=== PATIENT | male | born 1975 | race Caucasian/White ===

== ENCOUNTER 2016-07-24 06:36 | Day surgery (SDC) | payer OTHER ==
--- NOTE | 2016-07-18 10:30 | HISTORY AND PHYSICAL E ---
History and Physical NAME: AR VILLEGAS : 1975 AGE: 41Y ADMITTED: 07/24/2016 ROOM: REFERRING PHYSICIAN: [facility] CHIEF COMPLAINT: Colon screening. HISTORY: This 41-year-old male presented with history of diverticulosis, history of choking, abdominal pain, bloating, hemorrhoids, rectal pain. SOCIAL HISTORY: Single. Does not smoke. Drinks rarely. PAST SURGICAL HISTORY: 1. Keren fundoplication. 2. EGD in 2001. 3. Hiatus hernia. REVIEW OF SYSTEMS: HEENT: Negative. RESPIRATORY: Sleep apnea, CPAP. CARDIAC: Negative. ENDOCRINE: Hypothyroid. GASTROINTESTINAL: Colon screening, abdominal pain. ONCOLOGY/HEMATOLOGY: History of HIV positive. NEUROPSYCH: PTSD. FAMILY HISTORY: Father is alive. Mom is alive. PHYSICAL EXAMINATION: VITAL SIGNS: Blood pressure is 130/80, pulse 80, respirations 20, temp 98. HEENT: Normal. NECK: Supple. LUNGS: Clear. ABDOMEN: Soft. NEUROLOGIC: Negative. MEDICATIONS: The patient takes the following medications: 1. Omeprazole. 2. Phenergan. 3. Mineral oil enemas. 4. Tramadol. 5. Zyrtec. 6. Promethazine. 7. Advair. 8. Synthroid. 9. Mericitabine. 10. Diazepam. 11. Atazanavir. CONCLUSIONS: 1. Abdominal pain. 2. Diverticulosis. 3. History of HIV. PLAN: Colon screening. DICTATING PHYSICIAN: PEDRO CORONA M.D. [id number] PHY#: [id number] ID: [id number] JOB#: [id number] ACCT: [id number] cc:PEDRO CORONA M.D. >
--- NOTE | 2016-07-20 11:05 | EKG REPORT ---
SEVERITY:- NORMAL ECG - SINUS RHYTHM : Confirmed by: Guadalupe Jackson MD 20-Jul-2016 11:04:31
[2016-07-20 12:00] LABS: HEMATOCRIT 41.4 % (37.9-51.0); HEMOGLOBIN 14.3 g/dL (13.5-17.0); HGB HCT DIFFERENCE 1.5; MEAN CORPUSCULAR HEMOGLOBIN 30.9 pg (27.0-33.4); MEAN CORPUSCULAR HGB CONC 34.5 g/dL (32.0-36.0); MEAN CORPUSCULAR VOLUME 90 fl (80-97); RED BLOOD COUNT 4.61 10^6/uL (4.35-5.55); RED CELL DISTRIBUTION WIDTH 12.7 % (11.5-14.0); WHITE BLOOD COUNT 8.3 10^3/uL (4.0-10.5)
[2016-07-20 12:35] LABS: ANION GAP 10 (5-19); BLOOD UREA NITROGEN 13 mg/dL (7-20); CALCIUM 9.4 mg/dL (8.4-10.2); CARBON DIOXIDE 30 mmol/L (22-30); CHLORIDE 101 mmol/L (98-107); CREATININE RESULT 1.27 mg/dL (0.52-1.25); GLUCOSE 118 mg/dL (75-110); POTASSIUM 4.1 mmol/L (3.6-5.0); SODIUM 140.5 mmol/L (137-145)
[~2016-07-24 06:36] MED LIST: LACTATED RINGERS 1000 ML IV PRN; LIDOCAINE 0.5% INJ-PF (5 MG/ML) 50 ML SDV SUBCUT PRN
[2016-07-24] MEDS ORDERED: MIDAZOLAM 2 MG/2 ML INJ ONE (07:17)
[2016-07-24] MEDS ORDERED: LIDOCAINE 2% INJ-PF (20 MG/ML) 10 ML AMPUL ONE (07:17)
[2016-07-24] MEDS ORDERED: FENTANYL CITRATE INJ/PF 100 MCG/2 ML AMPUL ONE (07:17)
[2016-07-24] MEDS ORDERED: PROPOFOL INJ 200 MG/20 ML VIAL IV ONE (07:18)
[2016-07-24] MEDS ORDERED: LIDOCAINE 2% JELLY 30 ML TUBE ONE (07:34)
[2016-07-24] MEDS ORDERED: GLUCAGON,HUMAN RECOMB 1 MG INJ ONE (07:34)
[2016-07-24] MEDS ORDERED: MORPHINE SULFATE 10 MG/ML INJ IV PRN (09:08)
[2016-07-24] MEDS ORDERED: ONDANSETRON HCL INJ/PF 4 MG/2 ML SDV IV PRN (09:08)
[2016-07-24] MEDS ORDERED: MEPERIDINE HCL/PF INJ 25 MG/1 ML DISP.SYRIN IV PRN (09:08)
[2016-07-24] MEDS ORDERED: FENTANYL CITRATE INJ/PF 100 MCG/2 ML AMPUL IV PRN ×3 (09:08)
[2016-07-24] MEDS ORDERED: OXYCODONE-ACETAMINOPHEN 5-325 MG TABLET PO PRN ×2 (09:08)
[2016-07-24] MEDS ORDERED: DIPHENHYDRAMINE HCL 50 MG/ML VIAL IV PRN (09:08)
[2016-07-24] MEDS ORDERED: PROMETHAZINE HCL INJ 25 MG/1 ML VIAL IV PRN ×3 (09:08→09:47)
[2016-07-24] MEDS ORDERED: ONDANSETRON HCL INJ/PF 4 MG/2 ML SDV ONE (09:36)
[2016-07-24] MEDS ORDERED: LIDOCAINE 2% VISCOUS SOLN 20 ML UDCUP MM PRN (09:47)
[2016-07-24] MEDS ORDERED: ACETAMINOPHEN 325 MG TABLET PO PRN (09:47)
[2016-07-24] MEDS ORDERED: SIMETHICONE 80 MG TAB.CHEW PO PRN (09:48)
[2016-07-24 11:28] VITALS: BP 112/78
--- NOTE | 2016-07-24 11:33 | HISTORY AND PHYSICAL E ---
History and Physical NAME: AR VILLEGAS : 1975 AGE: 41Y ADMITTED: 07/24/2016 ROOM: HISTORY OF PRESENT ILLNESS: The patient is a 41-year-old referred to us by the [place] regarding vomiting, choking, history of Keren fundoplication. History of diverticulosis, diverticulitis. The patient has been to [facility]. The MRI was consistent with diverticulitis. The patient was treated with antibiotics. The patient is on treatment for HIV and he is negative for the virus at this time. History of hemorrhoids. PAST SURGICAL HISTORY: Keren fundoplication in 2001. SOCIAL HISTORY: The patient is single. FAMILY HISTORY: Father is alive. Mom is alive. MEDICATIONS: The patient takes the followin. Citalopram. 2. Atazanavir 1 tablet 300 mg. 3. Diazepam. 4. Emtricitabine. 5. Synthroid. 6. Advil. 7. Promethazine. 8. Zyrtec. 9. Tramadol. 10. Vitamin D. 11. Mineral oil enemas. 12. Omeprazole. REVIEW OF SYSTEMS: HEAD, EYES, EARS, NOSE, THROAT: Sinuses. RESPIRATORY: CPAP - sleep apnea. CARDIAC: Enlarged heart. ENDOCRINE: Hypothyroid. GASTROINTESTINAL: Colon screening. Abdominal pain. Keren fundoplication. ONCOLOGIC/HEMATOLOGIC: HIV positive. NEUROPSYCHIATRIC: PTSD. PHYSICAL EXAMINATION: GENERAL: Pleasant, alert, oriented 40-year-old male, weight 330. VITAL SIGNS: Blood pressure is 130/80, pulse 80, respirations 18, temp is 98. HEAD, EYES, EARS, NOSE, THROAT: Normal. ABDOMEN: Soft. NEUROLOGIC: Exam negative. CONCLUSION: 1. Hemorrhoids. 2. Rectal bleeding. 3. Keren fundoplication. PLAN: Arrange for colonoscopy to be done in the OR. The patient needs to have barium swallow for evaluation of Keren fundoplication, upper GI. Later on, he may need upper endoscopy. As for now, we will schedule for a colonoscopy on 07/18. DICTATING PHYSICIAN: PEDRO CORONA M.D. [id number] PHY#: [id number] ID: [id number] JOB#: [id number] ACCT: [id number] cc:[facility] PEDRO CORONA M.D. >
--- NOTE | 2016-07-24 11:36 | OPERATIVE REPORT E ---
Operative Report NAME: AR VILLEGAS : 1975 AGE: 41Y DATE OF SURGERY: 07/21/2016 ROOM: PREOPERATIVE DIAGNOSES: 1. COLON SCREENING. 2. DIVERTICULOSIS. POSTOPERATIVE DIAGNOSIS: SIGMOID DESCENDING DIVERTICULOSIS. OPERATION: Colonoscopy. SURGEON: PEDRO CORONA M.D. ANESTHESIA: Done in the OR with anesthesia standby. TISSUE REMOVED OR ALTERED: None. PROCEDURE: Rectal exam; normal. Sigmoid descending colon; diverticulosis. Large amount of stool. Transverse colon; normal. Ascending colon; normal. Cecum; normal. Scope withdrawn cecum, ascending, transverse, descending, sigmoid all the way to the rectum. The patient has moderate to large amount of liquidy to full liquid stool in the sigmoid descending colon, transverse colon. Prep was inadequate. I did the best I could, I just could not see the mucosa 100% because of thick layer of full liquid stool in the descending. I did not see polyps on today's exam. Rectal exam; retroflexed position looks normal. Sigmoid descending colon; diverticulosis. Large amount of full liquid stool. Transverse colon; normal. Ascending and cecum; normal. Scope withdrawn cecum, ascending, transverse, descending, sigmoid all the way to the rectum. CONCLUSIONS: Sigmoid descending colon diverticulosis. DISCHARGE PLAN: Consider followup colonoscopy 1 year with better prep to be done in the OR. FINDINGS: 1. No polyps. 2. Inadequate prep. 3. Sigmoid descending colon diverticulosis. Consider followup colonoscopy in OR with better prep. DICTATING PHYSICIAN: PEDRO OCRONA M.D. [id number] PHY#: [id number] ID: [id number] JOB#: [id number] ACCT: [id number] cc:[facility], PEDRO CORONA M.D. >
--- NOTE | 2016-07-24 11:39 | DISCHARGE SUMMARY E ---
Discharge Summary NAME: AR VILLEGAS : 1975 AGE: 41Y ADMITTED: 07/24/2016 DISCHARGED: 07/21/2016 PROCEDURE: Colonoscopy. HISTORY: The patient is a 41-year-old male referred to us by [facility] regarding colon screening, history of diverticulosis, history of polyps. Today's colonoscopy completed to the cecum. I saw no polyps, sigmoid descending colon diverticulosis, inadequate prep. DISCHARGE PLAN: Soft diet today. Continue all medications. Consideration for followup colonoscopy in 3 years. Followup office visit in the next few days. Consideration followup colonoscopy in 1 year in the OR with anesthesia standby. DICTATING PHYSICIAN: PEDRO CORONA M.D. [id number] PHY#: [id number] ID: [id number] JOB#: [id number] ACCT: [id number] cc:[facility], PEDRO CORONA M.D. >
== END 2016-07-24 11:20 | disposition home or self-care (01) ==
LOC: OROUT 06:36
PROVIDERS: ATTEND Specialist
PROC: 0DJD8ZZ Inspection of Lower Intestinal Tract, Via Natural or Artificial Opening Endoscopic (ICD-10-PCS; principal; 2016-07-24 09:00)
DX: K57.30 Diverticulosis of large intestine without perforation or abscess without bleeding (principal); I10 Essential (primary) hypertension; E66.9 Obesity, unspecified; I51.7 Cardiomegaly; E03.9 Hypothyroidism, unspecified; K62.5 Hemorrhage of anus and rectum; Z21 Asymptomatic human immunodeficiency virus [HIV] infection status; G47.33 Obstructive sleep apnea (adult) (pediatric); Z68.42 Body mass index [BMI] 45.0-49.9, adult; Z79.899 Other long term (current) drug therapy; Z79.51 Long term (current) use of inhaled steroids
CPT/HCPCS: 45378; 93005; 36415; 85027; 80048; 93010; J2250; J1610; J2405; J2704; J3490; 810; J3010

== ENCOUNTER 2017-11-08 07:21 | Day surgery (SDC) | payer OTHER ==
[2017-11-08] MEDS ORDERED: ONDANSETRON HCL INJ/PF 4 MG/2 ML SDV ONE ×2 (07:46→07:47)
[2017-11-08] MEDS ORDERED: DIPHENHYDRAMINE HCL 50 MG/ML VIAL ONE (07:47)
[2017-11-08] MEDS ORDERED: FENTANYL CITRATE INJ/PF 100 MCG/2 ML AMPUL ONE (07:47)
[2017-11-08] MEDS ORDERED: EPINEPHRINE INJ 1 MG/10 ML DISP.SYRIN ONE (07:48)
[2017-11-08] MEDS ORDERED: FLUMAZENIL INJ 0.5 MG/5 ML VIAL ONE (07:48)
[2017-11-08] MEDS ORDERED: NALOXONE HCL INJ/PF 0.4 MG/1 ML SDV ONE (07:48)
[2017-11-08] MEDS ORDERED: GLUCAGON,HUMAN RECOMB 1 MG INJ ONE (07:48)
[2017-11-08] MEDS: MIDAZOLAM 2 MG/2 ML INJ ONE ×2 (08:01→08:05)
--- NOTE | 2017-11-08 08:19 | Operative Report ---
Operative Report DATE OF SURGERY: 11/08/17 Operative Report: The risks benefits and alternatives of the procedure explained to the patient in detail and informed consent is obtained.A GIF Olympus video scope was inserted into the patient's mouth and hypopharynx, the esophagus is identified intubated and insufflated, the scope was then advanced through the esophagus stomach and duodenum, retroflexion maneuver is done, the esophagus stomach and first and second portions of the duodenum examined PREOPERATIVE DIAGNOSIS: Globus, epigastric pain, gastroesophageal reflux disease POSTOPERATIVE DIAGNOSIS: Hiatal hernia. Schatzki's ring status post biopsy and breakage. Gastritis status post biopsy rule out Helicobacter pylori OPERATION: EGD with biopsy SURGEON: DEDRICK GALAN ANESTHESIA: Moderate Sedation - 4 mg of Versed, 50 mcg of fentanyl. Conscious sedation monitoring time 30 minutes. TISSUE REMOVED OR ALTERED: As noted above. COMPLICATIONS: None. ESTIMATED BLOOD LOSS: None. INTRAOPERATIVE FINDINGS: As noted above. PROCEDURE: Patient tolerated the procedure well. No immediate postprocedure complications are noted. Patient discharged in good condition. Discharge date 11/08/2017. Discharge diet: Regular. Discharge activity: Regular. 2-3-week follow-up to discuss findings. Patient is instructed call the office or proceed to the emergency room should there be any further problems or questions. Wait on the pathology.
[2017-11-08 09:20] VITALS: BP 139/70
== END 2017-11-08 09:20 | disposition home or self-care (01) ==
LOC: END 07:21
PROVIDERS: ATTEND Internal Medicine Gastroenterology
DX: K21.0 Gastro-esophageal reflux disease with esophagitis (principal); K44.9 Diaphragmatic hernia without obstruction or gangrene; K22.2 Esophageal obstruction; K29.50 Unspecified chronic gastritis without bleeding; E03.9 Hypothyroidism, unspecified; I10 Essential (primary) hypertension; M19.90 Unspecified osteoarthritis, unspecified site; Z21 Asymptomatic human immunodeficiency virus [HIV] infection status; G47.30 Sleep apnea, unspecified; E83.51 Hypocalcemia; G62.9 Polyneuropathy, unspecified; Z79.899 Other long term (current) drug therapy
CPT/HCPCS: 43239; 88305 ×2; J2250; J3010; J2405; J0171; J1200; J1610; J2310; J3490

== ENCOUNTER 2018-02-18 21:30 | Inpatient (IN) | payer OTHER ==
[2018-02-18] MEDS ORDERED: NORMAL SALINE 1000 ML 1,000 ML IV ONE ×2 (22:35→23:04)
--- NOTE | 2018-02-18 22:39 | ER Document Report ---
ED General <JAMIE STAPLETON - Last Filed: 02/19/18 02:49> - General TRAVEL OUTSIDE OF THE [place] IN LAST 30 DAYS: No <KURTIS RAMOS - Last Filed: 02/19/18 03:27> - General Chief Complaint: Cough Stated Complaint: FEVER/NAUSEA Time Seen by Provider: 02/18/18 22:27 Notes: Patient is a 42-year-old male with a history of hypertension, HIV (viral load undetectable on medications), obesity, MAGDALENA that comes to the emergency department for chief complaint of worsening sick symptoms. He states for the past 2 weeks he has had a cough, congestion, and was diagnosed with bronchitis. He completed a course of azithromycin about 3 days ago. He states over the past several days he has felt increasingly worse, he felt like he was running fevers at home over the past 24 hours, he has had increased cough and shortness of breath. He states he has had several episodes of vomiting as well. He has had the influenza vaccine, had negative influenza testing already. He denies sm oking. He does have a history of asthma. (KURTIS RAMOS) - Related Data Allergies/Adverse Reactions: seasonal Allergy (Severe, Uncoded 11/08/17 07:27) Rhinitis Past Medical History - General Information source: Patient - Social History Smoking Status: Never Smoker Lives with: Friend Family History: Reviewed & Not Pertinent Patient has suicidal ideation: No Patient has homicidal ideation: No - Past Medical History Cardiac Medical History: Reports: Hx Hypertension Denies: Hx Coronary Artery Disease, Hx Heart Attack Pulmonary Medical History: Denies: Hx Asthma, Hx Bronchitis, Hx COPD, Hx Pneumonia Neurological Medical History: Denies: Hx Cerebrovascular Accident, Hx Seizures Renal/ Medical History: Denies: Hx Peritoneal Dialysis Musculoskeletal Medical History: Denies Hx Arthritis Infectious Medical History: Reports: Hx HIV - Immunizations Hx Diphtheria, Pertussis, Tetanus Vaccination: Yes <KURTIS RAMOS - Last Filed: 02/19/18 03:27> Review of Systems - Review of Systems Constitutional: See HPI EENT: No symptoms reported Cardiovascular: No symptoms reported Respiratory: See HPI Gastrointestinal: No symptoms reported Genitourinary: No symptoms reported Male Genitourinary: No symptoms reported Musculoskeletal: No symptoms reported Skin: No symptoms reported Hematologic/Lymphatic: No symptoms reported Neurological/Psychological: No symptoms reported <KURTIS RAMOS - Last Filed: 02/19/18 03:27> Physical Exam <KURTIS RAMOS - Last Filed: 02/19/18 03:27> - Vital signs Vitals: Temp Pulse Resp BP Pulse Ox 99.7 F 128 H 22 H 96/52 L 95 02/18/18 22:06 02/18/18 22:06 02/18/18 22:06 02/18/18 22:06 02/18/18 22:06 - Notes Notes: GENERAL: Alert, interacts well. HEAD: Normocephalic, atraumatic. EYES: Pupils equal, round, and reactive to light. Extraocular movements intact. ENT: Oral mucosa dry, tongue midline. Oropharynx unremarkable. Airway patent. Nares patent, no nasal septal hematoma, TM's intact. NECK: Full range of motion. Supple. Trachea midline. LUNGS: A few coarse breath sounds bilaterally, no wheezes, rales, or rhonchi. Borderline tachypnea. Talks in complete sentences. HEART: Tachycardia, normal rhythm, no murmur. ABDOMEN: Soft, non-tender. Bowel sounds present in all 4 quadrants. GENITOURINARY: Deferred EXTREMITIES: Moves all 4 extremities spontaneously. No edema, normal radial and dorsalis pedis pulses bilaterally. No cyanosis. BACK: no cervical, thoracic, lumbar midline tenderness. No saddle anesthesia, normal distal neurovascular exam. NEUROLOGICAL: Alert and oriented x3. Normal speech. [cranial nerves II through XII grossly intact]. PSYCH: Normal affect, normal mood. SKIN: Warm, flushed (RICHARDKURTIS) Course - Laboratory Result Diagrams: 02/18/18 22:23 02/18/18 22:23 <JAMIE STAPLETON - Last Filed: 02/19/18 02:49> - Laboratory Result Diagrams: 02/18/18 22:23 02/18/18 22:23 <KURTIS RAMOS - Last Filed: 02/19/18 03:27> - Re-evaluation Re-evalutation: 02/19/18 02:49 I evaluated the patient as well. Patient's blood pressure is improved on the levofed. I suspect that the patient probably he has influenza as he has symptoms very consistent with flu. I know his flu testing here is negative; however, have had false negative flu tests at times. I therefore recommend treating him with Tamiflu. He says he is very compliant with his HIV medications. He tells me that his viral load is nondetectable and that his CD4 counts are good. This in conjunction with the fact that he is not confused or altered in any way makes toxoplasmosis or any form of encephalitic infection unlikely. Patient has full range of motion of his neck and is not confused and has no neck tenderness and therefore I think meningitis is highly unlikely. C hest x-ray shows no pneumonia. I do suspect influenza; however, being that the patient does not have blood culture results as of yet and we do not have a 100% confirmed source on lab results I feel it is appropriate to cover him with broad-spectrum antibiotics as [facility] has already initiated. [facility] initially tried to admit the patient here but the hospitalist, Dr. Lee, initially refused saying that we do not have infectious disease or ICU beds; however, we do have infectious disease consulting ability during the daytime. We talked to the patient and he says the only other place that he would want to go is [place]. We did call [facility] in [place] per patient request and they do not have any bed availability. At this time I see no other reason why we cannot keep the patient here as we do have the ability to consult infectious disease and other facilities have shown that they are also on the delay in full. I therefore called back Dr. Lee informed him that from an EMTALA standpoint I do not have a good reason to transfer the patient being that we do have the ability to consult infectious disease. He now agrees to come see the patient and evaluate for admission. Dictation of this chart was performed using voice recognition software; therefore, there may be some unintended grammatical errors. 02/19/18 02:54 (JAMIE STAPLETON) Patient on initial evaluation is ill-appearing, tachycardic, flushed, has frequent cough. Started initial 2 L fluid bolus, Toradol, we will closely reevaluate. Patient's blood pressure initially improved, however after 2 L of fluid bolus he is now back into the 80s systolic. Giving 1 more. Lactic acid 2.9. CBC is generally unremarkable with no leukocytosis or concerning shift. Chemistry unremarkable. Chest x-ray does not show any obvious pneumonia. Influenza test is negative. Patient is persistently tachycardic. 02/19/18 01:40 Patient has now had more than 30 minutes of map less than 65 despite 3 L fluid bolus. I discussed with patient, he does agree to have central line placed. Because of patient's large neck and difficult body habitus this will be placed in the femoral area. Discussed with Dr. Stapleton. I placed a central line in the femoral area (patient has a very difficult neck to access). Patient was started on levophed. Blood pressure significantly improved on pressor. Patient with no current complaints except for nausea after being given Tamiflu. He was given Tamiflu because of patient's viral-like symptoms and high suspicion despite negative flu test. Discussed with Dr. Lee. Concerns we do not have ID fusion operator. Called and spoke with the [facility], they do not have any available beds at this time, they have a long waiting list. Attempted to speak with [place], stayed on hold for 20 minutes, called trauma line and they state their phone lines are being worked on tonight. Unable to speak to transfer center even though trauma line attempted to bypass, remained on hold for 10 more minutes. Discussed again with Dr. Stapleton. We do have ID available for day consult. Discussed with patient. He is in agreement with either admission or transfer. (KURTIS RAMOS) - Vital Signs Vital signs: Temp Pulse Resp BP Pulse Ox 98.6 F 128 H 23 H 113/67 97 02/19/18 02:58 02/18/18 22:06 02/19/18 02:52 02/19/18 02:52 02/19/18 02:52 - Laboratory Laboratory results interpreted by la: 02/18/18 02/18/18 02/18/18 22:23 22:23 22:23 RBC 4.24 L Hgb 13.1 L Hct 37.8 L RDW 14.8 H Monocytes % (Manual) 16 H Abs Monocytes (Manual) 1.6 H Sodium 136.7 L Glucose 133 H Lactic Acid 2.9 H Total Bilirubin 2.8 H ALT 98 H Total Protein 6.1 L Urine Urobilinogen Urine Ascorbic Acid 02/18/18 23:00 RBC Hgb Hct RDW Monocytes % (Manual) Abs Monocytes (Manual) Sodium Glucose Lactic Acid Total Bilirubin ALT Total Protein Urine Urobilinogen 2.0 H Urine Ascorbic Acid 40 H Procedures - Central Line left femoral Consent obtained: Yes - verbal, discussed pros and cons in detail Central line pre-insertion: Sterile PPE donned, Betadine prep applied, Sterile drapes applied Central line lumen type: Triple Anesthetic type: 1% Lidocaine mL's of anesthesia: 5 Ultrasound guided: Yes Line secured with sutures: Yes Central line post-insertion: Blood return from lumens, Biopatch applied, Sutured, Sterile dressing applied Number of attempts: 1 Complications: No <KURTIS RAMOS - Last Filed: 02/19/18 03:27> Critical Care Note - Critical Care Note Total time excluding time spent on procedures (mins): 40 - septic shock <KURTIS RAMOS - Last Filed: 02/19/18 03:27> - Critical Care Note Comments: Please allow 40 minutes of critical care time excluding time spent on procedures for management of patient with septic shock. Time spent in laboratory interpretation, IV fluid resuscitation, broad-spectrum antibiotics applied, multiple re-evaluations due to tachycardia and hypotension, discussions at bedside, considerations of transfer, consultation and admission to the ICU. (KURTIS RAMOS) Discharge <JAMIE STAPLETON - Last Filed: 02/19/18 02:49> - Discharge Admitting Provider: Hospitalist Unit Admitted: ICU <KURTIS RAMOS - Last Filed: 02/19/18 03:27> - Discharge Clinical Impression: Cough, Tachycardia Fever Qualifiers: Fever type: unspecified Qualified Code(s): R50.9 - Fever, unspecified Hypotension Qualifiers: Hypotension type: unspecified hypotension type Qualified Code(s): I95.9 - Hypotension, unspecified Condition: Fair Disposition: ADMITTED INPATIENT
[2018-02-18 22:57] LABS: VENOUS BLOOD BASE EXCESS 3.7 mmol/L; VENOUS BLOOD HCO3 29.5 mmol/L (20-32); VENOUS BLOOD PH 7.42 (7.30-7.42)
[2018-02-18 22:58] LABS: HEMATOCRIT 37.8 % (37.9-51.0); HEMOGLOBIN 13.1 g/dL (13.5-17.0); MEAN CORPUSCULAR HEMOGLOBIN 30.9 pg (27.0-33.4); MEAN CORPUSCULAR HGB CONC 34.6 g/dL (32.0-36.0); MEAN CORPUSCULAR VOLUME 89 fl (80-97); PLATELET COUNT 219 10^3/uL (150-450); RED BLOOD COUNT 4.24 10^6/uL (4.35-5.55); RED CELL DISTRIBUTION WIDTH 14.8 % (11.5-14.0); WHITE BLOOD COUNT 9.8 10^3/uL (4.0-10.5)
--- NOTE | 2018-02-18 23:00 | RADIOLOGY REPORT (SQ) ---
EXAM DESCRIPTION: XR CHEST 1 VIEW COMPLETED DATE/TME: 02/18/2018 22:33 CLINICAL HISTORY: 42 years, Male, productive cough, fevers COMPARISON: None. NUMBER OF VIEWS: 1 TECHNIQUE: Upright portable chest LIMITATIONS: None. FINDINGS: Cardiomegaly. Lungs are clear. No pneumothorax IMPRESSION: Cardiomegaly. Lungs are clear copyright 2011 [employer]- All Rights Reserved
[2018-02-18 23:06] LABS: ALANINE AMINOTRANSFERASE 98 U/L (21-72); ALBUMIN 3.9 g/dL (3.5-5.0); ALKALINE PHOSPHATASE 54 U/L (38-126); ANION GAP 12 (5-19); ASPARTATE AMINO TRANSFERASE 54 U/L (17-59); BILIRUBIN,DIRECT 0.2 mg/dL (0.0-0.4); BILIRUBIN,TOTAL 2.8 mg/dL (0.2-1.3); BLOOD UREA NITROGEN 8 mg/dL (7-20); CALCIUM 9.3 mg/dL (8.4-10.2); CARBON DIOXIDE 27 mmol/L (22-30); CHLORIDE 98 mmol/L (98-107); GLUCOSE 133 mg/dL (75-110); POTASSIUM 3.6 mmol/L (3.6-5.0); SODIUM 136.7 mmol/L (137-145); TOTAL PROTEIN 6.1 g/dL (6.3-8.2)
[2018-02-18 23:09] LABS: APPEARANCE,URINE SLIGHTLY-CLOUDY; BILIRUBIN,URINE NEGATIVE (NEGATIVE); COLOR,URINE YELLOW; GLUCOSE, URINE NEGATIVE (NEGATIVE); KETONES,URINE NEGATIVE (NEGATIVE); LEUKOCYTE ESTERASE,URINE NEGATIVE (NEGATIVE); NITRITE,URINE NEGATIVE (NEGATIVE); PROTEIN,URINE NEGATIVE (NEGATIVE); URINE SPECIFIC GRAVITY 1.019
[2018-02-18 23:13] LABS: ABSOLUTE LYMPHOCYTES# (MANUAL) 2.5 10^3/uL (0.5-4.7); ABSOLUTE MONOCYTES # (MANUAL) 1.6 10^3/uL (0.1-1.4); ABSOLUTE NEUTROPHILS# (MANUAL) 5.8 10^3/uL (1.7-8.2); ANISOCYTOSIS SLIGHT; BASOPHILS % (MANUAL) 0 % (0-2); EOSINOPHILS % (MANUAL) 0 % (0-6); LYMPHOCYTES % (MANUAL) 25 % (13-45); MONOCYTES % (MANUAL) 16 % (3-13); PLATELET COMMENT ADEQUATE; SEGMENTED NEUTROPHILS % (MAN) 59 % (42-78); TOTAL CELLS COUNTED 100; TOXIC GRANULATION SLIGHT
[2018-02-18] MEDS ORDERED: KETOROLAC TROMETHAMINE INJ/PF 30 MG/1 ML SDV IV ONE (23:24)
[2018-02-18 23:26] LABS: A TYPE INFLUENZA AG NEGATIVE (NEGATIVE); B INFLUENZA AG NEGATIVE (NEGATIVE)
[2018-02-19] MEDS ORDERED: NORMAL SALINE 1000 ML 1,000 ML IV ONE (00:13)
[2018-02-19] MEDS ORDERED: VANCOMYCIN HCL INJ 1000 MG VIAL IV ONE (00:25)
[2018-02-19] MEDS ORDERED: CEFEPIME 2 GM/D5W RTU 2 GM/50 ML RTUPB IV ONE (00:25)
[2018-02-19] MEDS ORDERED: OSELTAMIVIR PHOSPHATE 75 MG CAPSULE PO ONE (00:59)
[2018-02-19] MEDS ORDERED: DEXTROSE 5%-WATER 250 ML with NOREPINEPHRINE BITARTRATE 4 MG IV PRN ×2 (01:40)
[2018-02-19] MEDS ORDERED: NOREPINEPHRINE BITARTRATE INJ/PF 4 MG/4 ML SDV IV ONE (01:47)
[2018-02-19] MEDS ORDERED: ONDANSETRON HCL INJ/PF 4 MG/2 ML SDV IV ONE (01:57)
[2018-02-19] MEDS ORDERED: ONDANSETRON 4 MG TAB.RAPDIS PO PRN (02:52)
[2018-02-19] MEDS ORDERED: MAGNESIUM HYDROXIDE SUSP 30 ML UDCUP PO PRN (02:52)
[2018-02-19] MEDS ORDERED: MAG HYDROX/AL HYDROX/SIMETH SUSP 30 ML UDCUP PO PRN (02:52)
[2018-02-19] MEDS ORDERED: MORPHINE SULFATE 10 MG/ML INJ IV PRN ×4 (03:05→10:25)
[2018-02-19] MEDS ORDERED: ACETAMINOPHEN 650 MG SUPP.RECT PR PRN (03:05)
[2018-02-19] MEDS ORDERED: VANCOMYCIN HCL INJ 1000 MG VIAL IV SCH (03:15)
[2018-02-19] MEDS ORDERED: PIPERACILLIN/TAZOBACTAM 3.375 GM VIAL IV SCH (03:15)
--- NOTE | 2018-02-19 04:22 | PDOC H&P ---
History of Present Illness Admission Date/PCP: 02/19/18 02:53 Patient complains of: Fever History of Present Illness: RA VILLEGAS is a 42 year old male who presented to the emergency room with a 1-2 day history of fever. He admits that for 2 weeks he has been having upper respiratory symptoms of cough with congestion and was subsequently tested for influenza which was negative and he was treated for bronchitis with a course of a azithromycin. He admits that despite treatment his cough is gotten progressively worse and he has developed increasing dyspnea. He is started having a fever at home 1-2 days ago and he has also had several episodes of posttussive emesis. He is concerned about the fever and feels that it is severe and is most concerned about it in light of his history of HIV. He admits prior similar episodes associated with upper respiratory infections and denies any identified aggravating or ameliorating factors for his symptoms. In the emergency room he was found to have a normal white blood count, and unremarkable pulmonary evaluation on chest x-ray, an initial temperature of 99.7 F with a modest tachycardia of 102. He was noted to develop significant hypotension with a blood pressure in the 80s over 40s and was started on Levophed for pressure support. Because of the complexity of this patient's history and significant risk of severe sepsis given his presentation my recommendation was to transfer this patient to a tertiary facility that could best evaluate and manage his probable sepsis of unknown origin. I was contacted by an emergency department physician who told me that the only place that the patient would consent to being transferred was [facility] in [facility] and they were on diversion at this time. Due to this difficulty I consented to admit the patient to ICU services (no ICU beds are available) patient can have his care initiated and if necessary he can be transferred to a tertiary facility. Past Medical History Cardiac Medical History: Reports: Hypertension Denies: Coronary Artery Disease, Myocardial Infarction Pulmonary Medical History: Denies: Asthma, Bronchitis, Chronic Obstructive Pulmonary Disease (COPD), Pneumonia EENT Medical History: Reports: None Neurological Medical History: Denies: Multiple Sclerosis, Seizures Endocrine Medical History: Reports: Hypothyroidism Denies: Diabetes Mellitus Type 1, Diabetes Mellitus Type 2, Hyperthyroidism Renal/ Medical History: Denies: Chronic Kidney Disease, Nephrolithiasis Malignancy Medical History: Reports: None GI Medical History: Reports: Gastroesophageal Reflux Disease, Hiatal Hernia Denies: Cirrhosis, Crohn's Disease, Hepatitis, Ulcerative Colitis Musculoskeltal Medical History: Denies: Arthritis, Gout Skin Medical History: Reports: Other - Chronic recurrent rash right ankle Denies: Eczema, Psoriasis Psychiatric Medical History: Denies: Alcohol Dependency, Substance Abuse, Tobacco Dependency Traumatic Medical History: Reports: None Hematology: Denies: Anemia, Bleeding Tendencies Infectious Medical History: Reports: HIV Past Surgical History Past Surgical History: Reports: Other - Brice fundoplication Social History Information Source: Patient Smoking Status: Never Smoker Frequency of Alcohol Use: Rare Hx Recreational Drug Use: No Drugs: None Hx Prescription Drug Abuse: No - Advance Directive Resuscitation Status: Full Code Surrogate healthcare decision maker:: James Miah Family History Family History: DM. denies: CAD, Hypertension, Malignancy Parental Family History Reviewed: Yes Children Family History Reviewed: No Sibling(s) Family History Reviewed.: Yes Medication/Allergy Home Medications: Atazanavir Sulfate [Reyataz 300 mg Capsule] 300 mg PO DAILY 07/20/16 Ergocalciferol (Vitamin D2) [Vitamin D] 400 unit PO DAILY 07/20/16 Emtricitabine [Emtriva] 200 mg PO DAILY 11/07/17 Levothyroxine Sodium [Synthroid 0.15 mg Tablet] 1 tab PO DAILY 11/07/17 Lisinopril/Hydrochlorothiazide [Lisinopril-Hctz 20-25 mg Tab] 1 tab PO DAILY 11/07/17 Methocarbamol [Robaxin] 1 tab PO BID PRN 11/07/17 Metoprolol Tartrate 50 mg PO DAILY 11/07/17 Potassium Chloride 1 tab PO DAILY 11/07/17 Ranitidine HCl 1 tab PO DAILY 11/07/17 Tenofovir Alafenamide Fumarate [Vemlidy] 25 mg PO DAILY 11/07/17 Allergies/Adverse Reactions: seasonal Allergy (Severe, Uncoded 11/08/17 07:27) Rhinitis Review of Systems Constitutional: PRESENT: as per HPI, fever(s). ABSENT: chills Eyes: ABSENT: visual disturbances, other - Ocular pain Ears: PRESENT: other - Ear pain. ABSENT: hearing changes Nose, Mouth, and Throat: ABSENT: mouth pain, sore throat Cardiovascular: PRESENT: dyspnea on exertion. ABSENT: chest pain, palpitations Respiratory: PRESENT: cough, dyspnea. ABSENT: hemoptysis Gastrointestinal: PRESENT: nausea, vomiting. ABSENT: abdominal pain, constipation, diarrhea Genitourinary: ABSENT: dysuria, hematuria Musculoskeletal: ABSENT: deformity, joint swelling Integumentary: ABSENT: pruritus, rash Neurological: ABSENT: confusion, convulsions, memory loss, tremor(s) Psychiatric: ABSENT: anxiety, depression Endocrine: ABSENT: cold intolerance, heat intolerance Hematologic/Lymphatic: ABSENT: easy bleeding, easy bruising Physical Exam Vital Signs: Temp Pulse Resp BP Pulse Ox 98.6 F 128 H 23 H 113/67 97 02/19/18 02:58 02/18/18 22:06 02/19/18 02:52 02/19/18 02:52 02/19/18 02:52 Intake & Output 02/17/18 02/18/18 02/19/18 23:59 23:59 23:59 Intake Total 3050 Balance 3050 Weight 168.9 kg General appearance: PRESENT: no acute distress, cooperative, morbidly obese Head exam: PRESENT: atraumatic, normocephalic Eye exam: PRESENT: conjunctiva pink, EOMI. ABSENT: scleral icterus Ear exam: PRESENT: normal external ear exam. ABSENT: bleeding, drainage Mouth exam: PRESENT: dry mucosa, neck supple Neck exam: ABSENT: thyromegaly, tracheal deviation Respiratory exam: PRESENT: clear to auscultation joaquin, symmetrical, unlabored Cardiovascular exam: PRESENT: RRR. ABSENT: clicks, gallop, rubs Pulses: PRESENT: normal radial pulses, normal dorsalis pedis pul Vascular exam: PRESENT: normal capillary refill. ABSENT: pallor GI/Abdominal exam: PRESENT: normal bowel sounds, soft Rectal exam: PRESENT: deferred Extremities exam: ABSENT: joint swelling, pedal edema Musculoskeletal exam: ABSENT: deformity, dislocation Neurological exam: PRESENT: alert, oriented to person, oriented to place, oriented to time, oriented to situation, CN II-XII grossly intact. ABSENT: motor sensory deficit Psychiatric exam: PRESENT: appropriate affect, normal mood Skin exam: PRESENT: dry, intact, rash - Irregular circumform rash with central clearing noted on the right medial ankle area., warm. ABSENT: jaundice, urticaria Results Laboratory Results: 02/18/18 22:23 02/18/18 22:23 02/18/18 02/18/18 02/18/18 22:23 22:23 22:23 WBC 9.8 RBC 4.24 L Hgb 13.1 L Hct 37.8 L MCV 89 MCH 30.9 MCHC 34.6 RDW 14.8 H Plt Count 219 Seg Neutrophils % Not Reportable Lymphocytes % Not Reportable Monocytes % Not Reportable Eosinophils % Not Reportable Basophils % Not Reportable Absolute Neutrophils Not Reportable Absolute Lymphocytes Not Reportable Absolute Monocytes Not Reportable Absolute Eosinophils Not Reportable Absolute Basophils Not Reportable VBG pH VBG pCO2 VBG HCO3 VBG Base Excess Sodium 136.7 L Potassium 3.6 Chloride 98 Carbon Dioxide 27 Anion Gap 12 BUN 8 Creatinine 1.14 Est GFR ( Amer) > 60 Est GFR (Non-Af Amer) > 60 Glucose 133 H Lactic Acid 2.9 H Calcium 9.3 Total Bilirubin 2.8 H AST 54 ALT 98 H Alkaline Phosphatase 54 Total Protein 6.1 L Albumin 3.9 Urine Color Urine Appearance Urine pH Ur Specific [place] Urine Protein Urine Glucose (UA) Urine Ketones Urine Blood Urine Nitrite Ur Leukocyte Esterase Urine WBC (Auto) 02/18/18 02/18/18 02/19/18 22:23 23:00 02:35 WBC RBC Hgb Hct MCV MCH MCHC RDW Plt Count Seg Neutrophils % Lymphocytes % Monocytes % Eosinophils % Basophils % Absolute Neutrophils Absolute Lymphocytes Absolute Monocytes Absolute Eosinophils Absolute Basophils VBG pH 7.42 VBG pCO2 47.0 VBG HCO3 29.5 VBG Base Excess 3.7 Sodium Potassium Chloride Carbon Dioxide Anion Gap BUN Creatinine Est GFR ( Amer) Est GFR (Non-Af Amer) Glucose Lactic Acid 1.2 Calcium Total Bilirubin AST ALT Alkaline Phosphatase Total Protein Albumin Urine Color YELLOW Urine Appearance SLIGHTLY-CLOUDY Urine pH 5.0 Ur Specific [place] 1.019 Urine Protein NEGATIVE Urine Glucose (UA) NEGATIVE Urine Ketones NEGATIVE Urine Blood NEGATIVE Urine Nitrite NEGATIVE Ur Leukocyte Esterase NEGATIVE Urine WBC (Auto) 1 Impressions: Chest X-Ray 02/18/18 22:33 IMPRESSION: Cardiomegaly. Lungs are clear copyright 2011 [employer]- All Rights Reserved Assessment & Plan - Diagnosis (1) SIRS (systemic inflammatory response syndrome) Is this a current diagnosis for this admission?: Yes Plan: Patient is noted to have a fever with tachycardia and tachypnea as well as hypotension. Given his immunocompromised host status recommendation for transfer from the emergency room to a tertiary facility was made. The patient was accepted for admission after the tertiary facility of the patient's desire was on diversion and he could not be transferred. Patient's care can be initiated in this facility with phone consultation with infectious disease and if appropriate and necessary he can be transferred to a tertiary facility at a later time. Initial antibiotic therapy with Zosyn and vancomycin is undertaken. Daily CBC and basic metabolic profiles will be obtained to aid in evaluation of therapy. A repeat of the patient's elevated lactic acid will also be obtained. Will await input from infectious disease as to the course for further evaluating the possible etiology of the patient's fever and possible sepsis. (2) Morbid obesity with BMI of 50.0-59.9, adult Is this a current diagnosis for this admission?: Yes Plan: Patient is encouraged to consider weight loss to better improve his overall health. To this end recommendations for a dietary consult have been made. (3) Upper respiratory infection with cough and congestion Is this a current diagnosis for this admission?: Yes Plan: Patient is being treated with antibiotic therapy on empiric basis. This upper respiratory infection may be well be viral, however no chance can be taken in this immunocompromised host. (4) HIV (human immunodeficiency virus infection) Is this a current diagnosis for this admission?: Yes Plan: Patient will be continued on his current antiviral regimen for treatment of his HIV. (5) Tinea corporis Is this a current diagnosis for this admission?: Yes Plan: Lotrisone cream applied twice daily to rash area until resolved. - Time Time Spent: 30 to 50 Minutes Critical Time spent with patient: Less than 15 minutes Medications reviewed and adjusted accordingly: Yes - Inpatient Certification Based on my medical assessment, after consideration of the patient's comorbidities, presenting symptoms, or acuity I expect that the services needed warrant INPATIENT care.: Yes I certify that my determination is in accordance with my understanding of Medicare's requirements for reasonable and necessary INPATIENT services [42 CFR 412.3e].: Yes Medical Necessity: Significant Comorbidiites Make Outpatient Treatment Too Risky, Need Close Monitoring Due to Risk of Patient Decompensation, Need For IV Fluids, Need for IV Antibiotics, Risk of Complication if Not Cared For in Hospital
[2018-02-19] MEDS ORDERED: PIPERACILLIN/TAZOBACTAM 3.375 GM VIAL IV ONE (04:30)
[2018-02-19] MEDS: NORMAL SALINE 1000 ML 1,000 ML IV PRN ×5 (04:40→20:59)
[2018-02-19] MEDS: HEPARIN SOD (PORCINE) 5,000 UNIT/ML 1 ML SYRINGE SUBCUT SCH ×3 (05:34→22:00)
[2018-02-19] MEDS: ACETAMINOPHEN 325 MG TABLET PO PRN ×2 (05:51→17:24)
[2018-02-19] MEDS: DEXTROSE 5%-WATER 250 ML with NOREPINEPHRINE BITARTRATE 4 MG IV PRN ×4 (06:02→14:38)
--- NOTE | 2018-02-19 08:03 | EKG REPORT ---
SEVERITY:- BORDERLINE ECG - SINUS TACHYCARDIA BORDERLINE T ABNORMALITIES, INFERIOR LEADS : Confirmed by: Yonathan Merritt MD 19-Feb-2018 08:02:58
[2018-02-19 08:05] LABS: URINE AMPHETAMINES SCREEN NEGATIVE; URINE BARBITURATES SCREEN NEGATIVE; URINE BENZODIAZEPINES SCREEN NEGATIVE; URINE COCAINE SCREEN NEGATIVE; URINE MARIJUANA (THC) SCREEN NEGATIVE; URINE METHADONE SCREEN NEGATIVE; URINE PHENCYCLIDINE SCREEN NEGATIVE
[2018-02-19] MEDS ORDERED: EMTRICITABINE 200 MG PO SCH (10:00)
[2018-02-19] MEDS ORDERED: (PENDING PHARMACY ID) (Atazanavir Sulfate [Reyataz 300 Mg Capsule] 300 MG) PO SCH (10:00)
[2018-02-19] MEDS ORDERED: (PENDING PHARMACY ID) (Ergocalciferol (Vitamin D2) [Vitamin D] 400 UNIT) PO SCH (10:00)
[2018-02-19] MEDS ORDERED: TENOFOVIR ALAFENAMIDE FUMARATE 25 MG PO SCH (10:00)
[2018-02-19] MEDS ORDERED: ALBUTEROL SULFATE 0.083% NEB 2.5 MG/3 ML AMPUL NEB PRN (10:24)
[2018-02-19] MEDS: FAMOTIDINE 20 MG TABLET PO SCH ×2 (10:29→22:00)
[2018-02-19] MEDS: DOCUSATE SODIUM 100 MG CAPSULE PO SCH ×2 (10:29→17:25)
[2018-02-19] MEDS ORDERED: GUAIFENESIN/D-METHORPHAN (200-20 MG) SYRUP 10 ML PO PRN (10:30)
[2018-02-19] MEDS: CLOTRIMAZOLE/BETAMETHASONE DIP CREAM 15 GM TOP SCH ×2 (10:31→17:26)
--- NOTE | 2018-02-19 10:37 | PDOC PROGRESS REPORT ---
Subjective Progress Note for:: 02/19/18 Subjective:: Patient is still tachypneic with a hoarse cough. Blood pressure is better on levo fed. Reason For Visit: FEVER OF UNKNOWN ORIGIN IN IMMUNOCOMPROMISED Physical Exam Vital Signs: Temp Pulse Resp BP Pulse Ox 98.6 F 89 16 137/80 H 96 02/19/18 02:58 02/19/18 08:16 02/19/18 10:16 02/19/18 10:16 02/19/18 10:16 Intake & Output 02/18/18 02/19/18 02/20/18 06:59 06:59 06:59 Intake Total 3172 1048 Output Total 660 Balance 3172 388 Weight 168.9 kg General appearance: PRESENT: cooperative, mild distress, morbidly obese - BMI 50.1 Head exam: PRESENT: normocephalic Eye exam: PRESENT: conjunctiva pink Ear exam: PRESENT: normal external ear exam Respiratory exam: PRESENT: clear to auscultation joaquin - Anteriorly., symmetrical. ABSENT: rales, rhonchi, wheezes Cardiovascular exam: PRESENT: RRR, +S1, +S2 GI/Abdominal exam: PRESENT: normal bowel sounds, soft, other - Protuberant abdomen. ABSENT: tenderness Extremities exam: ABSENT: pedal edema Musculoskeletal exam: PRESENT: normal inspection Neurological exam: PRESENT: alert, awake, oriented to person, oriented to place, oriented to time, oriented to situation, CN II-XII grossly intact Psychiatric exam: PRESENT: anxious, appropriate affect. ABSENT: agitated Results Laboratory Results: 02/18/18 22:23 02/18/18 22:23 02/18/18 02/18/18 02/18/18 22:23 22:23 22:23 WBC 9.8 RBC 4.24 L Hgb 13.1 L Hct 37.8 L MCV 89 MCH 30.9 MCHC 34.6 RDW 14.8 H Plt Count 219 Seg Neutrophils % Not Reportable Lymphocytes % Not Reportable Monocytes % Not Reportable Eosinophils % Not Reportable Basophils % Not Reportable Absolute Neutrophils Not Reportable Absolute Lymphocytes Not Reportable Absolute Monocytes Not Reportable Absolute Eosinophils Not Reportable Absolute Basophils Not Reportable VBG pH VBG pCO2 VBG HCO3 VBG Base Excess Sodium 136.7 L Potassium 3.6 Chloride 98 Carbon Dioxide 27 Anion Gap 12 BUN 8 Creatinine 1.14 Est GFR ( Amer) > 60 Est GFR (Non-Af Amer) > 60 Glucose 133 H Lactic Acid 2.9 H Calcium 9.3 Total Bilirubin 2.8 H AST 54 ALT 98 H Alkaline Phosphatase 54 Total Protein 6.1 L Albumin 3.9 Urine Color Urine Appearance Urine pH Ur Specific [place] Urine Protein Urine Glucose (UA) Urine Ketones Urine Blood Urine Nitrite Ur Leukocyte Esterase Urine WBC (Auto) 02/18/18 02/18/18 02/19/18 22:23 23:00 02:35 WBC RBC Hgb Hct MCV MCH MCHC RDW Plt Count Seg Neutrophils % Lymphocytes % Monocytes % Eosinophils % Basophils % Absolute Neutrophils Absolute Lymphocytes Absolute Monocytes Absolute Eosinophils Absolute Basophils VBG pH 7.42 VBG pCO2 47.0 VBG HCO3 29.5 VBG Base Excess 3.7 Sodium Potassium Chloride Carbon Dioxide Anion Gap BUN Creatinine Est GFR ( Amer) Est GFR (Non-Af Amer) Glucose Lactic Acid 1.2 Calcium Total Bilirubin AST ALT Alkaline Phosphatase Total Protein Albumin Urine Color YELLOW Urine Appearance SLIGHTLY-CLOUDY Urine pH 5.0 Ur Specific [place] 1.019 Urine Protein NEGATIVE Urine Glucose (UA) NEGATIVE Urine Ketones NEGATIVE Urine Blood NEGATIVE Urine Nitrite NEGATIVE Ur Leukocyte Esterase NEGATIVE Urine WBC (Auto) 1 Impressions: Chest X-Ray 02/18/18 22:33 IMPRESSION: Cardiomegaly. Lungs are clear copyright 2010 [employer]- All Rights Reserved Assessment & Plan - Diagnosis (1) Sepsis Qualifiers: Sepsis type: sepsis due to unspecified organism Qualified Code(s): A41.9 - Sepsis, unspecified organism Is this a current diagnosis for this admission?: Yes Plan: The patient meets criteria for sepsis. No identified organism at this point. He does not report a productive cough. Chest x-ray is negative. He is immunocompromised. He will continue on broad-spectrum antibiotic therapy (vancomycin and Zosyn) and I will discuss with infectious diseases. He is currently on norepinephrine infusion for hypotension. He requires supplemental oxygen. He does wear BiPAP at home (at night I believe) and will utilize BiPAP in-house at night and as required. (2) Hypotension Qualifiers: Hypotension type: unspecified hypotension type Qualified Code(s): I95.9 - Hypotension, unspecified Is this a current diagnosis for this admission?: Yes Plan: Continue vasopressors and attempt to wean as tolerated. (3) Cough Is this a current diagnosis for this admission?: Yes Plan: Antitussive with expectorant added. (4) HIV (human immunodeficiency virus infection) Is this a current diagnosis for this admission?: Yes Plan: We have encouraged the patient to have family bring in his antiviral medications. We will continue as directed by his infectious disease physician. (5) Morbid obesity with BMI of 50.0-59.9, adult Is this a current diagnosis for this admission?: Yes Plan: Encourage decreased caloric intake with increased exercise when able. - Time Time Spent with patient: 15-24 minutes Medications reviewed and adjusted accordingly: Yes
[2018-02-19] MEDS: LEVOTHYROXINE SODIUM 0.15 MG TABLET PO SCH (11:36)
[2018-02-19] MEDS: PIPERACILLIN SODIUM/TAZOBACTAM 3.375 GM in NORMAL SALINE 100 ML IV SCH ×3 (14:36→23:54)
[2018-02-19] MEDS ORDERED: VANCOMYCIN HCL 0 MG in DEXTROSE 5%-WATER 250 ML IV NR (14:45)
[2018-02-19] MEDS ORDERED: PIPERACILLIN SODIUM/TAZOBACTAM 3.375 GM in NORMAL SALINE 100 ML IV ONE (14:45)
[2018-02-19] MEDS: VANCOMYCIN HCL 1,500 MG in DEXTROSE 5%-WATER 250 ML IV SCH ×2 (15:56→22:05)
[2018-02-19] MEDS: IPRATROPIUM/ALBUTEROL 0.5-2.5 MG/3 ML AMPUL NEB SCH (16:14)
[2018-02-19] MEDS: MORPHINE SULFATE 10 MG/ML INJ IV PRN (17:25)
[2018-02-19] MEDS: FLUTICASONE NASAL SPRAY 50 MCG/SPRY 120 SPRAY/16 GM NASL SCH (22:00)
[2018-02-19] MEDS: ONDANSETRON HCL INJ/PF 4 MG/2 ML SDV IV PRN (23:56)
[2018-02-20] MEDS: NORMAL SALINE 1000 ML 1,000 ML IV PRN ×2 (00:03→09:52)
[2018-02-20] MEDS: IPRATROPIUM/ALBUTEROL 0.5-2.5 MG/3 ML AMPUL NEB SCH ×3 (01:03→17:08)
[2018-02-20 04:46] LABS: ABSOLUTE BASOPHILS # (AUTO) 0.1 10^3/uL (0.0-0.2); ABSOLUTE MONOCYTES (AUTO) 1.2 10^3/uL (0.1-1.4); ABSOLUTE NEUT (AUTO) 4.9 10^3/uL (1.7-8.2); BASOPHILS % (AUTO) 0.8 % (0-2); EOSINOPHILS % (AUTO) 0.4 % (0-6); HEMATOCRIT 38.4 % (37.9-51.0); HEMOGLOBIN 13.1 g/dL (13.5-17.0); LYMPHOCYTES % (AUTO) 32.5 % (13-45); MEAN CORPUSCULAR HGB CONC 34.2 g/dL (32.0-36.0); MEAN CORPUSCULAR VOLUME 91 fl (80-97); MONOCYTES % (AUTO) 12.6 % (3-13); RED BLOOD COUNT 4.23 10^6/uL (4.35-5.55); RED CELL DISTRIBUTION WIDTH 15.2 % (11.5-14.0); SEGMENTED NEUTROPHILS % (AUTO) 53.7 % (42-78); TOTAL CELLS COUNTED % (AUTO) 100 %; WHITE BLOOD COUNT 9.2 10^3/uL (4.0-10.5)
[2018-02-20 04:53] LABS: ANION GAP 6 (5-19); BLOOD UREA NITROGEN 7 mg/dL (7-20); CALCIUM 8.5 mg/dL (8.4-10.2); CARBON DIOXIDE 33 mmol/L (22-30); CHLORIDE 101 mmol/L (98-107); GLUCOSE 119 mg/dL (75-110); POTASSIUM 3.8 mmol/L (3.6-5.0); SODIUM 139.6 mmol/L (137-145)
[2018-02-20 05:02] LABS: PLATELET COUNT 175 10^3/uL (150-450)
[2018-02-20 05:16] LABS: FREE T3 4.16 pg/mL (2.77-5.27)
[2018-02-20 05:17] LABS: FREE T4 (FREE THYROXINE) 1.17 ng/dL (0.78-2.19)
[2018-02-20 05:30] LABS: THYROID STIMULATING HORMONE 0.42 uIU/mL (0.47-4.68)
[2018-02-20] MEDS: HEPARIN SOD (PORCINE) 5,000 UNIT/ML 1 ML SYRINGE SUBCUT SCH ×3 (06:08→22:00)
[2018-02-20] MEDS: MORPHINE SULFATE 10 MG/ML INJ IV PRN ×2 (06:09→20:05)
[2018-02-20] MEDS: PIPERACILLIN SODIUM/TAZOBACTAM 3.375 GM in NORMAL SALINE 100 ML IV SCH ×3 (06:10→17:32)
[2018-02-20] MEDS: VANCOMYCIN HCL 1,500 MG in DEXTROSE 5%-WATER 250 ML IV SCH ×3 (06:10→22:00)
[2018-02-20] MEDS: ONDANSETRON HCL INJ/PF 4 MG/2 ML SDV IV PRN (09:07)
[2018-02-20] MEDS ORDERED: PSEUDOEPHEDRINE HCL 30 MG TABLET PO PRN (09:23)
--- NOTE | 2018-02-20 09:37 | PDOC PROGRESS REPORT ---
Subjective Progress Note for:: 02/20/18 Subjective:: The patient's blood pressure is improved and he is off of norepinephrine. He still has a frontal headache only transiently relieved with narcotic analgesia. Reason For Visit: FEVER OF UNKNOWN ORIGIN IN IMMUNOCOMPROMISED Physical Exam Vital Signs: Temp Pulse Resp BP Pulse Ox 98.9 F 98 23 H 136/73 H 99 02/20/18 08:00 02/20/18 09:05 02/20/18 09:05 02/20/18 07:51 02/20/18 09:05 Intake & Output 02/19/18 02/20/18 02/21/18 06:59 06:59 06:59 Intake Total 3172 7090 Output Total 6040 Balance 3172 1050 Weight 168.9 kg General appearance: PRESENT: cooperative, mild distress, morbidly obese Head exam: PRESENT: normocephalic, other - Tender to percussion over frontal sinuses Eye exam: PRESENT: conjunctiva pink Ear exam: PRESENT: normal external ear exam Mouth exam: PRESENT: moist Respiratory exam: PRESENT: clear to auscultation joaquin, symmetrical. ABSENT: rales, rhonchi, stridor, wheezes Cardiovascular exam: PRESENT: +S1, +S2, tachycardia GI/Abdominal exam: PRESENT: normal bowel sounds, soft, other - Markedly protuberant abdomen. ABSENT: tenderness Extremities exam: PRESENT: pedal edema - Trace Neurological exam: PRESENT: alert, awake, oriented to person, oriented to place, oriented to time, oriented to situation, CN II-XII grossly intact Psychiatric exam: PRESENT: flat affect. ABSENT: agitated, anxious Focused psych exam: ABSENT: restlessness Results Laboratory Results: 02/20/18 04:19 02/20/18 04:19 02/20/18 02/20/18 02/20/18 04:19 04:19 04:19 WBC 9.2 RBC 4.23 L Hgb 13.1 L Hct 38.4 MCV 91 MCH 31.0 MCHC 34.2 RDW 15.2 H Plt Count 175 Seg Neutrophils % 53.7 Lymphocytes % 32.5 Monocytes % 12.6 Eosinophils % 0.4 Basophils % 0.8 Absolute Neutrophils 4.9 Absolute Lymphocytes 3.0 Absolute Monocytes 1.2 Absolute Eosinophils 0.0 Absolute Basophils 0.1 Sodium 139.6 Potassium 3.8 Chloride 101 Carbon Dioxide 33 H Anion Gap 6 BUN 7 Creatinine 1.20 Est GFR ( Amer) > 60 Est GFR (Non-Af Amer) > 60 Glucose 119 H Calcium 8.5 Magnesium 1.9 TSH 0.42 L Free T4 1.17 Free T3 pg/mL 4.16 Impressions: Chest X-Ray 02/18/18 22:33 IMPRESSION: Cardiomegaly. Lungs are clear copyright 2011 [employer]- All Rights Reserved Assessment & Plan - Diagnosis (1) Sepsis Qualifiers: Sepsis type: sepsis due to unspecified organism Qualified Code(s): A41.9 - Sepsis, unspecified organism Is this a current diagnosis for this admission?: Yes Plan: Patient will remain on broad-spectrum antibiotics. He is off of norepinephrine therapy. I am still holding his antihypertensives for another day to let his blood pressure recover. He still has frontal sinus pressure and so I will obtain a CT scan of his sinuses to assess for impacted sinus/air-fluid levels. (2) Hypotension Qualifiers: Hypotension type: unspecified hypotension type Qualified Code(s): I95.9 - Hypotension, unspecified Is this a current diagnosis for this admission?: Yes Plan: Resolved. Continue to hold antihypertensives for another day. Reassess and likely add back some or all of his medications based on his blood pressures. (3) Cough Is this a current diagnosis for this admission?: Yes Plan: Improved. Continue current regimen. (4) HIV (human immunodeficiency virus infection) Is this a current diagnosis for this admission?: Yes Plan: Family did in fact bring his medications in and we will continue to dispense during his hospitalization. (5) Morbid obesity with BMI of 50.0-59.9, adult Is this a current diagnosis for this admission?: Yes Plan: Encourage weight loss. - Time Time Spent with patient: 15-24 minutes Medications reviewed and adjusted accordingly: Yes Anticipated discharge: Home
[2018-02-20] MEDS: CHOLECALCIFEROL (D3) 400 UNIT TABLET PO SCH (09:50)
[2018-02-20] MEDS: FAMOTIDINE 20 MG TABLET PO SCH ×2 (09:50→22:00)
[2018-02-20] MEDS: LEVOTHYROXINE SODIUM 0.15 MG TABLET PO SCH (09:50)
[2018-02-20] MEDS: CLOTRIMAZOLE/BETAMETHASONE DIP CREAM 15 GM TOP SCH ×2 (09:50→17:32)
[2018-02-20] MEDS: DOCUSATE SODIUM 100 MG CAPSULE PO SCH ×2 (09:50→17:32)
[2018-02-20] MEDS: FLUTICASONE NASAL SPRAY 50 MCG/SPRY 120 SPRAY/16 GM NASL SCH (09:51)
[2018-02-20] MEDS ORDERED: TRAMADOL HCL 50 MG TABLET PO PRN (11:13)
[2018-02-20] MEDS ORDERED: EMTRICITABINE PO SCH (12:00)
[2018-02-20] MEDS ORDERED: TENOFOVIR PO SCH (12:00)
--- NOTE | 2018-02-20 12:40 | RADIOLOGY REPORT (SQ) ---
EXAM DESCRIPTION: CT FACIAL AREA WITHOUT COMPLETED DATE/TIME: 02/20/2018 10:42 am REASON FOR STUDY: Severe pressure frontal area COMPARISON: None. TECHNIQUE: Noncontrasted images through the facial bones and orbits windowed for bone and soft tissu e. Additional coronal and sagittal reconstructed images reviewed. All images stored on PACS. All CT scanners at this facility use dose modulation, iterative reconstruction, and/or weight based d osing when appropriate to reduce radiation dose to as low as reasonably achievable (ALARA). [facility]: Dose Right [facility]: CareDose [facility]: Dose Right [facility]: Teradose 4D [facility]: [employer] RADIATION DOSE: mGy. LIMITATIONS: None. FINDINGS: FACIAL BONES: No fracture or bone lesion. ORBITS: Intact. No fracture. Symmetric intact globes and retroorbital soft tissues. PARANASAL SINUSES: Right frontal sinus is hypoplastic. Fluid and mucosal thickening maxillary, ethmo id and frontal sinuses. Mucosal thickening in the sphenoid sinuses. Opacified infundibula and left nasofrontal recess. Thinning of the ethmoid bones. Mild rightward deviation of the nasal septum. SOFT TISSUES: No mass or edema. INFERIOR BRAIN: Limited view. No acute findings. OTHER: No other significant finding. IMPRESSION: Acute on chronic reynoso sinusitis. TECHNICAL DOCUMENTATION: JOB ID: [id number] Quality ID # [id number]: Final reports with documentation of one or more dose reduction techniques (e.g., Au tomated exposure control, adjustment of the mA and/or kV according to patient size, use of iterative reconstruction technique) 2010 [email or web address]- All Rights Reserved Reading location - IP/workstation name: [facility]
[2018-02-20] MEDS ORDERED: COBICISTAT PO SCH (17:00)
[2018-02-20] MEDS ORDERED: ATAZANAVIR PO SCH (17:00)
[2018-02-21] MEDS: FLUTICASONE NASAL SPRAY 50 MCG/SPRY 120 SPRAY/16 GM NASL SCH ×3 (00:11→21:01)
[2018-02-21] MEDS: PIPERACILLIN SODIUM/TAZOBACTAM 3.375 GM in NORMAL SALINE 100 ML IV SCH ×5 (00:18→23:52)
[2018-02-21] MEDS: IPRATROPIUM/ALBUTEROL 0.5-2.5 MG/3 ML AMPUL NEB SCH ×3 (00:24→17:18)
[2018-02-21] MEDS: NORMAL SALINE 1000 ML 1,000 ML IV PRN ×3 (04:00→14:48)
[2018-02-21 04:28] LABS: ABSOLUTE EOSINOPHILS # (AUTO) 0.1 10^3/uL (0.0-0.6); ABSOLUTE LYMPHOCYTES (AUTO) 1.8 10^3/uL (0.5-4.7); ABSOLUTE MONOCYTES (AUTO) 0.7 10^3/uL (0.1-1.4); ABSOLUTE NEUT (AUTO) 3.9 10^3/uL (1.7-8.2); BASOPHILS % (AUTO) 0.7 % (0-2); EOSINOPHILS % (AUTO) 1.5 % (0-6); HEMATOCRIT 33.8 % (37.9-51.0); HEMOGLOBIN 11.5 g/dL (13.5-17.0); LYMPHOCYTES % (AUTO) 27.2 % (13-45); MEAN CORPUSCULAR HEMOGLOBIN 30.6 pg (27.0-33.4); MEAN CORPUSCULAR HGB CONC 34.2 g/dL (32.0-36.0); MEAN CORPUSCULAR VOLUME 90 fl (80-97); MONOCYTES % (AUTO) 11.4 % (3-13); PLATELET COUNT 165 10^3/uL (150-450); RED BLOOD COUNT 3.77 10^6/uL (4.35-5.55); RED CELL DISTRIBUTION WIDTH 14.8 % (11.5-14.0); SEGMENTED NEUTROPHILS % (AUTO) 59.2 % (42-78); TOTAL CELLS COUNTED % (AUTO) 100 %; WHITE BLOOD COUNT 6.5 10^3/uL (4.0-10.5)
[2018-02-21 04:51] LABS: ANION GAP 5 (5-19); BLOOD UREA NITROGEN 8 mg/dL (7-20); CALCIUM 8.4 mg/dL (8.4-10.2); CARBON DIOXIDE 29 mmol/L (22-30); CHLORIDE 104 mmol/L (98-107); GLUCOSE 121 mg/dL (75-110); POTASSIUM 3.7 mmol/L (3.6-5.0); SODIUM 138.3 mmol/L (137-145)
[2018-02-21] MEDS: HEPARIN SOD (PORCINE) 5,000 UNIT/ML 1 ML SYRINGE SUBCUT SCH ×3 (06:09→21:01)
[2018-02-21] MEDS: VANCOMYCIN HCL 1,500 MG in DEXTROSE 5%-WATER 250 ML IV SCH (06:10)
[2018-02-21] MEDS ORDERED: TENOFOVIR PO SCH (10:00)
[2018-02-21] MEDS ORDERED: EMTRICITABINE PO SCH (10:00)
--- NOTE | 2018-02-21 10:42 | PDOC PROGRESS REPORT ---
Subjective Progress Note for:: 02/21/18 Subjective:: The patient is resting comfortably on the edge of the bed. He is on room air. His only complaint is constipation. He has been having some discomfort in the right lower quadrant. Reason For Visit: FEVER OF UNKNOWN ORIGIN IN IMMUNOCOMPROMISED Physical Exam Vital Signs: Temp Pulse Resp BP Pulse Ox 98.2 F 108 H 22 H 123/71 98 02/21/18 08:00 02/21/18 08:00 02/21/18 08:00 02/21/18 08:00 02/21/18 08:00 Intake & Output 02/20/18 02/21/18 02/22/18 06:59 06:59 06:59 Intake Total 8190 2622 120 Output Total 6040 2705 550 Balance 2150 -83 -430 Weight 172 kg 172 kg General appearance: PRESENT: no acute distress, morbidly obese, well-developed Head exam: PRESENT: normocephalic Ear exam: PRESENT: normal external ear exam Mouth exam: PRESENT: moist Respiratory exam: PRESENT: clear to auscultation joaquin, symmetrical, unlabored. ABSENT: accessory muscle use, rales, rhonchi, wheezes Cardiovascular exam: PRESENT: RRR, +S1, +S2 GI/Abdominal exam: PRESENT: normal bowel sounds, soft, tenderness - Slightly tender right lower quadrant, other - Protuberant abdomen Extremities exam: PRESENT: pedal edema - Trace Musculoskeletal exam: PRESENT: full ROM Neurological exam: PRESENT: alert, awake, oriented to person, oriented to place, oriented to time, oriented to situation, CN II-XII grossly intact Psychiatric exam: PRESENT: appropriate affect, normal mood. ABSENT: agitated, anxious Focused psych exam: ABSENT: restlessness Results Laboratory Results: 02/21/18 03:46 02/21/18 03:46 02/21/18 02/21/18 03:46 03:46 WBC 6.5 RBC 3.77 L Hgb 11.5 L Hct 33.8 L MCV 90 MCH 30.6 MCHC 34.2 RDW 14.8 H Plt Count 165 Seg Neutrophils % 59.2 Lymphocytes % 27.2 Monocytes % 11.4 Eosinophils % 1.5 Basophils % 0.7 Absolute Neutrophils 3.9 Absolute Lymphocytes 1.8 Absolute Monocytes 0.7 Absolute Eosinophils 0.1 Absolute Basophils 0.0 Sodium 138.3 Potassium 3.7 Chloride 104 Carbon Dioxide 29 Anion Gap 5 BUN 8 Creatinine 1.50 H Est GFR ( Amer) > 60 Est GFR (Non-Af Amer) 52 L Glucose 121 H Calcium 8.4 Impressions: Chest X-Ray 02/18/18 22:33 IMPRESSION: Cardiomegaly. Lungs are clear copyright 2011 [employer]- All Rights Reserved Facial Bones CT 02/20/18 00:00 IMPRESSION: Acute on chronic reynoso sinusitis. Assessment & Plan - Diagnosis (1) Acute sinusitis Qualifiers: Sinusitis location: other Recurrence: not specified as recurrent Qualified Code(s): J01.80 - Other acute sinusitis Is this a current diagnosis for this admission?: Yes Plan: The CT scan of the sinuses (see report) reveals multiple sinuses affected. He is likely experiencing postnasal drip as he is coughing up yellow sputum. He is already been on antibiotics and therefore unlikely to benefit from a culture. I did have infectious diseases review the patient's chart for any other suggestions. (2) Constipation Qualifiers: Constipation type: unspecified constipation type Qualified Code(s): K59.00 - Constipation, unspecified Is this a current diagnosis for this admission?: Yes Plan: The patient does have occasional constipation at home. He typically uses ekoi-vub-[id number] medications. I have ordered MiraLAX and a single dose of bisacodyl by mouth. It is possible that the constipation is contributing to the abdominal discomfort. (3) Hypotension Qualifiers: Hypotension type: unspecified hypotension type Qualified Code(s): I95.9 - Hypotension, unspecified Is this a current diagnosis for this admission?: Yes Plan: Resolved (4) Cough Is this a current diagnosis for this admission?: Yes Plan: Still with occasional cough. Continue mucolytic's. I believe the coughing is responsible for the discomfort. (5) HIV (human immunodeficiency virus infection) Is this a current diagnosis for this admission?: Yes Plan: Continue current regimen. The patient did bring his medications from home so that there is no interruption of his treatment plan (6) Morbid obesity with BMI of 50.0-59.9, adult Is this a current diagnosis for this admission?: Yes Plan: Encourage weight loss. (7) Sepsis Qualifiers: Sepsis type: sepsis due to unspecified organism Qualified Code(s): A41.9 - Sepsis, unspecified organism Is this a current diagnosis for this admission?: Yes Plan: Resolved - Time Time Spent with patient: 15-24 minutes Medications reviewed and adjusted accordingly: Yes Anticipated discharge: Home Within: within 48 hours
[2018-02-21] MEDS: CLOTRIMAZOLE/BETAMETHASONE DIP CREAM 15 GM TOP SCH ×2 (10:57→17:27)
[2018-02-21] MEDS: FAMOTIDINE 20 MG TABLET PO SCH ×2 (10:57→21:01)
[2018-02-21] MEDS: CHOLECALCIFEROL (D3) 400 UNIT TABLET PO SCH (10:57)
[2018-02-21] MEDS: LEVOTHYROXINE SODIUM 0.15 MG TABLET PO SCH (10:57)
[2018-02-21] MEDS: DOCUSATE SODIUM 100 MG CAPSULE PO SCH ×2 (10:57→17:27)
[2018-02-21] MEDS ORDERED: BISACODYL 5 MG TABEC PO ONE (11:00)
[2018-02-21] MEDS: POLYETHYLENE GLYCOL 3350 POWDER 17 GM/1 PACKET PO SCH (13:29)
[2018-02-21] MEDS: COBICISTAT PO SCH (13:34)
[2018-02-21] MEDS: TENOFOVIR PO SCH (13:34)
[2018-02-21] MEDS: EMTRICITABINE PO SCH (13:34)
[2018-02-21] MEDS: ATAZANAVIR PO SCH (13:34)
[2018-02-21 14:34] LABS: VANCOMYCIN,TROUGH 21.3 ug/mL (5.0-20.0)
--- NOTE | 2018-02-21 14:56 | Progress Note ---
Provider Note Provider Note: ID Consult Note Asked to review chart of patient by Dr Perez. Pt not seen or examined. Reviewed VS, labs, provider reports, imaging reports. Pt is a 42 year old man with HIV, HTN, obesity and MAGDALENA who presented to the ED on 02/18/18 with c/o cough and congestion x 2 weeks, followed by worsening over past 2 days with subjective fever, increased cough and SOB. In the ED, the patient was noted to have an initial BP 90s/50s with a few coarse breath sounds b/l, tachycardia, tachypnea. Per H&P, pt had clear lungs on exam, dry oral mucosa, irregular rash on his ankle with central clearing. Blood cultures have shown no growth x 48h. Rapid influenza test was negative. CXR AP film showed clear lungs. As pt complained of frontal sinus pressure and had tenderness to percussion over frontal sinuses, CT of facial bones was ordered to further evaluate and was read as acute on chronic pansinusitis. On admission, Zosyn and vancomycin were started empirically. After two days, vancomycin was discontinued. Impression/Recommendations 1. Pt appears to have presented with a viral syndrome, but superimposed bacterial rhinosinusitis is certainly possible given history of persistent symptoms for ~2 weeks with later worsening, with development of several days of fever and facial pain. Pt received azithromycin as an outpatient, which has activity against atypical organisms but rates of pneumococcal resistance has increased to the point where this is no longer a preferred agent for empiric treatment of bacterial rhinosinusitis. - Agree with discontinuation of vancomycin. Staph aureus would be an uncommon cause of acute bacterial rhinosinusitis. - Antipseudomonal activity is also unlikely to be needed in this setting. Recommend discontinuing Zosyn. If pt has consistent PO intake and appears to have had some improvement, PO Augmentin for 7 days (to complete the remainder of 7-10 day course) would be an appropriate switch option. - Continue therapies aimed at relieving nasal obstruction and rhinorrhea 2. HIV - Pt is not followed by [facility] for HIV, but, per notes, pt reported adherence to his HIV medication Descovy/Evotaz with undetectable viral loads and normal CD4 counts. As such, continuing Descovy and Evotaz in hospital is appropriate as long as he tolerates PO intake. - F/u as outpatient with HIV care provider as had been scheduled Alexis Lee MD [facility] pager [phone]
[2018-02-21] MEDS: ONDANSETRON HCL INJ/PF 4 MG/2 ML SDV IV PRN (21:01)
[2018-02-21] MEDS: MORPHINE SULFATE 10 MG/ML INJ IV PRN (23:52)
[2018-02-22] MEDS: IPRATROPIUM/ALBUTEROL 0.5-2.5 MG/3 ML AMPUL NEB SCH ×3 (00:21→16:11)
[2018-02-22] MEDS: NORMAL SALINE 1000 ML 1,000 ML IV PRN ×3 (02:18→21:34)
[2018-02-22] MEDS: MORPHINE SULFATE 10 MG/ML INJ IV PRN (03:51)
[2018-02-22] MEDS: ONDANSETRON HCL INJ/PF 4 MG/2 ML SDV IV PRN (03:51)
[2018-02-22] MEDS: PIPERACILLIN SODIUM/TAZOBACTAM 3.375 GM in NORMAL SALINE 100 ML IV SCH ×2 (05:05→12:39)
[2018-02-22] MEDS: HEPARIN SOD (PORCINE) 5,000 UNIT/ML 1 ML SYRINGE SUBCUT SCH ×2 (05:05→14:29)
[2018-02-22 05:59] LABS: ABSOLUTE BASOPHILS # (AUTO) 0.1 10^3/uL (0.0-0.2); ABSOLUTE EOSINOPHILS # (AUTO) 0.1 10^3/uL (0.0-0.6); ABSOLUTE LYMPHOCYTES (AUTO) 1.2 10^3/uL (0.5-4.7); ABSOLUTE MONOCYTES (AUTO) 0.8 10^3/uL (0.1-1.4); ABSOLUTE NEUT (AUTO) 4.9 10^3/uL (1.7-8.2); BASOPHILS % (AUTO) 0.9 % (0-2); EOSINOPHILS % (AUTO) 1.3 % (0-6); HEMATOCRIT 31.6 % (37.9-51.0); HEMOGLOBIN 10.8 g/dL (13.5-17.0); MEAN CORPUSCULAR HEMOGLOBIN 30.9 pg (27.0-33.4); MEAN CORPUSCULAR HGB CONC 34.3 g/dL (32.0-36.0); MEAN CORPUSCULAR VOLUME 90 fl (80-97); MONOCYTES % (AUTO) 11.4 % (3-13); PLATELET COUNT 135 10^3/uL (150-450); RED BLOOD COUNT 3.51 10^6/uL (4.35-5.55); RED CELL DISTRIBUTION WIDTH 14.8 % (11.5-14.0); SEGMENTED NEUTROPHILS % (AUTO) 69.4 % (42-78); TOTAL CELLS COUNTED % (AUTO) 100 %
[2018-02-22 06:25] LABS: ALANINE AMINOTRANSFERASE 57 U/L (21-72); ALBUMIN 3.2 g/dL (3.5-5.0); ALKALINE PHOSPHATASE 40 U/L (38-126); ANION GAP 5 (5-19); ASPARTATE AMINO TRANSFERASE 24 U/L (17-59); BILIRUBIN,DIRECT 0.4 mg/dL (0.0-0.4); BILIRUBIN,TOTAL 3.6 mg/dL (0.2-1.3); BLOOD UREA NITROGEN 9 mg/dL (7-20); CALCIUM 8.3 mg/dL (8.4-10.2); CARBON DIOXIDE 29 mmol/L (22-30); CHLORIDE 107 mmol/L (98-107); GLUCOSE 161 mg/dL (75-110); POTASSIUM 3.8 mmol/L (3.6-5.0); SODIUM 140.6 mmol/L (137-145); TOTAL PROTEIN 5.4 g/dL (6.3-8.2)
[2018-02-22] MEDS: DOCUSATE SODIUM 100 MG CAPSULE PO SCH ×2 (09:44→17:00)
[2018-02-22] MEDS: FLUTICASONE NASAL SPRAY 50 MCG/SPRY 120 SPRAY/16 GM NASL SCH ×2 (09:44→21:33)
[2018-02-22] MEDS: FAMOTIDINE 20 MG TABLET PO SCH ×2 (09:44→21:33)
[2018-02-22] MEDS: CHOLECALCIFEROL (D3) 400 UNIT TABLET PO SCH (09:44)
[2018-02-22] MEDS: LEVOTHYROXINE SODIUM 0.15 MG TABLET PO SCH (09:44)
[2018-02-22] MEDS: POLYETHYLENE GLYCOL 3350 POWDER 17 GM/1 PACKET PO SCH (09:45)
[2018-02-22] MEDS: CLOTRIMAZOLE/BETAMETHASONE DIP CREAM 15 GM TOP SCH ×2 (09:45→17:43)
[2018-02-22] MEDS: TENOFOVIR PO SCH (14:30)
[2018-02-22] MEDS: EMTRICITABINE PO SCH (14:30)
[2018-02-22] MEDS: ATAZANAVIR PO SCH (14:31)
[2018-02-22] MEDS: COBICISTAT PO SCH (14:31)
[2018-02-22] MEDS ORDERED: TRAMADOL HCL 50 MG TABLET PO PRN (14:31)
[2018-02-22] MEDS ORDERED: PSEUDOEPHEDRINE HCL 30 MG TABLET PO SCH (14:31)
--- NOTE | 2018-02-22 14:42 | PDOC PROGRESS REPORT ---
Subjective Progress Note for:: 02/22/18 - - Subjective:: The patient reports some nausea. He still has a headache from the sinusitis. He is still short of breath with ambulation although he is tolerating room air. Reason For Visit: FEVER OF UNKNOWN ORIGIN IN IMMUNOCOMPROMISED Physical Exam Vital Signs: Temp Pulse Resp BP Pulse Ox 97.4 F 92 15 130/77 H 100 02/22/18 12:27 02/22/18 12:27 02/22/18 12:27 02/22/18 12:27 02/22/18 12:27 Intake & Output 02/21/18 02/22/18 02/23/18 06:59 06:59 06:59 Intake Total 2722 4654 746 Output Total 2705 1050 Balance 17 3604 746 Weight 172 kg 176.5 kg General appearance: PRESENT: no acute distress, cooperative, morbidly obese Head exam: PRESENT: normocephalic Respiratory exam: PRESENT: clear to auscultation joaquin, symmetrical, unlabored. ABSENT: prolonged expiratory phas, rales, rhonchi, wheezes Cardiovascular exam: PRESENT: RRR, +S1, +S2 GI/Abdominal exam: PRESENT: normal bowel sounds, soft, other - Protuberant a bdomen. ABSENT: tenderness Neurological exam: PRESENT: alert, awake, oriented to person, oriented to place, oriented to time, oriented to situation, CN II-XII grossly intact Psychiatric exam: PRESENT: flat affect. ABSENT: agitated, anxious Focused psych exam: ABSENT: restlessness Results Laboratory Results: 02/22/18 05:45 02/22/18 05:45 02/22/18 02/22/18 05:45 05:45 WBC 7.0 RBC 3.51 L Hgb 10.8 L Hct 31.6 L MCV 90 MCH 30.9 MCHC 34.3 RDW 14.8 H Plt Count 135 L Seg Neutrophils % 69.4 Lymphocytes % 17.0 Monocytes % 11.4 Eosinophils % 1.3 Basophils % 0.9 Absolute Neutrophils 4.9 Absolute Lymphocytes 1.2 Absolute Monocytes 0.8 Absolute Eosinophils 0.1 Absolute Basophils 0.1 Sodium 140.6 Potassium 3.8 Chloride 107 Carbon Dioxide 29 Anion Gap 5 BUN 9 Creatinine 1.61 H Est GFR ( Amer) 58 L Est GFR (Non-Af Amer) 48 L Glucose 161 H Calcium 8.3 L Total Bilirubin 3.6 H AST 24 ALT 57 Alkaline Phosphatase 40 Total Protein 5.4 L Albumin 3.2 L Impressions: Chest X-Ray 02/18/18 22:33 IMPRESSION: Cardiomegaly. Lungs are clear copyright 2011 [employer]- All Rights Reserved Facial Bones CT 02/20/18 00:00 IMPRESSION: Acute on chronic reynoso sinusitis. Assessment & Plan - Diagnosis (1) Acute sinusitis Qualifiers: Sinusitis location: other Recurrence: not specified as recurrent Qualified Code(s): J01.80 - Other acute sinusitis Is this a current diagnosis for this admission?: Yes Plan: I appreciate the input from Dr. Lee infectious disease consult. I will discontinue the Zosyn and start Augmentin 500 mg every 8 hours. He will need to be on at least a 2-week course considering the severity of his sinusitis. I did tell the patient today that after discharge he must see an ear nose and throat doctor as well. I will change his Sudafed to scheduled every 6 hours to try and maximize decongestion. He is already on Flonase twice daily. (2) Constipation Qualifiers: Constipation type: unspecified constipation type Qualified Code(s): K59.00 - Constipation, unspecified Is this a current diagnosis for this admission?: Yes Plan: The patient is still not had a bowel movement. I will administer 1 bottle of citrate of magnesia. (3) Hypotension Qualifiers: Hypotension type: unspecified hypotension type Qualified Code(s): I95.9 - Hypotension, unspecified Is this a current diagnosis for this admission?: Yes Plan: Resolved (4) Cough Is this a current diagnosis for this admission?: Yes Plan: Improved. The cough and any nausea is likely from postnasal drip from his sinusitis. (5) HIV (human immunodeficiency virus infection) Is this a current diagnosis for this admission?: Yes Plan: Continue current regimen. (6) Morbid obesity with BMI of 50.0-59.9, adult Is this a current diagnosis for this admission?: Yes Plan: Encourage weight loss. (7) Sepsis Qualifiers: Sepsis type: sepsis due to unspecified organism Qualified Code(s): A41.9 - Sepsis, unspecified organism Is this a current diagnosis for this admission?: Yes Plan: Resolved (8) Obstructive sleep apnea Is this a current diagnosis for this admission?: Yes Plan: The patient was very somnolent this morning. The nurse had to insist that he wears his BiPAP. The morphine is likely worsening any underlying sleep apnea. I have discontinued the morphine. He has tramadol available for his headache. He should obtain a sleep study after discharge. - Time Time Spent with patient: 15-24 minutes Medications reviewed and adjusted accordingly: Yes Anticipated discharge: Home Within: within 48 hours
[2018-02-22] MEDS ORDERED: MAGNESIUM CITRATE 296 ML BOTTLE PO ONE (17:00)
[2018-02-22] MEDS: PSEUDOEPHEDRINE HCL 30 MG TABLET PO SCH (17:42)
[2018-02-22] MEDS ORDERED: AMOXICILLIN TR/POT CLAVULANATE 500-125 MG TAB ONE ×2 (21:34→21:42)
[2018-02-22] MEDS: AMOXICILLIN TR/POT CLAVULANATE 500-125 MG TAB PO SCH ×2 (21:42→22:06)
[2018-02-22] MEDS: ACETAMINOPHEN 325 MG TABLET PO PRN (21:51)
[2018-02-23] MEDS: IPRATROPIUM/ALBUTEROL 0.5-2.5 MG/3 ML AMPUL NEB SCH ×2 (00:26→09:12)
[2018-02-23] MEDS: PSEUDOEPHEDRINE HCL 30 MG TABLET PO SCH ×3 (00:37→11:19)
[2018-02-23] MEDS: NORMAL SALINE 1000 ML 1,000 ML IV PRN (05:14)
[2018-02-23] MEDS: AMOXICILLIN TR/POT CLAVULANATE 500-125 MG TAB PO SCH (05:15)
[2018-02-23 06:22] LABS: HEMOGLOBIN 10.7 g/dL (13.5-17.0); MEAN CORPUSCULAR HEMOGLOBIN 31.1 pg (27.0-33.4); MEAN CORPUSCULAR HGB CONC 34.6 g/dL (32.0-36.0); MEAN CORPUSCULAR VOLUME 90 fl (80-97); PLATELET COUNT 159 10^3/uL (150-450); RED BLOOD COUNT 3.45 10^6/uL (4.35-5.55); RED CELL DISTRIBUTION WIDTH 14.7 % (11.5-14.0); WHITE BLOOD COUNT 6.3 10^3/uL (4.0-10.5)
[2018-02-23 06:52] LABS: ALANINE AMINOTRANSFERASE 48 U/L (21-72); ALBUMIN 3.1 g/dL (3.5-5.0); ALKALINE PHOSPHATASE 42 U/L (38-126); ANION GAP 6 (5-19); ASPARTATE AMINO TRANSFERASE 19 U/L (17-59); BILIRUBIN,DIRECT 0.3 mg/dL (0.0-0.4); BILIRUBIN,TOTAL 3.2 mg/dL (0.2-1.3); BLOOD UREA NITROGEN 7 mg/dL (7-20); CALCIUM 8.4 mg/dL (8.4-10.2); CARBON DIOXIDE 30 mmol/L (22-30); CHLORIDE 107 mmol/L (98-107); GLUCOSE 114 mg/dL (75-110); POTASSIUM 3.5 mmol/L (3.6-5.0); SODIUM 142.5 mmol/L (137-145); TOTAL PROTEIN 5.4 g/dL (6.3-8.2)
[2018-02-23] MEDS: ACETAMINOPHEN 325 MG TABLET PO PRN (07:59)
[2018-02-23] MEDS: DOCUSATE SODIUM 100 MG CAPSULE PO SCH (09:05)
[2018-02-23] MEDS: POLYETHYLENE GLYCOL 3350 POWDER 17 GM/1 PACKET PO SCH (09:06)
[2018-02-23] MEDS: LEVOTHYROXINE SODIUM 0.15 MG TABLET PO SCH (09:12)
[2018-02-23] MEDS: CHOLECALCIFEROL (D3) 400 UNIT TABLET PO SCH (09:12)
[2018-02-23] MEDS: CLOTRIMAZOLE/BETAMETHASONE DIP CREAM 15 GM TOP SCH (09:12)
[2018-02-23] MEDS: FAMOTIDINE 20 MG TABLET PO SCH (09:12)
[2018-02-23] MEDS: FLUTICASONE NASAL SPRAY 50 MCG/SPRY 120 SPRAY/16 GM NASL SCH (09:12)
[2018-02-23] MEDS ORDERED: POTASSIUM CHLORIDE 10 MEQ CAPSULE.ER PO ONE (09:54)
--- NOTE | 2018-02-23 10:22 | PDOC DISCHARGE SUMMARY ---
General - Admit/Disc Date/PCP Admission Date/Primary Care Provider: 02/19/18 02:53 Discharge Date: 02/23/18 - Discharge Diagnosis (1) Acute sinusitis Is this a current diagnosis for this admission?: Yes Summary: CT scan of the sinuses revealed multiple sinus cavities affected. Some with opacification. The patient will remain on Augmentin 875 mg twice daily for 2 weeks. I told him it is essential that he follows up with otolaryngology for further assessment and ongoing treatment. He may need prolonged antibiotics or surgical intervention I also instructed him to continue using Flonase at home (he already has a prescription) and Sudafed until some of his congestion clears. (2) Constipation Is this a current diagnosis for this admission?: Yes Summary: Resolved. He in fact is starting to have diarrhea. He states that he is very susceptible to diverticulitis. I strongly suggested a probiotic while he is on antibiotics and possibly chronically. (3) Hypotension Is this a current diagnosis for this admission?: Yes Summary: His hypotension was transient. He was on levo fed for a short whil and did receive IV hydration. Hypotension resolved. (4) Cough Is this a current diagnosis for this admission?: Yes Summary: Continue guaifenesin (5) HIV (human immunodeficiency virus infection) Is this a current diagnosis for this admission?: Yes Summary: Continue current antiretroviral therapy and follow-up with infectious diseases (6) Morbid obesity with BMI of 50.0-59.9, adult Is this a current diagnosis for this admission?: Yes Summary: Consider weight reduction therapy with possible medical intervention. (7) Sepsis Is this a current diagnosis for this admission?: Yes Summary: The patient was hypoxic (oxygen saturation dropped to 83% at its lowest) and responded to supplemental oxygen. He was transiently tachycardic. His serum bilirubin was elevated but is decreasing. He may have baseline hyperbilirubinemia. He was on levo fed for 48 hours but his hypotension resolved. Chest x-ray did not identified pneumonia. His severe sinusitis is th e only site of infection and likely the etiology for sepsis. Regardless, sepsis resolved. (8) Obstructive sleep apnea Is this a current diagnosis for this admission?: Yes Summary: The patient utilize BiPAP during his hospitalization. He will continue with his CPAP for obstructive sleep apnea at home. - Additional Information Resuscitation Status: Full Code Discharge Diet: As Tolerated Discharge Activity: Activity As Tolerated, Other - Return to work on February 27 Prescriptions: Amoxicillin/Potassium Clav [Amox-Clav 875-125 mg Tablet] 1 each PO BID 14 Days #28 tablet Home Medications: Levothyroxine Sodium [Synthroid 0.15 mg Tablet] 1 tab PO DAILY 11/07/17 Lisinopril/Hydrochlorothiazide [Lisinopril-Hctz 20-25 mg Tab] 1 tab PO DAILY 11/07/17 Metoprolol Tartrate 50 mg PO DAILY 11/07/17 Atazanavir Sulfate/Cobicistat [Evotaz 300 mg-150 mg Tablet] 1 each PO DAILY 10/30 Cholecalciferol (Vitamin D3) [Vitamin D3 1000 Unit Tablet] 2,000 unit PO DAILY 02/19/18 Emtricitabine/Tenofov Alafenam [Descovy 200-25 mg Tablet] 1 each PO DAILY 02/19/18 Omeprazole 20 mg PO DAILY 02/19/18 Tramadol HCl [Ultram 50 mg Tablet] 50 mg PO BIDP PRN 02/19/18 Acetaminophen [Tylenol 325 mg Tablet] 650 mg PO Q4HP PRN tablet 02/23/18 Amoxicillin/Potassium Clav [Amox-Clav 875-125 mg Tablet] 1 each PO BID 14 Days #28 tablet 02/23/18 Clotrimazole/Betamethasone Dip [Lotrisone Cream 15 gm] 1 applic TOP BID #0 tube 02/23/18 Fluticasone Propionate [Flonase Nasal [place] 50 Mcg/[place] 16 gm] 1 spray NASL Q12 spray.pump 02/23/18 Guaifenesin/D-Methorphan Hb [Robitussin-Dm Syrup 10 ml Udcup] 10 ml PO QIDP PRN syrup 02/23/18 Pseudoephedrine HCl [Sudafed 30 mg Tablet] 60 mg PO Q6 tablet 02/23/18 History of Present Illness Patient complains of: Feeling poorly, worsening sinus congestion and fever with increasing shortness of breath. History of Present Illness: Please also see the admission history and physical. AR VILLEGAS is a 42 year old male with a history of HIV, obstructive sleep apnea, diverticular disease and morbid obesity. He began to have sinus congestion for 2 weeks prior to admission. He developed sinus headache. 48 hours before admission he began to have fevers and worsening shortness of breath. He presented to the emergency department and was found to be febrile with low blood pressure and hypoxia. He did not have an elevated white blood cell count (but he does have an immunocompromised state) but he did have a fever and tachycardia. Chest x-ray did not show pneumonia. He was referred to the hospitalist service for admission. Hospital Course Hospital Course: The patient was admitted to the hospitalist service. As he was on levo fed for hypotension he was placed in the intensive care unit. After approximately 36-48 hours his blood pressure normalized with IV fluids. He was transferred to the medical floor when stable. Broad spectrum antibiotics were initiated but he still had a cough. He still felt poorly. He complained of significant headache. A CT scan of his sinuses revealed severe sinus infection/inflammation involving multiple sinus cavities. His antibiotic therapy was changed to Augmentin. He is starting to feel better. Pseudoephedrine was added to his Flonase regimen and he was on guaifenesin as well. His dyspnea on exertion improved as well. The patient is afebrile, normotensive and exhibits normal pulse oximetry on room air. The patient is stable for discharge. I did suggest very strongly that he follow-up with ear nose and throat after discharge as well as his primary care physician and he will continue with his infectious disease doctor as already planned. Physical Exam Vital Signs: Temp Pulse Resp BP Pulse Ox 98.2 F 123 H 16 131/73 H 98 02/23/18 08:48 02/23/18 08:48 02/23/18 08:48 02/23/18 08:48 02/23/18 08:48 Intake & Output 02/22/18 02/23/18 02/24/18 06:59 06:59 06:59 Intake Total 4654 3696 Output Total 1050 Balance 3604 3696 Weight 176.5 kg General appearance: PRESENT: no acute distress, morbidly obese, well-developed Head exam: PRESENT: normocephalic Respiratory exam: PRESENT: clear to auscultation joaquin, symmetrical. ABSENT: accessory muscle use, crackles, rales, rhonchi, wheezes Cardiovascular exam: PRESENT: RRR, +S1, +S2 GI/Abdominal exam: PRESENT: normal bowel sounds, soft, other - Protuberant abdomen. ABSENT: guarding, tenderness Rectal exam: PRESENT: deferred Musculoskeletal exam: PRESENT: ambulatory Neurological exam: PRESENT: alert, awake, oriented to person, oriented to place, oriented to time, oriented to situation, CN II-XII grossly intact Psychiatric exam: PRESENT: flat affect. ABSENT: agitated, anxious Focused psych exam: ABSENT: restlessness Results Laboratory Results: 02/23/18 05:48 02/23/18 05:48 02/23/18 02/23/18 05:48 05:48 WBC 6.3 RBC 3.45 L Hgb 10.7 L Hct 31.0 L MCV 90 MCH 31.1 MCHC 34.6 RDW 14.7 H Plt Count 159 Sodium 142.5 Potassium 3.5 L Chloride 107 Carbon Dioxide 30 Anion Gap 6 BUN 7 Creatinine 1.74 H Est GFR ( Amer) 53 L Est GFR (Non-Af Amer) 43 L Glucose 114 H Calcium 8.4 Total Bilirubin 3.2 H AST 19 ALT 48 Alkaline Phosphatase 42 Total Protein 5.4 L Albumin 3.1 L Impressions: Chest X-Ray 02/18/18 22:33 IMPRESSION: Cardiomegaly. Lungs are clear copyright 2011 [employer]- All Rights Reserved Facial Bones CT 02/20/18 00:00 IMPRESSION: Acute on chronic reynoso sinusitis. Qualifiers - * PATIENT BEING DISCHARGED WITH ANY OF THE FOLLOWING DIAGNOSIS: No Plan Discharge Plan: Treatment plan outlined above. I recommended that the patient wait several days and not return to work until as he will still experience significant fatigue and exertional dyspnea. Time Spent: Greater than 30 Minutes
[2018-02-23 10:53] VITALS: BP 93/56
== END 2018-02-23 12:30 | disposition home or self-care (01) | DRG 872 ==
LOC: ER 21:30 → EH 02-19 02:53 → ICU 02-19 12:26 → 3W 02-21 14:29
PROVIDERS: ADMIT Emergency Medicine; ATTEND Emergency Medicine
DX: A41.9 Sepsis, unspecified organism (principal); Z68.43 Body mass index [BMI] 50.0-59.9, adult; J01.80 Other acute sinusitis; Z21 Asymptomatic human immunodeficiency virus [HIV] infection status; B35.4 Tinea corporis; E66.01 Morbid (severe) obesity due to excess calories; K59.00 Constipation, unspecified; I95.9 Hypotension, unspecified; G47.33 Obstructive sleep apnea (adult) (pediatric); I10 Essential (primary) hypertension; E03.9 Hypothyroidism, unspecified; K21.9 Gastro-esophageal reflux disease without esophagitis; K44.9 Diaphragmatic hernia without obstruction or gangrene; Z79.899 Other long term (current) drug therapy
CPT/HCPCS: 36415; 70486; 71045; 80048; 80053; 80202; 80307; 81001; 82803; 83605; 83735; 84439; 84443; 84481; 85025; 85027; 86308; 87040; 87804; 93005; 93010; 94640; 94660; 96361; 96365; 96366; 96367; 96368; 96375; 99291; C1751; J0692; J1644; J1885; J2270; J2405; J2543; J3370; J3490; J7030; J7060; J7620

== ENCOUNTER 2018-04-22 08:00 | Inpatient (IN) | payer OTHER ==
[2018-04-22] MEDS ORDERED: IPRATROPIUM/ALBUTEROL 0.5-2.5 MG/3 ML AMPUL NEB ONE (08:15)
--- NOTE | 2018-04-22 08:18 | ER Document Report ---
ED Medical Screen (RME) - General Chief Complaint: Breathing Difficulty Stated Complaint: DIFFICULTY BREATHING Time Seen by Provider: 04/22/18 08:07 Mode of Arrival: Ambulatory Information source: Patient Notes: Patient presents emergency department with complaints of fever and cough difficulty breathing. Reports he just finished antibiotics for strep yesterday. Reports he has had fevers for the past 10 days. Reports fever of 103 this morning which he took 1000 mg of Tylenol for. Reports productive cough with yellow sputum and difficulty breathing since this past weekend. Denies chest pain. Denies vomiting diarrhea. Reports he is drinking okay but decreased appetite. Reports he is swallowing without problems. I have greeted and performed a rapid initial assessment of this patient. A comprehensive ED assessment and evaluation of the patient, analysis of test results and completion of the medical decision making process will be conducted by additional ED providers. TRAVEL OUTSIDE OF THE [place] IN LAST 30 DAYS: No - Related Data Allergies/Adverse Reactions: seasonal Allergy (Severe, Uncoded 04/22/18 08:01) Rhinitis Past Medical History - General Information source: Patient - Social History Cigarette use (# per day): No Chew tobacco use (# tins/day): No Frequency of alcohol use: None Drug Abuse: None - Past Medical History Cardiac Medical History: Reports: Hx Hypertension Denies: Hx Coronary Artery Disease, Hx Heart Attack Pulmonary Medical History: Reports: Hx Bronchitis Denies: Hx Asthma, Hx COPD, Hx Pneumonia Neurological Medical History: Denies: Hx Cerebrovascular Accident, Hx Seizures Endocrine Medical History: Reports: Hx Hypothyroidism. Denies: Hx Diabetes Mellitus Type 1, Hx Diabetes Mellitus Type 2, Hx Hyperthyroidism Renal/ Medical History: Denies: Hx Peritoneal Dialysis GI Medical History: Reports: Hx Gastroesophageal Reflux Disease, Hx Hiatal Hernia. Denies: Hx Cirrhosis, Hx Crohn's Disease, Hx Hepatitis, Hx Ulcerative Colitis Musculoskeltal Medical History: Denies Hx Arthritis, Denies Hx Gout Skin Medical History: Denies Hx Eczema, Denies Hx Psoriasis Psychiatric Medical History: Reports: Hx Post Traumatic Stress Disorder Infectious Medical History: Reports: Hx HIV. Denies: Hx Hepatitis Past Surgical History: Reports: Other - Brice fundoplication - Immunizations Hx Diphtheria, Pertussis, Tetanus Vaccination: Yes Physical Exam - Vital signs Vitals: Temp Pulse Resp BP Pulse Ox 101.3 F H 118 H 36 H 142/75 H 99 04/22/18 08:04 04/22/18 08:04 04/22/18 08:04 04/22/18 08:04 04/22/18 08:04 Course - Vital Signs Vital signs: Temp Pulse Resp BP Pulse Ox 101.3 F H 118 H 36 H 142/75 H 99 04/22/18 08:04 04/22/18 08:04 04/22/18 08:04 04/22/18 08:04 04/22/18 08:04
--- NOTE | 2018-04-22 08:55 | RADIOLOGY REPORT (SQ) ---
EXAM DESCRIPTION: CHEST 2 VIEWS COMPLETED DATE/TIME: 04/22/2018 8:42 am REASON FOR STUDY: cough, fever, difficulty breathing COMPARISON: AP chest 02/18/2018 EXAM PARAMETERS: NUMBER OF VIEWS: two views TECHNIQUE: Digital Frontal and Lateral radiographic views of the chest acquired. RADIATION DOSE: NA LIMITATIONS: none FINDINGS: LUNGS AND PLEURA: No opacities, masses or pneumothorax. No pleural effusion. MEDIASTINUM AND HILAR STRUCTURES: No masses or contour abnormalities. HEART AND VASCULAR STRUCTURES: Heart normal size. No evidence for failure. BONES: No acute findings. HARDWARE: None in the chest. OTHER: No other significant finding. IMPRESSION: NO ACUTE RADIOGRAPHIC FINDING IN THE CHEST. TECHNICAL DOCUMENTATION: JOB ID: [id number] [employer]- All Rights Reserved Reading location - IP/workstation name: [email or web address]
[2018-04-22] MEDS ORDERED: NORMAL SALINE 1000 ML 1,000 ML IV ONE ×2 (09:03→09:55)
[2018-04-22] MEDS ORDERED: IBUPROFEN 800 MG TABLET PO ONE (09:03)
--- NOTE | 2018-04-22 09:09 | ER Document Report ---
ED Respiratory Problem - General Chief Complaint: Breathing Difficulty Stated Complaint: DIFFICULTY BREATHING Time Seen by Provider: 04/22/18 08:07 Mode of Arrival: Ambulatory Information source: Patient Notes: Patient presents complaining of low-grade fever of 99 for the past 10 days. Patient states today he has a temperature of 103. Patient complains of cough for the past 5 days. Patient states that he had just finished antibiotics for strep throat yesterday. Patient complains of congestion. Patient reports chest pain for the past 4 days only with coughing. Patient does have a history of HIV and states that he has not had a detectable viral load. Patient has been compliant with his antiviral medications. TRAVEL OUTSIDE OF THE [place] IN LAST 30 DAYS: No - HPI Patient complains to provider of: Chest pain, Cough, Short of breath Onset: Other - Cough times 5 days Duration: Worse/persistent Quality of pain: Achy Pain Level: 3 Context: denies: Recent immobilization, Recent surgery, Smoker Associated symptoms: Chest pain/discomfort, Congestion, Cough, Fever, Sinus pain/pressure, Wheezing. 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 denies: CAD, Hypertension, Malignancy Patient has suicidal ideation: No Patient has homicidal ideation: No - Past Medical History Cardiac Medical History: Reports: Hx Hypertension Pulmonary Medical History: Reports: Hx Bronchitis, Hx Sleep Apnea Denies: Hx Asthma, Hx COPD, Hx Pneumonia Endocrine Medical History: Reports: Hx Hypothyroidism. Denies: Hx Diabetes Mellitus Type 1, Hx Diabetes Mellitus Type 2, Hx Hyperthyroidism Renal/ Medical History: Denies: Hx Peritoneal Dialysis GI Medical History: Reports: Hx Gastroesophageal Reflux Disease, Hx Hiatal Hernia Musculoskeletal Medical History: Reports Hx Arthritis, Denies Hx Gout Skin Medical History: Denies Hx Eczema, Denies Hx Psoriasis Psychiatric Medical History: Reports: Hx Post Traumatic Stress Disorder Infectious Medical History: Reports: Hx HIV. Denies: Hx Hepatitis Past Surgical History: Reports: Other - Brice fundoplication - Immunizations Hx Diphtheria, Pertussis, Tetanus Vaccination: Yes Review of Systems - Review of Systems Constitutional: Fever, Recent illness - Treated for strep empirically, finished dose yesterday of antibiotics EENT: Nose congestion, Nose discharge. denies: Throat pain Cardiovascular: Chest pain - With coughing only Respiratory: Cough, Short of breath Gastrointestinal: No symptoms reported. denies: Abdominal pain, Vomiting Genitourinary: No symptoms reported Male Genitourinary: No symptoms reported Musculoskeletal: No symptoms reported Skin: No symptoms reported Hematologic/Lymphatic: No symptoms reported Neurological/Psychological: No symptoms reported Physical Exam - Vital signs Vitals: Temp Pulse Resp BP Pulse Ox 101.3 F H 118 H 36 H 142/75 H 99 04/22/18 08:04 04/22/18 08:04 04/22/18 08:04 04/22/18 08:04 04/22/18 08:04 - General General appearance: Alert In distress: Mild - HEENT Head: Normocephalic, Atraumatic Eyes: Normal Conjunctiva: Normal Ears: Normal Nasal: Clear rhinorrhea Mouth/Lips: Normal Mucous membranes: Normal Pharynx: Normal Neck: Normal, Supple. No: Lymphadenopathy - Respiratory Respiratory status: Tachypnea Chest status: Pain with cough Breath sounds: Nonproductive cough, Rhonchi, Wheezing Chest palpation: Normal - Cardiovascular Rhythm: Tachycardia Heart sounds: S1 appreciated, S2 appreciated Murmur: No - Abdominal Inspection: Morbidly Obese Distension: No distension Bowel sounds: Normal Tenderness: Nontender - Back Back: Normal, Nontender. No: CVA tenderness - Extremities General upper extremity: Normal inspection, Normal ROM General lower extremity: Normal inspection, Normal ROM - Neurological Neuro grossly intact: Yes Cognition: Normal [place] Coma Scale Eye Opening: Spontaneous [place] Coma Scale Verbal: Oriented [place] Coma Scale Motor: Obeys Commands Xin Coma Scale Total: 15 - Psychological Associated symptoms: Normal affect, Normal mood - Skin Skin Temperature: Warm Skin Moisture: Dry Skin Color: Other - Scattered erythematous macular rash Course - Re-evaluation Re-evalutation: 04/22/18 11:30 Patient continues mildly tachycardic heart rate 100-110, patient's blood pressure downtrending 96/60. Patient second IV fluid bolus is infusing. Consulted with hospitalist Dr. Vega who agrees to admit patient. - Vital Signs Vital signs: Temp Pulse Resp BP Pulse Ox 100.8 F H 107 H 26 H 132/69 H 96 04/22/18 16:48 04/22/18 16:48 04/22/18 16:48 04/22/18 16:48 04/22/18 16:48 - Laboratory Result Diagrams: 04/22/18 09:09 04/22/18 09:09 Laboratory results interpreted by me: 04/22/18 04/22/18 04/22/18 09:09 09:09 09:09 RBC 4.09 L Hgb 12.9 L Hct 37.1 L RDW 15.4 H Sodium 134.6 L Chloride 95 L Lactic Acid 2.4 H Total Bilirubin 2.0 H ALT 96 H Labs- Entire Visit 04/22/18 04/22/18 04/22/18 09:09 09:09 09:09 WBC 6.8 RBC 4.09 L Hgb 12.9 L Hct 37.1 L MCV 91 MCH 31.6 MCHC 34.9 RDW 15.4 H Plt Count 191 Seg Neutrophils % 57.9 Lymphocytes % 30.7 Monocytes % 10.5 Eosinophils % 0.4 Basophils % 0.5 Absolute Neutrophils 3.9 Absolute Lymphocytes 2.1 Absolute Monocytes 0.7 Absolute Eosinophils 0.0 Absolute Basophils 0.0 PT 12.9 INR 0.92 VBG pH VBG pCO2 VBG HCO3 VBG Base Excess Sodium 134.6 L Potassium 3.7 Chloride 95 L Carbon Dioxide 30 Anion Gap 10 BUN 15 Creatinine 1.12 Est GFR ( Amer) > 60 Est GFR (Non-Af Amer) > 60 Glucose 107 Lactic Acid Calcium 9.7 Total Bilirubin 2.0 H Direct Bilirubin 0.2 Neonat Total Bilirubin Not Reportable Neonat Direct Bilirubin Not Reportable Neonat Indirect Bili Not Reportable AST 57 ALT 96 H Alkaline Phosphatase 57 Total Protein 6.5 Albumin 4.1 Influenza A (Rapid) Influenza B (Rapid) 04/22/18 04/22/18 04/22/18 09:09 09:33 09:33 WBC RBC Hgb Hct MCV MCH MCHC RDW Plt Count Seg Neutrophils % Lymphocytes % Monocytes % Eosinophils % Basophils % Absolute Neutrophils Absolute Lymphocytes Absolute Monocytes Absolute Eosinophils Absolute Basophils PT INR VBG pH 7.40 VBG pCO2 48.8 VBG HCO3 29.3 VBG Base Excess 3.6 Sodium Potassium Chloride Carbon Dioxide Anion Gap BUN Creatinine Est GFR ( Amer) Est GFR (Non-Af Amer) Glucose Lactic Acid 2.4 H Calcium Total Bilirubin Direct Bilirubin Neonat Total Bilirubin Neonat Direct Bilirubin Neonat Indirect Bili AST ALT Alkaline Phosphatase Total Protein Albumin Influenza A (Rapid) POSITIVE Influenza B (Rapid) NEGATIVE - Diagnostic Test Radiology reviewed: Reports reviewed Discharge - Discharge Clinical Impression: Cough, SIRS (systemic inflammatory response syndrome), Influenza A Fever Qualifiers: Fever type: unspecified Qualified Code(s): R50.9 - Fever, unspecified Hypotension Qualifiers: Hypotension type: unspecified hypotension type Qualified Code(s): I95.9 - Hypotension, unspecified HIV (human immunodeficiency virus infection) Qualifiers: HIV symptom status: unspecified Qualified Code(s): B20 - Human immunodeficiency virus [HIV] disease Condition: Fair Disposition: ADMITTED OBSERVATION Admitting Provider: Hospitalist Unit Admitted: Medical Floor
[2018-04-22 09:22] LABS: ABSOLUTE LYMPHOCYTES (AUTO) 2.1 10^3/uL (0.5-4.7); ABSOLUTE MONOCYTES (AUTO) 0.7 10^3/uL (0.1-1.4); ABSOLUTE NEUT (AUTO) 3.9 10^3/uL (1.7-8.2); BASOPHILS % (AUTO) 0.5 % (0-2); EOSINOPHILS % (AUTO) 0.4 % (0-6); HEMATOCRIT 37.1 % (37.9-51.0); HEMOGLOBIN 12.9 g/dL (13.5-17.0); LYMPHOCYTES % (AUTO) 30.7 % (13-45); MEAN CORPUSCULAR HEMOGLOBIN 31.6 pg (27.0-33.4); MEAN CORPUSCULAR HGB CONC 34.9 g/dL (32.0-36.0); MEAN CORPUSCULAR VOLUME 91 fl (80-97); MONOCYTES % (AUTO) 10.5 % (3-13); PLATELET COUNT 191 10^3/uL (150-450); RED BLOOD COUNT 4.09 10^6/uL (4.35-5.55); RED CELL DISTRIBUTION WIDTH 15.4 % (11.5-14.0); SEGMENTED NEUTROPHILS % (AUTO) 57.9 % (42-78); TOTAL CELLS COUNTED % (AUTO) 100 %; WHITE BLOOD COUNT 6.8 10^3/uL (4.0-10.5)
[2018-04-22 09:28] LABS: INTERNATIONAL RATION (INR) 0.92; PROTHROMBIN TIME 12.9 SEC (11.4-15.4)
[2018-04-22] MEDS ORDERED: ACETAMINOPHEN 325 MG TABLET PO ONE (09:30)
[2018-04-22 09:44] LABS: ALANINE AMINOTRANSFERASE 96 U/L (21-72); ALBUMIN 4.1 g/dL (3.5-5.0); ALKALINE PHOSPHATASE 57 U/L (38-126); ANION GAP 10 (5-19); ASPARTATE AMINO TRANSFERASE 57 U/L (17-59); BILIRUBIN,DIRECT 0.2 mg/dL (0.0-0.4); BLOOD UREA NITROGEN 15 mg/dL (7-20); CALCIUM 9.7 mg/dL (8.4-10.2); CARBON DIOXIDE 30 mmol/L (22-30); CHLORIDE 95 mmol/L (98-107); GLUCOSE 107 mg/dL (75-110); POTASSIUM 3.7 mmol/L (3.6-5.0); SODIUM 134.6 mmol/L (137-145); TOTAL PROTEIN 6.5 g/dL (6.3-8.2)
[2018-04-22] MEDS ORDERED: CEFTRIAXONE 1 GM/D5W RTU 1 GM/50 ML RTUPB IV ONE (09:54)
[2018-04-22 09:59] LABS: VENOUS BLOOD BASE EXCESS 3.6 mmol/L; VENOUS BLOOD HCO3 29.3 mmol/L (20-32); VENOUS BLOOD PCO2 48.8 mmHg (35-63); VENOUS BLOOD PH 7.4 (7.30-7.42)
[2018-04-22 10:08] LABS: A TYPE INFLUENZA AG POSITIVE (NEGATIVE); B INFLUENZA AG NEGATIVE (NEGATIVE)
[2018-04-22] MEDS ORDERED: OSELTAMIVIR PHOSPHATE 75 MG CAPSULE PO ONE (10:18)
[2018-04-22] MEDS ORDERED: ALBUTEROL SULFATE 0.083% NEB 2.5 MG/3 ML AMPUL NEB ONE (11:09)
--- NOTE | 2018-04-22 11:52 | PDOC H&P ---
History of Present Illness Admission Date/PCP: [facility] History of Present Illness: AR VILLEGAS is a 42 year old male patient with past medical history of HIV/AIDS presents with chief complaint of fever and difficulty breathing. Patient reports this the last several days he has intermittent fever associated with shortness of breath. He endorses also dry cough. He denies any chest pain, palpitation, diaphoresis, nausea, vomiting, abdominal pain or diarrhea. No urinary complaints. As I mentioned earlier patient is a known case of HIV/AIDS this since 2011 and has been on highly active antiretroviral therapy. He claims his viral load is undetectable. His serology shows influenza A. Patient also febrile with T-max of 103 and hypotension with blood pressure of 90/60. Past Medical History Cardiac Medical History: Reports: Hypertension Denies: Coronary Artery Disease, Myocardial Infarction Pulmonary Medical History: Reports: Bronchitis, Sleep Apnea Denies: Asthma, Chronic Obstructive Pulmonary Disease (COPD), Pneumonia Neurological Medical History: Denies: Seizures Endocrine Medical History: Reports: Hypothyroidism Denies: Diabetes Mellitus Type 1, Diabetes Mellitus Type 2, Hyperthyroidism GI Medical History: Reports: Gastroesophageal Reflux Disease, Hiatal Hernia Denies: Cirrhosis, Crohn's Disease, Hepatitis, Ulcerative Colitis Musculoskeltal Medical History: Reports: Arthritis Denies: Gout Skin Medical History: Denies: Eczema, Psoriasis Psychiatric Medical History: Reports: Post Traumatic Stress Disorder Hematology: Denies: Anemia, Bleeding Tendencies Infectious Medical History: Reports: HIV Past Surgical History Past Surgical History: Reports: Other - Brice fundoplication Social History Smoking Status: Never Smoker Frequency of Alcohol Use: Rare Hx Recreational Drug Use: No Drugs: None Hx Prescription Drug Abuse: No - Advance Directive Resuscitation Status: Full Code Family History Family History: DM. denies: CAD, Hypertension, Malignancy Parental Family History Reviewed: Yes Children Family History Reviewed: Yes Sibling(s) Family History Reviewed.: Yes Medication/Allergy Home Medications: Levothyroxine Sodium [Synthroid 0.15 mg Tablet] 1 tab PO DAILY 11/07/17 Lisinopril/Hydrochlorothiazide [Lisinopril-Hctz 20-25 mg Tab] 1 tab PO DAILY 11/07/17 Metoprolol Tartrate 50 mg PO DAILY 11/07/17 Atazanavir Sulfate/Cobicistat [Evotaz 300 mg-150 mg Tablet] 1 each PO DAILY 0 02/19/18 Cholecalciferol (Vitamin D3) [Vitamin D3 1000 Unit Tablet] 2,000 unit PO DAILY 02/19/18 Emtricitabine/Tenofov Alafenam [Descovy 200-25 mg Tablet] 1 each PO DAILY 02/19/18 Omeprazole 20 mg PO DAILY 02/19/18 Tramadol HCl [Ultram 50 mg Tablet] 50 mg PO BIDP PRN 02/19/18 Acetaminophen [Tylenol 325 mg Tablet] 650 mg PO Q4HP PRN tablet 02/23/18 Amoxicillin/Potassium Clav [Amox-Clav 875-125 mg Tablet] 1 each PO BID 14 Days #28 tablet 02/23/18 Clotrimazole/Betamethasone Dip [Lotrisone Cream 15 gm] 1 applic TOP BID #0 tube 02/23/18 Fluticasone Propionate [Flonase Nasal [place] 50 Mcg/[place] 16 gm] 1 spray NASL Q12 spray.pump 02/23/18 Guaifenesin/D-Methorphan Hb [Robitussin-Dm Syrup 10 ml Udcup] 10 ml PO QIDP PRN syrup 02/23/18 Pseudoephedrine HCl [Sudafed 30 mg Tablet] 60 mg PO Q6 tablet 02/23/18 Allergies/Adverse Reactions: seasonal Allergy (Severe, Uncoded 04/22/18 08:01) Rhinitis Review of Systems Constitutional: PRESENT: as per HPI Eyes: PRESENT: as per HPI Ears: PRESENT: as per HPI Nose, Mouth, and Throat: PRESENT: as per HPI Cardiovascular: PRESENT: as per HPI Respiratory: PRESENT: as per HPI Gastrointestinal: PRESENT: as per HPI Neurological: PRESENT: as per HPI Psychiatric: PRESENT: as per HPI Physical Exam Vital Signs: Temp Pulse Resp BP Pulse Ox 99.9 F 118 H 20 96/60 L 96 04/22/18 10:24 04/22/18 08:04 04/22/18 11:07 04/22/18 11:07 04/22/18 11:07 Intake & Output 04/21/18 04/22/18 04/23/18 06:59 06:59 06:59 Intake Total 1000 Balance 1000 Weight 168.3 kg General appearance: PRESENT: no acute distress, morbidly obese Head exam: PRESENT: atraumatic, normocephalic Eye exam: PRESENT: conjunctiva pink Mouth exam: PRESENT: moist Neck exam: ABSENT: carotid bruit, JVD, lymphadenopathy, thyromegaly Respiratory exam: PRESENT: wheezes Cardiovascular exam: PRESENT: tachycardia GI/Abdominal exam: PRESENT: normal bowel sounds, soft. ABSENT: distended, guarding, mass, organolmegaly, rebound, tenderness Neurological exam: PRESENT: alert, awake, oriented to time, oriented to situation Results Laboratory Results: 04/22/18 09:09 04/22/18 09:09 04/22/18 04/22/18 04/22/18 09:09 09:09 09:09 WBC 6.8 RBC 4.09 L Hgb 12.9 L Hct 37.1 L MCV 91 MCH 31.6 MCHC 34.9 RDW 15.4 H Plt Count 191 Seg Neutrophils % 57.9 Lymphocytes % 30.7 Monocytes % 10.5 Eosinophils % 0.4 Basophils % 0.5 Absolute Neutrophils 3.9 Absolute Lymphocytes 2.1 Absolute Monocytes 0.7 Absolute Eosinophils 0.0 Absolute Basophils 0.0 VBG pH VBG pCO2 VBG HCO3 VBG Base Excess Sodium 134.6 L Potassium 3.7 Chloride 95 L Carbon Dioxide 30 Anion Gap 10 BUN 15 Creatinine 1.12 Est GFR ( Amer) > 60 Est GFR (Non-Af Amer) > 60 Glucose 107 Lactic Acid 2.4 H Calcium 9.7 Total Bilirubin 2.0 H AST 57 ALT 96 H Alkaline Phosphatase 57 Total Protein 6.5 Albumin 4.1 04/22/18 09:33 WBC RBC Hgb Hct MCV MCH MCHC RDW Plt Count Seg Neutrophils % Lymphocytes % Monocytes % Eosinophils % Basophils % Absolute Neutrophils Absolute Lymphocytes Absolute Monocytes Absolute Eosinophils Absolute Basophils VBG pH 7.40 VBG pCO2 48.8 VBG HCO3 29.3 VBG Base Excess 3.6 Sodium Potassium Chloride Carbon Dioxide Anion Gap BUN Creatinine Est GFR ( Amer) Est GFR (Non-Af Amer) Glucose Lactic Acid Calcium Total Bilirubin AST ALT Alkaline Phosphatase Total Protein Albumin Impressions: Chest X-Ray 04/22/18 08:15 IMPRESSION: NO ACUTE RADIOGRAPHIC FINDING IN THE CHEST. Assessment & Plan - Diagnosis (1) Influenza A Is this a current diagnosis for this admission?: Yes Plan: Patient has been started on Tamiflu. (2) SIRS (systemic inflammatory response syndrome) Is this a current diagnosis for this admission?: Yes Plan: Due to #1 (3) Hypotension Is this a current diagnosis for this admission?: Yes Plan: We will continue to hydrate him cautiously. (4) HIV /AIDS Is this a current diagnosis for this admission?: Yes Plan: Continue his antiretroviral medication (5) Hypothyroidism Is this a current diagnosis for this admission?: Yes Plan: Continue Synthroid (6) Morbid obesity with BMI of 50.0-59.9, adult Is this a current diagnosis for this admission?: Yes Plan: Patient advised to have lifestyle modification (7) Obstructive sleep apnea Is this a current diagnosis for this admission?: Yes Plan: We will put him on CPAP
--- NOTE | 2018-04-22 12:17 | EKG REPORT ---
SEVERITY:- DEFECTIVE ECG - SINUS TACHYCARDIA PROBABLE LEFT ATRIAL ABNORMALITY RIGHT AXIS DEVIATION BORDERLINE T ABNORMALITIES, INFERIOR LEADS BORDERLINE PROLONGED QT INTERVAL DEFECTIVE LEAD L LEG : Confirmed by: Yonathan Merritt MD 22-Apr-2018 12:16:33
[2018-04-22] MEDS ORDERED: ENOXAPARIN SODIUM INJ 40 MG/0.4 ML DISP.SYRIN SUBCUT ONE (13:00)
[2018-04-22 13:09] LABS: APPEARANCE,URINE CLEAR; BILIRUBIN,URINE NEGATIVE (NEGATIVE); COLOR,URINE YELLOW; GLUCOSE, URINE NEGATIVE (NEGATIVE); KETONES,URINE NEGATIVE (NEGATIVE); LEUKOCYTE ESTERASE,URINE NEGATIVE (NEGATIVE); NITRITE,URINE NEGATIVE (NEGATIVE); PROTEIN,URINE NEGATIVE (NEGATIVE); UROBILINOGEN,URINE NEGATIVE mg/dL (<2.0)
[2018-04-22 13:12] LABS: ARTERIAL BLOOD BASE EXCESS 0.1 mmol/L; ARTERIAL BLOOD H2CO3 1.17 mmol/L (1.05-1.35); ARTERIAL BLOOD HCO3 24.5 mmol/L (20-24); ARTERIAL BLOOD PH 7.42 (7.35-7.45); ARTERIAL BLOOD PO2 106.7 mmHg (80-100); ARTERIAL BLOOD TOTAL CO2 25.7 mmol/L (23-27)
[2018-04-22 13:17] LABS: ARTERIAL BLOOD FIO2 40%
[2018-04-22] MEDS: NORMAL SALINE 1000 ML 1,000 ML IV PRN (14:43)
[2018-04-22] MEDS: AZITHROMYCIN 500 MG in DEXTROSE 5%-WATER 250 ML IV SCH (14:45)
[2018-04-22] MEDS: OSELTAMIVIR PHOSPHATE 75 MG CAPSULE PO SCH (17:28)
[2018-04-22] MEDS: ACETAMINOPHEN 325 MG TABLET PO PRN (20:10)
[2018-04-22] MEDS: ONDANSETRON HCL INJ/PF 4 MG/2 ML SDV IV PRN (20:10)
[2018-04-23 07:43] LABS: HEMATOCRIT 32.4 % (37.9-51.0); HEMOGLOBIN 11.3 g/dL (13.5-17.0); MEAN CORPUSCULAR HEMOGLOBIN 31.1 pg (27.0-33.4); MEAN CORPUSCULAR HGB CONC 34.7 g/dL (32.0-36.0); MEAN CORPUSCULAR VOLUME 90 fl (80-97); PLATELET COUNT 173 10^3/uL (150-450); RED BLOOD COUNT 3.62 10^6/uL (4.35-5.55); RED CELL DISTRIBUTION WIDTH 15.5 % (11.5-14.0); WHITE BLOOD COUNT 3.9 10^3/uL (4.0-10.5)
[2018-04-23] MEDS: ACETAMINOPHEN 325 MG TABLET PO PRN (07:47)
[2018-04-23 08:07] LABS: BLOOD UREA NITROGEN 9 mg/dL (7-20); CALCIUM 8.3 mg/dL (8.4-10.2); CHOLESTEROL 152.97 mg/dL (0-200); GLUCOSE 107 mg/dL (75-110); TRIGLYCERIDES 197 mg/dL (<150)
[2018-04-23 08:13] LABS: CARBON DIOXIDE 29 mmol/L (22-30); CHLORIDE 101 mmol/L (98-107); SODIUM 133.9 mmol/L (137-145)
[2018-04-23 08:18] LABS: DIRECT LDL 74 mg/dL (<100)
[2018-04-23 08:28] LABS: VLDL CHOLESTEROL 39.4 mg/dL (10-31)
[2018-04-23 08:29] LABS: ANION GAP 4 (5-19)
[2018-04-23] MEDS: OSELTAMIVIR PHOSPHATE 75 MG CAPSULE PO SCH ×2 (10:17→18:48)
[2018-04-23] MEDS: AZITHROMYCIN 500 MG in DEXTROSE 5%-WATER 250 ML IV SCH (10:17)
[2018-04-23] MEDS: NORMAL SALINE 1000 ML 1,000 ML IV PRN ×2 (10:17→11:50)
[2018-04-23] MEDS: ONDANSETRON HCL INJ/PF 4 MG/2 ML SDV IV PRN (10:19)
[2018-04-23] MEDS ORDERED: METHYLPREDNISOLONE INJ 125 MG/2 ML SDV ONE ×2 (10:32→10:33)
[2018-04-23] MEDS ORDERED: IPRATROPIUM/ALBUTEROL 0.5-2.5 MG/3 ML AMPUL NEB ONE (10:40)
[2018-04-23 10:54] LABS: ARTERIAL BLOOD BASE EXCESS 3.5 mmol/L; ARTERIAL BLOOD H2CO3 0.96 mmol/L (1.05-1.35); ARTERIAL BLOOD HCO3 25.8 mmol/L (20-24); ARTERIAL BLOOD O2 SATURATION 99.9 % (94-98); ARTERIAL BLOOD PCO2 31.9 mmHg (35-45); ARTERIAL BLOOD PH 7.53 (7.35-7.45); ARTERIAL BLOOD PO2 444.7 mmHg (80-100); ARTERIAL BLOOD TOTAL CO2 26.8 mmol/L (23-27)
[2018-04-23 10:56] LABS: ARTERIAL BLOOD FIO2 85%
[2018-04-23] MEDS ORDERED: FUROSEMIDE INJ/PF 40 MG/4 ML SDV ONE (11:12)
--- NOTE | 2018-04-23 11:24 | RADIOLOGY REPORT (SQ) ---
EXAM DESCRIPTION: CHEST SINGLE VIEW COMPLETED DATE/TIME: 04/23/2018 11:15 am REASON FOR STUDY: trouble breathing COMPARISON: 04/22/2018. NUMBER OF VIEWS: One view. TECHNIQUE: Single frontal radiographic view of the chest acquired. LIMITATIONS: None. FINDINGS: LUNGS AND PLEURA: No opacities, masses or pneumothorax. No pleural effusion. MEDIASTINUM AND HILAR STRUCTURES: No masses. Contour normal. HEART AND VASCULAR STRUCTURES: Heart enlarged without failure. Normal vasculature. BONES: No acute findings. HARDWARE: None in the chest. OTHER: No other significant finding. IMPRESSION: HEART ENLARGED WITHOUT FAILURE. NO OTHER SIGNIFICANT RADIOGRAPHIC FINDING IN THE CHEST. TECHNICAL DOCUMENTATION: JOB ID: [id number] [employer]- All Rights Reserved Reading location - IP/workstation name: [email or web address]
[2018-04-23] MEDS ORDERED: FUROSEMIDE INJ/PF 40 MG/4 ML SDV IV ONE (11:30)
[2018-04-23] MEDS: LEVOFLOXACIN 750 MG/D5W RTU 750 MG/150 ML RTUPB IV SCH (11:45)
[2018-04-23] MEDS: OXYCODONE-ACETAMINOPHEN 5-325 MG TABLET PO PRN (11:45)
[2018-04-23] MEDS: IPRATROPIUM/ALBUTEROL 0.5-2.5 MG/3 ML AMPUL NEB SCH ×3 (12:39→20:42)
[2018-04-23] MEDS ORDERED: [UNRECOGNIZED DRUG - OTHER] PO SCH (12:45)
[2018-04-23] MEDS ORDERED: COBICISTAT PO SCH (12:45)
[2018-04-23] MEDS ORDERED: ATAZANAVIR SULFATE PO SCH (12:45)
[2018-04-23] MEDS ORDERED: [UNRECOGNIZED DRUG - OTHER] PO SCH (12:45)
--- NOTE | 2018-04-23 12:52 | PDOC PROGRESS REPORT ---
Subjective Progress Note for:: 04/23/18 Subjective:: This is 42 years old male patient with past medical history of morbid obesity, HIV/AIDS, hypertension, hypothyroidism, obstructive sleep apnea presented with chief complaint of fever and shortness of breath. His serology is positive for influenza A for which she has been on Tamiflu. Patient also started empirically on Levaquin for bronchitis. This morning patient has an episode of sudden onset severe shortness of breath with some stridor according to his nurse who is in the room at the time of the attack. SUPERVISOR UNLOADING activated and patient started on BiPAP. His ABG and chest x-ray are unremarkable. He is started on Solu-Medrol and DuoNeb. And patient transferred to [facility]. Reason For Visit: INFLUENZA A, HIV, SIRS Physical Exam Vital Signs: Temp Pulse Resp BP Pulse Ox 100.8 F H 102 H 20 145/83 H 92 04/23/18 12:05 04/23/18 12:40 04/23/18 12:40 04/23/18 12:05 04/23/18 12:40 Intake & Output 04/22/18 04/23/18 04/24/18 06:59 06:59 06:59 Intake Total 4160 1150 Output Total 1275 Balance 2885 1150 Weight 169.5 kg General appearance: PRESENT: morbidly obese, other - Moderate distress Head exam: PRESENT: atraumatic, normocephalic Eye exam: PRESENT: conjunctiva pink Mouth exam: PRESENT: moist Respiratory exam: PRESENT: decreased breath sounds - At the lung bases Cardiovascular exam: PRESENT: RRR. ABSENT: diastolic murmur, rubs, systolic murmur GI/Abdominal exam: PRESENT: normal bowel sounds, soft, other - Morbidly obese abdomen. ABSENT: distended, guarding, mass, organolmegaly, rebound, tenderness Neurological exam: PRESENT: alert, awake, oriented to time, oriented to situation Results Laboratory Results: 04/23/18 07:12 04/23/18 07:12 04/22/18 04/22/18 04/22/18 12:52 12:52 13:15 WBC RBC Hgb Hct MCV MCH MCHC RDW Plt Count Carbonic Acid 1.17 HCO3/H2CO3 Ratio 20:1 ABG pH 7.42 ABG pCO2 39.0 ABG pO2 106.7 H ABG HCO3 24.5 H ABG O2 Saturation 98.0 ABG Base Excess 0.1 FiO2 40% Sodium Potassium Chloride Carbon Dioxide Anion Gap BUN Creatinine Est GFR ( Amer) Est GFR (Non-Af Amer) Glucose Lactic Acid 1.7 Calcium Triglycerides Cholesterol LDL Cholesterol Direct VLDL Cholesterol HDL Cholesterol TSH Urine Color YELLOW Urine Appearance CLEAR Urine pH 5.0 Ur Specific Sharon 1.020 Urine Protein NEGATIVE Urine Glucose (UA) NEGATIVE Urine Ketones NEGATIVE Urine Blood NEGATIVE Urine Nitrite NEGATIVE Ur Leukocyte Esterase NEGATIVE Urine WBC (Auto) 0 04/23/18 04/23/18 04/23/18 07:12 07:12 07:12 WBC 3.9 L RBC 3.62 L Hgb 11.3 L Hct 32.4 L MCV 90 MCH 31.1 MCHC 34.7 RDW 15.5 H Plt Count 173 Carbonic Acid HCO3/H2CO3 Ratio ABG pH ABG pCO2 ABG pO2 ABG HCO3 ABG O2 Saturation ABG Base Excess FiO2 Sodium 133.9 L Potassium 4.0 Chloride 101 Carbon Dioxide 29 Anion Gap 4 L BUN 9 Creatinine 0.83 Est GFR ( Amer) > 60 Est GFR (Non-Af Amer) > 60 Glucose 107 Lactic Acid Calcium 8.3 L Triglycerides 197 H Cholesterol 152.97 LDL Cholesterol Direct 74 VLDL Cholesterol 39.4 H HDL Cholesterol 40 TSH 0.37 L Urine Color Urine Appearance Urine pH Ur Specific Sharon Urine Protein Urine Glucose (UA) Urine Ketones Urine Blood Urine Nitrite Ur Leukocyte Esterase Urine WBC (Auto) 04/23/18 10:25 WBC RBC Hgb Hct MCV MCH MCHC RDW Plt Count Carbonic Acid 0.96 L HCO3/H2CO3 Ratio 26:1 ABG pH 7.53 H ABG pCO2 31.9 L ABG pO2 444.7 H ABG HCO3 25.8 H ABG O2 Saturation 99.9 H ABG Base Excess 3.5 FiO2 85% Sodium Potassium Chloride Carbon Dioxide Anion Gap BUN Creatinine Est GFR ( Amer) Est GFR (Non-Af Amer) Glucose Lactic Acid Calcium Triglycerides Cholesterol LDL Cholesterol Direct VLDL Cholesterol HDL Cholesterol TSH Urine Color Urine Appearance Urine pH Ur Specific Sharon Urine Protein Urine Glucose (UA) Urine Ketones Urine Blood Urine Nitrite Ur Leukocyte Esterase Urine WBC (Auto) Impressions: Chest X-Ray 04/23/18 10:30 IMPRESSION: HEART ENLARGED WITHOUT FAILURE. NO OTHER SIGNIFICANT RADIOGRAPHIC FINDING IN THE CHEST. Assessment & Plan - Diagnosis (1) Influenza A Is this a current diagnosis for this admission?: Yes Plan: Patient has been started on Tamiflu. (2) SIRS (systemic inflammatory response syndrome) Is this a current diagnosis for this admission?: Yes Plan: So far his blood cultures negative but still patient remains low-grade fever. (3) Hypotension Qualifiers: Hypotension type: unspecified hypotension type Qualified Code(s): I95.9 - Hypotension, unspecified Is this a current diagnosis for this admission?: Yes Plan: Improving (4) HIV /AIDS Is this a current diagnosis for this admission?: Yes Plan: I restarted his antiretroviral medications. (5) Hypothyroidism Is this a current diagnosis for this admission?: Yes Plan: Continue Synthroid (6) Morbid obesity with BMI of 50.0-59.9, adult Is this a current diagnosis for this admission?: Yes Plan: Patient advised to have lifestyle modification (7) Obstructive sleep apnea Is this a current diagnosis for this admission?: Yes Plan: We will put him on CPAP
[2018-04-23] MEDS: FLUTICASONE NASAL SPRAY 50 MCG/SPRY 120 SPRAY/16 GM NASL SCH (13:19)
[2018-04-23] MEDS: METHYLPREDNISOLONE INJ 40 MG/1 ML SDV IV SCH ×3 (14:16→23:15)
[2018-04-23] MEDS ORDERED: PROPOFOL 1,000 MG/100 ML INFUS..BTL IV ONE ×2 (14:32→15:08)
[2018-04-23] MEDS: PROPOFOL 1,000 MG/100 ML INFUS..BTL IV PRN ×5 (14:45→23:00)
[2018-04-23] MEDS ORDERED: MIDAZOLAM HCL 50 MG/100 ML RTUINJ ONE (14:57)
[2018-04-23] MEDS ORDERED: SUCCINYLCHOLINE CHLORIDE INJ 200 MG/10 ML VIAL ONE (14:58)
[2018-04-23] MEDS: MIDAZOLAM HCL 50 MG/100 ML RTUINJ IV PRN ×4 (15:00→23:23)
--- NOTE | 2018-04-23 15:27 | PDOC CONSULTATION ---
Consultation Consult Date: 04/23/18 Attending physician:: LUZ BENNETT Consult reason:: Acute respiratory failure/influenza a/obstructive sleep apnea History of Present Illness Admission Date/PCP: 04/23/18 10:01 [place] [facility] History of Present Illness: AR VILLEGAS is a 42 year old male Was in with complaints of increasing shortness of breath he had several days at home feeling poorly he lives with a roommate who is also having for illness tested positive for influenza A of his condition condition continued to deteriorate earlier today and [facility] was called he initially responded well to BiPAP and nebulizers and Lasix however persistent stridor and he was subsequently taken to the ICU where he was intubated and sedated. He states he is never smoked has been exposed large amounts of exposure passive smoke as a child as well as an adult. He is a and served his [employer] for several years exposed large amounts of dust and chemicals is currently unemployed. He has HIV takes states he takes his DE LEON therapy regularly. He has no pets no recent travel no angina-like chest pains sleeps on 3 pillows no PND occasional nocturnal cough chronic edema. he has a diagnosis of obstructive sleep apnea and wears CPAP at home Past Medical History Cardiac Medical History: Reports: Hypertension Denies: Coronary Artery Disease, Myocardial Infarction Pulmonary Medical History: Reports: Bronchitis, Sleep Apnea Denies: Asthma, Chronic Obstructive Pulmonary Disease (COPD), Pneumonia Neurological Medical History: Denies: Seizures Endocrine Medical History: Reports: Hypothyroidism Denies: Diabetes Mellitus Type 1, Diabetes Mellitus Type 2, Hyperthyroidism GI Medical History: Reports: Gastroesophageal Reflux Disease, Hiatal Hernia Denies: Cirrhosis, Crohn's Disease, Hepatitis, Ulcerative Colitis Musculoskeltal Medical History: Reports: Arthritis Denies: Gout Skin Medical History: Denies: Eczema, Psoriasis Psychiatric Medical History: Reports: Post Traumatic Stress Disorder Hematology: Denies: Anemia, Bleeding Tendencies Infectious Medical History: Reports: HIV Past Surgical History Past Surgical History: Reports: Other - Brice fundoplication Social History Information Source: Patient, [facility] Records Smoking Status: Never Smoker Passive smoke exposure as: Both Frequency of Alcohol Use: Rare Hx Recreational Drug Use: No Drugs: None Hx Prescription Drug Abuse: No Do you have pets?: No Have you had any respiratory illnesses as a child?: No Have you been exposed to any sick contacts recently?: Yes Have you had any recent respiratory illnesses?: Yes Have you travelled outside of [place] in the past 12 months?: No - Advance Directive Resuscitation Status: Full Code Family History Family History: DM. denies: CAD, Hypertension, Malignancy Parental Family History Reviewed: Yes Children Family History Reviewed: Yes Sibling(s) Family History Reviewed.: Yes Medication/Allergy Home Medications: Levothyroxine Sodium [Synthroid 0.15 mg Tablet] 1 tab PO DAILY 11/07/17 Lisinopril/Hydrochlorothiazide [Lisinopril-Hctz 20-25 mg Tab] 1 tab PO DAILY 11/07/17 Metoprolol Tartrate 50 mg PO DAILY 11/07/17 Atazanavir Sulfate/Cobicistat [Evotaz 300 mg-150 mg Tablet] 1 each PO DAILY 02/19/18 Cholecalciferol (Vitamin D3) [Vitamin D3 1000 Unit Tablet] 2,000 unit PO DAILY 02/19/18 Emtricitabine/Tenofov Alafenam [Descovy 200-25 mg Tablet] 1 each PO DAILY Omeprazole 20 mg PO DAILY 02/19/18 Tramadol HCl [Ultram 50 mg Tablet] 50 mg PO BIDP PRN 02/19/18 Clotrimazole/Betamethasone Dip [Lotrisone Cream 15 gm] 1 applic TOP BID #0 tube 02/23/18 Allergies/Adverse Reactions: seasonal Allergy (Severe, Uncoded 04/22/18 08:01) Rhinitis Review of Systems ROS unobtainable: Due to mental status Physical Exam Vital Signs: Temp Pulse Resp BP Pulse Ox 100.8 F H 102 H 20 145/83 H 97 04/23/18 12:05 04/23/18 12:40 04/23/18 12:40 04/23/18 12:05 04/23/18 14:46 Intake & Output 04/22/18 04/23/18 04/24/18 06:59 06:59 06:59 Intake Total 4160 1600 Output Total 1275 1950 Balance 2885 -350 Weight 169.5 kg General appearance: PRESENT: disheveled, mild distress, morbidly obese Head exam: PRESENT: atraumatic, normocephalic Eye exam: PRESENT: conjunctiva pale, EOMI. ABSENT: nystagmus, periorbital swelling, scleral icterus Mouth exam: PRESENT: dry mucosa, neck supple, tongue midline, other - stridor Neck exam: ABSENT: carotid bruit, full ROM, JVD, lymphadenopathy, meningismus, tenderness, thyromegaly, tracheal deviation, tracheostomy, other Respiratory exam: PRESENT: decreased breath sounds, prolonged expiratory phas, retraction, rhonchi, stridor, tachypnea, wheezes Cardiovascular exam: PRESENT: RRR, +S1, +S2, tachycardia Pulses: PRESENT: normal radial pulses GI/Abdominal exam: PRESENT: soft. ABSENT: tenderness Extremities exam: PRESENT: +2 edema. ABSENT: calf tenderness, clubbing, joint swelling Musculoskeletal exam: ABSENT: ambulatory, deformity, dislocation Neurological exam: PRESENT: altered Psychiatric exam: PRESENT: flat affect Skin exam: PRESENT: dry, warm Results Laboratory Results: 04/23/18 07:12 04/23/18 13:55 04/23/18 04/23/18 04/23/18 07:12 07:12 07:12 WBC 3.9 L RBC 3.62 L Hgb 11.3 L Hct 32.4 L MCV 90 MCH 31.1 MCHC 34.7 RDW 15.5 H Plt Count 173 Carbonic Acid HCO3/H2CO3 Ratio ABG pH ABG pCO2 ABG pO2 ABG HCO3 ABG O2 Saturation ABG Base Excess FiO2 Sodium 133.9 L Potassium 4.0 Chloride 101 Carbon Dioxide 29 Anion Gap 4 L BUN 9 Creatinine 0.83 Est GFR ( Amer) > 60 Est GFR (Non-Af Amer) > 60 Glucose 107 Calcium 8.3 L Magnesium Triglycerides 197 H Cholesterol 152.97 LDL Cholesterol Direct 74 VLDL Cholesterol 39.4 H HDL Cholesterol 40 TSH 0.37 L 04/23/18 04/23/18 10:25 13:55 WBC RBC Hgb Hct MCV MCH MCHC RDW Plt Count Carbonic Acid 0.96 L HCO3/H2CO3 Ratio 26:1 ABG pH 7.53 H ABG pCO2 31.9 L ABG pO2 444.7 H ABG HCO3 25.8 H ABG O2 Saturation 99.9 H ABG Base Excess 3.5 FiO2 85% Sodium Cancelled Potassium Cancelled Chloride Cancelled Carbon Dioxide Cancelled Anion Gap Cancelled BUN Cancelled Creatinine Cancelled Est GFR ( Amer) Cancelled Est GFR (Non-Af Amer) Cancelled Glucose Cancelled Calcium Cancelled Magnesium Cancelled Triglycerides Cholesterol LDL Cholesterol Direct VLDL Cholesterol HDL Cholesterol TSH Assessment & Plan - Diagnosis (1) Fever Qualifiers: Fever type: unspecified Qualified Code(s): R50.9 - Fever, unspecified Is this a current diagnosis for this admission?: Yes Plan: viral tylenol as needed (2) HIV (human immunodeficiency virus infection) Qualifiers: HIV symptom status: unspecified Qualified Code(s): B20 - Human immunodeficiency virus [HIV] disease Is this a current diagnosis for this admission?: Yes Plan: will check viral load (3) Hypothyroidism Is this a current diagnosis for this admission?: Yes Plan: check TSH CORTISOL testosterone (5) Morbid obesity with BMI of 50.0-59.9, adult Is this a current diagnosis for this admission?: Yes (6) Obstructive sleep apnea Is this a current diagnosis for this admission?: Yes Plan: CPAP+ 13 cm (7) Acute respiratory failure Is this a current diagnosis for this admission?: Yes Plan: with stridor increase work of breathing - Time Total Critical Time (Minutes): 60
--- NOTE | 2018-04-23 15:34 | RADIOLOGY REPORT (SQ) ---
EXAM DESCRIPTION: KUB/ABDOMEN (SINGLE VIEW) COMPLETED DATE/TIME: 04/23/2018 3:23 pm REASON FOR STUDY: NG tune Placement COMPARISON: None. NUMBER OF VIEWS: One view. TECHNIQUE: Supine radiographic image of the upper abdomen acquired. LIMITATIONS: None. FINDINGS: BOWEL GAS PATTERN: Normal bowel gas pattern. No dilated loops. CALCIFICATIONS: No suspicious calcifications. SOFT TISSUES: No gross mass or suggestion of organomegaly. HARDWARE: Nasogastric tube with the tip in the stomach. BONES: No acute fracture. No worrisome bone lesions. OTHER: No other significant finding. IMPRESSION: SATISFACTORY POSITION OF THE NASOGASTRIC TUBE WITH THE TIP IN THE STOMACH. TECHNICAL DOCUMENTATION: JOB ID: [id number] [employer]- All Rights Reserved Reading location - IP/workstation name: [email or web address]
--- NOTE | 2018-04-23 15:34 | RADIOLOGY REPORT (SQ) ---
EXAM DESCRIPTION: CHEST SINGLE VIEW COMPLETED DATE/TIME: 04/23/2018 3:23 pm REASON FOR STUDY: ET and NG tube Placement COMPARISON: 04/23/2018. NUMBER OF VIEWS: One view. TECHNIQUE: Single frontal radiographic view of the chest acquired. LIMITATIONS: None. FINDINGS: LUNGS AND PLEURA: No opacities, masses or pneumothorax. No pleural effusion. MEDIASTINUM AND HILAR STRUCTURES: No masses. Contour normal. HEART AND VASCULAR STRUCTURES: Heart enlarged without failure. Normal vasculature. BONES: No acute findings. HARDWARE: Tip of the endotracheal tube approximately 4.5 cm proximal to the abran, at the level of t he clavicles. Tip of the nasogastric tube visualized on the separate x-ray of the abdomen. OTHER: No other significant finding. IMPRESSION: ENDOTRACHEAL TUBE DESCRIBED. OTHERWISE NO CHANGE IN APPEARANCE OF THE CHEST. TECHNICAL DOCUMENTATION: JOB ID: [id number] [employer]- All Rights Reserved Reading location - IP/workstation name: [email or web address]
[2018-04-23 15:37] LABS: ARTERIAL BLOOD BASE EXCESS 0.7 mmol/L; ARTERIAL BLOOD H2CO3 1.45 mmol/L (1.05-1.35); ARTERIAL BLOOD HCO3 26.7 mmol/L (20-24); ARTERIAL BLOOD O2 SATURATION 99.2 % (94-98); ARTERIAL BLOOD PCO2 48.2 mmHg (35-45); ARTERIAL BLOOD PH 7.36 (7.35-7.45); ARTERIAL BLOOD PO2 181.8 mmHg (80-100); ARTERIAL BLOOD TOTAL CO2 28.2 mmol/L (23-27)
[2018-04-23 15:44] LABS: ARTERIAL BLOOD FIO2 100%
[2018-04-23] MEDS: ENOXAPARIN SODIUM INJ 40 MG/0.4 ML DISP.SYRIN SUBCUT SCH (15:52)
[2018-04-23] MEDS: PANTOPRAZOLE SODIUM 20 MG TABLET.DR PO SCH (15:57)
[2018-04-23 16:15] LABS: ANION GAP 10 (5-19); BLOOD UREA NITROGEN 13 mg/dL (7-20); CALCIUM 8.7 mg/dL (8.4-10.2); CARBON DIOXIDE 27 mmol/L (22-30); CHLORIDE 99 mmol/L (98-107); GLUCOSE 184 mg/dL (75-110); POTASSIUM 4.2 mmol/L (3.6-5.0); TRIGLYCERIDES 290 mg/dL (<150)
[2018-04-23] MEDS: CLOTRIMAZOLE/BETAMETHASONE DIP CREAM 15 GM TOP SCH (18:29)
--- NOTE | 2018-04-23 19:03 | RADIOLOGY REPORT (SQ) ---
EXAM DESCRIPTION: CT SOFT TISSUE NECK WITH COMPLETED DATE/TIME: 04/23/2018 6:50 pm REASON FOR STUDY: RETROPHARYNGEAL ABSCESS COMPARISON: None. TECHNIQUE: Post IV contrasted scanning from skull base through lung apices with review of bone, soft tissue and lung windows. Reconstructed coronal and sagittal MPR images reviewed. All images stored on PACS. All CT scanners at this facility use dose modulation, iterative reconstruction, and/or weight based d osing when appropriate to reduce radiation dose to as low as reasonably achievable (ALARA). [facility]: Dose Right [facility]: CareDose [facility]: Dose Right [facility]: Teradose 4D [facility]: [employer] CONTRAST TYPE AND DOSE: contrast/concentration: Isovue 350.00 mg/ml; Total Contrast Delivered: 75.0 ml; Total Saline Delivered: 55.0 ml RENAL FUNCTION: None required. The patient is less than 50 years old. RADIATION DOSE: CT Rad equipment meets quality standard of care and radiation dose reduction techniq ues were employed. CTDIvol: 20.1 mGy. DLP: 678 mGy-cm. . LIMITATIONS: None. FINDINGS: SKULL BASE: Intact. MAJOR SALIVARY GLANDS: No solid or cystic masses. No inflammatory changes. LYMPHADENOPATHY: No adenopathy. MUCOSAL MASSES OR ASYMMETRY: No mucosal masses or asymmetry. LARYNX/CORDS: No abnormal findings. VASCULAR STRUCTURES: The major vessels are patent. LUNG APICES: Clear. BONES: Intact. THYROID: Normal size. No masses. PARANASAL SINUSES: Nonspecific partial opacification of the ethmoid air cells and bilateral maxillary sinus mucosal thickening. OTHER: Endotracheal tube positioned with tip in the upper trachea. There is consolidation or atelect asis of the partially included lungs, right greater than left. Probable small effusions. IMPRESSION: 1. No evidence of retropharyngeal abscess. The retropharyngeal and parapharyngeal space s are preserved. No CT abnormality of the neck. 2. Partial opacification of the ethmoid air cells and bilateral maxillary sinus mucosal thickening, nonspecific in the setting of endotracheal intubation. TECHNICAL DOCUMENTATION: JOB ID: [id number] Quality ID # [id number]: Final reports with documentation of one or more dose reduction techniques (e.g., Au tomated exposure control, adjustment of the mA and/or kV according to patient size, use of iterative reconstruction technique) 2010 [employer]- All Rights Reserved Reading location - IP/workstation name: [email or web address]
[2018-04-23] MEDS ORDERED: OSELTAMIVIR PHOSPHATE 75 MG CAPSULE PO ONE (23:59)
[2018-04-24] MEDS: IPRATROPIUM/ALBUTEROL 0.5-2.5 MG/3 ML AMPUL NEB SCH ×6 (00:14→19:29)
[2018-04-24] MEDS: MIDAZOLAM HCL 50 MG/100 ML RTUINJ IV PRN ×8 (02:27→22:41)
[2018-04-24 04:04] LABS: ABSOLUTE LYMPHOCYTES (AUTO) 0.6 10^3/uL (0.5-4.7); ABSOLUTE MONOCYTES (AUTO) 0.1 10^3/uL (0.1-1.4); ABSOLUTE NEUT (AUTO) 3.1 10^3/uL (1.7-8.2); BASOPHILS % (AUTO) 0.2 % (0-2); HEMATOCRIT 32.3 % (37.9-51.0); HEMOGLOBIN 11.4 g/dL (13.5-17.0); LYMPHOCYTES % (AUTO) 16.6 % (13-45); MEAN CORPUSCULAR HEMOGLOBIN 31.4 pg (27.0-33.4); MEAN CORPUSCULAR HGB CONC 35.2 g/dL (32.0-36.0); MEAN CORPUSCULAR VOLUME 89 fl (80-97); MONOCYTES % (AUTO) 2.7 % (3-13); PLATELET COUNT 175 10^3/uL (150-450); RED BLOOD COUNT 3.62 10^6/uL (4.35-5.55); RED CELL DISTRIBUTION WIDTH 15.1 % (11.5-14.0); SEGMENTED NEUTROPHILS % (AUTO) 80.5 % (42-78); TOTAL CELLS COUNTED % (AUTO) 100 %; WHITE BLOOD COUNT 3.8 10^3/uL (4.0-10.5)
[2018-04-24 04:25] LABS: ALANINE AMINOTRANSFERASE 81 U/L (21-72); ALBUMIN 3.4 g/dL (3.5-5.0); ALKALINE PHOSPHATASE 47 U/L (38-126); ANION GAP 10 (5-19); ASPARTATE AMINO TRANSFERASE 43 U/L (17-59); BILIRUBIN,DIRECT 0.4 mg/dL (0.0-0.4); BLOOD UREA NITROGEN 16 mg/dL (7-20); CALCIUM 8.9 mg/dL (8.4-10.2); CARBON DIOXIDE 23 mmol/L (22-30); CHLORIDE 103 mmol/L (98-107); GLUCOSE 231 mg/dL (75-110); SODIUM 136.3 mmol/L (137-145); TOTAL PROTEIN 5.6 g/dL (6.3-8.2)
[2018-04-24 05:19] LABS: ARTERIAL BLOOD BASE EXCESS 1.6 mmol/L; ARTERIAL BLOOD H2CO3 1.18 mmol/L (1.05-1.35); ARTERIAL BLOOD HCO3 25.9 mmol/L (20-24); ARTERIAL BLOOD O2 SATURATION 93.8 % (94-98); ARTERIAL BLOOD PCO2 39.3 mmHg (35-45); ARTERIAL BLOOD PH 7.44 (7.35-7.45); ARTERIAL BLOOD PO2 66.4 mmHg (80-100); ARTERIAL BLOOD TOTAL CO2 27.1 mmol/L (23-27)
[2018-04-24 05:24] LABS: ARTERIAL BLOOD FIO2 40%
[2018-04-24] MEDS ORDERED: LEVOTHYROXINE SODIUM 0.15 MG TABLET PO SCH (06:00)
[2018-04-24] MEDS: METHYLPREDNISOLONE INJ 40 MG/1 ML SDV IV SCH ×3 (06:19→17:56)
[2018-04-24] MEDS: PANTOPRAZOLE SODIUM 20 MG TABLET.DR PO SCH (06:21)
[2018-04-24] MEDS: PROPOFOL 1,000 MG/100 ML INFUS..BTL IV PRN ×5 (06:31→22:41)
[2018-04-24] MEDS ORDERED: DEXTROSE 40% GEL 15 GM TUBE PO PRN ×2 (08:16)
[2018-04-24] MEDS ORDERED: DEXTROSE 50%-WATER 25 GM/50 ML DISP.SYRIN IV PRN ×2 (08:16)
[2018-04-24] MEDS ORDERED: GLUCAGON,HUMAN RECOMB 1 MG INJ IM PRN (08:16)
--- NOTE | 2018-04-24 08:24 | RADIOLOGY REPORT (SQ) ---
EXAM DESCRIPTION: CHEST SINGLE VIEW COMPLETED DATE/TIME: 04/24/2018 6:16 am REASON FOR STUDY: res failure COMPARISON: None. NUMBER OF VIEWS: One view. TECHNIQUE: Single frontal radiographic view of the chest acquired. LIMITATIONS: None. FINDINGS: LUNGS AND PLEURA: Patchy basilar densities, particularly in the retrocardiac left lung bas e. MEDIASTINUM AND HILAR STRUCTURES: No masses. Contour normal. HEART AND VASCULAR STRUCTURES: Heart enlarged without failure. Normal vasculature. BONES: No acute findings. HARDWARE: Stable endotracheal tube and nasogastric tube. OTHER: No other significant finding. IMPRESSION: CARDIOMEGALY UNCHANGED. MILD ATELECTASIS IN THE LUNG BASES VERSUS DEVELOPING INFILTRATE . TECHNICAL DOCUMENTATION: JOB ID: [id number] [employer]- All Rights Reserved Reading location - IP/workstation name: [email or web address]
[2018-04-24 09:38] LABS: ANION GAP 11 (5-19); BLOOD UREA NITROGEN 16 mg/dL (7-20); CARBON DIOXIDE 25 mmol/L (22-30); CHLORIDE 102 mmol/L (98-107); GLUCOSE 227 mg/dL (75-110); POTASSIUM 3.8 mmol/L (3.6-5.0); SODIUM 137.8 mmol/L (137-145)
[2018-04-24] MEDS: LEVOTHYROXINE SODIUM INJ/PF 0.1 MG SDV IV SCH (09:52)
[2018-04-24] MEDS: FLUTICASONE NASAL SPRAY 50 MCG/SPRY 120 SPRAY/16 GM NASL SCH (09:52)
[2018-04-24] MEDS: ENOXAPARIN SODIUM INJ 40 MG/0.4 ML DISP.SYRIN SUBCUT SCH (09:52)
[2018-04-24] MEDS: CHOLECALCIFEROL (D3) 1,000 UNIT TABLET PO SCH (09:52)
[2018-04-24] MEDS: LEVOFLOXACIN 750 MG/D5W RTU 750 MG/150 ML RTUPB IV SCH (09:52)
[2018-04-24] MEDS: CLOTRIMAZOLE/BETAMETHASONE DIP CREAM 15 GM TOP SCH ×2 (09:52→17:56)
[2018-04-24] MEDS: OSELTAMIVIR PHOSPHATE 75 MG CAPSULE PO SCH ×2 (11:08→17:57)
[2018-04-24] MEDS: INSULIN LISPRO 100 UNIT/ML 3 ML VIAL SUBCUT SCH ×3 (11:14→22:41)
--- NOTE | 2018-04-24 11:32 | PDOC PROGRESS REPORT ---
Subjective Progress Note for:: 04/24/18 Subjective:: Patient remained intubated. CT of the lateral neck soft tissue is negative for retropharyngeal abscess or epiglottitis. His ABGs relatively better. His renal mild hyperglycemia may be that it is due to the steroid. Reason For Visit: INFLUENZA A, HIV, SIRS Physical Exam Vital Signs: Temp Pulse Resp BP Pulse Ox 99.1 F 110 H 20 104/58 L 95 04/24/18 11:00 04/24/18 10:00 04/24/18 10:00 04/24/18 10:35 04/24/18 11:00 Intake & Output 04/23/18 04/24/18 04/25/18 06:59 06:59 06:59 Intake Total 4160 3474 200 Output Total 1275 4290 420 Balance 2885 -816 -220 Weight 169.5 kg 171 kg General appearance: PRESENT: morbidly obese Head exam: PRESENT: atraumatic, normocephalic Eye exam: PRESENT: conjunctiva pink Neck exam: ABSENT: carotid bruit, JVD, lymphadenopathy, thyromegaly Respiratory exam: PRESENT: wheezes Cardiovascular exam: PRESENT: RRR. ABSENT: diastolic murmur, rubs, systolic murmur GI/Abdominal exam: PRESENT: normal bowel sounds, soft. ABSENT: distended, guarding, mass, organolmegaly, rebound, tenderness Results Laboratory Results: 04/24/18 03:53 04/24/18 09:10 04/23/18 04/23/18 04/23/18 13:55 15:21 15:40 WBC RBC Hgb Hct MCV MCH MCHC RDW Plt Count Seg Neutrophils % Lymphocytes % Monocytes % Eosinophils % Basophils % Absolute Neutrophils Absolute Lymphocytes Absolute Monocytes Absolute Eosinophils Absolute Basophils Carbonic Acid 1.45 H HCO3/H2CO3 Ratio 18:1 ABG pH 7.36 ABG pCO2 48.2 H ABG pO2 181.8 H ABG HCO3 26.7 H ABG O2 Saturation 99.2 H ABG Base Excess 0.7 FiO2 100% Sodium Cancelled 136.0 L Potassium Cancelled 4.2 Chloride Cancelled 99 Carbon Dioxide Cancelled 27 Anion Gap Cancelled 10 BUN Cancelled 13 Creatinine Cancelled 1.06 Est GFR ( Amer) Cancelled > 60 Est GFR (Non-Af Amer) Cancelled > 60 Glucose Cancelled 184 H Lactic Acid Calcium Cancelled 8.7 Magnesium Cancelled 2.0 Total Bilirubin AST ALT Alkaline Phosphatase Total Protein Albumin Triglycerides 290 H 04/24/18 04/24/18 04/24/18 03:53 03:53 03:53 WBC 3.8 L RBC 3.62 L Hgb 11.4 L Hct 32.3 L MCV 89 MCH 31.4 MCHC 35.2 RDW 15.1 H Plt Count 175 Seg Neutrophils % 80.5 H Lymphocytes % 16.6 Monocytes % 2.7 L Eosinophils % 0.0 Basophils % 0.2 Absolute Neutrophils 3.1 Absolute Lymphocytes 0.6 Absolute Monocytes 0.1 Absolute Eosinophils 0.0 Absolute Basophils 0.0 Carbonic Acid HCO3/H2CO3 Ratio ABG pH ABG pCO2 ABG pO2 ABG HCO3 ABG O2 Saturation ABG Base Excess FiO2 Sodium 136.3 L Potassium 4.0 Chloride 103 Carbon Dioxide 23 Anion Gap 10 BUN 16 Creatinine 0.91 Est GFR ( Amer) > 60 Est GFR (Non-Af Amer) > 60 Glucose 231 H Lactic Acid 1.1 Calcium 8.9 Magnesium Total Bilirubin 1.0 AST 43 ALT 81 H Alkaline Phosphatase 47 Total Protein 5.6 L Albumin 3.4 L Triglycerides 04/24/18 04/24/18 05:00 09:10 WBC RBC Hgb Hct MCV MCH MCHC RDW Plt Count Seg Neutrophils % Lymphocytes % Monocytes % Eosinophils % Basophils % Absolute Neutrophils Absolute Lymphocytes Absolute Monocytes Absolute Eosinophils Absolute Basophils Carbonic Acid 1.18 HCO3/H2CO3 Ratio 21:1 ABG pH 7.44 ABG pCO2 39.3 ABG pO2 66.4 L ABG HCO3 25.9 H ABG O2 Saturation 93.8 L ABG Base Excess 1.6 FiO2 40% Sodium 137.8 Potassium 3.8 Chloride 102 Carbon Dioxide 25 Anion Gap 11 BUN 16 Creatinine 0.84 Est GFR ( Amer) > 60 Est GFR (Non-Af Amer) > 60 Glucose 227 H Lactic Acid Calcium 9.0 Magnesium Total Bilirubin AST ALT Alkaline Phosphatase Total Protein Albumin Triglycerides 04/22/18 12:52 Clean Catch Midstream Urine Culture - Final NO GROWTH 2 DAYS 04/24/18 03:53 NT-Pro-B Natriuret Pep 128 H Impressions: Soft Tissue Neck CT 04/23/18 00:00 IMPRESSION: 1. No evidence of retropharyngeal abscess. The retropharyngeal and parapharyngeal spaces are preserved. No CT abnormality of the neck. 2. Partial opacification of the ethmoid air cells and bilateral maxillary sinus mucosal thickening, nonspecific in the setting of endotracheal intubation. KUB X-Ray 04/23/18 14:56 IMPRESSION: SATISFACTORY POSITION OF THE NASOGASTRIC TUBE WITH THE TIP IN THE STOMACH. Chest X-Ray 04/24/18 06:00 IMPRESSION: CARDIOMEGALY UNCHANGED. MILD ATELECTASIS IN THE LUNG BASES VERSUS DEVELOPING INFILTRATE. Assessment & Plan - Diagnosis (1) Influenza A Is this a current diagnosis for this admission?: Yes Plan: Patient has been started on Tamiflu. (2) SIRS (systemic inflammatory response syndrome) Is this a current diagnosis for this admission?: Yes Plan: So far his blood cultures negative but still patient remains low-grade fever. (3) Hypotension Qualifiers: Hypotension type: unspecified hypotension type Qualified Code(s): I95.9 - Hypotension, unspecified Is this a current diagnosis for this admission?: Yes Plan: Improving (4) HIV /AIDS Is this a current diagnosis for this admission?: Yes Plan: I restarted his antiretroviral medications. (5) Hypothyroidism Is this a current diagnosis for this admission?: Yes Plan: Continue Synthroid (6) Morbid obesity with BMI of 50.0-59.9, adult Is this a current diagnosis for this admission?: Yes Plan: Patient advised to have lifestyle modification (7) Obstructive sleep apnea Is this a current diagnosis for this admission?: Yes Plan: We will put him on CPAP
--- NOTE | 2018-04-24 15:01 | PDOC PROGRESS REPORT ---
Subjective Progress Note for:: 04/24/18 Subjective:: Intubated and sedated Reason For Visit: INFLUENZA A, HIV, SIRS Physical Exam Vital Signs: Temp Pulse Resp BP Pulse Ox 97.5 F 83 18 103/58 L 96 04/24/18 07:58 04/24/18 08:26 04/24/18 08:26 04/24/18 07:58 04/24/18 08:26 Intake & Output 04/23/18 04/24/18 04/25/18 06:59 06:59 06:59 Intake Total 4160 3474 100 Output Total 1275 4290 210 Balance 2885 -816 -110 Weight 169.5 kg 171 kg General appearance: PRESENT: no acute distress, disheveled, morbidly obese. ABSENT: cooperative Head exam: PRESENT: atraumatic, normocephalic Eye exam: PRESENT: conjunctiva pale. ABSENT: EOMI, nystagmus, periorbital swelling, scleral icterus Mouth exam: PRESENT: dry mucosa, neck supple, tongue midline, other - Endotracheal tube Neck exam: ABSENT: carotid bruit, full ROM, JVD, lymphadenopathy, meningismus, tenderness, thyromegaly, tracheal deviation, tracheostomy, other Respiratory exam: PRESENT: decreased breath sounds, prolonged expiratory phas, rales, rhonchi, unlabored. ABSENT: retraction, stridor Cardiovascular exam: PRESENT: RRR, +S1, tachycardia Pulses: PRESENT: normal radial pulses GI/Abdominal exam: PRESENT: soft. ABSENT: tenderness Gentrourinary exam: PRESENT: indwelling catheter Extremities exam: PRESENT: +2 edema. ABSENT: calf tenderness, clubbing, joint swelling Musculoskeletal exam: ABSENT: ambulatory, deformity, dislocation Neurological exam: ABSENT: awake Skin exam: PRESENT: dry, warm Results Laboratory Results: 04/24/18 03:53 04/23/18 04/23/18 04/23/18 10:25 13:55 15:21 WBC RBC Hgb Hct MCV MCH MCHC RDW Plt Count Seg Neutrophils % Lymphocytes % Monocytes % Eosinophils % Basophils % Absolute Neutrophils Absolute Lymphocytes Absolute Monocytes Absolute Eosinophils Absolute Basophils Carbonic Acid 0.96 L 1.45 H HCO3/H2CO3 Ratio 26:1 18:1 ABG pH 7.53 H 7.36 ABG pCO2 31.9 L 48.2 H ABG pO2 444.7 H 181.8 H ABG HCO3 25.8 H 26.7 H ABG O2 Saturation 99.9 H 99.2 H ABG Base Excess 3.5 0.7 FiO2 85% 100% Sodium Cancelled Potassium Cancelled Chloride Cancelled Carbon Dioxide Cancelled Anion Gap Cancelled BUN Cancelled Creatinine Cancelled Est GFR ( Amer) Cancelled Est GFR (Non-Af Amer) Cancelled Glucose Cancelled Lactic Acid Calcium Cancelled Magnesium Cancelled Total Bilirubin AST ALT Alkaline Phosphatase Total Protein Albumin Triglycerides 04/23/18 04/24/18 04/24/18 15:40 03:53 03:53 WBC 3.8 L RBC 3.62 L Hgb 11.4 L Hct 32.3 L MCV 89 MCH 31.4 MCHC 35.2 RDW 15.1 H Plt Count 175 Seg Neutrophils % 80.5 H Lymphocytes % 16.6 Monocytes % 2.7 L Eosinophils % 0.0 Basophils % 0.2 Absolute Neutrophils 3.1 Absolute Lymphocytes 0.6 Absolute Monocytes 0.1 Absolute Eosinophils 0.0 Absolute Basophils 0.0 Carbonic Acid HCO3/H2CO3 Ratio ABG pH ABG pCO2 ABG pO2 ABG HCO3 ABG O2 Saturation ABG Base Excess FiO2 Sodium 136.0 L 136.3 L Potassium 4.2 4.0 Chloride 99 103 Carbon Dioxide 27 23 Anion Gap 10 10 BUN 13 16 Creatinine 1.06 0.91 Est GFR ( Amer) > 60 > 60 Est GFR (Non-Af Amer) > 60 > 60 Glucose 184 H 231 H Lactic Acid Calcium 8.7 8.9 Magnesium 2.0 Total Bilirubin 1.0 AST 43 ALT 81 H Alkaline Phosphatase 47 Total Protein 5.6 L Albumin 3.4 L Triglycerides 290 H 04/24/18 04/24/18 03:53 05:00 WBC RBC Hgb Hct MCV MCH MCHC RDW Plt Count Seg Neutrophils % Lymphocytes % Monocytes % Eosinophils % Basophils % Absolute Neutrophils Absolute Lymphocytes Absolute Monocytes Absolute Eosinophils Absolute Basophils Carbonic Acid 1.18 HCO3/H2CO3 Ratio 21:1 ABG pH 7.44 ABG pCO2 39.3 ABG pO2 66.4 L ABG HCO3 25.9 H ABG O2 Saturation 93.8 L ABG Base Excess 1.6 FiO2 40% Sodium Potassium Chloride Carbon Dioxide Anion Gap BUN Creatinine Est GFR ( Amer) Est GFR (Non-Af Amer) Glucose Lactic Acid 1.1 Calcium Magnesium Total Bilirubin AST ALT Alkaline Phosphatase Total Protein Albumin Triglycerides 04/24/18 03:53 NT-Pro-B Natriuret Pep 128 H Impressions: Soft Tissue Neck CT 04/23/18 00:00 IMPRESSION: 1. No evidence of retropharyngeal abscess. The retropharyngeal and parapharyngeal spaces are preserved. No CT abnormality of the neck. 2. Partial opacification of the ethmoid air cells and bilateral maxillary sinus mucosal thickening, nonspecific in the setting of endotracheal intubation. KUB X-Ray 04/23/18 14:56 IMPRESSION: SATISFACTORY POSITION OF THE NASOGASTRIC TUBE WITH THE TIP IN THE STOMACH. Chest X-Ray 04/24/18 06:00 IMPRESSION: CARDIOMEGALY UNCHANGED. MILD ATELECTASIS IN THE LUNG BASES VERSUS DEVELOPING INFILTRATE. Assessment & Plan - Diagnosis (1) Fever Qualifiers: Fever type: unspecified Qualified Code(s): R50.9 - Fever, unspecified Is this a current diagnosis for this admission?: Yes Plan: viral tylenol as needed (2) HIV (human immunodeficiency virus infection) Qualifiers: HIV symptom status: unspecified Qualified Code(s): B20 - Human immunodeficiency virus [HIV] disease Is this a current diagnosis for this admission?: Yes Plan: will check viral load (3) Hypothyroidism Is this a current diagnosis for this admission?: Yes Plan: check TSH CORTISOL testosterone (4) Influenza A Is this a current diagnosis for this admission?: Yes Plan: Tamiflu (5) Morbid obesity with BMI of 50.0-59.9, adult Is this a current diagnosis for this admission?: Yes Plan: he had gastric bypass surgery apparently this is breaking down can review this when patient is more stable (6) Obstructive sleep apnea Is this a current diagnosis for this admission?: Yes Plan: CPAP+ 13 cm (7) Acute respiratory failure Is this a current diagnosis for this admission?: Yes Plan: with stridor increase work of breathing - Time Total Critical Time (Minutes): 50
[2018-04-24 17:27] LABS: ARTERIAL BLOOD BASE EXCESS -1.6 mmol/L; ARTERIAL BLOOD HCO3 23.3 mmol/L (20-24); ARTERIAL BLOOD O2 SATURATION 95.7 % (94-98); ARTERIAL BLOOD PCO2 39.9 mmHg (35-45); ARTERIAL BLOOD PH 7.38 (7.35-7.45); ARTERIAL BLOOD PO2 79.8 mmHg (80-100); ARTERIAL BLOOD TOTAL CO2 24.5 mmol/L (23-27)
[2018-04-24 17:29] LABS: ARTERIAL BLOOD FIO2 60%
[2018-04-24] MEDS: TRAMADOL HCL 50 MG TABLET PO PRN (17:31)
[2018-04-24] MEDS: DEXTROSE 5%-WATER 250 ML with PHENYLEPHRINE HCL 40 MG IV PRN ×2 (18:45)
[2018-04-24] MEDS ORDERED: PHENYLEPHRINE HCL INJ/PF 10 MG/1 ML SDV ONE (18:48)
[2018-04-24] MEDS ORDERED: NORMAL SALINE 500 ML IV PRN (19:41)
[2018-04-25] MEDS: IPRATROPIUM/ALBUTEROL 0.5-2.5 MG/3 ML AMPUL NEB SCH ×6 (00:39→21:07)
[2018-04-25] MEDS: METHYLPREDNISOLONE INJ 40 MG/1 ML SDV IV SCH ×2 (00:55→05:55)
[2018-04-25] MEDS: PROPOFOL 1,000 MG/100 ML INFUS..BTL IV PRN ×8 (01:02→22:27)
[2018-04-25] MEDS: MIDAZOLAM HCL 50 MG/100 ML RTUINJ IV PRN ×8 (01:03→21:53)
[2018-04-25] MEDS: OXYCODONE-ACETAMINOPHEN 5-325 MG TABLET PO PRN ×3 (01:04→21:52)
[2018-04-25] MEDS: DEXTROSE 5%-WATER 250 ML with PHENYLEPHRINE HCL 40 MG IV PRN ×2 (02:51)
[2018-04-25 03:24] LABS: ARTERIAL BLOOD BASE EXCESS 0.4 mmol/L; ARTERIAL BLOOD H2CO3 1.19 mmol/L (1.05-1.35); ARTERIAL BLOOD HCO3 24.9 mmol/L (20-24); ARTERIAL BLOOD O2 SATURATION 97.9 % (94-98); ARTERIAL BLOOD PCO2 39.6 mmHg (35-45); ARTERIAL BLOOD PH 7.42 (7.35-7.45); ARTERIAL BLOOD PO2 104.4 mmHg (80-100); ARTERIAL BLOOD TOTAL CO2 26.1 mmol/L (23-27)
[2018-04-25 03:25] LABS: ARTERIAL BLOOD FIO2 60%
[2018-04-25] MEDS: NORMAL SALINE 1000 ML 1,000 ML IV PRN (04:02)
[2018-04-25 04:19] LABS: ABSOLUTE MONOCYTES (AUTO) 0.5 10^3/uL (0.1-1.4); ABSOLUTE NEUT (AUTO) 11.6 10^3/uL (1.7-8.2); BASOPHILS % (AUTO) 0.2 % (0-2); HEMATOCRIT 35.5 % (37.9-51.0); HEMOGLOBIN 12.2 g/dL (13.5-17.0); LYMPHOCYTES % (AUTO) 7.4 % (13-45); MEAN CORPUSCULAR HEMOGLOBIN 30.7 pg (27.0-33.4); MEAN CORPUSCULAR HGB CONC 34.3 g/dL (32.0-36.0); MEAN CORPUSCULAR VOLUME 90 fl (80-97); MONOCYTES % (AUTO) 3.8 % (3-13); PLATELET COUNT 253 10^3/uL (150-450); RED BLOOD COUNT 3.97 10^6/uL (4.35-5.55); RED CELL DISTRIBUTION WIDTH 15.2 % (11.5-14.0); SEGMENTED NEUTROPHILS % (AUTO) 88.6 % (42-78); TOTAL CELLS COUNTED % (AUTO) 100 %
[2018-04-25 04:20] LABS: WHITE BLOOD COUNT 13.1 10^3/uL (4.0-10.5)
[2018-04-25] MEDS: TRAMADOL HCL 50 MG TABLET PO PRN (05:55)
[2018-04-25] MEDS: PANTOPRAZOLE SODIUM 20 MG TABLET.DR PO SCH (05:55)
--- NOTE | 2018-04-25 06:42 | RADIOLOGY REPORT (SQ) ---
CLINICAL HISTORY: resp failure/pna COMPARISON: April 24, 2018. TECHNIQUE: XR CHEST 1 VIEW 04/25/2018 6:00 AM CDT FINDINGS: The heart is enlarged. Lungs are clear without consolidation, atelectasis, mass or edema. There is no pleural effusion. There is no pneumothorax. There are no acute osseous findings. Endotracheal and nasogastric tubes are unchanged. IMPRESSION: No change.
[2018-04-25] MEDS: INSULIN LISPRO 100 UNIT/ML 3 ML VIAL SUBCUT SCH ×4 (08:14→22:46)
[2018-04-25] MEDS: ENOXAPARIN SODIUM INJ 40 MG/0.4 ML DISP.SYRIN SUBCUT SCH (09:42)
[2018-04-25] MEDS: OSELTAMIVIR PHOSPHATE 75 MG CAPSULE PO SCH ×2 (09:42→17:46)
[2018-04-25] MEDS: LEVOTHYROXINE SODIUM INJ/PF 0.1 MG SDV IV SCH (09:42)
[2018-04-25] MEDS: LEVOFLOXACIN 750 MG/D5W RTU 750 MG/150 ML RTUPB IV SCH (09:42)
[2018-04-25] MEDS: CHOLECALCIFEROL (D3) 1,000 UNIT TABLET PO SCH (09:42)
[2018-04-25] MEDS: CLOTRIMAZOLE/BETAMETHASONE DIP CREAM 15 GM TOP SCH ×2 (09:43→17:46)
[2018-04-25] MEDS: FLUTICASONE NASAL SPRAY 50 MCG/SPRY 120 SPRAY/16 GM NASL SCH (09:43)
--- NOTE | 2018-04-25 12:29 | PDOC PROGRESS REPORT ---
Subjective Progress Note for:: 04/25/18 Subjective:: Patient remained intubated. Yesterday he was running hypotension after a bolus of fluid and maintained at 125 mm/h his blood pressures normalizing. This morning his monitor shows sinus tachycardia with heart rate of 118. Chest x-ray done this morning reported as no consolidation no pneumothorax or pulmonary edema. We are checking CD4 count and cortisol level of this patient. Continue to comanage this patient with Dr. Guajardo. Reason For Visit: INFLUENZA A, HIV, SIRS Physical Exam Vital Signs: Temp Pulse Resp BP Pulse Ox 98.8 F 116 H 14 126/72 H 92 04/25/18 10:11 04/25/18 10:00 04/25/18 10:11 04/25/18 10:11 04/25/18 10:11 Intake & Output 04/24/18 04/25/18 04/26/18 06:59 06:59 06:59 Intake Total 3474 1896 337 Output Total 4290 1905 250 Balance -816 -9 87 Weight 171 kg 167.5 kg General appearance: PRESENT: mild distress Head exam: PRESENT: atraumatic, normocephalic Eye exam: PRESENT: conjunctiva pink Respiratory exam: PRESENT: clear to auscultation joaquin. ABSENT: rales, rhonchi, wheezes Cardiovascular exam: PRESENT: RRR, tachycardia. ABSENT: diastolic murmur, rubs, systolic murmur Results Laboratory Results: 04/25/18 04:05 04/24/18 09:10 04/24/18 04/25/18 04/25/18 17:16 03:15 04:05 WBC 13.1 H D RBC 3.97 L Hgb 12.2 L Hct 35.5 L MCV 90 MCH 30.7 MCHC 34.3 RDW 15.2 H Plt Count 253 Seg Neutrophils % 88.6 H Lymphocytes % 7.4 L Monocytes % 3.8 Eosinophils % 0.0 Basophils % 0.2 Absolute Neutrophils 11.6 H Absolute Lymphocytes 1.0 Absolute Monocytes 0.5 Absolute Eosinophils 0.0 Absolute Basophils 0.0 Carbonic Acid 1.20 1.19 HCO3/H2CO3 Ratio 19:1 20:1 ABG pH 7.38 7.42 ABG pCO2 39.9 39.6 ABG pO2 79.8 L 104.4 H ABG HCO3 23.3 24.9 H ABG O2 Saturation 95.7 97.9 ABG Base Excess -1.6 0.4 FiO2 60% 60% Phosphorus Magnesium 04/25/18 04:05 WBC RBC Hgb Hct MCV MCH MCHC RDW Plt Count Seg Neutrophils % Lymphocytes % Monocytes % Eosinophils % Basophils % Absolute Neutrophils Absolute Lymphocytes Absolute Monocytes Absolute Eosinophils Absolute Basophils Carbonic Acid HCO3/H2CO3 Ratio ABG pH ABG pCO2 ABG pO2 ABG HCO3 ABG O2 Saturation ABG Base Excess FiO2 Phosphorus 4.0 Magnesium 2.6 H 04/22/18 12:52 Clean Catch Midstream Urine Culture - Final NO GROWTH 2 DAYS 04/24/18 04/25/18 03:53 04:05 NT-Pro-B Natriuret Pep 128 H 311 H Impressions: Soft Tissue Neck CT 04/23/18 00:00 IMPRESSION: 1. No evidence of retropharyngeal abscess. The retropharyngeal and parapharyngeal spaces are preserved. No CT abnormality of the neck. 2. Partial opacification of the ethmoid air cells and bilateral maxillary sinus mucosal thickening, nonspecific in the setting of endotracheal intubation. KUB X-Ray 04/23/18 14:56 IMPRESSION: SATISFACTORY POSITION OF THE NASOGASTRIC TUBE WITH THE TIP IN THE STOMACH. Chest X-Ray 04/25/18 06:00 IMPRESSION: No change. Assessment & Plan - Diagnosis (1) Acute hypoxemic respiratory failure Is this a current diagnosis for this admission?: Yes Plan: Patient is on mechanical ventilation. (2) Influenza A Is this a current diagnosis for this admission?: Yes (3) SIRS (systemic inflammatory response syndrome) Is this a current diagnosis for this admission?: Yes Plan: So far his blood cultures negative but still patient remains low-grade fever. (4) Hypotension Qualifiers: Hypotension type: unspecified hypotension type Qualified Code(s): I95.9 - Hypotension, unspecified Is this a current diagnosis for this admission?: Yes Plan: Improving (5) HIV /AIDS Is this a current diagnosis for this admission?: Yes Plan: I restarted his antiretroviral medications. (6) Hypothyroidism Is this a current diagnosis for this admission?: Yes Plan: Continue Synthroid (7) Morbid obesity with BMI of 50.0-59.9, adult Is this a current diagnosis for this admission?: Yes Plan: Patient advised to have lifestyle modification (8) Obstructive sleep apnea Is this a current diagnosis for this admission?: Yes Plan: We will put him on CPAP
[2018-04-25] MEDS: METHYLPREDNISOLONE INJ 125 MG/2 ML SDV IV SCH ×2 (13:09→21:52)
[2018-04-25] MEDS ORDERED: METHYLPREDNISOLONE INJ 40 MG/1 ML SDV IV SCH (14:00)
[2018-04-26] MEDS: IPRATROPIUM/ALBUTEROL 0.5-2.5 MG/3 ML AMPUL NEB SCH ×7 (00:03→23:44)
[2018-04-26] MEDS: MIDAZOLAM HCL 50 MG/100 ML RTUINJ IV PRN ×8 (00:43→23:26)
[2018-04-26] MEDS: PROPOFOL 1,000 MG/100 ML INFUS..BTL IV PRN ×10 (00:43→22:46)
[2018-04-26 04:23] LABS: ARTERIAL BLOOD BASE EXCESS -1.9 mmol/L; ARTERIAL BLOOD HCO3 23.6 mmol/L (20-24); ARTERIAL BLOOD O2 SATURATION 96.1 % (94-98); ARTERIAL BLOOD PCO2 43.3 mmHg (35-45); ARTERIAL BLOOD PH 7.36 (7.35-7.45); ARTERIAL BLOOD PO2 85.6 mmHg (80-100)
[2018-04-26 04:32] LABS: ARTERIAL BLOOD FIO2 65%
[2018-04-26 04:33] LABS: HEMATOCRIT 32.9 % (37.9-51.0); HEMOGLOBIN 11.3 g/dL (13.5-17.0); MEAN CORPUSCULAR HEMOGLOBIN 30.9 pg (27.0-33.4); MEAN CORPUSCULAR HGB CONC 34.4 g/dL (32.0-36.0); MEAN CORPUSCULAR VOLUME 90 fl (80-97); PLATELET COUNT 270 10^3/uL (150-450); RED BLOOD COUNT 3.65 10^6/uL (4.35-5.55); WHITE BLOOD COUNT 16.4 10^3/uL (4.0-10.5)
[2018-04-26 05:01] LABS: ALBUMIN 3.5 g/dL (3.5-5.0); ANION GAP 11 (5-19); BLOOD UREA NITROGEN 35 mg/dL (7-20); CALCIUM 9.1 mg/dL (8.4-10.2); CARBON DIOXIDE 25 mmol/L (22-30); CHLORIDE 102 mmol/L (98-107); GLUCOSE 223 mg/dL (75-110); POTASSIUM 4.6 mmol/L (3.6-5.0); SODIUM 137.8 mmol/L (137-145); TOTAL PROTEIN 5.6 g/dL (6.3-8.2)
[2018-04-26 05:03] LABS: ALANINE AMINOTRANSFERASE 48 U/L (21-72); ALKALINE PHOSPHATASE 44 U/L (38-126); ASPARTATE AMINO TRANSFERASE 35 U/L (17-59); BILIRUBIN,DIRECT 0.3 mg/dL (0.0-0.4); BILIRUBIN,TOTAL 0.5 mg/dL (0.2-1.3)
[2018-04-26 05:10] LABS: ABSOLUTE LYMPHOCYTES# (MANUAL) 1.1 10^3/uL (0.5-4.7); ABSOLUTE MONOCYTES # (MANUAL) 0.8 10^3/uL (0.1-1.4); ABSOLUTE NEUTROPHILS# (MANUAL) 14.4 10^3/uL (1.7-8.2); ANISOCYTOSIS 1+; BAND NEUTROPHILS % (MANUAL) 1 % (3-5); BASOPHILS % (MANUAL) 0 % (0-2); EOSINOPHILS % (MANUAL) 0 % (0-6); LYMPHOCYTES % (MANUAL) 7 % (13-45); MONOCYTES % (MANUAL) 5 % (3-13); PLATELET COMMENT ADEQUATE; POLYCHROMASIA 1+; SEGMENTED NEUTROPHILS % (MAN) 87 % (42-78); TOTAL CELLS COUNTED 100; TOXIC GRANULATION 1+
[2018-04-26] MEDS: PANTOPRAZOLE SODIUM 20 MG TABLET.DR PO SCH (05:10)
[2018-04-26] MEDS: METHYLPREDNISOLONE INJ 125 MG/2 ML SDV IV SCH (05:58)
[2018-04-26] MEDS: OXYCODONE-ACETAMINOPHEN 5-325 MG TABLET PO PRN ×3 (06:41→23:03)
--- NOTE | 2018-04-26 07:30 | RADIOLOGY REPORT (SQ) ---
EXAM DESCRIPTION: XR CHEST 1 VIEW COMPLETED DATE/TME: 04/26/2018 06:00 CLINICAL HISTORY: 42 years Male, resp failure COMPARISON: One day prior. NUMBER OF VIEWS/TECHNIQUE: 1/AP FINDINGS: Tip of an endotracheal tube is above the thoracic inlet, 11-cm from the abran. Consider replacement or advancement of the endotracheal tube by 6-cm, as clinically warranted. Likely adequate appearing enteric tube partially obscured. Mild mixed interstitial and airspace opacities. Moderate lung volume. Moderately enlarged cardiac silhouette. No pneumothorax. Stable bony thorax. IMPRESSION: Tip of an endotracheal tube is above the thoracic inlet, 11.6 cm from the abran. Consider replacement or advancement of the endotracheal tube by 6.5 cm, as clinically warranted. Else, stable.
[2018-04-26] MEDS: INSULIN LISPRO 100 UNIT/ML 3 ML VIAL SUBCUT SCH ×4 (08:30→22:41)
[2018-04-26] MEDS ORDERED: SULFAMETHOXAZOLE/TRIMETHOPRIM 160 MG in DEXTROSE 5%-WATER 250 ML IV SCH (08:30)
[2018-04-26] MEDS ORDERED: METHYLPREDNISOLONE INJ 40 MG/1 ML SDV IV SCH (10:00)
[2018-04-26] MEDS ORDERED: METHYLPREDNISOLONE INJ 125 MG/2 ML SDV IV SCH (10:00)
[2018-04-26] MEDS ORDERED: FLUCONAZOLE 400 MG/NS RTU 400 MG/200 ML RTUPB IV ONE (10:00)
[2018-04-26] MEDS: FLUTICASONE NASAL SPRAY 50 MCG/SPRY 120 SPRAY/16 GM NASL SCH (10:10)
[2018-04-26] MEDS: OSELTAMIVIR PHOSPHATE 75 MG CAPSULE PO SCH ×2 (10:10→17:40)
[2018-04-26] MEDS: CLOTRIMAZOLE/BETAMETHASONE DIP CREAM 15 GM TOP SCH ×2 (10:10→17:38)
--- NOTE | 2018-04-26 10:13 | PDOC PROGRESS REPORT ---
Subjective Progress Note for:: 04/26/18 Subjective:: Patient remained intubated and on mechanical ventilation. His blood pressure is stable. His white cell count is slightly increased to 16.4. This may be associated with steroid use. I empirically started him on Diflucan and co- trimoxazole. I discussed the situation of the patient with his mom and sister. Viral load and CD4 counts pending. Reason For Visit: INFLUENZA A, HIV, SIRS Physical Exam Vital Signs: Temp Pulse Resp BP Pulse Ox 99.1 F 90 20 149/72 H 96 04/26/18 07:50 04/26/18 09:14 04/26/18 09:14 04/26/18 07:50 04/26/18 09:14 Intake & Output 04/25/18 04/26/18 04/27/18 06:59 06:59 06:59 Intake Total 1896 1831 200 Output Total 1905 1505 100 Balance -9 326 100 Weight 167.5 kg 170.8 kg Results Laboratory Results: 04/26/18 04:22 04/26/18 04:22 04/26/18 04/26/18 04/26/18 04:13 04:22 04:22 WBC 16.4 H RBC 3.65 L Hgb 11.3 L Hct 32.9 L MCV 90 MCH 30.9 MCHC 34.4 RDW 15.0 H Plt Count 270 Seg Neutrophils % Not Reportable Lymphocytes % Not Reportable Monocytes % Not Reportable Eosinophils % Not Reportable Basophils % Not Reportable Absolute Neutrophils Not Reportable Absolute Lymphocytes Not Reportable Absolute Monocytes Not Reportable Absolute Eosinophils Not Reportable Absolute Basophils Not Reportable Carbonic Acid 1.30 HCO3/H2CO3 Ratio 18:1 ABG pH 7.36 ABG pCO2 43.3 ABG pO2 85.6 ABG HCO3 23.6 ABG O2 Saturation 96.1 ABG Base Excess -1.9 FiO2 65% Sodium 137.8 Potassium 4.6 Chloride 102 Carbon Dioxide 25 Anion Gap 11 BUN 35 H Creatinine 1.06 Est GFR ( Amer) > 60 Est GFR (Non-Af Amer) > 60 Glucose 223 H Calcium 9.1 Magnesium 2.8 H Total Bilirubin 0.5 AST 35 ALT 48 Alkaline Phosphatase 44 Total Protein 5.6 L Albumin 3.5 04/24/18 04/25/18 03:53 04:05 NT-Pro-B Natriuret Pep 128 H 311 H Impressions: Soft Tissue Neck CT 04/23/18 00:00 IMPRESSION: 1. No evidence of retropharyngeal abscess. The retropharyngeal and parapharyngeal spaces are preserved. No CT abnormality of the neck. 2. Partial opacification of the ethmoid air cells and bilateral maxillary sinus mucosal thickening, nonspecific in the setting of endotracheal intubation. KUB X-Ray 04/23/18 14:56 IMPRESSION: SATISFACTORY POSITION OF THE NASOGASTRIC TUBE WITH THE TIP IN THE STOMACH. Chest X-Ray 04/26/18 06:00 IMPRESSION: Tip of an endotracheal tube is above the thoracic inlet, 11.6 cm from the abran. Consider replacement or advancement of the endotracheal tube by 6.5 cm, as clinically warranted. Else, stable. Assessment & Plan - Diagnosis (1) Acute hypoxemic respiratory failure Is this a current diagnosis for this admission?: Yes Plan: Patient is on mechanical ventilation. (2) Influenza A Is this a current diagnosis for this admission?: Yes Plan: Patient has been started on Tamiflu. (3) SIRS (systemic inflammatory response syndrome) Is this a current diagnosis for this admission?: Yes Plan: So far his blood cultures negative but still patient remains low-grade fever. (4) Hypotension Qualifiers: Hypotension type: unspecified hypotension type Qualified Code(s): I95.9 - Hypotension, unspecified Is this a current diagnosis for this admission?: Yes Plan: Improving (5) HIV /AIDS Is this a current diagnosis for this admission?: Yes Plan: I restarted his antiretroviral medications. (6) Hypothyroidism Is this a current diagnosis for this admission?: Yes Plan: Continue Synthroid (7) Morbid obesity with BMI of 50.0-59.9, adult Is this a current diagnosis for this admission?: Yes Plan: Patient advised to have lifestyle modification (8) Obstructive sleep apnea Is this a current diagnosis for this admission?: Yes Plan: We will put him on CPAP
[2018-04-26] MEDS: LEVOFLOXACIN 750 MG/D5W RTU 750 MG/150 ML RTUPB IV SCH (11:02)
[2018-04-26] MEDS: LEVOTHYROXINE SODIUM INJ/PF 0.1 MG SDV IV SCH (11:03)
[2018-04-26] MEDS: CHOLECALCIFEROL (D3) 1,000 UNIT TABLET PO SCH (11:03)
[2018-04-26] MEDS: ENOXAPARIN SODIUM INJ 40 MG/0.4 ML DISP.SYRIN SUBCUT SCH (11:04)
--- NOTE | 2018-04-26 11:47 | RADIOLOGY REPORT (SQ) ---
EXAM DESCRIPTION: CHEST SINGLE VIEW COMPLETED DATE/TIME: 04/26/2018 11:31 am REASON FOR STUDY: ET tube Placement COMPARISON: 04/26/2018 EXAM PARAMETERS: NUMBER OF VIEWS: One view. TECHNIQUE: Single frontal radiographic view of the chest acquired. RADIATION DOSE: NA LIMITATIONS: None. FINDINGS: No significant change in position of an endotracheal tube, which remains above the thoraci c inlet. Recommend repositioning and advancement. Esophagogastric tube tip and side port are below the diaphragm. Unchanged gross cardiomegaly and enlargement of the mediastinum. IMPRESSION: No significant change in position of an endotracheal tube, which remains above the thora cic inlet. Recommend repositioning and advancement. Esophagogastric tube tip and side port are belo w the diaphragm. Unchanged gross cardiomegaly and enlargement of the mediastinum. TECHNICAL DOCUMENTATION: JOB ID: [id number] [employer]- All Rights Reserved Reading location - IP/workstation name: [email or web address]
[2018-04-26] MEDS: SULFAMETHOXAZOLE IV SCH ×2 (12:05→17:39)
[2018-04-26] MEDS: DEXTROSE 5% IV SCH ×2 (12:05→17:39)
[2018-04-26] MEDS: TRIMETHOPRIM IV SCH ×2 (12:05→17:39)
[2018-04-26] MEDS: WATER IV SCH ×2 (12:05→17:39)
[2018-04-26] MEDS: AMINO AC/PROTEIN HYDR/WHEY PRO 11 GM/45 ML PKT NG SCH ×2 (14:35→17:40)
[2018-04-27] MEDS: DEXTROSE 5% IV SCH ×6 (00:11→20:35)
[2018-04-27] MEDS: TRIMETHOPRIM IV SCH ×6 (00:11→20:35)
[2018-04-27] MEDS: WATER IV SCH ×6 (00:11→20:35)
[2018-04-27] MEDS: SULFAMETHOXAZOLE IV SCH ×6 (00:11→20:35)
[2018-04-27] MEDS: PROPOFOL 1,000 MG/100 ML INFUS..BTL IV PRN ×8 (01:49→23:29)
[2018-04-27] MEDS: MIDAZOLAM HCL 50 MG/100 ML RTUINJ IV PRN ×6 (02:50→22:26)
[2018-04-27 04:20] LABS: ARTERIAL BLOOD BASE EXCESS -0.1 mmol/L; ARTERIAL BLOOD H2CO3 1.37 mmol/L (1.05-1.35); ARTERIAL BLOOD HCO3 25.5 mmol/L (20-24); ARTERIAL BLOOD O2 SATURATION 96.3 % (94-98); ARTERIAL BLOOD PCO2 45.5 mmHg (35-45); ARTERIAL BLOOD PH 7.37 (7.35-7.45); ARTERIAL BLOOD PO2 87.2 mmHg (80-100); ARTERIAL BLOOD TOTAL CO2 26.9 mmol/L (23-27)
[2018-04-27 04:21] LABS: ARTERIAL BLOOD FIO2 60%
[2018-04-27] MEDS: IPRATROPIUM/ALBUTEROL 0.5-2.5 MG/3 ML AMPUL NEB SCH ×6 (04:31→23:31)
[2018-04-27 04:49] LABS: HEMATOCRIT 31.9 % (37.9-51.0); MEAN CORPUSCULAR HEMOGLOBIN 30.9 pg (27.0-33.4); MEAN CORPUSCULAR HGB CONC 34.5 g/dL (32.0-36.0); MEAN CORPUSCULAR VOLUME 90 fl (80-97); PLATELET COUNT 253 10^3/uL (150-450); RED BLOOD COUNT 3.55 10^6/uL (4.35-5.55); RED CELL DISTRIBUTION WIDTH 14.6 % (11.5-14.0); WHITE BLOOD COUNT 16.4 10^3/uL (4.0-10.5)
[2018-04-27 04:56] LABS: ANION GAP 10 (5-19); BLOOD UREA NITROGEN 32 mg/dL (7-20); CALCIUM 8.8 mg/dL (8.4-10.2); CARBON DIOXIDE 25 mmol/L (22-30); CHLORIDE 102 mmol/L (98-107); GLUCOSE 263 mg/dL (75-110); POTASSIUM 4.6 mmol/L (3.6-5.0); SODIUM 136.7 mmol/L (137-145)
[2018-04-27 05:11] LABS: ABSOLUTE LYMPHOCYTES# (MANUAL) 3.6 10^3/uL (0.5-4.7); ABSOLUTE MONOCYTES # (MANUAL) 1.1 10^3/uL (0.1-1.4); ABSOLUTE NEUTROPHILS# (MANUAL) 11.6 10^3/uL (1.7-8.2); BASOPHILS % (MANUAL) 0 % (0-2); EOSINOPHILS % (MANUAL) 0 % (0-6); LYMPHOCYTES % (MANUAL) 21 % (13-45); MONOCYTES % (MANUAL) 7 % (3-13); NUCLEATED RED BLOOD CELLS 1 /100 WBC (0); SEGMENTED NEUTROPHILS % (MAN) 71 % (42-78); TOTAL CELLS COUNTED 100
[2018-04-27 05:15] LABS: OVALOCYTES 1+; PLATELET COMMENT ADEQUATE; POIKILOCYTOSIS 1+; TEAR DROP CELLS 1+; TOXIC GRANULATION SLIGHT
[2018-04-27] MEDS: PANTOPRAZOLE SODIUM 20 MG TABLET.DR PO SCH (05:55)
[2018-04-27] MEDS: INSULIN LISPRO 100 UNIT/ML 3 ML VIAL SUBCUT SCH ×4 (08:10→21:02)
[2018-04-27] MEDS: AMINO AC/PROTEIN HYDR/WHEY PRO 11 GM/45 ML PKT NG SCH ×3 (10:00→17:21)
--- NOTE | 2018-04-27 10:04 | PDOC PROGRESS REPORT ---
Subjective Progress Note for:: 04/27/18 Subjective:: Patient remained intubated. His blood pressure remained stable. His white cell count still higher at 16,000. And a further taper down his Solu-Medrol from 60 mg/day to 40 mg/day. His hemoglobin A1c is 6.8 and patient is running hyperglycemia. Most probably has a new onset type 2 diabetes mellitus. Tracheal aspirate culture is negative. Reason For Visit: INFLUENZA A, HIV, SIRS Physical Exam Vital Signs: Temp Pulse Resp BP Pulse Ox 99.0 F 81 20 156/64 H 94 04/27/18 08:00 04/27/18 08:02 04/27/18 08:02 04/27/18 08:00 04/27/18 08:02 Intake & Output 04/26/18 04/27/18 04/28/18 06:59 06:59 06:59 Intake Total 1831 4153.625 200 Output Total 1505 2540 275 Balance 326 1613.625 -75 Weight 170.8 kg 172.6 kg General appearance: PRESENT: no acute distress Head exam: PRESENT: atraumatic Eye exam: PRESENT: conjunctiva pink Mouth exam: PRESENT: dry mucosa Neck exam: ABSENT: carotid bruit, JVD, lymphadenopathy, thyromegaly Respiratory exam: PRESENT: clear to auscultation joaquin. ABSENT: rales, rhonchi, wheezes Cardiovascular exam: PRESENT: RRR. ABSENT: diastolic murmur, rubs, systolic murmur Results Laboratory Results: 04/27/18 04:36 04/27/18 04:36 04/27/18 04/27/18 04/27/18 04:15 04:36 04:36 WBC 16.4 H RBC 3.55 L Hgb 11.0 L Hct 31.9 L MCV 90 MCH 30.9 MCHC 34.5 RDW 14.6 H Plt Count 253 Seg Neutrophils % Not Reportable Lymphocytes % Not Reportable Monocytes % Not Reportable Eosinophils % Not Reportable Basophils % Not Reportable Absolute Neutrophils Not Reportable Absolute Lymphocytes Not Reportable Absolute Monocytes Not Reportable Absolute Eosinophils Not Reportable Absolute Basophils Not Reportable Carbonic Acid 1.37 H HCO3/H2CO3 Ratio 18:1 ABG pH 7.37 ABG pCO2 45.5 H ABG pO2 87.2 ABG HCO3 25.5 H ABG O2 Saturation 96.3 ABG Base Excess -0.1 FiO2 60% Sodium 136.7 L Potassium 4.6 Chloride 102 Carbon Dioxide 25 Anion Gap 10 BUN 32 H Creatinine 0.97 Est GFR ( Amer) > 60 Est GFR (Non-Af Amer) > 60 Glucose 263 H Calcium 8.8 Magnesium 3.0 H 04/22/18 09:09 Blood Blood Culture - Final NO GROWTH IN 5 DAYS 04/24/18 04/25/18 03:53 04:05 NT-Pro-B Natriuret Pep 128 H 311 H Impressions: Soft Tissue Neck CT 04/23/18 00:00 IMPRESSION: 1. No evidence of retropharyngeal abscess. The retropharyngeal and parapharyngeal spaces are preserved. No CT abnormality of the neck. 2. Partial opacification of the ethmoid air cells and bilateral maxillary sinus mucosal thickening, nonspecific in the setting of endotracheal intubation. KUB X-Ray 04/23/18 14:56 IMPRESSION: SATISFACTORY POSITION OF THE NASOGASTRIC TUBE WITH THE TIP IN THE STOMACH. Chest X-Ray 04/26/18 09:53 IMPRESSION: No significant change in position of an endotracheal tube, which remains above the thoracic inlet. Recommend repositioning and advancement. Esophagogastric tube tip and side port are below the diaphragm. Unchanged gross cardiomegaly and enlargement of the mediastinum. Assessment & Plan - Diagnosis (1) New onset type 2 diabetes mellitus Is this a current diagnosis for this admission?: Yes Plan: We will continue sliding scale. When patient recovered we reinforced diabetic education and start him on oral hypoglycemic agents. (2) Acute hypoxemic respiratory failure Is this a current diagnosis for this admission?: Yes Plan: Patient is on mechanical ventilation. (3) Influenza A Is this a current diagnosis for this admission?: Yes Plan: Patient has been started on Tamiflu. (4) SIRS (systemic inflammatory response syndrome) Is this a current diagnosis for this admission?: Yes Plan: So far his blood cultures negative but still patient remains low-grade fever. (5) Hypotension Qualifiers: Hypotension type: unspecified hypotension type Qualified Code(s): I95.9 - Hypotension, unspecified Is this a current diagnosis for this admission?: Yes Plan: Improving (6) HIV /AIDS Is this a current diagnosis for this admission?: Yes Plan: I restarted his antiretroviral medications. (7) Hypothyroidism Is this a current diagnosis for this admission?: Yes Plan: Continue Synthroid (8) Morbid obesity with BMI of 50.0-59.9, adult Is this a current diagnosis for this admission?: Yes Plan: Patient advised to have lifestyle modification (9) Obstructive sleep apnea Is this a current diagnosis for this admission?: Yes Plan: We will put him on CPAP
[2018-04-27] MEDS: OSELTAMIVIR PHOSPHATE 75 MG CAPSULE PO SCH ×2 (10:25→17:21)
[2018-04-27] MEDS: FLUTICASONE NASAL SPRAY 50 MCG/SPRY 120 SPRAY/16 GM NASL SCH (10:25)
[2018-04-27] MEDS: ENOXAPARIN SODIUM INJ 40 MG/0.4 ML DISP.SYRIN SUBCUT SCH (10:25)
[2018-04-27] MEDS: CHOLECALCIFEROL (D3) 1,000 UNIT TABLET PO SCH (10:25)
[2018-04-27] MEDS: LEVOTHYROXINE SODIUM INJ/PF 0.1 MG SDV IV SCH (10:25)
[2018-04-27] MEDS: LEVOFLOXACIN 750 MG/D5W RTU 750 MG/150 ML RTUPB IV SCH (10:30)
--- NOTE | 2018-04-27 10:37 | RADIOLOGY REPORT (SQ) ---
EXAM DESCRIPTION: CHEST SINGLE VIEW COMPLETED DATE/TIME: 04/27/2018 10:19 am REASON FOR STUDY: ET Tube Placement COMPARISON: 04/26/2018 EXAM PARAMETERS: NUMBER OF VIEWS: One view. TECHNIQUE: Single frontal radiographic view of the chest acquired. RADIATION DOSE: NA LIMITATIONS: None. FINDINGS: Interval advancement of endotracheal tube, which is now positioned below the thoracic inle t. Otherwise stable AP examination with cardiomegaly. IMPRESSION: Interval advancement of endotracheal tube, which is now positioned below the thoracic in let. Otherwise stable AP examination with cardiomegaly. TECHNICAL DOCUMENTATION: JOB ID: [id number] [employer]- All Rights Reserved Reading location - IP/workstation name: [email or web address]
[2018-04-27] MEDS: CLOTRIMAZOLE/BETAMETHASONE DIP CREAM 15 GM TOP SCH ×2 (11:26→17:21)
[2018-04-27] MEDS ORDERED: METHYLPREDNISOLONE INJ 40 MG/1 ML SDV IV SCH (12:00)
[2018-04-27] MEDS: OXYCODONE-ACETAMINOPHEN 5-325 MG TABLET PO PRN (20:31)
[2018-04-27] MEDS: NORMAL SALINE 1000 ML 1,000 ML IV PRN (21:03)
[2018-04-28] MEDS: MIDAZOLAM HCL 50 MG/100 ML RTUINJ IV PRN (01:00)
[2018-04-28] MEDS: PROPOFOL 1,000 MG/100 ML INFUS..BTL IV PRN ×9 (02:09→23:52)
[2018-04-28] MEDS: WATER IV SCH ×5 (03:19→23:52)
[2018-04-28] MEDS: SULFAMETHOXAZOLE IV SCH ×5 (03:19→23:52)
[2018-04-28] MEDS: DEXTROSE 5% IV SCH ×5 (03:19→23:52)
[2018-04-28] MEDS: TRIMETHOPRIM IV SCH ×5 (03:19→23:52)
[2018-04-28 04:07] LABS: HEMATOCRIT 34.2 % (37.9-51.0); HEMOGLOBIN 11.8 g/dL (13.5-17.0); MEAN CORPUSCULAR HGB CONC 34.6 g/dL (32.0-36.0); MEAN CORPUSCULAR VOLUME 90 fl (80-97); RED BLOOD COUNT 3.82 10^6/uL (4.35-5.55); WHITE BLOOD COUNT 17.9 10^3/uL (4.0-10.5)
[2018-04-28 04:18] LABS: ANION GAP 8 (5-19); BLOOD UREA NITROGEN 26 mg/dL (7-20); CALCIUM 8.6 mg/dL (8.4-10.2); CARBON DIOXIDE 28 mmol/L (22-30); CHLORIDE 100 mmol/L (98-107); GLUCOSE 156 mg/dL (75-110); POTASSIUM 4.9 mmol/L (3.6-5.0); SODIUM 136.2 mmol/L (137-145)
[2018-04-28 04:21] LABS: PLATELET COUNT 226 10^3/uL (150-450)
[2018-04-28 04:26] LABS: ABSOLUTE LYMPHOCYTES# (MANUAL) 4.3 10^3/uL (0.5-4.7); ABSOLUTE MONOCYTES # (MANUAL) 1.1 10^3/uL (0.1-1.4); ABSOLUTE NEUTROPHILS# (MANUAL) 12.5 10^3/uL (1.7-8.2); BAND NEUTROPHILS % (MANUAL) 4 % (3-5); BASOPHILS % (MANUAL) 0 % (0-2); EOSINOPHILS % (MANUAL) 0 % (0-6); LYMPHOCYTES % (MANUAL) 24 % (13-45); MONOCYTES % (MANUAL) 6 % (3-13); SEGMENTED NEUTROPHILS % (MAN) 61 % (42-78); TOTAL CELLS COUNTED 100
[2018-04-28 04:33] LABS: ANISOCYTOSIS SLIGHT; PLATELET CLUMPS PRESENT; POLYCHROMASIA SLIGHT; TOXIC VACUOLATION PRESENT
[2018-04-28 04:34] LABS: METAMYELOCYTES % (MANUAL) 2 % (0); MYELOCYTES % (MANUAL) 1 % (0); PROMYELOCYTES % (MANUAL) 2 % (0)
[2018-04-28] MEDS: IPRATROPIUM/ALBUTEROL 0.5-2.5 MG/3 ML AMPUL NEB SCH ×5 (04:55→20:45)
[2018-04-28] MEDS: PANTOPRAZOLE SODIUM 20 MG TABLET.DR PO SCH (06:22)
[2018-04-28 06:36] LABS: ARTERIAL BLOOD H2CO3 1.49 mmol/L (1.05-1.35); ARTERIAL BLOOD HCO3 29.6 mmol/L (20-24); ARTERIAL BLOOD O2 SATURATION 96.7 % (94-98); ARTERIAL BLOOD PCO2 49.5 mmHg (35-45); ARTERIAL BLOOD PO2 89.8 mmHg (80-100); ARTERIAL BLOOD TOTAL CO2 31.2 mmol/L (23-27)
[2018-04-28 06:44] LABS: ARTERIAL BLOOD FIO2 60%
[2018-04-28] MEDS: INSULIN LISPRO 100 UNIT/ML 3 ML VIAL SUBCUT SCH ×4 (08:53→21:49)
[2018-04-28] MEDS: ENOXAPARIN SODIUM INJ 40 MG/0.4 ML DISP.SYRIN SUBCUT SCH (09:54)
[2018-04-28] MEDS: CHOLECALCIFEROL (D3) 1,000 UNIT TABLET PO SCH (09:54)
[2018-04-28] MEDS: OSELTAMIVIR PHOSPHATE 75 MG CAPSULE PO SCH (09:54)
[2018-04-28] MEDS: AMINO AC/PROTEIN HYDR/WHEY PRO 11 GM/45 ML PKT NG SCH ×3 (09:54→17:30)
[2018-04-28] MEDS: LEVOFLOXACIN 750 MG/D5W RTU 750 MG/150 ML RTUPB IV SCH (09:55)
[2018-04-28] MEDS: FLUTICASONE NASAL SPRAY 50 MCG/SPRY 120 SPRAY/16 GM NASL SCH (09:55)
[2018-04-28] MEDS: CLOTRIMAZOLE/BETAMETHASONE DIP CREAM 15 GM TOP SCH ×2 (09:55→17:31)
[2018-04-28] MEDS: LEVOTHYROXINE SODIUM INJ/PF 0.1 MG SDV IV SCH (09:55)
[2018-04-28] MEDS ORDERED: METHYLPREDNISOLONE INJ 40 MG/1 ML SDV IV SCH (10:00)
[2018-04-28] MEDS: PANTOPRAZOLE SODIUM 40 MG PACKET.DR NG SCH (10:28)
[2018-04-28] MEDS ORDERED: TRAMADOL HCL 50 MG TABLET NG PRN (10:30)
[2018-04-28 10:35] LABS: HEMATOCRIT 32.2 % (37.9-51.0); HEMOGLOBIN 11.1 g/dL (13.5-17.0); MEAN CORPUSCULAR HEMOGLOBIN 30.9 pg (27.0-33.4); MEAN CORPUSCULAR HGB CONC 34.6 g/dL (32.0-36.0); MEAN CORPUSCULAR VOLUME 89 fl (80-97); PLATELET COUNT 246 10^3/uL (150-450); RED CELL DISTRIBUTION WIDTH 14.9 % (11.5-14.0); WHITE BLOOD COUNT 17.9 10^3/uL (4.0-10.5)
[2018-04-28 10:42] LABS: ANION GAP 10 (5-19); BLOOD UREA NITROGEN 22 mg/dL (7-20); CALCIUM 8.8 mg/dL (8.4-10.2); CARBON DIOXIDE 28 mmol/L (22-30); CHLORIDE 98 mmol/L (98-107); GLUCOSE 117 mg/dL (75-110); POTASSIUM 4.5 mmol/L (3.6-5.0); SODIUM 135.5 mmol/L (137-145)
[2018-04-28 10:58] LABS: ABSOLUTE LYMPHOCYTES# (MANUAL) 2.3 10^3/uL (0.5-4.7); ABSOLUTE MONOCYTES # (MANUAL) 0.4 10^3/uL (0.1-1.4); ABSOLUTE NEUTROPHILS# (MANUAL) 15.2 10^3/uL (1.7-8.2); BAND NEUTROPHILS % (MANUAL) 4 % (3-5); BASOPHILS % (MANUAL) 0 % (0-2); EOSINOPHILS % (MANUAL) 0 % (0-6); LYMPHOCYTES % (MANUAL) 11 % (13-45); METAMYELOCYTES % (MANUAL) 4 % (0); MONOCYTES % (MANUAL) 2 % (3-13); MYELOCYTES % (MANUAL) 1 % (0); NUCLEATED RED BLOOD CELLS 2 /100 WBC (0); PROMYELOCYTES % (MANUAL) 1 % (0); SEGMENTED NEUTROPHILS % (MAN) 75 % (42-78); TOTAL CELLS COUNTED 100
--- NOTE | 2018-04-28 10:58 | RADIOLOGY REPORT (SQ) ---
EXAM DESCRIPTION: CHEST SINGLE VIEW COMPLETED DATE/TIME: 04/28/2018 6:28 am REASON FOR STUDY: PNA COMPARISON: 04/27/2018 NUMBER OF VIEWS: One view. TECHNIQUE: Single frontal radiographic image of the chest acquired. LIMITATIONS: None. FINDINGS: LUNGS AND PLEURA: Stable appearance. MEDIASTINUM AND HEART: Stable heart size and mediastinal structures. SUPPORT DEVICES: Appropriate location without change. BONY STRUCTURES: No acute findings. HARDWARE: None. OTHER: No other significant finding. IMPRESSION: STABLE APPEARANCE OF THE CHEST. SUPPORT DEVICES UNCHANGED. Reading location - IP/workstation name: [email or web address]
[2018-04-28 11:02] LABS: ANISOCYTOSIS SLIGHT; PLATELET COMMENT ADEQUATE; POLYCHROMASIA 1+
--- NOTE | 2018-04-28 11:15 | PDOC PROGRESS REPORT ---
Subjective Progress Note for:: 04/28/18 Subjective:: This is 42 years old male patient with past medical history of morbid obesity, HIV/AIDS, hypertension, hypothyroidism, obstructive sleep apnea presented with chief complaint of fever and shortness of breath. His serology is positive for influenza A for which she has been on Tamiflu. Patient also started empirically on Levaquin for bronchitis. This morning patient has an episode of sudden onset severe shortness of breath with some stridor according to his nurse who is in the room at the time of the attack. [employer]INEER activated and patient started on BiPAP. His ABG and chest x-ray are unremarkable. He is started on Solu-Medrol and DuoNeb. Dr. Guajardo was consulted and during his evaluation patient become severe respiratory distress and stridor so patient emergently intubated and transferred to ICU. Blood and tracheal hospitalist culture are negative. Patient has leukocytosis and the etiology is not clear initially I thought it is due to steroid and left hip are reviewed from 60 mg every 6 hours to 20 mg/day but still has leukocytosis. Empirically covered him with Diflucan and co-trimoxazole for possible approaches to confusion it is of the patient told me his viral load is undetectable. CD4 count requested and the results pending. Reason For Visit: INFLUENZA A, HIV, SIRS Physical Exam Vital Signs: Temp Pulse Resp BP Pulse Ox 98.4 F 100 15 130/82 H 94 04/28/18 10:40 04/28/18 10:00 04/28/18 10:40 04/28/18 10:40 04/28/18 10:40 Intake & Output 04/27/18 04/28/18 04/29/18 06:59 06:59 06:59 Intake Total 4153.625 3848.625 173 Output Total 2540 5670 1010 Balance 1613.625 -1821.375 -837 Weight 172.6 kg 173 kg General appearance: PRESENT: no acute distress, well-developed, well-nourished Head exam: PRESENT: atraumatic, normocephalic Eye exam: PRESENT: conjunctiva pink, EOMI. ABSENT: scleral icterus Neck exam: PRESENT: carotid bruit Respiratory exam: PRESENT: decreased breath sounds, wheezes Cardiovascular exam: PRESENT: RRR. ABSENT: diastolic murmur, rubs, systolic murmur Pulses: PRESENT: normal dorsalis pedis pul Vascular exam: PRESENT: normal capillary refill GI/Abdominal exam: PRESENT: normal bowel sounds, soft. ABSENT: distended, guarding, mass, organolmegaly, rebound, tenderness Rectal exam: PRESENT: deferred Extremities exam: PRESENT: full ROM. ABSENT: calf tenderness, clubbing, pedal edema Neurological exam: PRESENT: motor sensory deficit Skin exam: PRESENT: dry, intact, warm. ABSENT: cyanosis, rash Results Laboratory Results: 04/28/18 10:20 04/28/18 10:20 04/28/18 04/28/18 04/28/18 03:55 03:55 06:28 WBC 17.9 H RBC 3.82 L Hgb 11.8 L Hct 34.2 L MCV 90 MCH 31.0 MCHC 34.6 RDW 15.0 H Plt Count 226 Seg Neutrophils % Not Reportable Lymphocytes % Not Reportable Monocytes % Not Reportable Eosinophils % Not Reportable Basophils % Not Reportable Absolute Neutrophils Not Reportable Absolute Lymphocytes Not Reportable Absolute Monocytes Not Reportable Absolute Eosinophils Not Reportable Absolute Basophils Not Reportable Carbonic Acid 1.49 H HCO3/H2CO3 Ratio 19:1 ABG pH 7.40 ABG pCO2 49.5 H ABG pO2 89.8 ABG HCO3 29.6 H ABG O2 Saturation 96.7 ABG Base Excess 4.0 FiO2 60% Sodium 136.2 L Potassium 4.9 Chloride 100 Carbon Dioxide 28 Anion Gap 8 BUN 26 H Creatinine 0.87 Est GFR ( Amer) > 60 Est GFR (Non-Af Amer) > 60 Glucose 156 H Calcium 8.6 04/28/18 04/28/18 10:20 10:20 WBC 17.9 H RBC 3.60 L Hgb 11.1 L Hct 32.2 L MCV 89 MCH 30.9 MCHC 34.6 RDW 14.9 H Plt Count 246 Seg Neutrophils % Not Reportable Lymphocytes % Not Reportable Monocytes % Not Reportable Eosinophils % Not Reportable Basophils % Not Reportable Absolute Neutrophils Not Reportable Absolute Lymphocytes Not Reportable Absolute Monocytes Not Reportable Absolute Eosinophils Not Reportable Absolute Basophils Not Reportable Carbonic Acid HCO3/H2CO3 Ratio ABG pH ABG pCO2 ABG pO2 ABG HCO3 ABG O2 Saturation ABG Base Excess FiO2 Sodium 135.5 L Potassium 4.5 Chloride 98 Carbon Dioxide 28 Anion Gap 10 BUN 22 H Creatinine 0.86 Est GFR ( Amer) > 60 Est GFR (Non-Af Amer) > 60 Glucose 117 H Calcium 8.8 04/22/18 10:48 Blood Blood Culture - Final NO GROWTH IN 5 DAYS 04/22/18 09:09 Blood Blood Culture - Final NO GROWTH IN 5 DAYS 04/24/18 04/25/18 03:53 04:05 NT-Pro-B Natriuret Pep 128 H 311 H Impressions: Soft Tissue Neck CT 04/23/18 00:00 IMPRESSION: 1. No evidence of retropharyngeal abscess. The retropharyngeal and parapharyngeal spaces are preserved. No CT abnormality of the neck. 2. Partial opacification of the ethmoid air cells and bilateral maxillary sinus mucosal thickening, nonspecific in the setting of endotracheal intubation. KUB X-Ray 04/23/18 14:56 IMPRESSION: SATISFACTORY POSITION OF THE NASOGASTRIC TUBE WITH THE TIP IN THE STOMACH. Chest X-Ray 04/28/18 05:00 IMPRESSION: STABLE APPEARANCE OF THE CHEST. SUPPORT DEVICES UNCHANGED. Assessment & Plan - Diagnosis (1) New onset type 2 diabetes mellitus Is this a current diagnosis for this admission?: Yes Plan: We will continue sliding scale. When patient recovered we reinforced diabetic education and start him on oral hypoglycemic agents. (2) Acute hypoxemic respiratory failure Is this a current diagnosis for this admission?: Yes Plan: Patient is on mechanical ventilation. (3) Influenza A Is this a current diagnosis for this admission?: Yes Plan: Patient has been started on Tamiflu. (4) SIRS (systemic inflammatory response syndrome) Is this a current diagnosis for this admission?: Yes Plan: So far his blood cultures negative but still patient remains low-grade fever. (5) Hypotension Qualifiers: Hypotension type: unspecified hypotension type Qualified Code(s): I95.9 - Hypotension, unspecified Is this a current diagnosis for this admission?: Yes Plan: Improving (6) HIV /AIDS Is this a current diagnosis for this admission?: Yes Plan: I restarted his antiretroviral medications. (7) Hypothyroidism Is this a current diagnosis for this admission?: Yes Plan: Continue Synthroid (8) Morbid obesity with BMI of 50.0-59.9, adult Is this a current diagnosis for this admission?: Yes Plan: Patient advised to have lifestyle modification (9) Obstructive sleep apnea Is this a current diagnosis for this admission?: Yes Plan: We will put him on CPAP
[2018-04-28 12:37] LABS: % CD 4 POS LYMPH 37.7 % (30.8-58.5); % CD 8 POS LYMPH 29.3 % (12.0-35.5); ABSOLUTE CD 4 HELPER 302 /uL (359-1519); ABSOLUTE CD 8 SUPPRESSOR 234 /uL (109-897); CD BASOPHILS 0 % (Not Estab.); CD EOSINOPHILS 0 % (Not Estab.); CD MONOCYTES 4 % (Not Estab.); CD NEUTROPHILS 89 % (Not Estab.); CD4/CD8 RATIO 1.29 (0.92-3.72); HEMOGLOBIN 11.1 g/dL (13.0-17.7); IMMATURE GRANULOCYTES 0 % (Not Estab.); LYMPHS(ABSOLUTE) 0.8 x10E3/uL (0.7-3.1); MCH 30.8 pg (26.6-33.0); MCHC 32.8 g/dL (31.5-35.7); MCV 94 fL (79-97); MONOCYTES(ABSOLUTE) 0.5 x10E3/uL (0.1-0.9); NEUTROPHILS(ABSOLUTE) 10.2 x10E3/uL (1.4-7.0); PLATELETS 242 x10E3/uL (150-379); RDW 14.9 % (12.3-15.4); WBC 11.6 x10E3/uL (3.4-10.8)
[2018-04-28] MEDS: NORMAL SALINE 1000 ML 1,000 ML IV PRN (13:57)
[2018-04-28] MEDS: OXYCODONE-ACETAMINOPHEN 5-325 MG TABLET NG PRN (15:18)
[2018-04-28 15:19] LABS: PATH REVIEW PATHOLOGIST REVIEWED
[2018-04-28] MEDS ORDERED: OSELTAMIVIR PHOSPHATE 75 MG CAPSULE NG SCH (18:00)
[2018-04-29] MEDS: IPRATROPIUM/ALBUTEROL 0.5-2.5 MG/3 ML AMPUL NEB SCH ×7 (00:47→23:22)
[2018-04-29] MEDS: OXYCODONE-ACETAMINOPHEN 5-325 MG TABLET NG PRN (01:31)
[2018-04-29] MEDS: PROPOFOL 1,000 MG/100 ML INFUS..BTL IV PRN ×2 (02:47→05:36)
[2018-04-29] MEDS: NORMAL SALINE 1000 ML 1,000 ML IV PRN ×2 (02:48→18:54)
[2018-04-29 03:58] LABS: ARTERIAL BLOOD BASE EXCESS 7.4 mmol/L; ARTERIAL BLOOD H2CO3 1.39 mmol/L (1.05-1.35); ARTERIAL BLOOD HCO3 32.2 mmol/L (20-24); ARTERIAL BLOOD O2 SATURATION 97.3 % (94-98); ARTERIAL BLOOD PCO2 46.3 mmHg (35-45); ARTERIAL BLOOD PH 7.46 (7.35-7.45); ARTERIAL BLOOD PO2 91.8 mmHg (80-100); ARTERIAL BLOOD TOTAL CO2 33.6 mmol/L (23-27)
[2018-04-29 04:20] LABS: HEMATOCRIT 30.9 % (37.9-51.0); HEMOGLOBIN 10.7 g/dL (13.5-17.0); MEAN CORPUSCULAR HEMOGLOBIN 30.9 pg (27.0-33.4); MEAN CORPUSCULAR HGB CONC 34.7 g/dL (32.0-36.0); MEAN CORPUSCULAR VOLUME 89 fl (80-97); PLATELET COUNT 239 10^3/uL (150-450); RED BLOOD COUNT 3.47 10^6/uL (4.35-5.55); RED CELL DISTRIBUTION WIDTH 15.2 % (11.5-14.0); WHITE BLOOD COUNT 17.9 10^3/uL (4.0-10.5)
[2018-04-29 04:50] LABS: ANION GAP 9 (5-19); BLOOD UREA NITROGEN 22 mg/dL (7-20); CALCIUM 8.8 mg/dL (8.4-10.2); CARBON DIOXIDE 29 mmol/L (22-30); CHLORIDE 95 mmol/L (98-107); GLUCOSE 154 mg/dL (75-110); POTASSIUM 4.6 mmol/L (3.6-5.0); SODIUM 132.8 mmol/L (137-145)
[2018-04-29] MEDS: SULFAMETHOXAZOLE IV SCH ×4 (05:10→23:36)
[2018-04-29] MEDS: WATER IV SCH ×4 (05:10→23:36)
[2018-04-29] MEDS: TRIMETHOPRIM IV SCH ×4 (05:10→23:36)
[2018-04-29] MEDS: DEXTROSE 5% IV SCH ×4 (05:10→23:36)
[2018-04-29] MEDS: PANTOPRAZOLE SODIUM 40 MG PACKET.DR NG SCH (05:11)
--- NOTE | 2018-04-29 06:39 | RADIOLOGY REPORT (SQ) ---
EXAM DESCRIPTION: XR CHEST 1 VIEW COMPLETED DATE/TME: 04/29/2018 06:00 CLINICAL HISTORY: 42 years, Male, [facility] COMPARISON: 04/28/2018 chest NUMBER OF VIEWS: 1 TECHNIQUE: Portable chest LIMITATIONS: None. FINDINGS: Stable cardiomegaly. Endotracheal and enteric tubes are in place. No discrete pneumothorax. Lungs are clear IMPRESSION: Endotracheal and enteric tubes in place. Stable cardiomegaly copyright 2010 [employer]- All Rights Reserved
[2018-04-29] MEDS: INSULIN LISPRO 100 UNIT/ML 3 ML VIAL SUBCUT SCH ×4 (09:15→23:35)
[2018-04-29] MEDS ORDERED: BISACODYL 5 MG TABEC PO PRN (09:54)
[2018-04-29] MEDS ORDERED: BISACODYL 10 MG SUPP.RECT PR PRN (09:54)
[2018-04-29] MEDS: ENOXAPARIN SODIUM INJ 40 MG/0.4 ML DISP.SYRIN SUBCUT SCH (09:59)
[2018-04-29] MEDS: LEVOTHYROXINE SODIUM INJ/PF 0.1 MG SDV IV SCH (09:59)
[2018-04-29] MEDS: CHOLECALCIFEROL (D3) 1,000 UNIT TABLET PO SCH (09:59)
[2018-04-29] MEDS: AMINO AC/PROTEIN HYDR/WHEY PRO 11 GM/45 ML PKT NG SCH ×3 (09:59→18:54)
[2018-04-29] MEDS: METHYLPREDNISOLONE INJ 40 MG/1 ML SDV IV SCH ×3 (09:59→22:18)
[2018-04-29] MEDS: FLUTICASONE NASAL SPRAY 50 MCG/SPRY 120 SPRAY/16 GM NASL SCH (10:00)
[2018-04-29] MEDS: LEVOFLOXACIN 750 MG/D5W RTU 750 MG/150 ML RTUPB IV SCH (10:00)
[2018-04-29] MEDS: CLOTRIMAZOLE/BETAMETHASONE DIP CREAM 15 GM TOP SCH ×2 (10:00→18:54)
[2018-04-29] MEDS ORDERED: BISACODYL 10 MG SUPP.RECT PR ONE (10:30)
[2018-04-29] MEDS: SODIUM CHLORIDE NASAL SPRAY 44 ML NASL SCH ×3 (12:21→22:19)
[2018-04-30] MEDS: OXYCODONE-ACETAMINOPHEN 5-325 MG TABLET NG PRN (00:03)
[2018-04-30] MEDS: IPRATROPIUM/ALBUTEROL 0.5-2.5 MG/3 ML AMPUL NEB SCH ×5 (03:40→20:03)
[2018-04-30] MEDS: WATER IV SCH ×2 (05:48→11:20)
[2018-04-30] MEDS: TRIMETHOPRIM IV SCH ×2 (05:48→11:20)
[2018-04-30] MEDS: SULFAMETHOXAZOLE IV SCH ×2 (05:48→11:20)
[2018-04-30] MEDS: DEXTROSE 5% IV SCH ×2 (05:48→11:20)
[2018-04-30] MEDS: PANTOPRAZOLE SODIUM 40 MG PACKET.DR NG SCH (05:48)
[2018-04-30] MEDS: METHYLPREDNISOLONE INJ 40 MG/1 ML SDV IV SCH ×3 (05:49→21:20)
--- NOTE | 2018-04-30 06:19 | PDOC PROGRESS REPORT ---
Subjective Progress Note for:: 04/29/18 Subjective:: Intubated and sedated. Increased nasal discharge. Reason For Visit: INFLUENZA A, HIV, SIRS Physical Exam Vital Signs: Temp Pulse Resp BP Pulse Ox 99.0 F 111 H 14 138/84 H 96 04/29/18 08:00 04/29/18 08:15 04/29/18 08:15 04/29/18 08:00 04/29/18 08:15 Intake & Output 04/28/18 04/29/18 04/30/18 06:59 06:59 06:59 Intake Total 3848.625 6060.500 860.875 Output Total 5670 6410 285 Balance -1821.375 -349.500 575.875 Weight 173 kg 171.9 kg General appearance: PRESENT: other - Intubated and sedated Head exam: PRESENT: normocephalic Ear exam: PRESENT: normal external ear exam Mouth exam: PRESENT: other - Endotracheal tube in place Throat exam: PRESENT: other - Nasogastric tube in place Neck exam: PRESENT: other - Very large neck Respiratory exam: PRESENT: decreased breath sounds - Likely due to body habitus, symmetrical. ABSENT: rales, rhonchi, wheezes Cardiovascular exam: PRESENT: RRR, +S1, +S2 GI/Abdominal exam: PRESENT: normal bowel sounds, soft, other - Protuberant abdomen. ABSENT: tenderness Rectal exam: PRESENT: deferred Gentrourinary exam: PRESENT: indwelling catheter Neurological exam: ABSENT: awake - Intubated and sedated Psychiatric exam: PRESENT: other - Intubated and sedated Focused psych exam: PRESENT: other - Intubated and sedated Skin exam: PRESENT: dry, warm. ABSENT: rash Results Laboratory Results: 04/29/18 04:08 04/29/18 04:08 04/28/18 04/28/18 04/29/18 10:20 10:20 03:38 WBC 17.9 H RBC 3.60 L Hgb 11.1 L Hct 32.2 L MCV 89 MCH 30.9 MCHC 34.6 RDW 14.9 H Plt Count 246 Seg Neutrophils % Not Reportable Lymphocytes % Not Reportable Monocytes % Not Reportable Eosinophils % Not Reportable Basophils % Not Reportable Absolute Neutrophils Not Reportable Absolute Lymphocytes Not Reportable Absolute Monocytes Not Reportable Absolute Eosinophils Not Reportable Absolute Basophils Not Reportable Carbonic Acid 1.39 H HCO3/H2CO3 Ratio 23:1 ABG pH 7.46 H ABG pCO2 46.3 H ABG pO2 91.8 ABG HCO3 32.2 H ABG O2 Saturation 97.3 ABG Base Excess 7.4 FiO2 55% Sodium 135.5 L Potassium 4.5 Chloride 98 Carbon Dioxide 28 Anion Gap 10 BUN 22 H Creatinine 0.86 Est GFR ( Amer) > 60 Est GFR (Non-Af Amer) > 60 Glucose 117 H Calcium 8.8 04/29/18 04/29/18 04:08 04:08 WBC 17.9 H RBC 3.47 L Hgb 10.7 L Hct 30.9 L MCV 89 MCH 30.9 MCHC 34.7 RDW 15.2 H Plt Count 239 Seg Neutrophils % Lymphocytes % Monocytes % Eosinophils % Basophils % Absolute Neutrophils Absolute Lymphocytes Absolute Monocytes Absolute Eosinophils Absolute Basophils Carbonic Acid HCO3/H2CO3 Ratio ABG pH ABG pCO2 ABG pO2 ABG HCO3 ABG O2 Saturation ABG Base Excess FiO2 Sodium 132.8 L Potassium 4.6 Chloride 95 L Carbon Dioxide 29 Anion Gap 9 BUN 22 H Creatinine 0.78 Est GFR ( Amer) > 60 Est GFR (Non-Af Amer) > 60 Glucose 154 H Calcium 8.8 04/26/18 02:37 Tracheal Aspirate Gram Stain - Final 04/26/18 02:37 Tracheal Aspirate Sputum Culture - Final NO GROWTH 2 DAYS 04/24/18 04/25/18 03:53 04:05 NT-Pro-B Natriuret Pep 128 H 311 H Impressions: Soft Tissue Neck CT 04/23/18 00:00 IMPRESSION: 1. No evidence of retropharyngeal abscess. The retropharyngeal and parapharyngeal spaces are preserved. No CT abnormality of the neck. 2. Partial opacification of the ethmoid air cells and bilateral maxillary sinus mucosal thickening, nonspecific in the setting of endotracheal intubation. KUB X-Ray 04/23/18 14:56 IMPRESSION: SATISFACTORY POSITION OF THE NASOGASTRIC TUBE WITH THE TIP IN THE STOMACH. Chest X-Ray 04/29/18 06:00 IMPRESSION: Endotracheal and enteric tubes in place. Stable cardiomegaly copyright 2010 [employer]- All Rights Reserved Assessment and Plan - Diagnosis (1) Sepsis Qualifiers: Sepsis type: sepsis due to unspecified organism Qualified Code(s): A41.9 - Sepsis, unspecified organism Is this a current diagnosis for this admission?: Yes Plan: 04/29/18 Present on admission. The patient had an elevated temperature, elevated total bilirubin and hypoxia with respiratory failure requiring intubation and oxygen supplementation. Secondary to influenza A pneumonia with possible bacterial component (sputum and blood cultures negative). The patient does have chronic sinusitis. This was present when I admitted the patient earlier this year. Staph and strep would be the most likely organisms. 04/30/18 06:09 (2) Acute respiratory failure with hypoxia and hypercapnia Is this a current diagnosis for this admission?: Yes Plan: 04/29/18 The patient required intubation and mechanical ventilation. He had an abnormally elevated PCO2 and increased work of breathing. Continue mechanical ventilation with weaning as tolerated. 04/30/18 06:11 (3) Influenza A Is this a current diagnosis for this admission?: Yes Plan: 04/29/18 Positive for influenza a on admission. Treated with Tamiflu. 04/30/18 06:13 (4) Acute sinusitis Qualifiers: Sinusitis location: other Recurrence: recurrent Qualified Code(s): J01.81 - Other acute recurrent sinusitis Is this a current diagnosis for this admission?: Yes Plan: 04/29/18 The patient had evidence of sinusitis on a previous admission earlier this year. Increased nasal discharge is noted. He is on Flonase as well as nasal saline spray. Continue antibiotics as ordered. 04/30/18 06:16 (5) HIV (human immunodeficiency virus infection) Qualifiers: HIV symptom status: asymptomatic Qualified Code(s): Z21 - Asymptomatic human immunodeficiency virus [HIV] infection status Is this a current diagnosis for this admission?: Yes Plan: 04/29/18 Chronic. He is on antiretroviral therapy. This is currently on hold during this admission due to formulary status. This certainly makes him susceptible to infection. Resume antiretroviral medications when available/appropriate. (6) New onset type 2 diabetes mellitus Is this a current diagnosis for this admission?: Yes Plan: 04/29/18 Accu-Cheks and sliding scale coverage with Humalog. Convert to oral medications when clinically appropriate. 04/30/18 06:17 (7) Hypothyroidism Qualifiers: Hypothyroidism type: unspecified Qualified Code(s): E03.9 - Hypothyroidism, unspecified Is this a current diagnosis for this admission?: Yes Plan: 04/29/18 Continue current levothyroxine. 04/30/18 06:17 (8) Morbid obesity with BMI of 50.0-59.9, adult Is this a current diagnosis for this admission?: Yes Plan: 04/29/18 Significant comorbidity with his diabetes as well as likely obesity hypoventilation syndrome. Will skilled nursing facility counselor on weight loss with diet and exercise when recovered. 04/30/18 06:18 - Time Time Spent with patient: 35 or more minutes Medications reviewed and adjusted accordingly: Yes Anticipated discharge: Home
[2018-04-30] MEDS: INSULIN LISPRO 100 UNIT/ML 3 ML VIAL SUBCUT SCH ×4 (09:38→21:24)
[2018-04-30] MEDS: ENOXAPARIN SODIUM INJ 40 MG/0.4 ML DISP.SYRIN SUBCUT SCH (09:43)
[2018-04-30] MEDS: LEVOTHYROXINE SODIUM INJ/PF 0.1 MG SDV IV SCH (10:21)
[2018-04-30] MEDS: LEVOFLOXACIN 750 MG/D5W RTU 750 MG/150 ML RTUPB IV SCH (10:23)
[2018-04-30] MEDS: PROPOFOL 1,000 MG/100 ML INFUS..BTL IV PRN ×3 (11:21→22:46)
[2018-04-30] MEDS: CLOTRIMAZOLE/BETAMETHASONE DIP CREAM 15 GM TOP SCH ×2 (11:36→17:09)
[2018-04-30] MEDS: SODIUM CHLORIDE NASAL SPRAY 44 ML NASL SCH ×4 (11:36→21:21)
[2018-04-30] MEDS: CHOLECALCIFEROL (D3) 1,000 UNIT TABLET PO SCH ×2 (12:03→15:12)
[2018-04-30] MEDS: FLUTICASONE NASAL SPRAY 50 MCG/SPRY 120 SPRAY/16 GM NASL SCH (12:03)
[2018-04-30] MEDS: AMINO AC/PROTEIN HYDR/WHEY PRO 11 GM/45 ML PKT NG SCH ×3 (12:03→17:50)
--- NOTE | 2018-04-30 13:57 | RADIOLOGY REPORT (SQ) ---
EXAM DESCRIPTION: CHEST SINGLE VIEW COMPLETED DATE/TIME: 04/30/2018 1:46 pm REASON FOR STUDY: ng tube placement COMPARISON: 04/29/2018. FINDINGS: 3 images of the chest, AP supine portably obtained. Limited positioning. Nasogastric tube down, tip appropriately positioned within gas distended stomach. Poorly evaluated lung josé. TECHNICAL DOCUMENTATION: JOB ID: [id number] Reading location - IP/workstation name: [email or web address]
[2018-04-30] MEDS: SULFAMETHOXAZOLE/TRIMETHOPRIM 800-160 MG/20 ML UDCUP PO SCH ×2 (15:14→17:51)
[2018-04-30] MEDS: NORMAL SALINE 1000 ML 1,000 ML IV PRN (16:10)
--- NOTE | 2018-04-30 17:54 | PDOC PROGRESS REPORT ---
Subjective Progress Note for:: 04/30/18 Subjective:: Patient is opening his eyes to verbal stimuli. He does attempt to follow commands such as squeezing fingers. He appears somewhat restless. He gets tachycardic and appears to be pulling on the wrist restraints. Reason For Visit: INFLUENZA A, HIV, SIRS Acute hypoxic respiratory failure Physical Exam Vital Signs: Temp Pulse Resp BP Pulse Ox 99.1 F 113 H 15 115/58 L 93 04/30/18 08:00 04/30/18 10:00 04/30/18 10:00 04/30/18 10:00 04/30/18 10:00 Intake & Output 04/29/18 04/30/18 05/01/18 06:59 06:59 06:59 Intake Total 6060.500 4401.500 796.875 Output Total 6410 4330 1075 Balance -349.500 71.500 -278.125 Weight 171.9 kg 169.8 kg General appearance: PRESENT: no acute distress, morbidly obese Head exam: PRESENT: atraumatic, normocephalic Eye exam: PRESENT: conjunctiva pink. ABSENT: scleral icterus Ear exam: PRESENT: normal external ear exam Mouth exam: PRESENT: other - Endotracheal tube in place Neck exam: PRESENT: full ROM, other - Extremely large neck.. ABSENT: lymphaden opathy Respiratory exam: PRESENT: clear to auscultation joaquin - Some congested breath sounds upper., unlabored. ABSENT: accessory muscle use, rales, rhonchi, wheezes Cardiovascular exam: PRESENT: +S1, +S2, tachycardia GI/Abdominal exam: PRESENT: normal bowel sounds, soft, other - Markedly protuberant abdomen. ABSENT: tenderness Rectal exam: PRESENT: deferred Gentrourinary exam: PRESENT: indwelling catheter Extremities exam: ABSENT: pedal edema Musculoskeletal exam: PRESENT: normal inspection Neurological exam: PRESENT: alert, awake, other - Still intubated Psychiatric exam: PRESENT: agitated - Mild. Appears to be upset with the wrist restraints and endotracheal tube., appropriate affect Focused psych exam: PRESENT: restlessness Skin exam: PRESENT: dry, normal color, warm Results Laboratory Results: 04/29/18 04:08 04/29/18 04:08 04/24/18 04/25/18 03:53 04:05 NT-Pro-B Natriuret Pep 128 H 311 H Impressions: Soft Tissue Neck CT 04/23/18 00:00 IMPRESSION: 1. No evidence of retropharyngeal abscess. The retropharyngeal and parapharyngeal spaces are preserved. No CT abnormality of the neck. 2. Partial opacification of the ethmoid air cells and bilateral maxillary sinus mucosal thickening, nonspecific in the setting of endotracheal intubation. KUB X-Ray 04/23/18 14:56 IMPRESSION: SATISFACTORY POSITION OF THE NASOGASTRIC TUBE WITH THE TIP IN THE STOMACH. Chest X-Ray 04/29/18 06:00 IMPRESSION: Endotracheal and enteric tubes in place. Stable cardiomegaly copyright 2010 [employer]- All Rights Reserved Assessment and Plan - Diagnosis (1) Sepsis Qualifiers: Sepsis type: sepsis due to unspecified organism Qualified Code(s): A41.9 - Sepsis, unspecified organism Is this a current diagnosis for this admission?: Yes Plan: 04/29/18 Present on admission. The patient had an elevated temperature, elevated total bilirubin and hypoxia with respiratory failure requiring intubation and oxygen supplementation. Secondary to influenza A pneumonia with possible bacterial component (sputum and blood cultures negative). The patient does have chronic sinusitis. This was present when I admitted the patient earlier this year. Staph and strep would be the most likely organisms. 04/30/18 06:09 Acute sepsis has resolved. Ongoing treatment for infection and respiratory failure. (2) Acute respiratory failure with hypoxia and hypercapnia Is this a current diagnosis for this admission?: Yes Plan: The patient spent a good portion of the day on pressure support. He will rest on SIMV overnight. Our goal is extubation tomorrow. Continue oxygen supplementation as required. Continue nebulizer treatments and intravenous steroids as well. (3) Influenza A Is this a current diagnosis for this admission?: Yes Plan: Completed course of Tamiflu (4) Acute sinusitis Qualifiers: Sinusitis location: other Recurrence: recurrent Qualified Code(s): J01.81 - Other acute recurrent sinusitis Is this a current diagnosis for this admission?: Yes Plan: The patient completed a course of antibiotic therapy. He remains on Bactrim more for prophylaxis with his HIV status. Nasal saline and Flonase seem to be helping with nasal discharge. (5) HIV (human immunodeficiency virus infection) Qualifiers: HIV symptom status: asymptomatic Qualified Code(s): Z21 - Asymptomatic human immunodeficiency virus [HIV] infection status Is this a current diagnosis for this admission?: Yes Plan: 04/29/18 Chronic. He is on antiretroviral therapy. This is currently on hold during t his admission due to formulary status. This certainly makes him susceptible to infection. Resume antiretroviral medications when available/appropriate. I will asked nursing to have the patient's roommate bring in his antiretroviral medications so that may resume them as soon as possible. (6) New onset type 2 diabetes mellitus Is this a current diagnosis for this admission?: Yes Plan: Continue sliding scale. Once extubated consider metformin. (7) Hypothyroidism Qualifiers: Hypothyroidism type: unspecified Qualified Code(s): E03.9 - Hypothyroidism, unspecified Is this a current diagnosis for this admission?: Yes Plan: 04/29/18 Continue current levothyroxine. 04/30/18 06:17 As above (8) Morbid obesity with BMI of 50.0-59.9, adult Is this a current diagnosis for this admission?: Yes Plan: I discussed with the patient's roommate the need for diet and exercise. He did state that they have begun walking with the dog's and that the patient does try and do some exercise at home. - Time Time Spent with patient: 25-34 minutes Medications reviewed and adjusted accordingly: Yes Anticipated discharge: Home
[2018-04-30] MEDS ORDERED: MORPHINE SULFATE 10 MG/ML INJ IV PRN ×3 (20:10→20:19)
[2018-04-30] MEDS: SULFAMETHOXAZOLE/TRIMETHOPRIM 800-160 MG/20 ML UDCUP NG SCH (23:38)
[2018-05-01] MEDS: IPRATROPIUM/ALBUTEROL 0.5-2.5 MG/3 ML AMPUL NEB SCH ×6 (00:32→19:27)
[2018-05-01] MEDS: PROPOFOL 1,000 MG/100 ML INFUS..BTL IV PRN ×7 (01:10→23:32)
[2018-05-01] MEDS: NORMAL SALINE 1000 ML 1,000 ML IV PRN ×2 (02:26→18:12)
[2018-05-01 04:28] LABS: HEMATOCRIT 36.3 % (37.9-51.0); HEMOGLOBIN 12.6 g/dL (13.5-17.0); MEAN CORPUSCULAR HEMOGLOBIN 30.6 pg (27.0-33.4); MEAN CORPUSCULAR HGB CONC 34.8 g/dL (32.0-36.0); MEAN CORPUSCULAR VOLUME 88 fl (80-97); PLATELET COUNT 315 10^3/uL (150-450); RED BLOOD COUNT 4.12 10^6/uL (4.35-5.55); RED CELL DISTRIBUTION WIDTH 15.4 % (11.5-14.0)
[2018-05-01 04:38] LABS: ALANINE AMINOTRANSFERASE 46 U/L (21-72); ALBUMIN 3.5 g/dL (3.5-5.0); ALKALINE PHOSPHATASE 51 U/L (38-126); ANION GAP 14 (5-19); ASPARTATE AMINO TRANSFERASE 27 U/L (17-59); BILIRUBIN,DIRECT 0.5 mg/dL (0.0-0.4); BILIRUBIN,TOTAL 0.6 mg/dL (0.2-1.3); BLOOD UREA NITROGEN 26 mg/dL (7-20); CALCIUM 9.7 mg/dL (8.4-10.2); CARBON DIOXIDE 23 mmol/L (22-30); CHLORIDE 95 mmol/L (98-107); GLUCOSE 193 mg/dL (75-110); SODIUM 131.9 mmol/L (137-145)
[2018-05-01 04:49] LABS: WHITE BLOOD COUNT 30.9 10^3/uL (4.0-10.5)
[2018-05-01 04:55] LABS: ABSOLUTE MONOCYTES # (MANUAL) 2.8 10^3/uL (0.1-1.4); ABSOLUTE NEUTROPHILS# (MANUAL) 24.1 10^3/uL (1.7-8.2); BAND NEUTROPHILS % (MANUAL) 4 % (3-5); BASOPHILS % (MANUAL) 0 % (0-2); EOSINOPHILS % (MANUAL) 0 % (0-6); LYMPHOCYTES % (MANUAL) 13 % (13-45); MONOCYTES % (MANUAL) 9 % (3-13); SEGMENTED NEUTROPHILS % (MAN) 74 % (42-78); TOTAL CELLS COUNTED 100
[2018-05-01 04:56] LABS: ARTERIAL BLOOD BASE EXCESS 2.7 mmol/L; ARTERIAL BLOOD H2CO3 1.26 mmol/L (1.05-1.35); ARTERIAL BLOOD HCO3 27.2 mmol/L (20-24); ARTERIAL BLOOD O2 SATURATION 95.4 % (94-98); ARTERIAL BLOOD PCO2 41.7 mmHg (35-45); ARTERIAL BLOOD PH 7.43 (7.35-7.45); ARTERIAL BLOOD PO2 74.9 mmHg (80-100); ARTERIAL BLOOD TOTAL CO2 28.5 mmol/L (23-27)
[2018-05-01 04:56] LABS: ANISOCYTOSIS 1+; PLATELET COMMENT ADEQUATE; POLYCHROMASIA SLIGHT
[2018-05-01 04:58] LABS: ARTERIAL BLOOD FIO2 45%
[2018-05-01] MEDS: PANTOPRAZOLE SODIUM 40 MG PACKET.DR NG SCH (05:03)
[2018-05-01] MEDS: METHYLPREDNISOLONE INJ 40 MG/1 ML SDV IV SCH ×3 (05:03→21:09)
[2018-05-01] MEDS: SULFAMETHOXAZOLE/TRIMETHOPRIM 800-160 MG/20 ML UDCUP NG SCH ×2 (05:05→14:22)
[2018-05-01] MEDS: INSULIN LISPRO 100 UNIT/ML 3 ML VIAL SUBCUT SCH ×4 (08:10→23:35)
[2018-05-01] MEDS: SODIUM CHLORIDE NASAL SPRAY 44 ML NASL SCH ×4 (08:11→21:09)
--- NOTE | 2018-05-01 08:27 | RADIOLOGY REPORT (SQ) ---
EXAM DESCRIPTION: CHEST SINGLE VIEW COMPLETED DATE/TIME: 05/01/2018 6:17 am REASON FOR STUDY: resp failure COMPARISON: Chest films 02/18/2018, 04/22/2018, 04/27/2018, 04/28/2018, 04/30/2017 EXAM PARAMETERS: NUMBER OF VIEWS: One view. TECHNIQUE: Single frontal radiographic view of the chest acquired. RADIATION DOSE: NA LIMITATIONS: None. FINDINGS: LUNGS AND PLEURA: Persistent few air bronchograms in the right and left retrocardiac regio ns atelectasis versus pneumonia, unchanged. No pleural effusion. No pneumothorax. No pulmonary edema. MEDIASTINUM AND HILAR STRUCTURES: No masses. Contour normal. HEART AND VASCULAR STRUCTURES: Stable mild to moderate cardiomegaly BONES: No acute findings. HARDWARE: Endotracheal tube tip 5 cm above the abran. Nasogastric tube tip and side-port in the sto mach. OTHER: No other significant finding. IMPRESSION: Stable bibasilar consolidation with air bronchograms in the retrocardiac regions atelect asis versus pneumonia. TECHNICAL DOCUMENTATION: JOB ID: [id number] [employer]- All Rights Reserved Reading location - IP/workstation name: [email or web address]
[2018-05-01] MEDS ORDERED: VANCOMYCIN HCL 0 MG in DEXTROSE 5%-WATER 250 ML IV NR (09:45)
[2018-05-01] MEDS ORDERED: NA PHOS,M-B/NA PHOS,DI-BA (ADULT) 133 ML ENEMA PR PRN (09:49)
[2018-05-01] MEDS: FLUTICASONE NASAL SPRAY 50 MCG/SPRY 120 SPRAY/16 GM NASL SCH (10:27)
[2018-05-01] MEDS: ENOXAPARIN SODIUM INJ 40 MG/0.4 ML DISP.SYRIN SUBCUT SCH (10:27)
[2018-05-01] MEDS: CLOTRIMAZOLE/BETAMETHASONE DIP CREAM 15 GM TOP SCH ×2 (10:27→17:58)
[2018-05-01] MEDS: AMINO AC/PROTEIN HYDR/WHEY PRO 11 GM/45 ML PKT NG SCH ×2 (10:28→14:22)
[2018-05-01] MEDS: CHOLECALCIFEROL (D3) 1,000 UNIT TABLET NG SCH (10:28)
--- NOTE | 2018-05-01 10:59 | RADIOLOGY REPORT (SQ) ---
EXAM DESCRIPTION: KUB/ABDOMEN (SINGLE VIEW) COMPLETED DATE/TIME: 05/01/2018 10:20 am REASON FOR STUDY: Ileus COMPARISON: 04/23/2018 NUMBER OF VIEWS: One view. TECHNIQUE: Supine radiographic image of the abdomen acquired. LIMITATIONS: Limited coverage of the abdomen. FINDINGS: BOWEL GAS PATTERN: Diffusely distended colon in the partially included abdomen, transverse colon measuring up to 11.7 cm with gas present to the recti. CALCIFICATIONS: No suspicious calcifications. SOFT TISSUES: No gross mass or suggestion of organomegaly. HARDWARE: None in the abdomen. BONES: No acute fracture. No worrisome bone lesions. OTHER: No other significant finding. IMPRESSION: Limited, partial radiographs of the abdomen are submitted for review. There is diffusel y distended colon, transverse colon measuring up to 11.7 cm, with gas present to the rectum. No free air on images submitted for review. TECHNICAL DOCUMENTATION: JOB ID: [id number] [employer]- All Rights Reserved Reading location - IP/workstation name: [email or web address]
[2018-05-01] MEDS: MORPHINE SULFATE 10 MG/ML INJ IV PRN ×3 (11:41→20:17)
[2018-05-01] MEDS: LEVOTHYROXINE SODIUM INJ/PF 0.1 MG SDV IV SCH (11:42)
[2018-05-01] MEDS: METRONIDAZOLE 500 MG/NS RTU 500 MG/100 ML RTUPB IV SCH ×3 (11:43→23:33)
[2018-05-01] MEDS: CEFEPIME 2 GM/D5W RTU 2 GM/50 ML RTUPB IV SCH ×2 (14:19→21:10)
[2018-05-01 14:32] LABS: HEMATOCRIT 37.8 % (37.9-51.0); HEMOGLOBIN 13.2 g/dL (13.5-17.0); MEAN CORPUSCULAR HEMOGLOBIN 31.2 pg (27.0-33.4); MEAN CORPUSCULAR HGB CONC 34.9 g/dL (32.0-36.0); MEAN CORPUSCULAR VOLUME 89 fl (80-97); PLATELET COUNT 315 10^3/uL (150-450); RED BLOOD COUNT 4.23 10^6/uL (4.35-5.55)
[2018-05-01 15:05] LABS: WHITE BLOOD COUNT 30.9 10^3/uL (4.0-10.5)
[2018-05-01 15:08] LABS: ABSOLUTE LYMPHOCYTES# (MANUAL) 3.7 10^3/uL (0.5-4.7); ABSOLUTE MONOCYTES # (MANUAL) 0.6 10^3/uL (0.1-1.4); ABSOLUTE NEUTROPHILS# (MANUAL) 26.6 10^3/uL (1.7-8.2); BAND NEUTROPHILS % (MANUAL) 7 % (3-5); BASOPHILS % (MANUAL) 0 % (0-2); EOSINOPHILS % (MANUAL) 0 % (0-6); LYMPHOCYTES % (MANUAL) 9 % (13-45); METAMYELOCYTES % (MANUAL) 3 % (0); MONOCYTES % (MANUAL) 2 % (3-13); MYELOCYTES % (MANUAL) 1 % (0); SEGMENTED NEUTROPHILS % (MAN) 75 % (42-78); TOTAL CELLS COUNTED 100
[2018-05-01 15:11] LABS: ANISOCYTOSIS 1+; PLATELET CLUMPS PRESENT; POLYCHROMASIA 1+; SMUDGE CELLS PRESENT
[2018-05-01 15:13] LABS: PLATELET COMMENT ADEQUATE
[2018-05-01] MEDS: VANCOMYCIN HCL 2,000 MG in DEXTROSE 5%-WATER 500 ML IV SCH ×2 (15:27→22:13)
[2018-05-01] MEDS: PANTOPRAZOLE SODIUM 40 MG VIAL IV SCH ×2 (15:53→21:09)
[2018-05-01] MEDS: NA PHOS,M-B/NA PHOS,DI-BA (ADULT) 133 ML ENEMA PR PRN (17:19)
[2018-05-01] MEDS ORDERED: LORAZEPAM INJ 2 MG/1 ML VIAL IV PRN (20:46)
[2018-05-02] MEDS: MORPHINE SULFATE 10 MG/ML INJ IV PRN ×2 (00:21→21:55)
[2018-05-02] MEDS: IPRATROPIUM/ALBUTEROL 0.5-2.5 MG/3 ML AMPUL NEB SCH ×3 (01:11→08:50)
[2018-05-02] MEDS: PROPOFOL 1,000 MG/100 ML INFUS..BTL IV PRN ×3 (01:59→06:41)
[2018-05-02 04:13] LABS: HEMATOCRIT 35.4 % (37.9-51.0); HEMOGLOBIN 12.4 g/dL (13.5-17.0); MEAN CORPUSCULAR VOLUME 89 fl (80-97); PLATELET COUNT 308 10^3/uL (150-450); RED CELL DISTRIBUTION WIDTH 15.8 % (11.5-14.0)
[2018-05-02 04:13] LABS: ARTERIAL BLOOD BASE EXCESS 3.3 mmol/L; ARTERIAL BLOOD FIO2 45%; ARTERIAL BLOOD H2CO3 1.25 mmol/L (1.05-1.35); ARTERIAL BLOOD HCO3 27.7 mmol/L (20-24); ARTERIAL BLOOD PCO2 41.5 mmHg (35-45); ARTERIAL BLOOD PH 7.44 (7.35-7.45); ARTERIAL BLOOD PO2 105.6 mmHg (80-100)
[2018-05-02 04:14] LABS: ALANINE AMINOTRANSFERASE 68 U/L (21-72); ALBUMIN 3.3 g/dL (3.5-5.0); ALKALINE PHOSPHATASE 47 U/L (38-126); ANION GAP 12 (5-19); ASPARTATE AMINO TRANSFERASE 43 U/L (17-59); BILIRUBIN,DIRECT 0.4 mg/dL (0.0-0.4); BILIRUBIN,TOTAL 0.8 mg/dL (0.2-1.3); BLOOD UREA NITROGEN 29 mg/dL (7-20); CALCIUM 9.2 mg/dL (8.4-10.2); CARBON DIOXIDE 23 mmol/L (22-30); CHLORIDE 97 mmol/L (98-107); GLUCOSE 190 mg/dL (75-110); POTASSIUM 4.3 mmol/L (3.6-5.0); SODIUM 131.7 mmol/L (137-145); TOTAL PROTEIN 5.8 g/dL (6.3-8.2)
[2018-05-02 04:31] LABS: WHITE BLOOD COUNT 31.3 10^3/uL (4.0-10.5)
[2018-05-02 04:43] LABS: ABSOLUTE LYMPHOCYTES# (MANUAL) 2.5 10^3/uL (0.5-4.7); ABSOLUTE MONOCYTES # (MANUAL) 1.6 10^3/uL (0.1-1.4); ABSOLUTE NEUTROPHILS# (MANUAL) 27.2 10^3/uL (1.7-8.2); BASOPHILS % (MANUAL) 0 % (0-2); EOSINOPHILS % (MANUAL) 0 % (0-6); LYMPHOCYTES % (MANUAL) 8 % (13-45); MONOCYTES % (MANUAL) 5 % (3-13); SEGMENTED NEUTROPHILS % (MAN) 87 % (42-78); TOTAL CELLS COUNTED 100
[2018-05-02 04:44] LABS: ANISOCYTOSIS 1+; PLATELET COMMENT ADEQUATE; POLYCHROMASIA 1+
[2018-05-02] MEDS: INSULIN LISPRO 100 UNIT/ML 3 ML VIAL SUBCUT SCH ×3 (05:37→17:47)
[2018-05-02] MEDS: METHYLPREDNISOLONE INJ 40 MG/1 ML SDV IV SCH ×2 (05:37→21:42)
[2018-05-02] MEDS: METRONIDAZOLE 500 MG/NS RTU 500 MG/100 ML RTUPB IV SCH ×3 (05:37→17:24)
[2018-05-02] MEDS: VANCOMYCIN HCL 2,000 MG in DEXTROSE 5%-WATER 500 ML IV SCH ×3 (06:41→21:43)
--- NOTE | 2018-05-02 08:14 | RADIOLOGY REPORT (SQ) ---
EXAM DESCRIPTION: CHEST SINGLE VIEW COMPLETED DATE/TIME: 05/02/2018 7:11 am REASON FOR STUDY: resp failure COMPARISON: None. NUMBER OF VIEWS: One view. TECHNIQUE: Single frontal radiographic image of the chest acquired. LIMITATIONS: None. FINDINGS: LUNGS AND PLEURA: Stable appearance. MEDIASTINUM AND HILAR STRUCTURES: Stable heart size and mediastinal structures. HEART AND VASCULAR STRUCTURES: Stable appearance. SUPPORT DEVICES: Appropriate location without change. BONES: No acute findings. OTHER: No other significant finding. IMPRESSION: STABLE APPEARANCE OF THE CHEST. SUPPORT DEVICES UNCHANGED. TECHNICAL DOCUMENTATION: JOB ID: [id number] [facility]- All Rights Reserved Reading location - IP/workstation name: [email or web address]
[2018-05-02] MEDS: SODIUM CHLORIDE NASAL SPRAY 44 ML NASL SCH ×4 (08:20→21:21)
[2018-05-02] MEDS ORDERED: MIDAZOLAM HCL 50 MG/100 ML RTUINJ IV PRN (10:31)
[2018-05-02] MEDS ORDERED: MORPHINE SULFATE 10 MG/ML INJ IV PRN ×2 (10:31→12:12)
[2018-05-02] MEDS ORDERED: IPRATROPIUM/ALBUTEROL 0.5-2.5 MG/3 ML AMPUL NEB PRN (10:53)
[2018-05-02] MEDS: CEFEPIME 2 GM/D5W RTU 2 GM/50 ML RTUPB IV SCH ×2 (11:43→21:42)
[2018-05-02] MEDS: ENOXAPARIN SODIUM INJ 40 MG/0.4 ML DISP.SYRIN SUBCUT SCH (11:44)
[2018-05-02] MEDS: PANTOPRAZOLE SODIUM 40 MG VIAL IV SCH ×2 (11:44→17:19)
[2018-05-02] MEDS: LEVOTHYROXINE SODIUM INJ/PF 0.1 MG SDV IV SCH (11:44)
[2018-05-02] MEDS: CLOTRIMAZOLE/BETAMETHASONE DIP CREAM 15 GM TOP SCH ×2 (12:06→21:44)
[2018-05-02] MEDS: FLUTICASONE NASAL SPRAY 50 MCG/SPRY 120 SPRAY/16 GM NASL SCH (12:06)
[2018-05-02 14:45] LABS: VANCOMYCIN,TROUGH 14.8 ug/mL (5.0-20.0)
[2018-05-02] MEDS ORDERED: METOCLOPRAMIDE HCL INJ/PF 10 MG/2 ML SDV IV ONE ×2 (15:00→17:30)
--- NOTE | 2018-05-02 15:41 | Progress Note ---
Provider Note Provider Note: ID Consult Note Asked by Pharmacy to review patient's chart. Pt not seen or examined. Pt is a 42-year-old morbidly obese man with HIV who presented with cough for 5 days with associated fever and difficulty breathing on 04/22/18. PMH includings HIV, hypothyroidism, HTN, and MAGDALENA. On presentation pt had a temperature of 101.3 F, he was tachycardic, tachypneic and hypotensive. In the ED he was noted to have rhonchi and wheezing and a scattered erythematous macular rash. He tested positive for influenza A. Tamiflu was started. Levaquin and steroids were added for suspected superimposed bacterial bronchitis. Later that day or the next day his breathing continued to deteriorate to the point where he failed a trial of NIV and was subsequently intubated. Imaging has included repeat single view chest films that show few air bronchograms in the right and left retrocardiac regions that are unchanged. CT neck soft tissue on 04/23 to evaluate whether pt had retropharyngeal abscess showed no evidence of such, no CT abnormality of the neck, and nonspecific partial opacification of ethmoid and maxillary sinus thickening. KUB on 05/01/18 showed diffusely distended colon. BCx on admission showed no growth. UCx on admission no growth. Tracheal aspirate on 04/26 had no growth. Repeat BCx on 05/01 also no growth x 24h. Pt had fever initially 101 F on presentation and fever on 04/27 to 100.6 F. Otherwise he has been afebrile. WBC count has been elevated since 04/25, mainly around 15-18k with a left shift and went up to 31k yesterday and today but with fewer immature WBC forms. Antiretrovirals (Evotaz/Descovy) have been held for the majority of his admission since they are not on formulary at [place]. Pt was extubated today but failed swallow screen, so NGT is still in place. antimicrobials administered this admission include Azithromycin and Rocephin on 04/22 Tamiflu 04/22-04/28 levaquin 04/23 to 04/30 Diflucan 1 dose 04/26 bactrim 04/26 to present flagyl 05/01 to present cefepime 05/01 to present vancomycin 05/01 to present Impression/Recommendations Systemic inflammatory response syndrome and acute hypoxic respiratory failure due to influenza A infection - The patient was treated with oseltamivir - Empirically the patient was also treated for bacterial sinusitis or bronchitis that was suspected at the same time with Levaquin for 7 days. - Tracheal aspirate grew no bacteria, and blood cultures also yielded no evidence of bacteremia. Pt has clinically improved to the point where he was able to be extubated. - Suggest discontinuing cefepime, vancomycin, Flagyl and Bactrim if repeat blood cultures remain negative x 48h no other bacterial infection is identified and pt continues to be clinically stable. leukocytosis - pt has been on steroids and if he also has a UGIB, this can also contribute to WBC count. HIV - CD4 count 302, CD4 37%. Not consistent with AIDS. In setting of acute illness and particularly also steroid use, CD4 counts can be falsely depressed and perhaps CD4 percentage a more accurate marker of immune status. But by either measure, pt does not appear to be at risk for PJP and normally even PJP prophylaxis with Bactrim would not be needed. - Would d/c Bactrim. - Recommend continuing to hold both of the patient's home HIV medications while he needs PPI above omeprazole 20 mg. High dose PPI was started this admission. Pt's home medication Evotaz needs stomach acid for absorption and is contraindicated in anyone who needs a PPI above omeprazole 20 mg (which would need to be scheduled 12h from the Evotaz, not coadministered.) If he is off of his HIV medications over the duration of his admission (e.g. 1-2 weeks), he will not acutely develop AIDS. But if he has subtherapeutic exposure of his medications (due to drug-drug interaction), it could potentially foster development of viral resistance that could complicate continued treatment. - If he needs to continue on a PPI (anything over 20 mg omeprazole) as an outpatient, I would try to contact his HIV provider. If he does not have any known or suspected resistance to integrase inhibitors, Isentress 400 mg BID PO + Descovy can be given. Isentress is on the [place] formulary. Alexis Lee MD [facility] Infectious Diseases pager [phone]
[2018-05-02] MEDS: NA PHOS,M-B/NA PHOS,DI-BA (ADULT) 133 ML ENEMA PR PRN (16:19)
[2018-05-02] MEDS: NORMAL SALINE 1000 ML 1,000 ML IV PRN (21:54)
[2018-05-03] MEDS: METRONIDAZOLE 500 MG/NS RTU 500 MG/100 ML RTUPB IV SCH ×3 (00:48→11:47)
[2018-05-03] MEDS: INSULIN LISPRO 100 UNIT/ML 3 ML VIAL SUBCUT SCH ×5 (00:50→23:54)
[2018-05-03 05:24] LABS: ARTERIAL BLOOD BASE EXCESS 1.8 mmol/L; ARTERIAL BLOOD H2CO3 1.45 mmol/L (1.05-1.35); ARTERIAL BLOOD HCO3 27.7 mmol/L (20-24); ARTERIAL BLOOD O2 SATURATION 97.5 % (94-98); ARTERIAL BLOOD PCO2 48.2 mmHg (35-45); ARTERIAL BLOOD PH 7.38 (7.35-7.45); ARTERIAL BLOOD PO2 102.4 mmHg (80-100); ARTERIAL BLOOD TOTAL CO2 29.2 mmol/L (23-27)
[2018-05-03 05:27] LABS: ARTERIAL BLOOD FIO2 2L
[2018-05-03] MEDS: VANCOMYCIN HCL 2,000 MG in DEXTROSE 5%-WATER 500 ML IV SCH (05:47)
--- NOTE | 2018-05-03 07:07 | RADIOLOGY REPORT (SQ) ---
EXAM DESCRIPTION: XR CHEST 1 VIEW COMPLETED DATE/TME: 05/03/2018 06:00 CLINICAL HISTORY: 42 years, Male, pna COMPARISON: 05/02/2018 chest NUMBER OF VIEWS: 2 TECHNIQUE: Portable chest LIMITATIONS: None. FINDINGS: Interval extubation and removal of the enteric tube. Stable cardiomegaly. No pneumothorax Lungs are clear IMPRESSION: Extubation and removal of the enteric tube. Stable cardiomegaly. copyright 2010 [employer]- All Rights Reserved
[2018-05-03] MEDS: SODIUM CHLORIDE NASAL SPRAY 44 ML NASL SCH ×4 (08:22→21:47)
[2018-05-03 10:20] LABS: HEMATOCRIT 37.5 % (37.9-51.0); HEMOGLOBIN 12.5 g/dL (13.5-17.0); MEAN CORPUSCULAR HEMOGLOBIN 29.7 pg (27.0-33.4); MEAN CORPUSCULAR HGB CONC 33.4 g/dL (32.0-36.0); MEAN CORPUSCULAR VOLUME 89 fl (80-97); PLATELET COUNT 286 10^3/uL (150-450); RED BLOOD COUNT 4.22 10^6/uL (4.35-5.55); RED CELL DISTRIBUTION WIDTH 15.6 % (11.5-14.0); WHITE BLOOD COUNT 24.7 10^3/uL (4.0-10.5)
[2018-05-03 10:40] LABS: ALANINE AMINOTRANSFERASE 151 U/L (21-72); ALBUMIN 3.2 g/dL (3.5-5.0); ALKALINE PHOSPHATASE 48 U/L (38-126); ANION GAP 7 (5-19); ASPARTATE AMINO TRANSFERASE 94 U/L (17-59); BILIRUBIN,DIRECT 0.4 mg/dL (0.0-0.4); BLOOD UREA NITROGEN 28 mg/dL (7-20); CALCIUM 8.8 mg/dL (8.4-10.2); CARBON DIOXIDE 28 mmol/L (22-30); CHLORIDE 99 mmol/L (98-107); GLUCOSE 107 mg/dL (75-110); POTASSIUM 3.7 mmol/L (3.6-5.0); SODIUM 134.1 mmol/L (137-145); TOTAL PROTEIN 5.5 g/dL (6.3-8.2)
[2018-05-03 10:44] LABS: ABSOLUTE LYMPHOCYTES# (MANUAL) 4.2 10^3/uL (0.5-4.7); ABSOLUTE NEUTROPHILS# (MANUAL) 19.5 10^3/uL (1.7-8.2); BAND NEUTROPHILS % (MANUAL) 5 % (3-5); BASOPHILS % (MANUAL) 0 % (0-2); EOSINOPHILS % (MANUAL) 0 % (0-6); LYMPHOCYTES % (MANUAL) 17 % (13-45); METAMYELOCYTES % (MANUAL) 1 % (0); MONOCYTES % (MANUAL) 4 % (3-13); MYELOCYTES % (MANUAL) 1 % (0); SEGMENTED NEUTROPHILS % (MAN) 72 % (42-78); TOTAL CELLS COUNTED 100
[2018-05-03 10:46] LABS: ANISOCYTOSIS SLIGHT; OVALOCYTES SLIGHT; PLATELET COMMENT ADEQUATE; POIKILOCYTOSIS SLIGHT; POLYCHROMASIA SLIGHT; TOXIC GRANULATION 1+
[2018-05-03] MEDS: CLOTRIMAZOLE/BETAMETHASONE DIP CREAM 15 GM TOP SCH ×2 (11:30→18:34)
[2018-05-03] MEDS: PANTOPRAZOLE SODIUM 40 MG VIAL IV SCH (11:30)
[2018-05-03] MEDS: FLUTICASONE NASAL SPRAY 50 MCG/SPRY 120 SPRAY/16 GM NASL SCH (11:30)
[2018-05-03] MEDS: LEVOTHYROXINE SODIUM INJ/PF 0.1 MG SDV IV SCH (11:31)
[2018-05-03] MEDS: METHYLPREDNISOLONE INJ 40 MG/1 ML SDV IV SCH (11:31)
[2018-05-03] MEDS: ENOXAPARIN SODIUM INJ 40 MG/0.4 ML DISP.SYRIN SUBCUT SCH (11:32)
[2018-05-03] MEDS: CEFEPIME 2 GM/D5W RTU 2 GM/50 ML RTUPB IV SCH (11:46)
[2018-05-03] MEDS: DESCOVY PO SCH (12:05)
[2018-05-03] MEDS: COBICISTAT PO SCH (12:14)
[2018-05-03] MEDS: ATAZANAVIR PO SCH (12:14)
[2018-05-03] MEDS: ONDANSETRON HCL INJ/PF 4 MG/2 ML SDV IV PRN ×2 (12:17→20:27)
--- NOTE | 2018-05-03 15:08 | PDOC PROGRESS REPORT ---
Subjective Progress Note for:: 05/03/18 Subjective:: Extubated yesterday. Awake, alert, tolerating p.o.'s. Has some intermittent dry cough. No fever or chills. NO significant SOB, no cp or palpitations. Reason For Visit: INFLUENZA A, HIV, SIRS Physical Exam Vital Signs: Temp Pulse Resp BP Pulse Ox 98.2 F 95 24 H 137/86 H 97 05/03/18 10:00 05/03/18 10:00 05/03/18 10:00 05/03/18 10:00 05/03/18 10:00 Intake & Output 05/02/18 05/03/18 05/04/18 06:59 06:59 06:59 Intake Total 3865 2100 Output Total 33942 8270 255 Balance -9174 -430 -255 Weight 164.8 kg 164.5 kg GENERAL: Well-developed, obese, no acute distress HEENT: Normocephalic/atraumatic NECK supple, no JVD CARDIOVASCULAR: RRR, normal S1-S2, a few bilateral rhonchi LUNGS: CTA bilaterally ABDOMEN: Soft, NT, NL bowel sounds EXTREMITIES: No edema, clubbing, cyanosis NEUROLOGICAL: Alert, oriented x 3, no focal weakness Results Laboratory Results: 05/03/18 10:08 05/03/18 10:08 05/03/18 05/03/18 05/03/18 05:15 10:08 10:08 WBC 24.7 H RBC 4.22 L Hgb 12.5 L Hct 37.5 L MCV 89 MCH 29.7 MCHC 33.4 RDW 15.6 H Plt Count 286 Seg Neutrophils % Not Reportable Lymphocytes % Not Reportable Monocytes % Not Reportable Eosinophils % Not Reportable Basophils % Not Reportable Absolute Neutrophils Not Reportable Absolute Lymphocytes Not Reportable Absolute Monocytes Not Reportable Absolute Eosinophils Not Reportable Absolute Basophils Not Reportable Carbonic Acid 1.45 H HCO3/H2CO3 Ratio 19:1 ABG pH 7.38 ABG pCO2 48.2 H ABG pO2 102.4 H ABG HCO3 27.7 H ABG O2 Saturation 97.5 ABG Base Excess 1.8 FiO2 2L Sodium 134.1 L Potassium 3.7 Chloride 99 Carbon Dioxide 28 Anion Gap 7 BUN 28 H Creatinine 0.60 Est GFR ( Amer) > 60 Est GFR (Non-Af Amer) > 60 Glucose 107 Calcium 8.8 Magnesium 2.0 Total Bilirubin 1.0 AST 94 H ALT 151 H Alkaline Phosphatase 48 Total Protein 5.5 L Albumin 3.2 L 04/24/18 04/25/18 05/02/18 03:53 04:05 03:50 NT-Pro-B Natriuret Pep 128 H 311 H 114 Impressions: Soft Tissue Neck CT 04/23/18 00:00 IMPRESSION: 1. No evidence of retropharyngeal abscess. The retropharyngeal and parapharyngeal spaces are preserved. No CT abnormality of the neck. 2. Partial opacification of the ethmoid air cells and bilateral maxillary sinus mucosal thickening, nonspecific in the setting of endotracheal intubation. KUB X-Ray 05/01/18 09:50 IMPRESSION: Limited, partial radiographs of the abdomen are submitted for review. There is diffusely distended colon, transverse colon measuring up to 11.7 cm, with gas present to the rectum. No free air on images submitted for review. Chest X-Ray 05/03/18 06:00 IMPRESSION: Extubation and removal of the enteric tube. Stable cardiomegaly. copyright 2010 [employer]- All Rights Reserved Assessment and Plan - Diagnosis (1) Acute respiratory failure with hypoxia and hypercapnia Is this a current diagnosis for this admission?: Yes Plan: S/p extubation. Continue nebulizer treatmentsl Will d/c solumedrol, start prednison 40mg bid. (2) HIV (human immunodeficiency virus infection) Qualifiers: HIV symptom status: asymptomatic Qualified Code(s): Z21 - Asymptomatic h an immunodeficiency virus [HIV] infection status Is this a current diagnosis for this admission?: Yes Plan: ID recommendation appreciated. Patient is now extubated, and H&H is stable. Will decrease PPI to 20mg daily and resume HIV meds spread out 12 hrs apart -- spoke with pharmacy, Protonix 20mg is equivalent to 20mg pf Omeprazole. (3) Influenza A Is this a current diagnosis for this admission?: Yes Plan: Completed Tamiflu course 04/22-04/28 (4) Obstructive sleep apnea Is this a current diagnosis for this admission?: Yes Plan: BiPAP at HS (5) Acute sinusitis Qualifiers: Sinusitis location: other Recurrence: recurrent Qualified Code(s): J01.81 - Other acute recurrent sinusitis Is this a current diagnosis for this admission?: Yes Plan: The patient completed a course of antibiotic therapy. Nasal saline and Flonase seem to be helping with nasal discharge. He has ENT appt pending outpatient. (6) Sepsis Qualifiers: Sepsis type: sepsis due to unspecified organism Qualified Code(s): A41.9 - Sepsis, unspecified organism Is this a current diagnosis for this admission?: Yes Plan: 04/29/18 Present on admission. The patient had an elevated temperature, elevated total bilirubin and hypoxia with respiratory failure requiring intubation and oxygen supplementation. Secondary to influenza A pneumonia with possible bacterial component (sputum and blood cultures negative). The patient does have chronic sinusitis. This was present when I admitted the patient earlier this year. Staph and strep would be the most likely organisms. 04/30/18 06:09 Acute sepsis has resolved. Ongoing treatment for infection and respiratory failure. 05/03/18 ID note appreciated. Repeat blood culture neg x 24 hrs. WBC also improving. Will d/c all abx (7) Morbid obesity with BMI of 50.0-59.9, adult Is this a current diagnosis for this admission?: Yes
[2018-05-03] MEDS: PREDNISONE 20 MG TABLET PO SCH (19:23)
[2018-05-03] MEDS: MORPHINE SULFATE 10 MG/ML INJ IV PRN (22:28)
[2018-05-03] MEDS: NORMAL SALINE 1000 ML 1,000 ML IV PRN (22:29)
[2018-05-03] MEDS ORDERED: PANTOPRAZOLE SODIUM 20 MG TABLET.DR PO ONE ×2 (22:39→23:00)
[2018-05-04 04:15] LABS: HEMATOCRIT 36.5 % (37.9-51.0); HEMOGLOBIN 12.3 g/dL (13.5-17.0); MEAN CORPUSCULAR HEMOGLOBIN 30.1 pg (27.0-33.4); MEAN CORPUSCULAR HGB CONC 33.7 g/dL (32.0-36.0); MEAN CORPUSCULAR VOLUME 89 fl (80-97); PLATELET COUNT 255 10^3/uL (150-450); RED BLOOD COUNT 4.08 10^6/uL (4.35-5.55); RED CELL DISTRIBUTION WIDTH 15.7 % (11.5-14.0); WHITE BLOOD COUNT 20.9 10^3/uL (4.0-10.5)
[2018-05-04 04:33] LABS: ALANINE AMINOTRANSFERASE 231 U/L (21-72); ALBUMIN 3.2 g/dL (3.5-5.0); ALKALINE PHOSPHATASE 49 U/L (38-126); ANION GAP 7 (5-19); ASPARTATE AMINO TRANSFERASE 107 U/L (17-59); BILIRUBIN,DIRECT 0.5 mg/dL (0.0-0.4); BLOOD UREA NITROGEN 25 mg/dL (7-20); CALCIUM 8.9 mg/dL (8.4-10.2); CARBON DIOXIDE 27 mmol/L (22-30); CHLORIDE 98 mmol/L (98-107); GLUCOSE 192 mg/dL (75-110); POTASSIUM 4.2 mmol/L (3.6-5.0); SODIUM 131.8 mmol/L (137-145); TOTAL PROTEIN 5.8 g/dL (6.3-8.2)
[2018-05-04 05:24] LABS: ABSOLUTE LYMPHOCYTES# (MANUAL) 1.9 10^3/uL (0.5-4.7); ABSOLUTE MONOCYTES # (MANUAL) 0.4 10^3/uL (0.1-1.4); ABSOLUTE NEUTROPHILS# (MANUAL) 18.6 10^3/uL (1.7-8.2); BAND NEUTROPHILS % (MANUAL) 3 % (3-5); BASOPHILS % (MANUAL) 0 % (0-2); EOSINOPHILS % (MANUAL) 0 % (0-6); LYMPHOCYTES % (MANUAL) 9 % (13-45); MONOCYTES % (MANUAL) 2 % (3-13); SEGMENTED NEUTROPHILS % (MAN) 86 % (42-78); TOTAL CELLS COUNTED 100
[2018-05-04 05:25] LABS: PLATELET COMMENT ADEQUATE
[2018-05-04 05:26] LABS: ANISOCYTOSIS SLIGHT; POIKILOCYTOSIS SLIGHT; POLYCHROMASIA SLIGHT
[2018-05-04] MEDS: INSULIN LISPRO 100 UNIT/ML 3 ML VIAL SUBCUT SCH ×3 (05:52→22:08)
[2018-05-04] MEDS: SODIUM CHLORIDE NASAL SPRAY 44 ML NASL SCH ×4 (10:40→22:11)
[2018-05-04] MEDS: COBICISTAT PO SCH (10:41)
[2018-05-04] MEDS: ATAZANAVIR PO SCH (10:41)
[2018-05-04] MEDS: DESCOVY PO SCH (10:41)
[2018-05-04] MEDS: CLOTRIMAZOLE/BETAMETHASONE DIP CREAM 15 GM TOP SCH ×2 (10:42→17:17)
[2018-05-04] MEDS: FLUTICASONE NASAL SPRAY 50 MCG/SPRY 120 SPRAY/16 GM NASL SCH (10:42)
[2018-05-04] MEDS: PREDNISONE 20 MG TABLET PO SCH ×2 (10:42→17:31)
[2018-05-04] MEDS: ENOXAPARIN SODIUM INJ 40 MG/0.4 ML DISP.SYRIN SUBCUT SCH (10:42)
[2018-05-04] MEDS: LEVOTHYROXINE SODIUM INJ/PF 0.1 MG SDV IV SCH (10:43)
[2018-05-04] MEDS: MORPHINE SULFATE 10 MG/ML INJ IV PRN ×2 (10:45→13:48)
--- NOTE | 2018-05-04 13:41 | PDOC PROGRESS REPORT ---
Subjective Progress Note for:: 05/04/18 Subjective:: Extubated 05/02/2018. Awake, alert, tolerating p.o.'s. No significant cough. No fever or chills. No significant SOB, no cp or palpitations. Reason For Visit: INFLUENZA A, HIV, SIRS Physical Exam Vital Signs: Temp Pulse Resp BP Pulse Ox 98.1 F 98 19 134/98 H 94 05/04/18 11:07 05/04/18 10:00 05/04/18 11:07 05/04/18 11:07 05/04/18 11:07 Intake & Output 05/03/18 05/04/18 05/05/18 06:59 06:59 06:59 Intake Total 2100 2148 Output Total 2530 1920 290 Balance -430 228 -290 Weight 164.5 kg 163.5 kg GENERAL: Well-developed, obese, no acute distress HEENT: Normocephalic/atraumatic NECK supple, no JVD CARDIOVASCULAR: RRR, normal S1-S2, a few bilateral rhonchi LUNGS: CTA bilaterally ABDOMEN: Soft, NT, NL bowel sounds EXTREMITIES: No edema, clubbing, cyanosis NEUROLOGICAL: Alert, oriented x 3, no focal weakness Results Laboratory Results: 05/04/18 03:34 05/04/18 03:34 05/04/18 05/04/18 03:34 03:34 WBC 20.9 H RBC 4.08 L Hgb 12.3 L Hct 36.5 L MCV 89 MCH 30.1 MCHC 33.7 RDW 15.7 H Plt Count 255 Seg Neutrophils % Not Reportable Lymphocytes % Not Reportable Monocytes % Not Reportable Eosinophils % Not Reportable Basophils % Not Reportable Absolute Neutrophils Not Reportable Absolute Lymphocytes Not Reportable Absolute Monocytes Not Reportable Absolute Eosinophils Not Reportable Absolute Basophils Not Reportable Sodium 131.8 L Potassium 4.2 Chloride 98 Carbon Dioxide 27 Anion Gap 7 BUN 25 H Creatinine 0.62 Est GFR ( Amer) > 60 Est GFR (Non-Af Amer) > 60 Glucose 192 H Calcium 8.9 Magnesium 2.1 Total Bilirubin 1.0 AST 107 H ALT 231 H Alkaline Phosphatase 49 Total Protein 5.8 L Albumin 3.2 L 04/24/18 04/25/18 05/02/18 03:53 04:05 03:50 NT-Pro-B Natriuret Pep 128 H 311 H 114 Impressions: Soft Tissue Neck CT 04/23/18 00:00 IMPRESSION: 1. No evidence of retropharyngeal abscess. The retropharyngeal and parapharyngeal spaces are preserved. No CT abnormality of the neck. 2. Partial opacification of the ethmoid air cells and bilateral maxillary sinus mucosal thickening, nonspecific in the setting of endotracheal intubation. KUB X-Ray 05/01/18 09:50 IMPRESSION: Limited, partial radiographs of the abdomen are submitted for review. There is diffusely distended colon, transverse colon measuring up to 11.7 cm, with gas present to the rectum. No free air on images submitted for review. Chest X-Ray 05/03/18 06:00 IMPRESSION: Extubation and removal of the enteric tube. Stable cardiomegaly. copyright 2010 [employer]- All Rights Reserved Assessment and Plan - Diagnosis (1) Acute respiratory failure with hypoxia and hypercapnia Is this a current diagnosis for this admission?: Yes Plan: Improved, s/p extubation. Continue nebulizer treatmentsl Solumedrol discontinued 05/03/18, started prednison 40mg bid--will continue for now. (2) HIV (human immunodeficiency virus infection) Qualifiers: HIV symptom status: asymptomatic Qualified Code(s): Z21 - Asymptomatic human immunodeficiency virus [HIV] infection status Is this a current diagnosis for this admission?: Yes Plan: ID recommendation appreciated. Patient is now extubated, and H&H is stable, no evidence of GI bleed although there had at one point be concern for blood in the NG tube with Gastroccult positive. PPI was decreased to to 20mg daily and resumed HIV meds spread out 12 hrs apart per ID note recommendation. I had spoken with pharmacy, Protonix 20mg is equivalent to 20mg of Omeprazole. (3) Influenza A Is this a current diagnosis for this admission?: Yes Plan: Completed Tamiflu course 04/22-04/29 (4) Obstructive sleep apnea Is this a current diagnosis for this admission?: Yes Plan: BiPAP at HS (5) Acute sinusitis Qualifiers: Sinusitis location: other Recurrence: recurrent Qualified Code(s): J01.81 - Other acute recurrent sinusitis Is this a current diagnosis for this admission?: Yes Plan: The patient completed a course of antibiotic therapy. Nasal saline and Flonase seem to be helping with nasal discharge. He has ENT appt pending outpatient. (6) Sepsis Qualifiers: Sepsis type: sepsis due to unspecified organism Qualified Code(s): A41.9 - Sepsis, unspecified organism Is this a current diagnosis for this admission?: Yes Plan: 04/29/18 Present on admission. The patient had an elevated temperature, elevated total bilirubin and hypoxia with respiratory failure requiring intubation and oxygen supplementation. Secondary to influenza A pneumonia with possible bacterial component (sputum and blood cultures negative). The patient does have chronic sinusitis. This was present when I admitted the patient earlier this year. Staph and strep would be the most likely organisms. 04/30/18 06:09 Acute sepsis has resolved. Ongoing treatment for infection and respiratory failure. 05/03/18 ID note appreciated. Repeat blood culture neg x 26 hrs. WBC also improving. Will d/c all abx 05/04/18 White blood cells continue to improve. Repeat blood cultures negative times 72 hours. All antibiotics discontinued 05/03/18 per ID recommendation. (7) Morbid obesity with BMI of 50.0-59.9, adult Is this a current diagnosis for this admission?: Yes - Plan Summary Plan Summary: Patient improved, doing well status post extubation. Will transfer from ICU to IMCU.
[2018-05-04] MEDS: LISINOPRIL 10 MG TABLET PO SCH (13:48)
[2018-05-04] MEDS: DOCUSATE SODIUM 100 MG CAPSULE PO SCH ×2 (13:49→17:32)
[2018-05-04] MEDS: HYDROCHLOROTHIAZIDE 25 MG TABLET PO SCH (13:49)
[2018-05-04] MEDS ORDERED: INSULIN LISPRO 100 UNIT/ML 3 ML VIAL SUBCUT ONE (17:18)
[2018-05-04] MEDS: PANTOPRAZOLE SODIUM 20 MG TABLET.DR PO SCH (20:26)
[2018-05-05 06:31] LABS: HEMATOCRIT 37.9 % (37.9-51.0); HEMOGLOBIN 12.9 g/dL (13.5-17.0); MEAN CORPUSCULAR HEMOGLOBIN 30.3 pg (27.0-33.4); MEAN CORPUSCULAR HGB CONC 33.9 g/dL (32.0-36.0); MEAN CORPUSCULAR VOLUME 90 fl (80-97); PLATELET COUNT 249 10^3/uL (150-450); RED BLOOD COUNT 4.24 10^6/uL (4.35-5.55); RED CELL DISTRIBUTION WIDTH 15.4 % (11.5-14.0); WHITE BLOOD COUNT 18.3 10^3/uL (4.0-10.5)
[2018-05-05 06:38] LABS: ARTERIAL BLOOD BASE EXCESS 4.5 mmol/L; ARTERIAL BLOOD H2CO3 1.31 mmol/L (1.05-1.35); ARTERIAL BLOOD HCO3 29.2 mmol/L (20-24); ARTERIAL BLOOD O2 SATURATION 95.1 % (94-98); ARTERIAL BLOOD PCO2 43.6 mmHg (35-45); ARTERIAL BLOOD PH 7.44 (7.35-7.45); ARTERIAL BLOOD PO2 72.3 mmHg (80-100); ARTERIAL BLOOD TOTAL CO2 30.6 mmol/L (23-27)
[2018-05-05 06:40] LABS: ARTERIAL BLOOD FIO2 28%
[2018-05-05 06:43] LABS: ANION GAP 9 (5-19); BLOOD UREA NITROGEN 22 mg/dL (7-20); CALCIUM 9.5 mg/dL (8.4-10.2); CARBON DIOXIDE 31 mmol/L (22-30); CHLORIDE 94 mmol/L (98-107); GLUCOSE 147 mg/dL (75-110); PHOSPHORUS 3.8 mg/dL (2.5-4.5); POTASSIUM 3.9 mmol/L (3.6-5.0); SODIUM 133.6 mmol/L (137-145)
[2018-05-05 07:41] LABS: ABSOLUTE LYMPHOCYTES# (MANUAL) 1.3 10^3/uL (0.5-4.7); ABSOLUTE MONOCYTES # (MANUAL) 0.4 10^3/uL (0.1-1.4); ABSOLUTE NEUTROPHILS# (MANUAL) 16.7 10^3/uL (1.7-8.2); BAND NEUTROPHILS % (MANUAL) 4 % (3-5); BASOPHILS % (MANUAL) 0 % (0-2); EOSINOPHILS % (MANUAL) 0 % (0-6); LYMPHOCYTES % (MANUAL) 7 % (13-45); MONOCYTES % (MANUAL) 2 % (3-13); SEGMENTED NEUTROPHILS % (MAN) 87 % (42-78); TOTAL CELLS COUNTED 100
[2018-05-05 07:42] LABS: ANISOCYTOSIS SLIGHT; OVALOCYTES SLIGHT; PLATELET CLUMPS PRESENT; POIKILOCYTOSIS SLIGHT; POLYCHROMASIA SLIGHT; TEAR DROP CELLS SLIGHT
[2018-05-05] MEDS: INSULIN LISPRO 100 UNIT/ML 3 ML VIAL SUBCUT SCH ×4 (08:15→22:01)
--- NOTE | 2018-05-05 08:33 | RADIOLOGY REPORT (SQ) ---
EXAM DESCRIPTION: CHEST SINGLE VIEW COMPLETED DATE/TIME: 05/05/2018 8:06 am REASON FOR STUDY: resp failure COMPARISON: 05/03/2018. NUMBER OF VIEWS: One view. TECHNIQUE: Single frontal radiographic view of the chest acquired. LIMITATIONS: None. FINDINGS: LUNGS AND PLEURA: No opacities, masses or pneumothorax. No pleural effusion. MEDIASTINUM AND HILAR STRUCTURES: No masses. Contour normal. HEART AND VASCULAR STRUCTURES: Heart enlarged without failure. Normal vasculature. BONES: No acute findings. HARDWARE: None in the chest. OTHER: No other significant finding. IMPRESSION: NO ACUTE RADIOGRAPHIC FINDING IN THE CHEST. TECHNICAL DOCUMENTATION: JOB ID: [id number] [employer]- All Rights Reserved Reading location - IP/workstation name: [email or web address]
[2018-05-05] MEDS: SODIUM CHLORIDE NASAL SPRAY 44 ML NASL SCH ×4 (08:39→22:02)
[2018-05-05] MEDS: DESCOVY PO SCH (08:39)
[2018-05-05] MEDS: COBICISTAT PO SCH (08:40)
[2018-05-05] MEDS: ATAZANAVIR PO SCH (08:40)
[2018-05-05] MEDS ORDERED: MAGNESIUM CITRATE 296 ML BOTTLE PO PRN (10:54)
[2018-05-05] MEDS: FLUTICASONE NASAL SPRAY 50 MCG/SPRY 120 SPRAY/16 GM NASL SCH (10:55)
[2018-05-05] MEDS: LISINOPRIL 10 MG TABLET PO SCH (10:56)
[2018-05-05] MEDS: NA PHOS,M-B/NA PHOS,DI-BA (ADULT) 133 ML ENEMA PR PRN (10:56)
[2018-05-05] MEDS: DOCUSATE SODIUM 100 MG CAPSULE PO SCH ×2 (10:56→18:07)
[2018-05-05] MEDS: ENOXAPARIN SODIUM INJ 40 MG/0.4 ML DISP.SYRIN SUBCUT SCH (10:56)
[2018-05-05] MEDS: PREDNISONE 20 MG TABLET PO SCH ×2 (10:56→18:06)
[2018-05-05] MEDS: HYDROCHLOROTHIAZIDE 25 MG TABLET PO SCH (10:57)
[2018-05-05] MEDS: CHOLECALCIFEROL (D3) 1,000 UNIT TABLET NG SCH (10:57)
[2018-05-05] MEDS: CLOTRIMAZOLE/BETAMETHASONE DIP CREAM 15 GM TOP SCH ×2 (10:58→18:07)
[2018-05-05] MEDS: LEVOTHYROXINE SODIUM INJ/PF 0.1 MG SDV IV SCH (10:59)
[2018-05-05] MEDS ORDERED: LEVOTHYROXINE SODIUM 0.15 MG TABLET PO SCH (11:45)
[2018-05-05] MEDS: MORPHINE SULFATE 10 MG/ML INJ IV PRN (13:40)
[2018-05-05] MEDS ORDERED: LEVOTHYROXINE SODIUM 0.15 MG TABLET PO ONE (15:30)
--- NOTE | 2018-05-05 18:19 | PDOC PROGRESS REPORT ---
Subjective Progress Note for:: 05/01/18 Subjective:: Patient now with coffee-ground emesis from the nasogastric tube. Bowel sounds have diminished. Likely an ileus. No bowel movement for multiple days. White blood cell count is now over 30,000. Reason For Visit: INFLUENZA A, HIV, SIRS Physical Exam Vital Signs: Temp Pulse Resp BP Pulse Ox 98.2 F 112 H 20 120/67 94 05/01/18 08:00 05/01/18 08:06 05/01/18 08:06 05/01/18 08:00 05/01/18 08:06 Intake & Output 04/30/18 05/01/18 05/02/18 06:59 06:59 06:59 Intake Total 4401.500 2913.875 Output Total 4330 6325 120 Balance 71.500 -3411.125 -120 Weight 169.8 kg 164.5 kg General appearance: PRESENT: mild distress - The patient would like his hands untied. He is somewhat restless in restraints., morbidly obese, well-developed Head exam: PRESENT: atraumatic, normocephalic Eye exam: PRESENT: conjunctiva pink. ABSENT: scleral icterus Ear exam: PRESENT: normal external ear exam Mouth exam: PRESENT: other - Endotracheal tube and nasogastric tube in place Neck exam: PRESENT: other - Very large neck. ABSENT: carotid bruit, lymphadenopathy Respiratory exam: PRESENT: clear to auscultation joaquin, decreased breath sounds - Due to body habitus, symmetrical. ABSENT: accessory muscle use, rales, rhonchi, wheezes Cardiovascular exam: PRESENT: RRR, +S1, +S2 GI/Abdominal exam: PRESENT: distended - And tense, hypoactive bowel sounds, tenderness - Difficult to determine. It does appear that he may wince when pa lpating. Rectal exam: PRESENT: deferred Gentrourinary exam: PRESENT: indwelling catheter Extremities exam: ABSENT: pedal edema Musculoskeletal exam: ABSENT: ambulatory Neurological exam: PRESENT: alert, awake, other - Attempting to mouth words but the endotracheal tube makes it difficult to understand. He also tries to write to communicate but he is extremely weak and it is often illegible Psychiatric exam: PRESENT: anxious, appropriate affect. ABSENT: agitated Focused psych exam: PRESENT: restlessness - Slightly restless. Wants to be out of the soft restraints and be extubated.. ABSENT: delusional Skin exam: ABSENT: normal color - Facial flushing noted Results Laboratory Results: 05/01/18 04:07 05/01/18 04:07 05/01/18 05/01/18 05/01/18 04:07 04:07 04:46 WBC 30.9 H* RBC 4.12 L Hgb 12.6 L Hct 36.3 L MCV 88 MCH 30.6 MCHC 34.8 RDW 15.4 H Plt Count 315 Seg Neutrophils % Not Reportable Lymphocytes % Not Reportable Monocytes % Not Reportable Eosinophils % Not Reportable Basophils % Not Reportable Absolute Neutrophils Not Reportable Absolute Lymphocytes Not Reportable Absolute Monocytes Not Reportable Absolute Eosinophils Not Reportable Absolute Basophils Not Reportable Carbonic Acid 1.26 HCO3/H2CO3 Ratio 21:1 ABG pH 7.43 ABG pCO2 41.7 ABG pO2 74.9 L ABG HCO3 27.2 H ABG O2 Saturation 95.4 ABG Base Excess 2.7 FiO2 45% Sodium 131.9 L Potassium 5.0 Chloride 95 L Carbon Dioxide 23 Anion Gap 14 BUN 26 H Creatinine 0.78 Est GFR ( Amer) > 60 Est GFR (Non-Af Amer) > 60 Glucose 193 H Calcium 9.7 Magnesium 2.1 Total Bilirubin 0.6 AST 27 ALT 46 Alkaline Phosphatase 51 Total Protein 6.0 L Albumin 3.5 04/24/18 04/25/18 03:53 04:05 NT-Pro-B Natriuret Pep 128 H 311 H Impressions: Soft Tissue Neck CT 04/23/18 00:00 IMPRESSION: 1. No evidence of retropharyngeal abscess. The retropharyngeal and parapharyngeal spaces are preserved. No CT abnormality of the neck. 2. Partial opacification of the ethmoid air cells and bilateral maxillary sinus mucosal thickening, nonspecific in the setting of endotracheal intubation. KUB X-Ray 04/23/18 14:56 IMPRESSION: SATISFACTORY POSITION OF THE NASOGASTRIC TUBE WITH THE TIP IN THE STOMACH. Chest X-Ray 05/01/18 06:00 IMPRESSION: Stable bibasilar consolidation with air bronchograms in the retrocardiac regions atelectasis versus pneumonia. Assessment and Plan - Diagnosis (1) Sepsis Qualifiers: Sepsis type: sepsis due to unspecified organism Qualified Code(s): A41.9 - Sepsis, unspecified organism Is this a current diagnosis for this admission?: Yes Plan: The patient's white blood cell count is increasing and is now over 30,000. He was 17,000 for several days in a row and now. I will repeat blood and urine cultures and restart broad-spectrum antibiotic therapy. (2) Acute respiratory failure with hypoxia and hypercapnia Is this a current diagnosis for this admission?: Yes Plan: The patient is on weaning trials. He seems to do well on pressure support during the day but rest on IMV at night. He still is tachycardic while on pressure support. He was admitted with influenza A. This is not appear to be a focal infiltrate on x-ray and with his body habitus it can be difficult to auscultate breath sounds. Continue ventilator weaning. (3) Acute sinusitis Qualifiers: Sinusitis location: other Recurrence: recurrent Qualified Code(s): J01.81 - Other acute recurrent sinusitis Is this a current diagnosis for this admission?: Yes Plan: As previously noted the patient has chronic sinus issues. Nursing did say they were noting discolored drainage from the nose. I have instituted antibiotic therapy that will also cover sinus infection. (4) HIV (human immunodeficiency virus infection) Qualifiers: HIV symptom status: asymptomatic Qualified Code(s): Z21 - Asymptomatic human immunodeficiency virus [HIV] infection status Is this a current diagnosis for this admission?: Yes Plan: Continue to hold antiretroviral medications. Once the patient is able to take a regular diet we will resume his medications. It is certainly possible that his HIV status is contributing to this prolonged illness. (5) New onset type 2 diabetes mellitus Is this a current diagnosis for this admission?: Yes Plan: Continue sliding scale coverage and Accu-Cheks. Accu-Cheks. (6) Hypothyroidism Qualifiers: Hypothyroidism type: unspecified Qualified Code(s): E03.9 - Hypothyroidism, unspecified Is this a current diagnosis for this admission?: Yes Plan: Levothyroxine has been changed to intravenous formulation. (7) Morbid obesity with BMI of 50.0-59.9, adult Is this a current diagnosis for this admission?: Yes Plan: I discussed with the patient's roommate the need for diet and exercise. He did state that they have begun walking with the dog's and that the patient does try and do some exercise at home. The morbid obesity will also with regard to deconditioning and weakness. (8) Influenza A Is this a current diagnosis for this admission?: Yes Plan: Completed course of Tamiflu. Influenza resolved.
--- NOTE | 2018-05-05 18:35 | PDOC PROGRESS REPORT ---
Subjective Progress Note for:: 05/02/18 Subjective:: Gastritis. Protonix 80 twice daily. Lavage stomach. Swallowing trial applesauce. If successful DC NG tube. Reglan 5 mg IV and Fleet enema. PT consult. Reason For Visit: INFLUENZA A, HIV, SIRS Physical Exam Vital Signs: Temp Pulse Resp BP Pulse Ox 99.0 F 110 H 17 141/91 H 95 05/02/18 12:28 05/02/18 14:00 05/02/18 14:00 05/02/18 14:00 05/02/18 14:00 Intake & Output 05/01/18 05/02/18 05/03/18 06:59 06:59 06:59 Intake Total 2913.875 3865 91 Output Total 6325 97625 1150 Balance -3411.125 -9174 -1059 Weight 164.5 kg 164.8 kg General appearance: PRESENT: mild distress - Still anxious and questioning how long to extubation., morbidly obese, well-developed Head exam: PRESENT: atraumatic, normocephalic Eye exam: PRESENT: conjunctiva pink. ABSENT: scleral icterus Ear exam: PRESENT: normal external ear exam Mouth exam: PRESENT: other - Endotracheal tube in place Throat exam: PRESENT: other - Nasogastric tube in place with coffee-ground type material Neck exam: PRESENT: full ROM, other - Extremely large neck. ABSENT: carotid bruit, lymphadenopathy Respiratory exam: PRESENT: clear to auscultation joaquin, decreased breath sounds - At bases likely due to body habitus, symmetrical. ABSENT: rales, rhonchi, wheezes Cardiovascular exam: PRESENT: RRR, +S1, +S2 GI/Abdominal exam: PRESENT: distended, firm, hypoactive bowel sounds - I do not hear any bowel sounds during this visit., tenderness - Appears to be uncomfortable by facial expression during palpation, other - Coffee-ground material from nasogastric tube. Rectal exam: PRESENT: deferred, other - Nasogastric tube contents tested occult blood positive Gentrourinary exam: PRESENT: indwelling catheter Extremities exam: ABSENT: joint swelling, pedal edema Neurological exam: PRESENT: alert, awake, oriented to person, oriented to place, oriented to situation, other - Clearly tries to communicate by mouthing words and attempts to write on a clip board. Psychiatric exam: PRESENT: anxious, appropriate affect - Affect reflects his current clinical state and this includes frustration due to remaining intubated.. ABSENT: agitated Results Laboratory Results: 05/02/18 03:50 05/02/18 03:50 05/01/18 05/02/18 05/02/18 14:14 03:50 03:50 WBC 30.9 H* 31.3 H* RBC 4.23 L 4.00 L Hgb 13.2 L 12.4 L Hct 37.8 L 35.4 L MCV 89 89 MCH 31.2 31.0 MCHC 34.9 35.0 RDW 16.0 H 15.8 H Plt Count 315 308 Seg Neutrophils % Not Reportable Not Reportable Lymphocytes % Not Reportable Not Reportable Monocytes % Not Reportable Not Reportable Eosinophils % Not Reportable Not Reportable Basophils % Not Reportable Not Reportable Absolute Neutrophils Not Reportable Not Reportable Absolute Lymphocytes Not Reportable Not Reportable Absolute Monocytes Not Reportable Not Reportable Absolute Eosinophils Not Reportable Not Reportable Absolute Basophils Not Reportable Not Reportable Carbonic Acid HCO3/H2CO3 Ratio ABG pH ABG pCO2 ABG pO2 ABG HCO3 ABG O2 Saturation ABG Base Excess FiO2 Sodium 131.7 L Potassium 4.3 Chloride 97 L Carbon Dioxide 23 Anion Gap 12 BUN 29 H Creatinine 0.59 Est GFR ( Amer) > 60 Est GFR (Non-Af Amer) > 60 Glucose 190 H Calcium 9.2 Magnesium 2.0 Total Bilirubin 0.8 AST 43 ALT 68 Alkaline Phosphatase 47 Total Protein 5.8 L Albumin 3.3 L Prealbumin 61.0 H 05/02/18 03:58 WBC RBC Hgb Hct MCV MCH MCHC RDW Plt Count Seg Neutrophils % Lymphocytes % Monocytes % Eosinophils % Basophils % Absolute Neutrophils Absolute Lymphocytes Absolute Monocytes Absolute Eosinophils Absolute Basophils Carbonic Acid 1.25 HCO3/H2CO3 Ratio 22:1 ABG pH 7.44 ABG pCO2 41.5 ABG pO2 105.6 H ABG HCO3 27.7 H ABG O2 Saturation 98.0 ABG Base Excess 3.3 FiO2 45% Sodium Potassium Chloride Carbon Dioxide Anion Gap BUN Creatinine Est GFR ( Amer) Est GFR (Non-Af Amer) Glucose Calcium Magnesium Total Bilirubin AST ALT Alkaline Phosphatase Total Protein Albumin Prealbumin 04/24/18 04/25/18 05/02/18 03:53 04:05 03:50 NT-Pro-B Natriuret Pep 128 H 311 H 114 Impressions: Soft Tissue Neck CT 04/23/18 00:00 IMPRESSION: 1. No evidence of retropharyngeal abscess. The retropharyngeal and parapharyngeal spaces are preserved. No CT abnormality of the neck. 2. Partial opacification of the ethmoid air cells and bilateral maxillary sinus mucosal thickening, nonspecific in the setting of endotracheal intubation. KUB X-Ray 05/01/18 09:50 IMPRESSION: Limited, partial radiographs of the abdomen are submitted for review. There is diffusely distended colon, transverse colon measuring up to 11.7 cm, with gas present to the rectum. No free air on images submitted for review. Chest X-Ray 05/02/18 06:00 IMPRESSION: STABLE APPEARANCE OF THE CHEST. SUPPORT DEVICES UNCHANGED. Assessment and Plan - Diagnosis (1) Sepsis Qualifiers: Sepsis type: sepsis due to unspecified organism Qualified Code(s): A41.9 - Sepsis, unspecified organism Is this a current diagnosis for this admission?: Yes Plan: The acute sepsis appears to have resolved. He is not hypertensive. He clearly is trying to communicate. He does remain intubated. His white blood cell count is quite elevated and as noted yesterday I have initiated antibiotic therapy after obtaining cultures. No positive cultures as yet today. In actuality, other than the positive influenza A test, if not had positive bacterial cultures to this point. (2) Acute respiratory failure with hypoxia and hypercapnia Is this a current diagnosis for this admission?: Yes Plan: We will continue to wean the patient. Because of the patient's distended abdomen and lack of bowel movement for several days as well as the liquid being suctioned through the NG tube we are going to hold off extubating today. Would like to get the patient's bowels going so that there is less pressure against the diaphragm. Because of his morbid obesity with obesity hypoventilation he is already at risk to fail extubation however we are trying to improve his condition as much as possible prior to extubation. (3) Acute sinusitis Qualifiers: Sinusitis location: other Recurrence: recurrent Qualified Code(s): J01.81 - Other acute recurrent sinusitis Is this a current diagnosis for this admission?: Yes Plan: White blood cell count is still over 30,000. Antibiotics are being administered. It does not appear that he is having as much discharge from his nose. (4) HIV (human immunodeficiency virus infection) Qualifiers: HIV symptom status: asymptomatic Qualified Code(s): Z21 - Asymptomatic human immunodeficiency virus [HIV] infection status Is this a current diagnosis for this admission?: Yes Plan: Will resume his antiretroviral medication soon as he is on and oral diet. White blood cell count still remains very elevated. (5) New onset type 2 diabetes mellitus Is this a current diagnosis for this admission?: Yes Plan: With diabetic friendly tube feeds and the sliding scale the patient's Accu-Cheks are improving. Continue to monitor sliding scale requirements and consider long-acting insulin if necessary. (6) Adynamic ileus Is this a current diagnosis for this admission?: Yes Plan: Abdominal film does show distended bowel. The patient did have small bowel movement last evening I believe. This was after an enema. We will repeat an enema today. If this is not effective then consider soapsuds enemas to stimulate the bowel. (7) Hypothyroidism Qualifiers: Hypothyroidism type: unspecified Qualified Code(s): E03.9 - Hypothyroidism, unspecified Is this a current diagnosis for this admission?: Yes Plan: Continue levothyroxine by IV until the patient is on normal diet (8) Morbid obesity with BMI of 50.0-59.9, adult Is this a current diagnosis for this admission?: Yes Plan: I discussed with the patient's roommate the need for diet and exercise. He did state that they have begun walking with the dog's and that the patient does try and do some exercise at home. The morbid obesity will also with regard to deconditioning and weakness. (9) Influenza A Is this a current diagnosis for this admission?: Yes Plan: Completed course of Tamiflu. Influenza resolved. - Time Time Spent with patient: 35 or more minutes Medications reviewed and adjusted accordingly: Yes - Inpatient Certification Based on my medical assessment, after consideration of the patient's comorbidities, presenting symptoms, or acuity I expect that the services needed warrant INPATIENT care.: Yes I certify that my determination is in accordance with my understanding of Medicare's requirements for reasonable and necessary INPATIENT services [42 CFR 412.3e].: Yes Medical Necessity: Need For IV Fluids, Need for IV Antibiotics
--- NOTE | 2018-05-05 18:43 | PDOC PROGRESS REPORT ---
Subjective Progress Note for:: 05/05/18 Subjective:: The patient is now on IMCU and has been extubated. He looks quite comfortable. He is still on nasal cannula. Reason For Visit: INFLUENZA A, HIV, SIRS Physical Exam Vital Signs: Temp Pulse Resp BP Pulse Ox 97.7 F 85 17 117/73 96 05/05/18 07:46 05/05/18 07:46 05/05/18 07:46 05/05/18 07:46 05/05/18 07:46 Intake & Output 05/04/18 05/05/18 05/06/18 06:59 06:59 06:59 Intake Total 2148 250 Output Total 1920 1840 Balance 228 -1590 Weight 163.5 kg 163.7 kg General appearance: PRESENT: no acute distress, cooperative, morbidly obese, well-developed Head exam: PRESENT: atraumatic, normocephalic Eye exam: PRESENT: conjunctiva pink. ABSENT: nystagmus, scleral icterus Ear exam: PRESENT: normal external ear exam Mouth exam: PRESENT: moist, tongue midline Neck exam: PRESENT: other - Very large neck. Difficult to assess.. ABSENT: carotid bruit, JVD, lymphadenopathy Respiratory exam: PRESENT: clear to auscultation joaquin, symmetrical, unlabored. ABSENT: accessory muscle use, rales, rhonchi, wheezes Cardiovascular exam: PRESENT: RRR, +S1, +S2 GI/Abdominal exam: PRESENT: distended - The patient at baseline has a protuberant abdomen., normal bowel sounds, soft. ABSENT: tenderness Rectal exam: PRESENT: deferred Gentrourinary exam: PRESENT: indwelling catheter Extremities exam: ABSENT: pedal edema Neurological exam: PRESENT: alert, awake, oriented to person, oriented to place, oriented to time, oriented to situation, CN II-XII grossly intact Psychiatric exam: PRESENT: appropriate affect, normal mood. ABSENT: agitated, anxious Focused psych exam: ABSENT: delusional, restlessness Results Laboratory Results: 05/05/18 06:06 05/05/18 06:06 05/05/18 05/05/18 05/05/18 06:06 06:06 06:15 WBC 18.3 H RBC 4.24 L Hgb 12.9 L Hct 37.9 MCV 90 MCH 30.3 MCHC 33.9 RDW 15.4 H Plt Count 249 Seg Neutrophils % Not Reportable Lymphocytes % Not Reportable Monocytes % Not Reportable Eosinophils % Not Reportable Basophils % Not Reportable Absolute Neutrophils Not Reportable Absolute Lymphocytes Not Reportable Absolute Monocytes Not Reportable Absolute Eosinophils Not Reportable Absolute Basophils Not Reportable Carbonic Acid 1.31 HCO3/H2CO3 Ratio 22:1 ABG pH 7.44 ABG pCO2 43.6 ABG pO2 72.3 L ABG HCO3 29.2 H ABG O2 Saturation 95.1 ABG Base Excess 4.5 FiO2 28% Sodium 133.6 L Potassium 3.9 Chloride 94 L Carbon Dioxide 31 H Anion Gap 9 BUN 22 H Creatinine 0.62 Est GFR ( Amer) > 60 Est GFR (Non-Af Amer) > 60 Glucose 147 H Calcium 9.5 Phosphorus 3.8 Magnesium 2.2 04/24/18 04/25/18 05/02/18 03:53 04:05 03:50 NT-Pro-B Natriuret Pep 128 H 311 H 114 Impressions: Soft Tissue Neck CT 04/23/18 00:00 IMPRESSION: 1. No evidence of retropharyngeal abscess. The retropharyngeal and parapharyngeal spaces are preserved. No CT abnormality of the neck. 2. Partial opacification of the ethmoid air cells and bilateral maxillary sinus mucosal thickening, nonspecific in the setting of endotracheal intubation. KUB X-Ray 05/01/18 09:50 IMPRESSION: Limited, partial radiographs of the abdomen are submitted for review. There is diffusely distended colon, transverse colon measuring up to 11.7 cm, with gas present to the rectum. No free air on images submitted for review. Chest X-Ray 05/05/18 06:00 IMPRESSION: NO ACUTE RADIOGRAPHIC FINDING IN THE CHEST. Assessment and Plan - Diagnosis (1) Acute respiratory failure with hypoxia and hypercapnia Is this a current diagnosis for this admission?: Yes Plan: Successfully extubated over the weekend. He remains on nasal cannula. Will attempt to wean from oxygen altogether. (2) Acute sinusitis Qualifiers: Sinusitis location: other Recurrence: recurrent Qualified Code(s): J01.81 - Other acute recurrent sinusitis Is this a current diagnosis for this admission?: Yes Plan: The patient did report that he will see a local ENT physician. Acute sinusitis resolved. (3) HIV (human immunodeficiency virus infection) Qualifiers: HIV symptom status: asymptomatic Qualified Code(s): Z21 - Asymptomatic human immunodeficiency virus [HIV] infection status Is this a current diagnosis for this admission?: Yes Plan: We have resumed his antiretroviral medications. (4) New onset type 2 diabetes mellitus Is this a current diagnosis for this admission?: Yes Plan: Accu-Cheks seem greatly improved. Continue current regimen (5) Hypothyroidism Qualifiers: Hypothyroidism type: unspecified Qualified Code(s): E03.9 - Hypothyroidism, unspecified Is this a current diagnosis for this admission?: Yes Plan: Levothyroxine converted to his standard oral dose. (6) Morbid obesity with BMI of 50.0-59.9, adult Is this a current diagnosis for this admission?: Yes Plan: I discussed with the patient's roommate the need for diet and exercise. He did state that they have begun walking with the dog's and that the patient does try and do some exercise at home. The morbid obesity will also with regard to deconditioning and weakness. (7) Sepsis Qualifiers: Sepsis type: sepsis due to unspecified organism Qualified Code(s): A41.9 - Sepsis, unspecified organism Is this a current diagnosis for this admission?: Yes Plan: Sepsis resolved. The patient still has an elevated white count. He has been off of IV antibiotics. (8) Influenza A Is this a current diagnosis for this admission?: Yes Plan: Completed course of Tamiflu. Influenza resolved. (9) Adynamic ileus Is this a current diagnosis for this admission?: Yes Plan: Resolved - Time Time Spent with patient: 15-24 minutes Medications reviewed and adjusted accordingly: Yes
[2018-05-05] MEDS: PANTOPRAZOLE SODIUM 20 MG TABLET.DR PO SCH (20:39)
--- NOTE | 2018-05-05 21:34 | XCELERA REPORT ---
[address] [address] Transthoracic Echocardiogram Report Name: AR VILLEGAS Age: 42 yrs Gender: Male : 1975 Patient Status: Inpatient Patient Location: [address] [place] [address] Study Date: 05/05/2018 01:32 PM Procedure: A two-dimensional transthoracic echocardiogram with color flow Doppler was performed. The study was technically difficult with many images being suboptimal in quality. Reason For Study: cardiomyopathy History: cardiomyopathy. Ordering Physician: MEJIA ORODNEZ Performed By: Kourtney Garcia Interpretation Summary The left ventricle is normal in size. There is normal left ventricular wall thickness. LV EF is > THAN 60% Left ventricular systolic function is normal. Doppler measurements suggest impaired left ventricular relaxation, which is associated with grade I/IV or mild diastolic dysfunction The left ventricular wall motion is normal. The right ventricle is not well visualized secondary to technical limitations Right atrium not well visualized secondary to technical limitations The left atrial size is normal. There is no evidence of mitral valve prolapse. There is no vegetation seen on the mitral valve. There is no mitral valve stenosis. There is no mitral regurgitation noted. There is no aortic valve stenosis No aortic regurgitation is present. There is no tricuspid stenosis. No tricuspid regurgitation. Unable to calculate RVSP due lack of TR jet. There is no pulmonic valvular stenosis. There is no pulmonic valvular regurgitation. The aortic root is not well visualized. The inferior vena cava was not visualized There is no pericardial effusion. MMode/2D Measurements & Calculations RVDd: 3.6 cm LVIDd: 4.3 cm FS: 33.4 % Ao root diam: 2.9 cm IVSd: 1.00 cm LVIDs: 2.8 cm EDV(Teich): 81.3 ml Ao root area: 6.4 cm2 LVPWd: 1.3 cm ESV(Teich): 30.6 ml EF(Teich): 62.4 % Doppler Measurements & Calculations MV E max linda: MV dec slope: Ao V2 max: LV V1 max P.5 cm/sec 168.2 cm/sec 12.9 mmHg MV A max linda: 450.9 cm/sec2 Ao max PG: LV V1 max: 72.5 cm/sec MV dec time: 0.16 sec11.3 mmHg 179.5 cm/sec MV E/A: 0.99 PA V2 max: 123.2 cm/sec PA max P.1 mmHg Left Ventricle The left ventricle is normal in size. There is normal left ventricular wall thickness. LV EF is > THAN 60%. Left ventricular systolic function is normal. Doppler measurements suggest impaired left ventricular relaxation, which is associated with grade I/IV or mild diastolic dysfunction. The left ventricular wall motion is normal. There is no thrombus. Right Ventricle The right ventricle is not well visualized secondary to technical limitations. Atria Right atrium not well visualized secondary to technical limitations. The left atrial size is normal. Mitral Valve There is no evidence of mitral valve prolapse. There is no vegetation seen on the mitral valve. There is no mitral valve stenosis. There is no mitral regurgitation noted. Aortic Valve There is no aortic valve stenosis. No aortic regurgitation is present. Tricuspid Valve There is no tricuspid stenosis. No tricuspid regurgitation. Unable to calculate RVSP due lack of TR jet. Pulmonic Valve There is no pulmonic valvular stenosis. There is no pulmonic valvular regurgitation. Great Vessels The aortic root is not well visualized. The inferior vena cava was not visualized. Effusions There is no pericardial effusion. : MEJIA ORDONEZ > Guadalupe Jackson
[2018-05-06] MEDS: LEVOTHYROXINE SODIUM 0.15 MG TABLET PO SCH (05:25)
[2018-05-06 06:29] LABS: ABSOLUTE BASOPHILS # (AUTO) 0.1 10^3/uL (0.0-0.2); ABSOLUTE LYMPHOCYTES (AUTO) 2.4 10^3/uL (0.5-4.7); ABSOLUTE NEUT (AUTO) 13.6 10^3/uL (1.7-8.2); BASOPHILS % (AUTO) 0.6 % (0-2); HEMATOCRIT 38.9 % (37.9-51.0); HEMOGLOBIN 13.3 g/dL (13.5-17.0); LYMPHOCYTES % (AUTO) 13.8 % (13-45); MEAN CORPUSCULAR HEMOGLOBIN 30.7 pg (27.0-33.4); MEAN CORPUSCULAR HGB CONC 34.3 g/dL (32.0-36.0); MEAN CORPUSCULAR VOLUME 90 fl (80-97); MONOCYTES % (AUTO) 5.8 % (3-13); PLATELET COUNT 290 10^3/uL (150-450); RED BLOOD COUNT 4.34 10^6/uL (4.35-5.55); RED CELL DISTRIBUTION WIDTH 15.8 % (11.5-14.0); SEGMENTED NEUTROPHILS % (AUTO) 79.8 % (42-78); TOTAL CELLS COUNTED % (AUTO) 100 %; WHITE BLOOD COUNT 17.1 10^3/uL (4.0-10.5)
[2018-05-06 07:00] LABS: ALANINE AMINOTRANSFERASE 172 U/L (21-72); ALBUMIN 3.5 g/dL (3.5-5.0); ALKALINE PHOSPHATASE 52 U/L (38-126); ANION GAP 11 (5-19); ASPARTATE AMINO TRANSFERASE 41 U/L (17-59); BILIRUBIN,DIRECT 0.5 mg/dL (0.0-0.4); BILIRUBIN,TOTAL 2.1 mg/dL (0.2-1.3); BLOOD UREA NITROGEN 23 mg/dL (7-20); CALCIUM 9.6 mg/dL (8.4-10.2); CARBON DIOXIDE 28 mmol/L (22-30); CHLORIDE 94 mmol/L (98-107); GLUCOSE 147 mg/dL (75-110); POTASSIUM 3.8 mmol/L (3.6-5.0); SODIUM 133.3 mmol/L (137-145); TOTAL PROTEIN 5.7 g/dL (6.3-8.2)
[2018-05-06] MEDS: INSULIN LISPRO 100 UNIT/ML 3 ML VIAL SUBCUT SCH ×4 (08:00→21:44)
[2018-05-06] MEDS: ATAZANAVIR PO SCH (08:45)
[2018-05-06] MEDS: COBICISTAT PO SCH (08:45)
[2018-05-06] MEDS: DESCOVY PO SCH (08:46)
[2018-05-06] MEDS: SODIUM CHLORIDE NASAL SPRAY 44 ML NASL SCH ×4 (08:46→21:08)
[2018-05-06] MEDS: CHOLECALCIFEROL (D3) 1,000 UNIT TABLET NG SCH (09:35)
[2018-05-06] MEDS: LISINOPRIL 10 MG TABLET PO SCH (09:35)
[2018-05-06] MEDS: HYDROCHLOROTHIAZIDE 25 MG TABLET PO SCH (09:35)
[2018-05-06] MEDS: DOCUSATE SODIUM 100 MG CAPSULE PO SCH ×2 (09:36→19:33)
[2018-05-06] MEDS: PREDNISONE 20 MG TABLET PO SCH ×2 (09:36→19:34)
[2018-05-06] MEDS: CLOTRIMAZOLE/BETAMETHASONE DIP CREAM 15 GM TOP SCH ×2 (09:37→19:34)
[2018-05-06] MEDS: ENOXAPARIN SODIUM INJ 40 MG/0.4 ML DISP.SYRIN SUBCUT SCH (09:37)
[2018-05-06] MEDS: FLUTICASONE NASAL SPRAY 50 MCG/SPRY 120 SPRAY/16 GM NASL SCH (09:50)
[2018-05-06] MEDS ORDERED: MORPHINE SULFATE 10 MG/ML INJ IV PRN ×3 (10:14→10:15)
[2018-05-06] MEDS ORDERED: BISACODYL 10 MG SUPP.RECT PR PRN (10:20)
[2018-05-06] MEDS ORDERED: MAGNESIUM CITRATE 296 ML BOTTLE PO PRN (10:20)
[2018-05-06] MEDS ORDERED: NA PHOS,M-B/NA PHOS,DI-BA (ADULT) 133 ML ENEMA PR PRN (10:21)
[2018-05-06] MEDS: ACETAMINOPHEN 325 MG TABLET NG PRN (16:41)
[2018-05-06 17:57] LABS: ANION GAP 15 (5-19); BLOOD UREA NITROGEN 22 mg/dL (7-20); CALCIUM 9.8 mg/dL (8.4-10.2); CARBON DIOXIDE 25 mmol/L (22-30); CHLORIDE 92 mmol/L (98-107); GLUCOSE 205 mg/dL (75-110); POTASSIUM 3.7 mmol/L (3.6-5.0); SODIUM 131.7 mmol/L (137-145)
[2018-05-06] MEDS: DIPHENOXYLATE HCL/ATROP SULF 2.5-0.025 MG TABLET PO PRN (18:21)
[2018-05-06] MEDS: NORMAL SALINE 1000 ML 1,000 ML IV PRN (18:21)
[2018-05-06] MEDS: PANTOPRAZOLE SODIUM 20 MG TABLET.DR PO SCH (19:34)
--- NOTE | 2018-05-06 19:55 | PDOC PROGRESS REPORT ---
Subjective Progress Note for:: 05/06/18 Subjective:: This is a 42 yr old male with a PMH of HIV, morbid obesity and hypothyroidism who was initially admitted for fever and SOB. He was found to have influenza. He developed acute stridor and acute respiratory failure and was intubated on 04/23. He was successfully extubated on 05/01. He has continued to improve but has still been generally week and not still able to do his ADLs independently. He may need SNF/rehab placement. Reason For Visit: INFLUENZA A, HIV, SIRS Physical Exam Vital Signs: Temp Pulse Resp BP Pulse Ox 97.6 F 92 20 127/64 H 97 05/06/18 11:29 05/06/18 14:00 05/06/18 11:29 05/06/18 11:29 05/06/18 11:29 Intake & Output 05/05/18 05/06/18 05/07/18 06:59 06:59 06:59 Intake Total 1250 1200 Output Total 1840 1650 650 Balance -590 -450 -650 Weight 360 lb 14.347 oz 348 lb 8.813 oz General appearance: PRESENT: no acute distress, morbidly obese Head exam: PRESENT: atraumatic, normocephalic Eye exam: PRESENT: conjunctiva pink, EOMI, PERRLA. ABSENT: scleral icterus Ear exam: PRESENT: normal external ear exam Mouth exam: PRESENT: moist, tongue midline Neck exam: ABSENT: carotid bruit, JVD, lymphadenopathy, thyromegaly Respiratory exam: PRESENT: clear to auscultation joaquin. ABSENT: rales, rhonchi, wheezes Cardiovascular exam: PRESENT: RRR. ABSENT: diastolic murmur, rubs, systolic murmur Pulses: PRESENT: normal dorsalis pedis pul GI/Abdominal exam: PRESENT: normal bowel sounds, soft. ABSENT: distended, guarding, mass, organolmegaly, rebound, tenderness Rectal exam: PRESENT: deferred Neurological exam: PRESENT: alert, awake, oriented to person, oriented to place, oriented to time, oriented to situation, CN II-XII grossly intact. ABSENT: motor sensory deficit Results Laboratory Results: 05/06/18 06:10 05/06/18 17:10 05/06/18 05/06/18 05/06/18 06:10 06:10 17:10 WBC 17.1 H RBC 4.34 L Hgb 13.3 L Hct 38.9 MCV 90 MCH 30.7 MCHC 34.3 RDW 15.8 H Plt Count 290 Seg Neutrophils % 79.8 H Lymphocytes % 13.8 Monocytes % 5.8 Eosinophils % 0.0 Basophils % 0.6 Absolute Neutrophils 13.6 H Absolute Lymphocytes 2.4 Absolute Monocytes 1.0 Absolute Eosinophils 0.0 Absolute Basophils 0.1 Sodium 133.3 L 131.7 L Potassium 3.8 3.7 Chloride 94 L 92 L Carbon Dioxide 28 25 Anion Gap 11 15 BUN 23 H 22 H Creatinine 0.54 0.58 Est GFR ( Amer) > 60 > 60 Est GFR (Non-Af Amer) > 60 > 60 Glucose 147 H 205 H Calcium 9.6 9.8 Magnesium 1.9 Total Bilirubin 2.1 H AST 41 ALT 172 H Alkaline Phosphatase 52 Total Protein 5.7 L Albumin 3.5 05/01/18 12:07 Blood Blood Culture - Final NO GROWTH IN 5 DAYS 05/01/18 11:05 Blood Blood Culture - Final NO GROWTH IN 5 DAYS 04/24/18 04/25/18 05/02/18 03:53 04:05 03:50 NT-Pro-B Natriuret Pep 128 H 311 H 114 Impressions: Soft Tissue Neck CT 04/23/18 00:00 IMPRESSION: 1. No evidence of retropharyngeal abscess. The retropharyngeal and parapharyngeal spaces are preserved. No CT abnormality of the neck. 2. Partial opacification of the ethmoid air cells and bilateral maxillary sinus mucosal thickening, nonspecific in the setting of endotracheal intubation. KUB X-Ray 05/01/18 09:50 IMPRESSION: Limited, partial radiographs of the abdomen are submitted for review. There is diffusely distended colon, transverse colon measuring up to 11.7 cm, with gas present to the rectum. No free air on images submitted for review. Chest X-Ray 05/05/18 06:00 IMPRESSION: NO ACUTE RADIOGRAPHIC FINDING IN THE CHEST. Assessment and Plan - Diagnosis (1) Acute hypoxemic respiratory failure Is this a current diagnosis for this admission?: Yes Plan: Resolved. (2) Influenza A Is this a current diagnosis for this admission?: Yes Plan: Resolved. Completed Tamiflu. (3) Physical deconditioning Is this a current diagnosis for this admission?: Yes Plan: He has gradual, slow improvement in strength. He may need SNF/rehab placement. Await final reassessment and recommendation from PT. - Time Time Spent with patient: 15-24 minutes
[2018-05-07] MEDS: LEVOTHYROXINE SODIUM 0.15 MG TABLET PO SCH (06:09)
[2018-05-07] MEDS: ATAZANAVIR PO SCH (08:02)
[2018-05-07] MEDS: COBICISTAT PO SCH (08:02)
[2018-05-07] MEDS: DESCOVY PO SCH (08:03)
[2018-05-07] MEDS: SODIUM CHLORIDE NASAL SPRAY 44 ML NASL SCH ×4 (08:04→21:21)
[2018-05-07] MEDS: INSULIN LISPRO 100 UNIT/ML 3 ML VIAL SUBCUT SCH ×4 (08:06→21:18)
[2018-05-07] MEDS: PREDNISONE 20 MG TABLET PO SCH (09:42)
[2018-05-07] MEDS: HYDROCHLOROTHIAZIDE 25 MG TABLET PO SCH (09:42)
[2018-05-07] MEDS: CHOLECALCIFEROL (D3) 1,000 UNIT TABLET NG SCH (09:42)
[2018-05-07] MEDS: LISINOPRIL 10 MG TABLET PO SCH (09:42)
[2018-05-07] MEDS: ENOXAPARIN SODIUM INJ 40 MG/0.4 ML DISP.SYRIN SUBCUT SCH (09:43)
[2018-05-07] MEDS: FLUTICASONE NASAL SPRAY 50 MCG/SPRY 120 SPRAY/16 GM NASL SCH (09:44)
[2018-05-07] MEDS: DOCUSATE SODIUM 100 MG CAPSULE PO SCH ×2 (10:14→17:41)
[2018-05-07] MEDS: TRAMADOL HCL 50 MG TABLET PO PRN (10:25)
[2018-05-07 11:50] LABS: HEMATOCRIT 39.9 % (37.9-51.0); HEMOGLOBIN 13.5 g/dL (13.5-17.0); MEAN CORPUSCULAR HEMOGLOBIN 29.9 pg (27.0-33.4); MEAN CORPUSCULAR HGB CONC 33.7 g/dL (32.0-36.0); MEAN CORPUSCULAR VOLUME 89 fl (80-97); PLATELET COUNT 309 10^3/uL (150-450); RED CELL DISTRIBUTION WIDTH 15.7 % (11.5-14.0); WHITE BLOOD COUNT 18.1 10^3/uL (4.0-10.5)
[2018-05-07 12:27] LABS: ABSOLUTE LYMPHOCYTES# (MANUAL) 2.7 10^3/uL (0.5-4.7); ABSOLUTE MONOCYTES # (MANUAL) 0.7 10^3/uL (0.1-1.4); ABSOLUTE NEUTROPHILS# (MANUAL) 14.7 10^3/uL (1.7-8.2); ANISOCYTOSIS SLIGHT; BAND NEUTROPHILS % (MANUAL) 2 % (3-5); BASOPHILS % (MANUAL) 0 % (0-2); EOSINOPHILS % (MANUAL) 0 % (0-6); LYMPHOCYTES % (MANUAL) 15 % (13-45); MONOCYTES % (MANUAL) 4 % (3-13); PLATELET COMMENT ADEQUATE; SEGMENTED NEUTROPHILS % (MAN) 79 % (42-78); TOTAL CELLS COUNTED 100
[2018-05-07] MEDS: CLOTRIMAZOLE/BETAMETHASONE DIP CREAM 15 GM TOP SCH ×2 (13:03→21:49)
[2018-05-07] MEDS: NORMAL SALINE 1000 ML 1,000 ML IV PRN (13:12)
--- NOTE | 2018-05-07 16:32 | PDOC PROGRESS REPORT ---
Subjective Progress Note for:: 05/07/18 Subjective:: This is a 42 yr old male with a PMH of HIV, morbid obesity and hypothyroidism who was initially admitted for fever and SOB. He was found to have influenza. He developed acute stridor and acute respiratory failure and was intubated on 04/23. He was successfully extubated on 05/01. He has continued to improve but has still been generally week and not still able to do his ADLs independently. He may need SNF/rehab placement. 05/07: No acute event overnight. Patient has been reassessed by PT who has recommended acute rehab. Reason For Visit: INFLUENZA A, HIV, SIRS Physical Exam Vital Signs: Temp Pulse Resp BP Pulse Ox 97.7 F 124 H 18 127/64 H 95 05/07/18 11:27 05/07/18 14:00 05/07/18 11:27 05/07/18 11:27 05/07/18 11:27 Intake & Output 05/06/18 05/07/18 05/08/18 06:59 06:59 06:59 Intake Total 1200 943 Output Total 1650 1475 475 Balance -450 -1475 468 Weight 348 lb 8.813 oz 348 lb 12.34 oz General appearance: PRESENT: no acute distress, morbidly obese Head exam: PRESENT: atraumatic, normocephalic Eye exam: PRESENT: conjunctiva pink, EOMI, PERRLA. ABSENT: scleral icterus Ear exam: PRESENT: normal external ear exam Mouth exam: PRESENT: moist, tongue midline Neck exam: ABSENT: carotid bruit, JVD, lymphadenopathy, thyromegaly Respiratory exam: PRESENT: clear to auscultation joaquin. ABSENT: rales, rhonchi, wheezes Cardiovascular exam: PRESENT: RRR. ABSENT: diastolic murmur, rubs, systolic murmur Pulses: PRESENT: normal dorsalis pedis pul GI/Abdominal exam: PRESENT: normal bowel sounds, soft. ABSENT: distended, guarding, mass, organolmegaly, rebound, tenderness Rectal exam: PRESENT: deferred Neurological exam: PRESENT: alert, awake, oriented to person, oriented to place, oriented to time, oriented to situation, CN II-XII grossly intact. ABSENT: motor sensory deficit Results Laboratory Results: 05/07/18 11:17 05/06/18 17:10 05/06/18 05/07/18 17:10 11:17 WBC 18.1 H RBC 4.50 Hgb 13.5 Hct 39.9 MCV 89 MCH 29.9 MCHC 33.7 RDW 15.7 H Plt Count 309 Seg Neutrophils % Not Reportable Lymphocytes % Not Reportable Monocytes % Not Reportable Eosinophils % Not Reportable Basophils % Not Reportable Absolute Neutrophils Not Reportable Absolute Lymphocytes Not Reportable Absolute Monocytes Not Reportable Absolute Eosinophils Not Reportable Absolute Basophils Not Reportable Sodium 131.7 L Potassium 3.7 Chloride 92 L Carbon Dioxide 25 Anion Gap 15 BUN 22 H Creatinine 0.58 Est GFR ( Amer) > 60 Est GFR (Non-Af Amer) > 60 Glucose 205 H Calcium 9.8 Magnesium 1.9 04/24/18 04/25/18 05/02/18 03:53 04:05 03:50 NT-Pro-B Natriuret Pep 128 H 311 H 114 Impressions: Soft Tissue Neck CT 04/23/18 00:00 IMPRESSION: 1. No evidence of retropharyngeal abscess. The retropharyngeal and parapharyngeal spaces are preserved. No CT abnormality of the neck. 2. Partial opacification of the ethmoid air cells and bilateral maxillary sinus mucosal thickening, nonspecific in the setting of endotracheal intubation. KUB X-Ray 05/01/18 09:50 IMPRESSION: Limited, partial radiographs of the abdomen are submitted for review. There is diffusely distended colon, transverse colon measuring up to 11.7 cm, with gas present to the rectum. No free air on images submitted for review. Chest X-Ray 05/05/18 06:00 IMPRESSION: NO ACUTE RADIOGRAPHIC FINDING IN THE CHEST. Assessment and Plan - Diagnosis (1) Acute hypoxemic respiratory failure Is this a current diagnosis for this admission?: Yes Plan: Resolved. (2) Influenza A Is this a current diagnosis for this admission?: Yes Plan: Resolved. Completed Tamiflu. (3) Physical deconditioning Is this a current diagnosis for this admission?: Yes Plan: He has gradual, slow improvement in strength. He may need SNF/rehab placement. Await final reassessment and recommendation from PT. 05/07: 05/07: No acute event overnight. Patient has been reassessed by PT who has recommended acute rehab. (4) HIV (human immunodeficiency virus infection) Qualifiers: HIV symptom status: asymptomatic Qualified Code(s): Z21 - Asymptomatic human immunodeficiency virus [HIV] infection status Is this a current diagnosis for this admission?: Yes Plan: Continue ART. - Time Time Spent with patient: 15-24 minutes
[2018-05-07] MEDS: PREDNISONE 10 MG TABLET PO SCH (17:34)
[2018-05-07] MEDS: PANTOPRAZOLE SODIUM 20 MG TABLET.DR PO SCH (21:18)
[2018-05-07] MEDS: ACETAMINOPHEN 325 MG TABLET NG PRN (21:20)
[2018-05-08] MEDS: LEVOTHYROXINE SODIUM 0.15 MG TABLET PO SCH (05:06)
[2018-05-08] MEDS: ATAZANAVIR PO SCH (08:00)
[2018-05-08] MEDS: SODIUM CHLORIDE NASAL SPRAY 44 ML NASL SCH ×4 (08:00→21:29)
[2018-05-08] MEDS: DESCOVY PO SCH (08:00)
[2018-05-08] MEDS: COBICISTAT PO SCH (08:00)
[2018-05-08] MEDS: NORMAL SALINE 1000 ML 1,000 ML IV PRN (09:38)
[2018-05-08] MEDS: LISINOPRIL 10 MG TABLET PO SCH (09:39)
[2018-05-08] MEDS: PREDNISONE 10 MG TABLET PO SCH (09:39)
[2018-05-08] MEDS: DOCUSATE SODIUM 100 MG CAPSULE PO SCH ×2 (09:40→17:44)
[2018-05-08] MEDS: CHOLECALCIFEROL (D3) 1,000 UNIT TABLET NG SCH (09:40)
[2018-05-08] MEDS: FLUTICASONE NASAL SPRAY 50 MCG/SPRY 120 SPRAY/16 GM NASL SCH (09:41)
[2018-05-08] MEDS: HYDROCHLOROTHIAZIDE 25 MG TABLET PO SCH (09:41)
[2018-05-08] MEDS: INSULIN LISPRO 100 UNIT/ML 3 ML VIAL SUBCUT SCH ×4 (09:45→22:20)
[2018-05-08] MEDS: CLOTRIMAZOLE/BETAMETHASONE DIP CREAM 15 GM TOP SCH ×2 (09:46→17:44)
[2018-05-08] MEDS: ENOXAPARIN SODIUM INJ 40 MG/0.4 ML DISP.SYRIN SUBCUT SCH (09:48)
--- NOTE | 2018-05-08 11:52 | PDOC CONSULTATION ---
Consultation Consult Date: 05/08/18 Attending physician:: LUZ BENNETT Consult reason:: Evaluation for admission to acute inpatient rehabilitation History of Present Illness Admission Date/PCP: 04/23/18 10:[facility] Patient complains of: Weakness and difficulty with ambulation History of Present Illness: DARIO EVANGELISTA is a 42-year-old male with past medical history of HIV/AIDS, hypertension, sleep apnea, bronchitis, hypothyroidism, arthritis, chronic neck and back pain, super morbid obesity with BMI of 47.8, posttraumatic stress disorder, and Keren fundoplication admitted to [facility] on 04/22/2018 after presenting with fever and difficulty breathing and being found to have sepsis secondary to influenza A. The patient was started on Tamiflu and IV hydration as well as IV antibiotics for acute bronchitis. On 04/23/2018, the patient developed an episode of sudden onset severe shortness of breath with stridor and was ultimately intubated and transferred to the intensive care unit for acute hypoxemic respiratory failure. He was co-managed by hospitalist medicine and pulmonary medicine and ICU course further included a new diagnosis of type 2 diabetes mellitus with hemoglobin A1c of 6.8%, acute hyperglycemia secondary to steroids, acute recurrent sinusitis, adynamic ileus, and gastritis. The patient was successfully extubated on 05/02/2018. He is recommended follow-up as an outpatient with ENT for his chronic sinusitis. The patient was noted to be severely deconditioned during physical therapy and occupational therapy evaluations, and physical medicine and rehabilitation consultation was requested to evaluate the patient for admission to acute inpatient rehabilitation. Today, the patient was seen and examined with his roommate at bedside. He complains of some increased numbness in the first 3 digits of his left hand, which is not new but exacerbated since admission. He states that he has been evaluated for carpal tunnel and told that this is more likely related to his cervical radiculopathy. Additionally, he does mention chronic numbness of the feet secondary to lumbar radiculopathy. He undergoes Kenalog injections to his back about every 4 months and takes tramadol as needed for pain. Additionally, he does mention difficulty with ambulation and performing activities of daily living since extubation. His last bowel movement was this morning, and he denies trouble with urination. Past Medical History Cardiac Medical History: Reports: Hypertension Denies: Coronary Artery Disease, Myocardial Infarction Pulmonary Medical History: Reports: Bronchitis, Sleep Apnea Denies: Asthma, Chronic Obstructive Pulmonary Disease (COPD), Pneumonia Neurological Medical History: Denies: Seizures Endocrine Medical History: Reports: Hypothyroidism Denies: Diabetes Mellitus Type 1, Diabetes Mellitus Type 2, Hyperthyroidism GI Medical History: Reports: Gastroesophageal Reflux Disease, Hiatal Hernia Denies: Cirrhosis, Crohn's Disease, Hepatitis, Ulcerative Colitis Musculoskeltal Medical History: Reports: Arthritis Denies: Gout Skin Medical History: Denies: Eczema, Psoriasis Psychiatric Medical History: Reports: Post Traumatic Stress Disorder Hematology: Denies: Anemia, Bleeding Tendencies Infectious Medical History: Reports: HIV Past Surgical History Past Surgical History: Reports: Other - Brice fundoplication Social History Smoking Status: Never Smoker Frequency of Alcohol Use: Rare Hx Recreational Drug Use: No Drugs: None Hx Prescription Drug Abuse: No Past Social History Note: Dario Evangelista lives with his roommate in a 2 level home with 0 steps to enter and 14 steps to the bedroom and bathroom. He does not smoke or use drugs; he drinks alcohol rarely. 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 Prior Functional Status: Active and independent with mobility and all ADLs. Amb ulates without an assist device. Current Functional Status: Per therapy notes, the patient currently requires standby assistance for bed mobility, minimum to moderate assistance of 1-2 people for transfers, minimum assistance of 2 people for ambulating 5 side steps with a rolling walker, minimum assistance for grooming, maximum assistance for bathing, and deep tendon assistance for toileting. - Advance Directive Resuscitation Status: Full Code Family History Family History: DM. denies: CAD, Hypertension, Malignancy Parental Family History Reviewed: Yes Children Family History Reviewed: NA Sibling(s) Family History Reviewed.: NA Medication/Allergy Home Medications: Levothyroxine Sodium [Synthroid 0.15 mg Tablet] 1 tab PO DAILY 11/07/17 Lisinopril/Hydrochlorothiazide [Lisinopril-Hctz 20-25 mg Tab] 1 tab PO DAILY 11/07/17 Metoprolol Tartrate 50 mg PO DAILY 11/07/17 Atazanavir Sulfate/Cobicistat [Evotaz 300 mg-150 mg Tablet] 1 each PO DAILY 02/19/18 Cholecalciferol (Vitamin D3) [Vitamin D3 1000 Unit Tablet] 2,000 unit PO DAILY 02/19/18 Emtricitabine/Tenofov Alafenam [Descovy 200-25 mg Tablet] 1 each PO DAILY 02/19/18 Omeprazole 20 mg PO DAILY 02/19/18 Tramadol HCl [Ultram 50 mg Tablet] 50 mg PO BIDP PRN 02/19/18 Clotrimazole/Betamethasone Dip [Lotrisone Cream 15 gm] 1 applic TOP BID #0 tube 02/23/18 Allergies/Adverse Reactions: seasonal Allergy (Severe, Uncoded 04/22/18 08:01) Rhinitis Review of Systems Review of Systems: Constitutional: No fevers, chills, sweats, weight loss Eye: No recent visual problems, no blurry vision, no double vision ENMT: No ear pain, nasal congestion, sore throat Respiratory: No shortness of breath, cough, sputum production Cardiovascular: No chest pain, palpitations, syncope Gastrointestinal: No nausea, vomiting, diarrhea. Positive for mild abdominal pain. Genitourinary: No hematuria, dysuria, flank or suprapubic pain Alexis/Lymph: Negative for bruising tendency, swollen lymph glands Endocrine: Negative for excessive thirst, excessive hunger, extreme fatigue Musculoskeletal: Positive for chronic back and neck pain. Integumentary: No rash, pruritus, abrasions Neurologic: Positive for weakness of all 4 extremities to varying degrees. He also admits to some numbness of the left hand, which is a chronic issue for him but appears to be exacerbated at the moment. Psychiatric: He has a history of posttraumatic stress disorder. Physical Exam Vital Signs: Temp Pulse Resp BP Pulse Ox 98.4 F 78 18 121/77 100 05/08/18 07:41 05/08/18 07:41 05/08/18 07:41 05/08/18 07:41 05/08/18 07:41 Intake & Output 05/07/18 05/08/18 05/09/18 06:59 06:59 06:59 Intake Total 1743 1000 Output Total 1475 675 Balance -1475 1068 1000 Weight 158.2 kg 160 kg Exam: General: Awake and Alert. No acute distress. Resting comfortably in bed with his roommate at bedside. Head: Normocephalic. Atraumatic. Eyes: Pupils equal, round, and reactive to light. EOMI. Sclera white. Ears: No drainage noted. Nose: Nares normal & without exudate. Oropharynx: Moist mucous membranes. Neck: Supple movements. Cardiovascular: Regular rate & rhythm. No murmurs, rubs, or gallops appreciated. Pulmonary: Lungs clear to auscultation bilaterally. No increased work of breathing. Gastrointestinal: Abdomen soft, obese, non-tender, non-distended. Normoactive bowel sounds. Skin: Texture and turgor normal. Warm and dry. Psychiatric: Judgement and insight appear to be good. Patient is oriented to date, location, and situation. Affect appropriate. Extremities: No clubbing, cyanosis, or inflammatory changes. Neurological: CN III-XII grossly intact. Sensation to light touch is grossly intact. Tone is normal. Proprioception is normal. No Hess's. No Babinski. Speech is fluent with good content and without dysarthria. Muscle Strength: Full 5/5 strength in all major muscle groups of the 4 extremities, except 4/5 strength of bilateral shoulder abductor's, bilateral hip flexors, left wrist extensors, and bilateral dorsiflexors. Results Laboratory Results: 05/07/18 11:17 05/06/18 17:10 05/07/18 11:17 WBC 18.1 H RBC 4.50 Hgb 13.5 Hct 39.9 MCV 89 MCH 29.9 MCHC 33.7 RDW 15.7 H Plt Count 309 Seg Neutrophils % Not Reportable Lymphocytes % Not Reportable Monocytes % Not Reportable Eosinophils % Not Reportable Basophils % Not Reportable Absolute Neutrophils Not Reportable Absolute Lymphocytes Not Reportable Absolute Monocytes Not Reportable Absolute Eosinophils Not Reportable Absolute Basophils Not Reportable 04/24/18 04/25/18 05/02/18 03:53 04:05 03:50 NT-Pro-B Natriuret Pep 128 H 311 H 114 Impressions: Soft Tissue Neck CT 04/23/18 00:00 IMPRESSION: 1. No evidence of retropharyngeal abscess. The retropharyngeal and parapharyngeal spaces are preserved. No CT abnormality of the neck. 2. Partial opacification of the ethmoid air cells and bilateral maxillary sinus mucosal thickening, nonspecific in the setting of endotracheal intubation. KUB X-Ray 05/01/18 09:50 IMPRESSION: Limited, partial radiographs of the abdomen are submitted for review. There is diffusely distended colon, transverse colon measuring up to 11.7 cm, with gas present to the rectum. No free air on images submitted for review. Chest X-Ray 05/05/18 06:00 IMPRESSION: NO ACUTE RADIOGRAPHIC FINDING IN THE CHEST. 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 1. Gait and ADL Dysfunction secondary to critical illness myopathy. - Continue PT and OT to maximize mobility, safety, endurance, and self-care. 2. Critical illness myopathy - The patient was bedbound in the ICU on mechanical ventilation for 9 days and has symmetrical proximal weakness of all 4 extremities. 3. Sepsis secondary to influenza A - Resolved - The patient remains with leukocytosis but this is grossly downtrending and the patient is afebrile and asymptomatic. 4. HIV/AIDS - Absolute CD4 count is 302 - Continue antiretroviral therapy 5. Acute recurrent sinusitis - Follow-up with ENT as an outpatient 6. Gastritis - Resolved - Continue Protonix 20 mg daily 7. Adynamic ileus - Resolved 8. New diagnosis of diabetes mellitus type 2 with hyperglycemia exacerbated by steroids - Continue carbohydrate controlled diet and sliding scale insulin - Hemoglobin A1c is 6.8% 9. Super morbid obesity with BMI of 47.8 - Significant comorbidity impacting the patient's rehabilitation course 10. Disposition - Based on the patient's diagnosis, medical co-morbidities, and current functional status, he is a good candidate for acute inpatient rehabilitation as he would benefit from 3 hours per day of intensive therapies in at least 2 disciplines under the close medical supervision of a physician. The patient is e xpected to make significant gains in a relatively short period of time to the point that he can safely be discharged home with supervision and assistance from his roommate. [facility]authorization from the [facility] is required and a request has been submitted. There is a plan to admit the patient to acute inpatient rehabilitation at [facility] in [place] once preauthorization has been approved. This may happen as early as 05/09/2018 or, if not, 05/12/2018. This case was discussed with the patient's acute care therapists, discharge planners, and admission coordinator at [facility]. Thank you for allowing us to participate in the care of this patient. Please call with any questions. A total of 80 minutes was spent on [id number] communication with the patient and coordination of care.
--- NOTE | 2018-05-08 18:03 | PDOC PROGRESS REPORT ---
Subjective Progress Note for:: 05/08/18 Subjective:: This is a 42 yr old male with a PMH of HIV, morbid obesity and hypothyroidism who was initially admitted for fever and SOB. He was found to have influenza. He developed acute stridor and acute respiratory failure and was intubated on 04/23. He was successfully extubated on 05/01. He has continued to improve but has still been generally week and not still able to do his ADLs independently. He may need SNF/rehab placement. 05/07: Patient has been reassessed by PT who has recommended acute rehab. 05/08: No acute event overnight. He denies acute complaints. He has been evaluated by Dr. Doyle and is deemed he is eligible for acute inpatient rehab. Reason For Visit: INFLUENZA A, HIV, SIRS Physical Exam Vital Signs: Temp Pulse Resp BP Pulse Ox 98.0 F 113 H 18 137/78 H 96 05/08/18 11:36 05/08/18 14:00 05/08/18 11:36 05/08/18 11:36 05/08/18 11:36 Intake & Output 05/07/18 05/08/18 05/09/18 06:59 06:59 06:59 Intake Total 1743 2300 Output Total 1475 675 900 Balance -1475 1068 1400 Weight 348 lb 12.34 oz 352 lb 11.834 oz General appearance: PRESENT: no acute distress, morbidly obese Head exam: PRESENT: atraumatic, normocephalic Eye exam: PRESENT: conjunctiva pink, EOMI, PERRLA. ABSENT: scleral icterus Ear exam: PRESENT: normal external ear exam Mouth exam: PRESENT: moist, tongue midline Neck exam: ABSENT: carotid bruit, JVD, lymphadenopathy, thyromegaly Respiratory exam: PRESENT: clear to auscultation joaquin. ABSENT: rales, rhonchi, wheezes Cardiovascular exam: PRESENT: RRR. ABSENT: diastolic murmur, rubs, systolic mur mur Pulses: PRESENT: normal dorsalis pedis pul GI/Abdominal exam: PRESENT: normal bowel sounds, soft. ABSENT: distended, guarding, mass, organolmegaly, rebound, tenderness Rectal exam: PRESENT: deferred Neurological exam: PRESENT: alert, awake, oriented to person, oriented to place, oriented to time, oriented to situation, CN II-XII grossly intact. ABSENT: motor sensory deficit Results Laboratory Results: 05/07/18 11:17 05/06/18 17:10 04/24/18 04/25/18 05/02/18 03:53 04:05 03:50 NT-Pro-B Natriuret Pep 128 H 311 H 114 Impressions: Soft Tissue Neck CT 04/23/18 00:00 IMPRESSION: 1. No evidence of retropharyngeal abscess. The retropharyngeal and parapharyngeal spaces are preserved. No CT abnormality of the neck. 2. Partial opacification of the ethmoid air cells and bilateral maxillary sinus mucosal thickening, nonspecific in the setting of endotracheal intubation. KUB X-Ray 05/01/18 09:50 IMPRESSION: Limited, partial radiographs of the abdomen are submitted for review. There is diffusely distended colon, transverse colon measuring up to 11.7 cm, with gas present to the rectum. No free air on images submitted for review. Chest X-Ray 05/05/18 06:00 IMPRESSION: NO ACUTE RADIOGRAPHIC FINDING IN THE CHEST. Assessment and Plan - Diagnosis (1) Acute hypoxemic respiratory failure Is this a current diagnosis for this admission?: Yes Plan: Resolved. (2) Influenza A Is this a current diagnosis for this admission?: Yes Plan: Resolved. Completed Tamiflu. (3) Physical deconditioning Is this a current diagnosis for this admission?: Yes Plan: He has gradual, slow improvement in strength. He may need SNF/rehab placement. Await final reassessment and recommendation from PT. Await placement to acute rehab. (4) HIV (human immunodeficiency virus infection) Qualifiers: HIV symptom status: asymptomatic Qualified Code(s): Z21 - Asymptomatic human immunodeficiency virus [HIV] infection status Is this a current diagnosis for this admission?: Yes Plan: Continue ART. (5) Leukocytosis Is this a current diagnosis for this admission?: Yes Plan: Improved. Likely now related to steroids. Discontinue prednisone. - Time Time Spent with patient: 15-24 minutes
[2018-05-08] MEDS: TRAMADOL HCL 50 MG TABLET PO PRN (19:54)
[2018-05-08] MEDS: PANTOPRAZOLE SODIUM 20 MG TABLET.DR PO SCH (19:54)
[2018-05-09] MEDS: LEVOTHYROXINE SODIUM 0.15 MG TABLET PO SCH (06:04)
[2018-05-09] MEDS: NORMAL SALINE 1000 ML 1,000 ML IV PRN (06:05)
[2018-05-09] MEDS: INSULIN LISPRO 100 UNIT/ML 3 ML VIAL SUBCUT SCH ×4 (09:03→21:45)
[2018-05-09] MEDS: CHOLECALCIFEROL (D3) 1,000 UNIT TABLET NG SCH (09:37)
[2018-05-09] MEDS: ENOXAPARIN SODIUM INJ 40 MG/0.4 ML DISP.SYRIN SUBCUT SCH (09:37)
[2018-05-09] MEDS: ATAZANAVIR PO SCH (09:38)
[2018-05-09] MEDS: HYDROCHLOROTHIAZIDE 25 MG TABLET PO SCH (09:38)
[2018-05-09] MEDS: COBICISTAT PO SCH (09:38)
[2018-05-09] MEDS: DESCOVY PO SCH (09:38)
[2018-05-09] MEDS: FLUTICASONE NASAL SPRAY 50 MCG/SPRY 120 SPRAY/16 GM NASL SCH (09:38)
[2018-05-09] MEDS: DOCUSATE SODIUM 100 MG CAPSULE PO SCH ×2 (09:38→18:02)
[2018-05-09] MEDS: LISINOPRIL 10 MG TABLET PO SCH (09:38)
[2018-05-09] MEDS: SODIUM CHLORIDE NASAL SPRAY 44 ML NASL SCH ×4 (09:39→23:00)
[2018-05-09 12:15] LABS: HEMATOCRIT 37.8 % (37.9-51.0); HEMOGLOBIN 13.1 g/dL (13.5-17.0); MEAN CORPUSCULAR HEMOGLOBIN 30.8 pg (27.0-33.4); MEAN CORPUSCULAR HGB CONC 34.6 g/dL (32.0-36.0); MEAN CORPUSCULAR VOLUME 89 fl (80-97); PLATELET COUNT 265 10^3/uL (150-450); RED BLOOD COUNT 4.26 10^6/uL (4.35-5.55); RED CELL DISTRIBUTION WIDTH 15.9 % (11.5-14.0); WHITE BLOOD COUNT 11.5 10^3/uL (4.0-10.5)
[2018-05-09 12:55] LABS: ABSOLUTE LYMPHOCYTES# (MANUAL) 3.6 10^3/uL (0.5-4.7); ABSOLUTE MONOCYTES # (MANUAL) 0.2 10^3/uL (0.1-1.4); ABSOLUTE NEUTROPHILS# (MANUAL) 7.5 10^3/uL (1.7-8.2); BAND NEUTROPHILS % (MANUAL) 5 % (3-5); LYMPHOCYTES % (MANUAL) 24 % (13-45); MONOCYTES % (MANUAL) 2 % (3-13); SEGMENTED NEUTROPHILS % (MAN) 60 % (42-78); TOTAL CELLS COUNTED 100
[2018-05-09 12:57] LABS: EOSINOPHILS % (MANUAL) 2 % (0-6)
[2018-05-09 13:02] LABS: ANISOCYTOSIS SLIGHT; POIKILOCYTOSIS SLIGHT; TEAR DROP CELLS SLIGHT
[2018-05-09 13:03] LABS: PLATELET COMMENT ADEQUATE
[2018-05-09 13:06] LABS: BASOPHILS % (MANUAL) 0 % (0-2); OVALOCYTES SLIGHT
[2018-05-09] MEDS: ACETAMINOPHEN 325 MG TABLET NG PRN (13:27)
[2018-05-09] MEDS: CLOTRIMAZOLE/BETAMETHASONE DIP CREAM 15 GM TOP SCH ×2 (13:29→18:02)
--- NOTE | 2018-05-09 15:35 | PDOC PROGRESS REPORT ---
Subjective Progress Note for:: 05/09/18 Subjective:: This is a 42 yr old male with a PMH of HIV, morbid obesity and hypothyroidism who was initially admitted for fever and SOB. He was found to have influenza. He developed acute stridor and acute respiratory failure and was intubated on 04/23. He was successfully extubated on 05/01. He has continued to improve but has still been generally week and not still able to do his ADLs independently. He may need SNF/rehab placement. 05/07: Patient has been reassessed by PT who has recommended acute rehab. 05/08: He denies acute complaints. He has been evaluated by Dr. Doyle and is deemed he is eligible for acute inpatient rehab. 05/09: No acute event overnight. He had some mild dizziness this morning while eating breakfast. Will check orthostats. He is awaiting for acute rehab placement pending [facility] approval. Reason For Visit: INFLUENZA A, HIV, SIRS Physical Exam Vital Signs: Temp Pulse Resp BP Pulse Ox 98.0 F 88 18 115/65 96 05/09/18 04:13 05/09/18 14:00 05/09/18 04:13 05/09/18 04:13 05/09/18 04:13 Intake & Output 05/08/18 05/09/18 05/10/18 06:59 06:59 06:59 Intake Total 1743 4200 1200 Output Total 675 3000 400 Balance 1068 1200 800 Weight 352 lb 11.834 oz 351 lb 6.669 oz General appearance: PRESENT: no acute distress, morbidly obese Head exam: PRESENT: atraumatic, normocephalic Eye exam: PRESENT: conjunctiva pink, EOMI, PERRLA. ABSENT: scleral icterus Ear exam: PRESENT: normal external ear exam Mouth exam: PRESENT: moist, tongue midline Neck exam: ABSENT: carotid bruit, JVD, lymphadenopathy, thyromegaly Respiratory exam: PRESENT: clear to auscultation joaquin. ABSENT: rales, rhonchi, wheezes Cardiovascular exam: PRESENT: RRR. ABSENT: diastolic murmur, rubs, systolic murmur Pulses: PRESENT: normal dorsalis pedis pul GI/Abdominal exam: PRESENT: normal bowel sounds, soft. ABSENT: distended, guarding, mass, organolmegaly, rebound, tenderness Rectal exam: PRESENT: deferred Neurological exam: PRESENT: alert, awake, oriented to person, oriented to place, oriented to time, oriented to situation, CN II-XII grossly intact. ABSENT: motor sensory deficit Results Laboratory Results: 05/09/18 11:45 05/06/18 17:10 05/09/18 11:45 WBC 11.5 H RBC 4.26 L Hgb 13.1 L Hct 37.8 L MCV 89 MCH 30.8 MCHC 34.6 RDW 15.9 H Plt Count 265 Seg Neutrophils % Not Reportable Lymphocytes % Not Reportable Monocytes % Not Reportable Eosinophils % Not Reportable Basophils % Not Reportable Absolute Neutrophils Not Reportable Absolute Lymphocytes Not Reportable Absolute Monocytes Not Reportable Absolute Eosinophils Not Reportable Absolute Basophils Not Reportable 04/24/18 04/25/18 05/02/18 03:53 04:05 03:50 NT-Pro-B Natriuret Pep 128 H 311 H 114 Impressions: Soft Tissue Neck CT 04/23/18 00:00 IMPRESSION: 1. No evidence of retropharyngeal abscess. The retropharyngeal and parapharyngeal spaces are preserved. No CT abnormality of the neck. 2. Partial opacification of the ethmoid air cells and bilateral maxillary sinus mucosal thickening, nonspecific in the setting of endotracheal intubation. KUB X-Ray 05/01/18 09:50 IMPRESSION: Limited, partial radiographs of the abdomen are submitted for review. There is diffusely distended colon, transverse colon measuring up to 11.7 cm, with gas present to the rectum. No free air on images submitted for review. Chest X-Ray 05/05/18 06:00 IMPRESSION: NO ACUTE RADIOGRAPHIC FINDING IN THE CHEST. Assessment and Plan - Diagnosis (1) Acute hypoxemic respiratory failure Is this a current diagnosis for this admission?: Yes Plan: Resolved. (2) Influenza A Is this a current diagnosis for this admission?: Yes Plan: Resolved. Completed Tamiflu. (3) Physical deconditioning Is this a current diagnosis for this admission?: Yes Plan: He has gradual, slow improvement in strength. He may need SNF/rehab placement. Await final reassessment and recommendation from PT. Await placement to acute rehab. Pending approval from [facility]. (4) HIV (human immunodeficiency virus infection) Qualifiers: HIV symptom status: asymptomatic Qualified Code(s): Z21 - Asymptomatic human immunodeficiency virus [HIV] infection status Is this a current diagnosis for this admission?: Yes Plan: Continue ART. (5) Leukocytosis Is this a current diagnosis for this admission?: Yes Plan: Improved. Likely now related to steroids. Discontinue prednisone. 05/09: WBC almost back to baseline after discontinuing steroids. - Time Time Spent with patient: 15-24 minutes
[2018-05-09] MEDS: TRAMADOL HCL 50 MG TABLET PO PRN (18:05)
[2018-05-09] MEDS: PANTOPRAZOLE SODIUM 20 MG TABLET.DR PO SCH (20:27)
[2018-05-10] MEDS: NORMAL SALINE 1000 ML 1,000 ML IV PRN (03:07)
[2018-05-10] MEDS: LEVOTHYROXINE SODIUM 0.15 MG TABLET PO SCH (05:36)
[2018-05-10] MEDS: INSULIN LISPRO 100 UNIT/ML 3 ML VIAL SUBCUT SCH ×4 (10:27→21:18)
[2018-05-10] MEDS: DESCOVY PO SCH (10:31)
[2018-05-10] MEDS: LISINOPRIL 10 MG TABLET PO SCH (10:32)
[2018-05-10] MEDS: COBICISTAT PO SCH (10:32)
[2018-05-10] MEDS: ATAZANAVIR PO SCH (10:32)
[2018-05-10] MEDS: CHOLECALCIFEROL (D3) 1,000 UNIT TABLET NG SCH (10:33)
[2018-05-10] MEDS: HYDROCHLOROTHIAZIDE 25 MG TABLET PO SCH (10:33)
[2018-05-10] MEDS: SODIUM CHLORIDE NASAL SPRAY 44 ML NASL SCH ×4 (10:34→21:20)
[2018-05-10] MEDS: FLUTICASONE NASAL SPRAY 50 MCG/SPRY 120 SPRAY/16 GM NASL SCH (10:34)
[2018-05-10] MEDS: ENOXAPARIN SODIUM INJ 40 MG/0.4 ML DISP.SYRIN SUBCUT SCH (10:34)
[2018-05-10] MEDS: CLOTRIMAZOLE/BETAMETHASONE DIP CREAM 15 GM TOP SCH ×2 (10:35→18:55)
[2018-05-10] MEDS: DOCUSATE SODIUM 100 MG CAPSULE PO SCH ×2 (10:43→18:55)
[2018-05-10] MEDS ORDERED: ACETAMINOPHEN 650 MG SUPP.RECT PR ONE (12:30)
[2018-05-10] MEDS: ACETAMINOPHEN 325 MG TABLET NG PRN (13:16)
[2018-05-10] MEDS: DIPHENOXYLATE HCL/ATROP SULF 2.5-0.025 MG TABLET PO PRN (13:17)
[2018-05-10] MEDS: TRAMADOL HCL 50 MG TABLET PO PRN (13:17)
--- NOTE | 2018-05-10 14:19 | PDOC PROGRESS REPORT ---
Subjective Progress Note for:: 05/10/18 Subjective:: This is a 42 yr old male with a PMH of HIV, morbid obesity and hypothyroidism who was initially admitted for fever and SOB. He was found to have influenza. He developed acute stridor and acute respiratory failure and was intubated on 04/23. He was successfully extubated on 05/01. He has continued to improve but has still been generally week and not still able to do his ADLs independently. He may need SNF/rehab placement. 05/07: Patient has been reassessed by PT who has recommended acute rehab. 05/08: He denies acute complaints. He has been evaluated by Dr. Doyle and is deemed he is eligible for acute inpatient rehab. 05/09: He had some mild dizziness this morning while eating breakfast. Will check orthostats. He is awaiting for acute rehab placement pending CT approval. 05/10: No acute event overnight. Denies dizziness. Not able to do full orthostats because of his debility/deconditioning. He has been approved by CT to be transferred to a facility in [place] on Saturday. Reason For Visit: INFLUENZA A, HIV, SIRS Physical Exam Vital Signs: Temp Pulse Resp BP Pulse Ox 99.2 F 115 H 20 123/62 95 05/10/18 12:00 05/10/18 12:00 05/10/18 12:00 05/10/18 12:00 05/10/18 12:00 Intake & Output 05/09/18 05/10/18 05/11/18 06:59 06:59 06:59 Intake Total 4200 2900 591 Output Total 3000 1200 500 Balance 1200 1700 91 Weight 351 lb 6.669 oz 350 lb 8.56 oz General appearance: PRESENT: no acute distress, morbidly obese Head exam: PRESENT: atraumatic, normocephalic Eye exam: PRESENT: conjunctiva pink, EOMI, PERRLA. ABSENT: scleral icterus Ear exam: PRESENT: normal external ear exam Mouth exam: PRESENT: moist, tongue midline Neck exam: ABSENT: carotid bruit, JVD, lymphadenopathy, thyromegaly Respiratory exam: PRESENT: clear to auscultation joaquin. ABSENT: rales, rhonchi, wheezes Cardiovascular exam: PRESENT: RRR. ABSENT: diastolic murmur, rubs, systolic murmur Pulses: PRESENT: normal dorsalis pedis pul Vascular exam: PRESENT: normal capillary refill GI/Abdominal exam: PRESENT: normal bowel sounds, soft. ABSENT: distended, guarding, mass, organolmegaly, rebound, tenderness Rectal exam: PRESENT: deferred Neurological exam: PRESENT: alert, awake, oriented to person, oriented to place, oriented to time, oriented to situation, CN II-XII grossly intact. ABSENT: motor sensory deficit Results Laboratory Results: 05/09/18 11:45 05/06/18 17:10 04/24/18 04/25/18 05/02/18 03:53 04:05 03:50 NT-Pro-B Natriuret Pep 128 H 311 H 114 Impressions: Soft Tissue Neck CT 04/23/18 00:00 IMPRESSION: 1. No evidence of retropharyngeal abscess. The retropharyngeal and parapharyngeal spaces are preserved. No CT abnormality of the neck. 2. Partial opacification of the ethmoid air cells and bilateral maxillary sinus mucosal thickening, nonspecific in the setting of endotracheal intubation. KUB X-Ray 05/01/18 09:50 IMPRESSION: Limited, partial radiographs of the abdomen are submitted for re view. There is diffusely distended colon, transverse colon measuring up to 11.7 cm, with gas present to the rectum. No free air on images submitted for review. Chest X-Ray 05/05/18 06:00 IMPRESSION: NO ACUTE RADIOGRAPHIC FINDING IN THE CHEST. Assessment and Plan - Diagnosis (1) Physical deconditioning Is this a current diagnosis for this admission?: Yes Plan: He has gradual, slow improvement in strength. He may need SNF/rehab placement. Await final reassessment and recommendation from PT. Await placement to acute rehab. 05/10: He has been approved by CT to be transferred to a rehab facility in [place] on Saturday. (2) Acute hypoxemic respiratory failure Is this a current diagnosis for this admission?: Yes Plan: Resolved. (3) Influenza A Is this a current diagnosis for this admission?: Yes Plan: Resolved. Completed Tamiflu. (4) HIV (human immunodeficiency virus infection) Qualifiers: HIV symptom status: asymptomatic Qualified Code(s): Z21 - Asymptomatic human immunodeficiency virus [HIV] infection status Is this a current diagnosis for this admission?: Yes Plan: Continue ART. (5) Leukocytosis Is this a current diagnosis for this admission?: Yes Plan: Improved. Likely now related to steroids. Discontinue prednisone. 05/09: WBC almost back to baseline after discontinuing steroids. - Time Time Spent with patient: 15-24 minutes
[2018-05-10] MEDS: PANTOPRAZOLE SODIUM 20 MG TABLET.DR PO SCH (21:20)
[2018-05-11] MEDS: NORMAL SALINE 1000 ML 1,000 ML IV PRN ×2 (00:09→19:46)
[2018-05-11] MEDS: LEVOTHYROXINE SODIUM 0.15 MG TABLET PO SCH (05:15)
[2018-05-11 08:43] LABS: ABSOLUTE BASOPHILS # (AUTO) 0.1 10^3/uL (0.0-0.2); ABSOLUTE LYMPHOCYTES (AUTO) 2.4 10^3/uL (0.5-4.7); ABSOLUTE MONOCYTES (AUTO) 0.6 10^3/uL (0.1-1.4); ABSOLUTE NEUT (AUTO) 4.8 10^3/uL (1.7-8.2); BASOPHILS % (AUTO) 0.6 % (0-2); EOSINOPHILS % (AUTO) 0.6 % (0-6); HEMATOCRIT 34.7 % (37.9-51.0); HEMOGLOBIN 12.1 g/dL (13.5-17.0); LYMPHOCYTES % (AUTO) 30.1 % (13-45); MEAN CORPUSCULAR HEMOGLOBIN 30.9 pg (27.0-33.4); MEAN CORPUSCULAR HGB CONC 34.8 g/dL (32.0-36.0); MEAN CORPUSCULAR VOLUME 89 fl (80-97); MONOCYTES % (AUTO) 7.4 % (3-13); PLATELET COUNT 208 10^3/uL (150-450); RED BLOOD COUNT 3.91 10^6/uL (4.35-5.55); RED CELL DISTRIBUTION WIDTH 15.8 % (11.5-14.0); SEGMENTED NEUTROPHILS % (AUTO) 61.3 % (42-78); TOTAL CELLS COUNTED % (AUTO) 100 %; WHITE BLOOD COUNT 7.9 10^3/uL (4.0-10.5)
[2018-05-11 08:47] LABS: ALANINE AMINOTRANSFERASE 80 U/L (21-72); ALKALINE PHOSPHATASE 47 U/L (38-126); ANION GAP 8 (5-19); ASPARTATE AMINO TRANSFERASE 23 U/L (17-59); BILIRUBIN,DIRECT 0.3 mg/dL (0.0-0.4); BLOOD UREA NITROGEN 17 mg/dL (7-20); CALCIUM 9.1 mg/dL (8.4-10.2); CARBON DIOXIDE 26 mmol/L (22-30); CHLORIDE 100 mmol/L (98-107); GLUCOSE 140 mg/dL (75-110); POTASSIUM 3.4 mmol/L (3.6-5.0); SODIUM 134.3 mmol/L (137-145); TOTAL PROTEIN 5.4 g/dL (6.3-8.2)
[2018-05-11] MEDS: INSULIN LISPRO 100 UNIT/ML 3 ML VIAL SUBCUT SCH ×4 (09:18→21:50)
[2018-05-11] MEDS: SODIUM CHLORIDE NASAL SPRAY 44 ML NASL SCH ×4 (09:21→21:50)
[2018-05-11] MEDS: FLUTICASONE NASAL SPRAY 50 MCG/SPRY 120 SPRAY/16 GM NASL SCH (09:22)
[2018-05-11] MEDS: COBICISTAT PO SCH (09:22)
[2018-05-11] MEDS: ATAZANAVIR PO SCH (09:22)
[2018-05-11] MEDS: DESCOVY PO SCH (09:23)
[2018-05-11] MEDS: HYDROCHLOROTHIAZIDE 25 MG TABLET PO SCH (09:24)
[2018-05-11] MEDS: CHOLECALCIFEROL (D3) 1,000 UNIT TABLET NG SCH (09:24)
[2018-05-11] MEDS: LISINOPRIL 10 MG TABLET PO SCH (09:24)
[2018-05-11] MEDS: ENOXAPARIN SODIUM INJ 40 MG/0.4 ML DISP.SYRIN SUBCUT SCH (09:25)
[2018-05-11] MEDS: CLOTRIMAZOLE/BETAMETHASONE DIP CREAM 15 GM TOP SCH ×2 (09:26→19:49)
--- NOTE | 2018-05-11 11:05 | PDOC PROGRESS REPORT ---
Subjective Progress Note for:: 05/11/18 Subjective:: This is a 42 yr old male with a PMH of HIV, morbid obesity and hypothyroidism who was initially admitted for fever and SOB. He was found to have influenza. He developed acute stridor and acute respiratory failure and was intubated on 04/23. He was successfully extubated on 05/01. He has continued to improve but has still been generally week and not still able to do his ADLs independently. He may need SNF/rehab placement. 05/07: Patient has been reassessed by PT who has recommended acute rehab. 05/08: He denies acute complaints. He has been evaluated by Dr. Doyle and is deemed he is eligible for acute inpatient rehab. 05/09: He had some mild dizziness this morning while eating breakfast. Will check orthostats. He is awaiting for acute rehab placement pending [facility]. 05/10: Denies dizziness. Not able to do full orthostats because of his debility/deconditioning. He has been approved by [place] to be transferred to a facility in [place] on Saturday. 05/11: No acute event overnight. He continues to feel better albeit generally weak and deconditioned. He is going to a [place] rehab facility tomorrow at 2 pm. Reason For Visit: INFLUENZA A, HIV, SIRS Physical Exam Vital Signs: Temp Pulse Resp BP Pulse Ox 98.4 F 93 20 118/56 L 99 05/11/18 08:23 05/11/18 08:23 05/11/18 08:23 05/11/18 08:23 05/11/18 08:23 Intake & Output 05/10/18 05/11/18 05/12/18 06:59 06:59 06:59 Intake Total 2900 2178 Output Total 1200 925 Balance 1700 1253 Weight 350 lb 8.56 oz 356 lb 4.272 oz General appearance: PRESENT: no acute distress, morbidly obese Head exam: PRESENT: atraumatic, normocephalic Eye exam: PRESENT: conjunctiva pink, EOMI, PERRLA. ABSENT: scleral icterus Ear exam: PRESENT: normal external ear exam Mouth exam: PRESENT: moist, tongue midline Neck exam: ABSENT: carotid bruit, JVD, lymphadenopathy, thyromegaly Respiratory exam: PRESENT: clear to auscultation joaquin. ABSENT: rales, rhonchi, wheezes Cardiovascular exam: PRESENT: RRR. ABSENT: diastolic murmur, rubs, systolic murmur Pulses: PRESENT: normal dorsalis pedis pul GI/Abdominal exam: PRESENT: normal bowel sounds, soft. ABSENT: distended, guarding, mass, organolmegaly, rebound, tenderness Rectal exam: PRESENT: deferred Neurological exam: PRESENT: alert, awake, oriented to person, oriented to place, oriented to time, oriented to situation, CN II-XII grossly intact. ABSENT: motor sensory deficit Results Laboratory Results: 05/11/18 08:10 05/11/18 08:10 05/11/18 05/11/18 08:10 08:10 WBC 7.9 RBC 3.91 L Hgb 12.1 L Hct 34.7 L MCV 89 MCH 30.9 MCHC 34.8 RDW 15.8 H Plt Count 208 Seg Neutrophils % 61.3 Lymphocytes % 30.1 Monocytes % 7.4 Eosinophils % 0.6 Basophils % 0.6 Absolute Neutrophils 4.8 Absolute Lymphocytes 2.4 Absolute Monocytes 0.6 Absolute Eosinophils 0.0 Absolute Basophils 0.1 Sodium 134.3 L Potassium 3.4 L Chloride 100 Carbon Dioxide 26 Anion Gap 8 BUN 17 Creatinine 0.69 Est GFR ( Amer) > 60 Est GFR (Non-Af Amer) > 60 Glucose 140 H Calcium 9.1 Total Bilirubin 2.0 H AST 23 ALT 80 H Alkaline Phosphatase 47 Total Protein 5.4 L Albumin 3.0 L 04/24/18 04/25/18 05/02/18 03:53 04:05 03:50 NT-Pro-B Natriuret Pep 128 H 311 H 114 Impressions: Soft Tissue Neck CT 04/23/18 00:00 IMPRESSION: 1. No evidence of retropharyngeal abscess. The retropharyngeal and parapharyngeal spaces are preserved. No CT abnormality of the neck. 2. Partial opacification of the ethmoid air cells and bilateral maxillary sinus mucosal thickening, nonspecific in the setting of endotracheal intubation. KUB X-Ray 05/01/18 09:50 IMPRESSION: Limited, partial radiographs of the abdomen are submitted for review. There is diffusely distended colon, transverse colon measuring up to 11.7 cm, with gas present to the rectum. No free air on images submitted for review. Chest X-Ray 05/05/18 06:00 IMPRESSION: NO ACUTE RADIOGRAPHIC FINDING IN THE CHEST. Assessment and Plan - Diagnosis (1) Physical deconditioning Is this a current diagnosis for this admission?: Yes Plan: He has gradual, slow improvement in strength. He may need SNF/rehab placement. Await final reassessment and recommendation from PT. Await placement to acute rehab. 05/11: He continues to feel better albeit generally weak and deconditioned. He is going to a [place] re[place] facility tomorrow at 2 pm. (2) Acute hypoxemic respiratory failure Is this a current diagnosis for this admission?: Yes Plan: Resolved. (3) Influenza A Is this a current diagnosis for this admission?: Yes Plan: Resolved. Completed Tamiflu. (4) HIV (human immunodeficiency virus infection) Qualifiers: HIV symptom status: asymptomatic Qualified Code(s): Z21 - Asymptomatic human immunodeficiency virus [HIV] infection status Is this a current diagnosis for this admission?: Yes Plan: Continue ART. (5) Leukocytosis Is this a current diagnosis for this admission?: Yes Plan: Improved. Likely now related to steroids. Discontinue prednisone. 05/10: Resolved after discontinuing steroids. - Time Time Spent with patient: 15-24 minutes
[2018-05-11] MEDS: DOCUSATE SODIUM 100 MG CAPSULE PO SCH ×2 (13:16→17:49)
[2018-05-11] MEDS: TRAMADOL HCL 50 MG TABLET PO PRN (15:02)
[2018-05-11] MEDS: PANTOPRAZOLE SODIUM 20 MG TABLET.DR PO SCH (21:53)
[2018-05-12] MEDS: LEVOTHYROXINE SODIUM 0.15 MG TABLET PO SCH (05:26)
[2018-05-12 08:12] VITALS: BP 115/48
--- NOTE | 2018-05-12 08:59 | PDOC TRANSFER SUMMARY ---
General Admission Date/PCP: 04/23/18 [facility] Transfer Date: 05/12/18 Accepting Facility: [facility] Resuscitation Status: Full Code - Transfer Diagnosis (1) Physical deconditioning Is this a current diagnosis for this admission?: Yes (2) Acute hypoxemic respiratory failure Is this a current diagnosis for this admission?: Yes (3) Influenza A Is this a current diagnosis for this admission?: Yes (4) HIV (human immunodeficiency virus infection) Is this a current diagnosis for this admission?: Yes (5) Leukocytosis Is this a current diagnosis for this admission?: Yes - Transfer Medications Home Medications: Levothyroxine Sodium [Synthroid 0.15 mg Tablet] 1 tab PO DAILY 11/07/17 Lisinopril/Hydrochlorothiazide [Lisinopril-Hctz 20-25 mg Tab] 1 tab PO DAILY Metoprolol Tartrate 50 mg PO DAILY 11/07/17 Atazanavir Sulfate/Cobicistat [Evotaz 300 mg-150 mg Tablet] 1 each PO DAILY 02/19/18 Cholecalciferol (Vitamin D3) [Vitamin D3 1000 Unit Tablet] 2,000 unit PO DAILY 02/19/18 Emtricitabine/Tenofov Alafenam [Descovy 200-25 mg Tablet] 1 each PO DAILY 02/19/18 Omeprazole 20 mg PO DAILY 02/19/18 Tramadol HCl [Ultram 50 mg Tablet] 50 mg PO BIDP PRN 02/19/18 Transfer Medications: Current Medications Acetaminophen (Tylenol 325 Mg Tablet) 650 mg NG Q4HP PRN PRN Reason: FEVER >101 Stop: 05/22/18 11:51 Last Admin: 05/10/18 13:16 Dose: 650 mg Documented by: Albuterol/Ipratropium (Duoneb 3 Ml Ampul) 3 ml NEB RTQ4HP PRN PRN Reason: WHEEZING/DYSPNEA Stop: 06/01/18 10:52 Betamethasone/Clotrimazole (Lotrisone Cream 15 Gm) 1 applic TOP BID ASHLEY Stop: 05/23/18 17:59 Last Admin: 05/11/18 09:26 Dose: 1 applic Documented by: Bisacodyl (Dulcolax 10 Mg Supp.Rect) 10 mg MS DAILYP PRN PRN Reason: 1ST LINE FOR CONSTIPATION Stop: 06/05/18 10:19 Cholecalciferol (Vitamin D3 1000 Unit Tablet) 2,000 unit NG DAILY [facility] Stop: 05/24/18 09:59 Last Admin: 05/11/18 09:24 Dose: 2,000 unit Documented by: Dextrose (Dextrose Inj 50% Syringe (25 Gm/50 Ml)) 25 gm IV PRN PRN; Protocol PRN Reason: PER PROTOCOL Stop: 05/24/18 08:15 Dextrose (Dextrose Inj 50% Syringe (25 Gm/50 Ml)) 12.5 gm IV PRN PRN; Protocol PRN Reason: FOR BG 50-69 IN ALERT PATIENT Stop: 05/24/18 08:15 Diphenoxylate HCl/Atropine (Lomotil 2.5 Mg Tablet) 4 tab PO BIDP PRN PRN Reason: LOOSE STOOLS Stop: 05/13/18 17:37 Last Admin: 05/10/18 13:17 Dose: 4 tab Documented by: Docusate Sodium (Colace 100 Mg Capsule) 100 mg PO BID [facility] Stop: 06/03/18 12:59 Last Admin: 05/10/18 18:55 Dose: Not Given Documented by: Enoxaparin Sodium (Lovenox Inj 40 Mg/0.4 Ml Disp.Syrin) 40 mg SUBCUT DAILY [facility] Stop: 05/23/18 12:59 Last Admin: 05/11/18 09:25 Dose: 40 mg Documented by: Fluticasone Propionate (Flonase Nasal [place] 50 Mcg/[place] 16 Gm) 1 spray NASL DAILY [facility] Stop: 05/23/18 11:59 Last Admin: 05/11/18 09:22 Dose: 1 spr Documented by: Glucagon (Glucagen Inj 1 Mg Vial) 1 mg IM PRN PRN; Protocol PRN Reason: Evaluate for BG < 70 Stop: 05/24/18 08:15 Glucose (Glutose 40% Gel 15 Gm Tube) 15 gm PO PRN PRN; Protocol PRN Reason: FOR BG 50-69 IN ALERT PATIENT Stop: 05/24/18 08:15 Glucose (Glutose 40% Gel 15 Gm Tube) 30 gm PO PRN PRN; Protocol PRN Reason: FOR BG < 50 IN ALERT PATIENT Stop: 05/24/18 08:15 Hydrochlorothiazide (Hydrodiuril 25 Mg Tablet) 25 mg PO DAILY [facility] Stop: 06/03/18 12:29 Last Admin: 03/31/19 09:24 Dose: 25 mg Documented by: Sodium Chloride (Nacl 0.9% 1000 Ml Iv Soln) 1,000 mls @ 50 mls/hr IV CONTINUOUS PRN PRN Reason: THIS MED IS NOT "PRN" Stop: 06/05/18 17:37 Last Admin: 05/11/18 00:09 Dose: 50 mls/hr Documented by: Insulin Human Lispro (Humalog Insulin 100 Unit/1 Ml 3 Ml Vial) 0 - 12 unit SUBCUT [facility]; Protocol Stop: 06/03/18 21:59 Last Admin: 05/11/18 09:18 Dose: Not Given Documented by: Levothyroxine Sodium (Synthroid 0.15 Mg Tablet) 0.15 mg PO Q6AM [facility] Stop: 06/05/18 05:59 Last Admin: 05/11/18 05:15 Dose: 0.15 mg Documented by: Lisinopril (Prinivil 10 Mg Tablet) 20 mg PO DAILY [facility] Stop: 06/03/18 12:29 Last Admin: 05/11/18 09:24 Dose: 20 mg Documented by: Magnesium Citrate (Citrate Of Magnesia 296 Ml Bottle) 296 ml PO DAILYP PRN PRN Reason: FOR UNRESOLVED CONSTIPATION Stop: 06/05/18 10:19 Ondansetron HCl (Zofran Inj/Pf 4 Mg/2 Ml Sdv) 4 mg IV Q4HP PRN PRN Reason: FOR NAUSEA/VOMITING Stop: 05/22/18 11:51 Last Admin: 05/03/18 20:27 Dose: 4 mg Documented by: Pantoprazole Sodium (Protonix [address] Tablet) 20 mg PO DAILY@1999 [facility] Stop: 06/03/18 19:59 Last Admin: 05/10/18 21:20 Dose: Not Given Documented by: Evotaz (Atazanavir/Cobicistat) 300- 150mg Tablet 1 dose PO WBRKFST [facility] Stop: 06/02/18 11:59 Last Admin: 05/11/18 09:22 Dose: 1 dose Documented by: [place] ( Emtricitabine/Tenofovir) 200-25mg Tablet 1 dose PO QAM [facility] Stop: 06/02/18 11:59 Last Admin: 05/11/18 09:23 Dose: 1 dose Documented by: Sodium Biphosphate/Sodium Phosphate (Fleet Enema (Adult) 133 Ml) 133 ml MS DAILYP PRN PRN Reason: FOR CONSTIPATION Stop: 06/05/18 10:20 Sodium Chloride (Saline Flush 2.5 Ml Monoject Prefil Syrin) 2.5 ml IV Q8 ASHLEY Stop: 05/22/18 13:59 Last Admin: 05/11/18 05:11 Dose: Not Given Documented by: Sodium Chloride ([place] Nasal [place] 44 Ml Bottle) 1 spray NASL ACHS ASHLEY Stop: 05/29/18 10:59 Last Admin: 05/11/18 09:21 Dose: 1 spr Documented by: Tramadol HCl (Ultram 50 Mg Tablet) 50 mg PO Q12HP PRN PRN Reason: FOR PAIN Stop: 05/14/18 10:15 Last Admin: 05/10/18 13:17 Dose: 50 mg Documented by: - Allergies Allergies/Adverse Reactions: seasonal Allergy (Severe, Uncoded 04/22/18 08:01) Rhinitis Hospital Course Hospital Course: This is a 42 yr old male with a PMH of HIV, morbid obesity and hypothyroidism who was initially admitted for fever and SOB. He was found to have influenza. He developed acute stridor and acute respiratory failure and was intubated on 04/23. He was started on steroids and continued on Tamiflu. He likely developed stridor associated with severe influenza in a patient with morbid obesity and suboptimal airway as he does have a very short neck, large tongue and a Class III-IV Mallampati. He was successfully extubated on 05/01. He has continued to improve but has still been generally week and not still able to do his ADLs independently. He may need SNF/rehab placement. 05/07: Patient has been reassessed by PT who has recommended acute rehab. 05/08: He denies acute complaints. He has been evaluated by Dr. Doyle and is deemed he is eligible for acute inpatient rehab. 05/09: He had some mild dizziness this morning while eating breakfast. Will check orthostats. He is awaiting for acute rehab placement pending [place] approval. 05/10: Denies dizziness. Not able to do full orthostats because of his debility/deconditioning. He has been approved by [place] to be transferred to a facility in [place] on Saturday. 05/11: No acute event overnight. He continues to feel better albeit generally weak and deconditioned. He [place] going to a [place] tomorrow at 2 pm. Physical Exam Vital Signs: Temp Pulse Resp BP Pulse Ox 98.4 F 93 20 118/56 L 99 05/11/18 08:23 05/11/18 08:23 05/11/18 08:23 05/11/18 08:23 05/11/18 08:23 Intake & Output 05/10/18 05/11/18 05/12/18 06:59 06:59 06:59 Intake Total 2900 2178 Output Total 1200 925 Balance 1700 1253 Weight 350 lb 8.56 oz 356 lb 4.272 oz General appearance: PRESENT: no acute distress, morbidly obese Head exam: PRESENT: atraumatic, normocephalic Eye exam: PRESENT: conjunctiva pink, EOMI, PERRLA. ABSENT: scleral icterus Ear exam: PRESENT: normal external ear exam Mouth exam: PRESENT: moist, tongue midline Neck exam: ABSENT: carotid bruit, JVD, lymphadenopathy, thyromegaly Respiratory exam: PRESENT: clear to auscultation joaquin. ABSENT: rales, rhonchi, wheezes Cardiovascular exam: PRESENT: RRR. ABSENT: diastolic murmur, rubs, systolic murmur Pulses: PRESENT: normal dorsalis pedis pul GI/Abdominal exam: PRESENT: normal bowel sounds, soft. ABSENT: distended, guard ing, mass, organolmegaly, rebound, tenderness Rectal exam: PRESENT: deferred Neurological exam: PRESENT: alert, awake, oriented to person, oriented to place, oriented to time, oriented to situation, CN II-XII grossly intact. ABSENT: motor sensory deficit Results Laboratory Results: 05/11/18 08:10 05/11/18 08:10 05/11/18 05/11/18 08:10 08:10 WBC 7.9 RBC 3.91 L Hgb 12.1 L Hct 34.7 L MCV 89 MCH 30.9 MCHC 34.8 RDW 15.8 H Plt Count 208 Seg Neutrophils % 61.3 Lymphocytes % 30.1 Monocytes % 7.4 Eosinophils % 0.6 Basophils % 0.6 Absolute Neutrophils 4.8 Absolute Lymphocytes 2.4 Absolute Monocytes 0.6 Absolute Eosinophils 0.0 Absolute Basophils 0.1 Sodium 134.3 L Potassium 3.4 L Chloride 100 Carbon Dioxide 26 Anion Gap 8 BUN 17 Creatinine 0.69 Est GFR ( Amer) > 60 Est GFR (Non-Af Amer) > 60 Glucose 140 H Calcium 9.1 Total Bilirubin 2.0 H AST 23 ALT 80 H Alkaline Phosphatase 47 Total Protein 5.4 L Albumin 3.0 L 04/24/18 04/25/18 05/02/18 03:53 04:05 03:50 NT-Pro-B Natriuret Pep 128 H 311 H 114 Impressions: Soft Tissue Neck CT 04/23/18 00:00 IMPRESSION: 1. No evidence of retropharyngeal abscess. The retropharyngeal and parapharyngeal spaces are preserved. No CT abnormality of the neck. 2. Partial opacification of the ethmoid air cells and bilateral maxillary sinus mucosal thickening, nonspecific in the setting of endotracheal intubation. KUB X-Ray 05/01/18 09:50 IMPRESSION: Limited, partial radiographs of the abdomen are submitted for review. There is diffusely distended colon, transverse colon measuring up to 11.7 cm, with gas present to the rectum. No free air on images submitted for review. Chest X-Ray 05/05/18 06:00 IMPRESSION: NO ACUTE RADIOGRAPHIC FINDING IN THE CHEST.
[2018-05-12] MEDS: DESCOVY PO SCH (09:20)
[2018-05-12] MEDS: ATAZANAVIR PO SCH (09:21)
[2018-05-12] MEDS: COBICISTAT PO SCH (09:21)
[2018-05-12] MEDS: LISINOPRIL 10 MG TABLET PO SCH (09:22)
[2018-05-12] MEDS: HYDROCHLOROTHIAZIDE 25 MG TABLET PO SCH (09:22)
[2018-05-12] MEDS: CHOLECALCIFEROL (D3) 1,000 UNIT TABLET NG SCH (09:23)
[2018-05-12] MEDS: FLUTICASONE NASAL SPRAY 50 MCG/SPRY 120 SPRAY/16 GM NASL SCH (09:23)
[2018-05-12] MEDS: SODIUM CHLORIDE NASAL SPRAY 44 ML NASL SCH (09:24)
[2018-05-12] MEDS ORDERED: POTASSIUM CHLORIDE 10 MEQ CAPSULE.ER PO ONE (09:30)
[2018-05-12] MEDS: DOCUSATE SODIUM 100 MG CAPSULE PO SCH (09:34)
[2018-05-12] MEDS: CLOTRIMAZOLE/BETAMETHASONE DIP CREAM 15 GM TOP SCH (09:35)
--- NOTE | 2018-05-12 10:22 | Progress Note ---
Provider Note Provider Note: No acute issue. Denies acute symptom. Patient is going to [facility] this morning. See transfer note for details.
[2018-05-12 10:25] LABS: ANION GAP 9 (5-19); BLOOD UREA NITROGEN 14 mg/dL (7-20); CALCIUM 9.5 mg/dL (8.4-10.2); CARBON DIOXIDE 26 mmol/L (22-30); CHLORIDE 101 mmol/L (98-107); GLUCOSE 109 mg/dL (75-110); POTASSIUM 3.8 mmol/L (3.6-5.0); SODIUM 136.2 mmol/L (137-145)
[2018-05-12] MEDS: INSULIN LISPRO 100 UNIT/ML 3 ML VIAL SUBCUT SCH (10:33)
[2018-05-12] MEDS: ENOXAPARIN SODIUM INJ 40 MG/0.4 ML DISP.SYRIN SUBCUT SCH (10:33)
--- NOTE | 2018-05-12 15:30 | PDOC PROGRESS REPORT ---
Subjective Progress Note for:: 04/25/18 Subjective:: Intubated and sedated Reason For Visit: INFLUENZA A, HIV, SIRS Physical Exam Vital Signs: Temp Pulse Resp BP Pulse Ox 98.4 F 87 20 106/53 L 97 04/25/18 08:00 04/25/18 08:37 04/25/18 08:37 04/25/18 08:00 04/25/18 08:37 Intake & Output 04/24/18 04/25/18 04/26/18 06:59 06:59 06:59 Intake Total 3474 1896 37 Output Total 4290 1905 100 Balance -816 -9 -63 Weight 171 kg 167.5 kg General appearance: PRESENT: no acute distress, disheveled, morbidly obese. ABSENT: cooperative Head exam: PRESENT: atraumatic, normocephalic Eye exam: PRESENT: conjunctiva pale. ABSENT: EOMI, nystagmus, periorbital swelling, scleral icterus Mouth exam: PRESENT: dry mucosa, neck supple, tongue midline, other - ET tube in place Neck exam: ABSENT: carotid bruit, JVD, lymphadenopathy, thyromegaly, tracheal deviation Respiratory exam: PRESENT: decreased breath sounds, prolonged expiratory phas, rales, rhonchi, unlabored. ABSENT: retraction, stridor, wheezes Cardiovascular exam: PRESENT: RRR, +S1, +S2 Pulses: PRESENT: normal radial pulses GI/Abdominal exam: PRESENT: soft. ABSENT: tenderness Gentrourinary exam: PRESENT: indwelling catheter Extremities exam: PRESENT: +2 edema. ABSENT: calf tenderness, clubbing, joint swelling Musculoskeletal exam: ABSENT: ambulatory, deformity, dislocation Neurological exam: ABSENT: awake Skin exam: PRESENT: dry, warm Results Laboratory Results: 04/25/18 04:05 04/24/18 09:10 04/24/18 04/24/18 04/25/18 09:10 17:16 03:15 WBC RBC Hgb Hct MCV MCH MCHC RDW Plt Count Seg Neutrophils % Lymphocytes % Monocytes % Eosinophils % Basophils % Absolute Neutrophils Absolute Lymphocytes Absolute Monocytes Absolute Eosinophils Absolute Basophils Carbonic Acid 1.20 1.19 HCO3/H2CO3 Ratio 19:1 20:1 ABG pH 7.38 7.42 ABG pCO2 39.9 39.6 ABG pO2 79.8 L 104.4 H ABG HCO3 23.3 24.9 H ABG O2 Saturation 95.7 97.9 ABG Base Excess -1.6 0.4 FiO2 60% 60% Sodium 137.8 Potassium 3.8 Chloride 102 Carbon Dioxide 25 Anion Gap 11 BUN 16 Creatinine 0.84 Est GFR ( Amer) > 60 Est GFR (Non-Af Amer) > 60 Glucose 227 H Calcium 9.0 Phosphorus Magnesium 04/25/18 04/25/18 04:05 04:05 WBC 13.1 H D RBC 3.97 L Hgb 12.2 L Hct 35.5 L MCV 90 MCH 30.7 MCHC 34.3 RDW 15.2 H Plt Count 253 Seg Neutrophils % 88.6 H Lymphocytes % 7.4 L Monocytes % 3.8 Eosinophils % 0.0 Basophils % 0.2 Absolute Neutrophils 11.6 H Absolute Lymphocytes 1.0 Absolute Monocytes 0.5 Absolute Eosinophils 0.0 Absolute Basophils 0.0 Carbonic Acid HCO3/H2CO3 Ratio ABG pH ABG pCO2 ABG pO2 ABG HCO3 ABG O2 Saturation ABG Base Excess FiO2 Sodium Potassium Chloride Carbon Dioxide Anion Gap BUN Creatinine Est GFR ( Amer) Est GFR (Non-Af Amer) Glucose Calcium Phosphorus 4.0 Magnesium 2.6 H 04/22/18 12:52 Clean Catch Midstream Urine Culture - Final NO GROWTH 2 DAYS 04/24/18 04/25/18 03:53 04:05 NT-Pro-B Natriuret Pep 128 H 311 H Impressions: Soft Tissue Neck CT 04/23/18 00:00 IMPRESSION: 1. No evidence of retropharyngeal abscess. The retropharyngeal and parapharyngeal spaces are preserved. No CT abnormality of the neck. 2. Partial opacification of the ethmoid air cells and bilateral maxillary sinus mucosal thickening, nonspecific in the setting of endotracheal intubation. KUB X-Ray 04/23/18 14:56 IMPRESSION: SATISFACTORY POSITION OF THE NASOGASTRIC TUBE WITH THE TIP IN THE STOMACH. Chest X-Ray 04/25/18 06:00 IMPRESSION: No change. Assessment & Plan - Diagnosis (1) Fever Qualifiers: Fever type: unspecified Qualified Code(s): R50.9 - Fever, unspecified Is this a current diagnosis for this admission?: Yes Plan: viral tylenol as needed (2) HIV (human immunodeficiency virus infection) Qualifiers: HIV symptom status: asymptomatic Qualified Code(s): Z21 - Asymptomatic human immunodeficiency virus [HIV] infection status Is this a current diagnosis for this admission?: Yes Plan: will check viral load (3) Hypothyroidism Qualifiers: Hypothyroidism type: unspecified Qualified Code(s): E03.9 - Hypothyroidism, unspecified Is this a current diagnosis for this admission?: Yes Plan: check TSH CORTISOL testosterone (4) Influenza A Is this a current diagnosis for this admission?: Yes Plan: Tamiflu (5) Morbid obesity with BMI of 50.0-59.9, adult Is this a current diagnosis for this admission?: Yes Plan: he had gastric bypass surgery apparently this is breaking down can review this when patient is more stable (6) Obstructive sleep apnea Is this a current diagnosis for this admission?: Yes Plan: CPAP+ 13 cm (7) Acute respiratory failure Is this a current diagnosis for this admission?: Yes Plan: with stridor increase work of breathing - Time Total Critical Time (Minutes): 50
--- NOTE | 2018-05-12 15:33 | PDOC PROGRESS REPORT ---
Subjective Progress Note for:: 04/26/18 Subjective:: Intubated and sedated Reason For Visit: INFLUENZA A, HIV, SIRS Physical Exam Vital Signs: Temp Pulse Resp BP Pulse Ox 99.1 F 90 20 149/72 H 96 04/26/18 07:50 04/26/18 09:14 04/26/18 09:14 04/26/18 07:50 04/26/18 09:14 Intake & Output 04/25/18 04/26/18 04/27/18 06:59 06:59 06:59 Intake Total 1896 1831 200 Output Total 1905 1505 100 Balance -9 326 100 Weight 167.5 kg 170.8 kg General appearance: PRESENT: no acute distress, disheveled, morbidly obese. ABSENT: cooperative Head exam: PRESENT: atraumatic, normocephalic Eye exam: PRESENT: conjunctiva pale. ABSENT: nystagmus, periorbital swelling Mouth exam: PRESENT: dry mucosa, neck supple, tongue midline, other - ET tube in place Neck exam: ABSENT: carotid bruit, full ROM, JVD, lymphadenopathy, meningismus, tenderness, thyromegaly, tracheal deviation, tracheostomy, other Respiratory exam: PRESENT: decreased breath sounds, prolonged expiratory phas, rales, rhonchi, unlabored, wheezes. ABSENT: retraction, stridor Cardiovascular exam: PRESENT: RRR, +S1, +S2 Pulses: PRESENT: normal radial pulses GI/Abdominal exam: PRESENT: soft. ABSENT: tenderness Gentrourinary exam: PRESENT: indwelling catheter Extremities exam: PRESENT: +2 edema. ABSENT: calf tenderness, clubbing, joint swelling Musculoskeletal exam: ABSENT: ambulatory, deformity, dislocation Neurological exam: ABSENT: awake Skin exam: PRESENT: dry, warm Results Laboratory Results: 04/26/18 04:22 04/26/18 04:22 04/26/18 04/26/18 04/26/18 04:13 04:22 04:22 WBC 16.4 H RBC 3.65 L Hgb 11.3 L Hct 32.9 L MCV 90 MCH 30.9 MCHC 34.4 RDW 15.0 H Plt Count 270 Seg Neutrophils % Not Reportable Lymphocytes % Not Reportable Monocytes % Not Reportable Eosinophils % Not Reportable Basophils % Not Reportable Absolute Neutrophils Not Reportable Absolute Lymphocytes Not Reportable Absolute Monocytes Not Reportable Absolute Eosinophils Not Reportable Absolute Basophils Not Reportable Carbonic Acid 1.30 HCO3/H2CO3 Ratio 18:1 ABG pH 7.36 ABG pCO2 43.3 ABG pO2 85.6 ABG HCO3 23.6 ABG O2 Saturation 96.1 ABG Base Excess -1.9 FiO2 65% Sodium 137.8 Potassium 4.6 Chloride 102 Carbon Dioxide 25 Anion Gap 11 BUN 35 H Creatinine 1.06 Est GFR ( Amer) > 60 Est GFR (Non-Af Amer) > 60 Glucose 223 H Calcium 9.1 Magnesium 2.8 H Total Bilirubin 0.5 AST 35 ALT 48 Alkaline Phosphatase 44 Total Protein 5.6 L Albumin 3.5 04/24/18 04/25/18 03:53 04:05 NT-Pro-B Natriuret Pep 128 H 311 H Impressions: Soft Tissue Neck CT 04/23/18 00:00 IMPRESSION: 1. No evidence of retropharyngeal abscess. The retropharyngeal and parapharyngeal spaces are preserved. No CT abnormality of the neck. 2. Partial opacification of the ethmoid air cells and bilateral maxillary sinus mucosal thickening, nonspecific in the setting of endotracheal intubation. KUB X-Ray 04/23/18 14:56 IMPRESSION: SATISFACTORY POSITION OF THE NASOGASTRIC TUBE WITH THE TIP IN THE STOMACH. Chest X-Ray 04/26/18 06:00 IMPRESSION: Tip of an endotracheal tube is above the thoracic inlet, 11.6 cm from the abran. Consider replacement or advancement of the endotracheal tube by 6.5 cm, as clinically warranted. Else, stable. Assessment & Plan - Diagnosis (1) Fever Qualifiers: Fever type: unspecified Qualified Code(s): R50.9 - Fever, unspecified Is this a current diagnosis for this admission?: Yes Plan: viral tylenol as needed (2) HIV (human immunodeficiency virus infection) Qualifiers: HIV symptom status: asymptomatic Qualified Code(s): Z21 - Asymptomatic human immunodeficiency virus [HIV] infection status Is this a current diagnosis for this admission?: Yes Plan: will check viral load (3) Hypothyroidism Qualifiers: Hypothyroidism type: unspecified Qualified Code(s): E03.9 - Hypothyroidism, unspecified Is this a current diagnosis for this admission?: Yes Plan: check TSH CORTISOL testosterone (4) Influenza A Is this a current diagnosis for this admission?: Yes Plan: Tamiflu (5) Morbid obesity with BMI of 50.0-59.9, adult Is this a current diagnosis for this admission?: Yes Plan: he had gastric bypass surgery apparently this is breaking down can review this when patient is more stable (6) Obstructive sleep apnea Is this a current diagnosis for this admission?: Yes Plan: CPAP+ 13 cm (7) Acute respiratory failure Is this a current diagnosis for this admission?: Yes Plan: with stridor increase work of breathing - Time Total Critical Time (Minutes): 45
--- NOTE | 2018-05-12 15:37 | PDOC PROGRESS REPORT ---
Subjective Progress Note for:: 04/27/18 Subjective:: Intubated and sedated Reason For Visit: INFLUENZA A, HIV, SIRS Physical Exam Vital Signs: Temp Pulse Resp BP Pulse Ox 97.6 F 94 20 115/48 L 99 05/12/18 07:47 05/12/18 07:47 05/12/18 07:47 05/12/18 07:47 05/12/18 07:47 Intake & Output 05/11/18 05/12/18 05/13/18 06:59 06:59 06:59 Intake Total 2178 1841 Output Total 925 2685 Balance 1253 -434 Weight 161.6 kg 159.2 kg General appearance: PRESENT: no acute distress, disheveled, morbidly obese. ABSENT: cooperative Head exam: PRESENT: atraumatic, normocephalic Eye exam: PRESENT: conjunctiva pale. ABSENT: nystagmus, periorbital swelling Mouth exam: PRESENT: dry mucosa, neck supple, tongue midline, other - ET tube in place Neck exam: ABSENT: carotid bruit, full ROM, JVD, lymphadenopathy, meningismus, tenderness, thyromegaly, tracheal deviation, tracheostomy, other Respiratory exam: PRESENT: decreased breath sounds, prolonged expiratory phas, rales, rhonchi, unlabored, wheezes. ABSENT: retraction Cardiovascular exam: PRESENT: RRR, +S1 Pulses: PRESENT: normal radial pulses GI/Abdominal exam: PRESENT: soft. ABSENT: tenderness Gentrourinary exam: PRESENT: indwelling catheter Extremities exam: PRESENT: +2 edema. ABSENT: calf tenderness, clubbing, joint swelling Musculoskeletal exam: ABSENT: ambulatory, deformity, dislocation Neurological exam: ABSENT: awake Skin exam: PRESENT: dry, warm Results Laboratory Results: 05/11/18 08:10 05/12/18 09:52 05/12/18 09:52 Sodium 136.2 L Potassium 3.8 Chloride 101 Carbon Dioxide 26 Anion Gap 9 BUN 14 Creatinine 0.58 Est GFR ( Amer) > 60 Est GFR (Non-Af Amer) > 60 Glucose 109 Calcium 9.5 04/24/18 04/25/18 05/02/18 03:53 04:05 03:50 NT-Pro-B Natriuret Pep 128 H 311 H 114 Impressions: Soft Tissue Neck CT 04/23/18 00:00 IMPRESSION: 1. No evidence of retropharyngeal abscess. The retropharyngeal and parapharyngeal spaces are preserved. No CT abnormality of the neck. 2. Partial opacification of the ethmoid air cells and bilateral maxillary sinus mucosal thickening, nonspecific in the setting of endotracheal intubation. KUB X-Ray 05/01/18 09:50 IMPRESSION: Limited, partial radiographs of the abdomen are submitted for review. There is diffusely distended colon, transverse colon measuring up to 11.7 cm, with gas present to the rectum. No free air on images submitted for review. Chest X-Ray 05/05/18 06:00 IMPRESSION: NO ACUTE RADIOGRAPHIC FINDING IN THE CHEST. Assessment & Plan - Diagnosis (1) Fever Qualifiers: Fever type: unspecified Qualified Code(s): R50.9 - Fever, unspecified Is this a current diagnosis for this admission?: Yes Plan: viral tylenol as needed (2) HIV (human immunodeficiency virus infection) Qualifiers: HIV symptom status: asymptomatic Qualified Code(s): Z21 - Asymptomatic human immunodeficiency virus [HIV] infection status Is this a current diagnosis for this admission?: Yes Plan: will check viral load (3) Hypothyroidism Qualifiers: Hypothyroidism type: unspecified Qualified Code(s): E03.9 - Hypothyroidism, unspecified Is this a current diagnosis for this admission?: Yes Plan: check TSH CORTISOL testosterone (4) Influenza A Is this a current diagnosis for this admission?: Yes Plan: Tamiflu (5) Morbid obesity with BMI of 50.0-59.9, adult Is this a current diagnosis for this admission?: Yes Plan: he had gastric bypass surgery apparently this is breaking down can review this when patient is more stable (6) Obstructive sleep apnea Is this a current diagnosis for this admission?: Yes Plan: CPAP+ 13 cm (7) Acute respiratory failure Is this a current diagnosis for this admission?: Yes Plan: with stridor increase work of breathing - Time Total Critical Time (Minutes): 45
--- NOTE | 2018-05-12 15:39 | PDOC PROGRESS REPORT ---
Subjective Progress Note for:: 04/28/18 Subjective:: Intubated and sedated Reason For Visit: INFLUENZA A, HIV, SIRS Physical Exam Vital Signs: Temp Pulse Resp BP Pulse Ox 98.2 F 90 12 124/79 96 04/28/18 08:00 04/28/18 08:00 04/28/18 08:00 04/28/18 08:00 04/28/18 08:00 Intake & Output 04/27/18 04/28/18 04/29/18 06:59 06:59 06:59 Intake Total 4153.625 3848.625 Output Total 2540 5670 500 Balance 1613.625 -1821.375 -500 Weight 172.6 kg 173 kg General appearance: PRESENT: no acute distress, disheveled, morbidly obese. ABSENT: cooperative Head exam: PRESENT: atraumatic, normocephalic Eye exam: PRESENT: conjunctiva pale. ABSENT: nystagmus, periorbital swelling Mouth exam: PRESENT: dry mucosa, neck supple, tongue midline, other - ET tube in place Neck exam: ABSENT: carotid bruit, full ROM, JVD, lymphadenopathy, meningismus, tenderness, thyromegaly, tracheal deviation, tracheostomy, other Respiratory exam: PRESENT: decreased breath sounds, prolonged expiratory phas, rales, rhonchi, unlabored, wheezes Cardiovascular exam: PRESENT: RRR, +S1, +S2, tachycardia Pulses: PRESENT: normal radial pulses GI/Abdominal exam: PRESENT: soft. ABSENT: tenderness Gentrourinary exam: PRESENT: indwelling catheter Extremities exam: PRESENT: +2 edema. ABSENT: calf tenderness, clubbing, joint swelling Musculoskeletal exam: ABSENT: deformity, dislocation Neurological exam: ABSENT: awake Skin exam: PRESENT: dry, warm Results Laboratory Results: 04/28/18 03:55 04/28/18 03:55 04/28/18 04/28/18 04/28/18 03:55 03:55 06:28 WBC 17.9 H RBC 3.82 L Hgb 11.8 L Hct 34.2 L MCV 90 MCH 31.0 MCHC 34.6 RDW 15.0 H Plt Count 226 Seg Neutrophils % Not Reportable Lymphocytes % Not Reportable Monocytes % Not Reportable Eosinophils % Not Reportable Basophils % Not Reportable Absolute Neutrophils Not Reportable Absolute Lymphocytes Not Reportable Absolute Monocytes Not Reportable Absolute Eosinophils Not Reportable Absolute Basophils Not Reportable Carbonic Acid 1.49 H HCO3/H2CO3 Ratio 19:1 ABG pH 7.40 ABG pCO2 49.5 H ABG pO2 89.8 ABG HCO3 29.6 H ABG O2 Saturation 96.7 ABG Base Excess 4.0 FiO2 60% Sodium 136.2 L Potassium 4.9 Chloride 100 Carbon Dioxide 28 Anion Gap 8 BUN 26 H Creatinine 0.87 Est GFR ( Amer) > 60 Est GFR (Non-Af Amer) > 60 Glucose 156 H Calcium 8.6 04/22/18 10:48 Blood Blood Culture - Final NO GROWTH IN 5 DAYS 04/22/18 09:09 Blood Blood Culture - Final NO GROWTH IN 5 DAYS 04/24/18 04/25/18 03:53 04:05 NT-Pro-B Natriuret Pep 128 H 311 H Impressions: Soft Tissue Neck CT 04/23/18 00:00 IMPRESSION: 1. No evidence of retropharyngeal abscess. The retropharyngeal and parapharyngeal spaces are preserved. No CT abnormality of the neck. 2. Partial opacification of the ethmoid air cells and bilateral maxillary sinus mucosal thickening, nonspecific in the setting of endotracheal intubation. KUB X-Ray 04/23/18 14:56 IMPRESSION: SATISFACTORY POSITION OF THE NASOGASTRIC TUBE WITH THE TIP IN THE STOMACH. Assessment & Plan - Diagnosis (1) Fever Qualifiers: Fever type: unspecified Qualified Code(s): R50.9 - Fever, unspecified Is this a current diagnosis for this admission?: Yes Plan: viral tylenol as needed (2) HIV (human immunodeficiency virus infection) Qualifiers: HIV symptom status: asymptomatic Qualified Code(s): Z21 - Asymptomatic human immunodeficiency virus [HIV] infection status Is this a current diagnosis for this admission?: Yes Plan: will check viral load (3) Hypothyroidism Qualifiers: Hypothyroidism type: unspecified Qualified Code(s): E03.9 - Hypothyroidism, unspecified Is this a current diagnosis for this admission?: Yes Plan: check TSH CORTISOL testosterone (4) Influenza A Is this a current diagnosis for this admission?: Yes Plan: Tamiflu (5) Morbid obesity with BMI of 50.0-59.9, adult Is this a current diagnosis for this admission?: Yes Plan: he had gastric bypass surgery apparently this is breaking down can review this when patient is more stable (6) Obstructive sleep apnea Is this a current diagnosis for this admission?: Yes Plan: CPAP+ 13 cm (7) Acute respiratory failure Is this a current diagnosis for this admission?: Yes Plan: with stridor increase work of breathing - Time Total Critical Time (Minutes): 45
--- NOTE | 2018-05-12 15:42 | PDOC PROGRESS REPORT ---
Subjective Progress Note for:: 04/29/18 Subjective:: Intubated and sedated Reason For Visit: INFLUENZA A, HIV, SIRS Physical Exam Vital Signs: Temp Pulse Resp BP Pulse Ox 99.0 F 111 H 14 138/84 H 96 04/29/18 08:00 04/29/18 08:15 04/29/18 08:15 04/29/18 08:00 04/29/18 08:15 Intake & Output 04/28/18 04/29/18 04/30/18 06:59 06:59 06:59 Intake Total 3848.625 6060.500 59 Output Total 5670 6410 285 Balance -1821.375 -349.500 -226 Weight 173 kg 171.9 kg General appearance: PRESENT: no acute distress, disheveled, morbidly obese Head exam: PRESENT: atraumatic, normocephalic Eye exam: PRESENT: conjunctiva pale. ABSENT: nystagmus, periorbital swelling Mouth exam: PRESENT: dry mucosa, neck supple, tongue midline, other - 2 Neck exam: ABSENT: carotid bruit, full ROM, JVD, lymphadenopathy, meningismus, tenderness, thyromegaly, tracheal deviation, tracheostomy, other Respiratory exam: PRESENT: decreased breath sounds, prolonged expiratory phas, rhonchi, unlabored Cardiovascular exam: PRESENT: RRR, rubs, +S2 Pulses: PRESENT: normal radial pulses GI/Abdominal exam: PRESENT: soft. ABSENT: tenderness Gentrourinary exam: PRESENT: indwelling catheter Extremities exam: PRESENT: +1 edema. ABSENT: calf tenderness, clubbing, pedal edema Musculoskeletal exam: ABSENT: deformity, dislocation Neurological exam: ABSENT: awake Skin exam: PRESENT: dry, warm Results Laboratory Results: 04/29/18 04:08 04/29/18 04:08 04/28/18 04/28/18 04/29/18 10:20 10:20 03:38 WBC 17.9 H RBC 3.60 L Hgb 11.1 L Hct 32.2 L MCV 89 MCH 30.9 MCHC 34.6 RDW 14.9 H Plt Count 246 Seg Neutrophils % Not Reportable Lymphocytes % Not Reportable Monocytes % Not Reportable Eosinophils % Not Reportable Basophils % Not Reportable Absolute Neutrophils Not Reportable Absolute Lymphocytes Not Reportable Absolute Monocytes Not Reportable Absolute Eosinophils Not Reportable Absolute Basophils Not Reportable Carbonic Acid 1.39 H HCO3/H2CO3 Ratio 23:1 ABG pH 7.46 H ABG pCO2 46.3 H ABG pO2 91.8 ABG HCO3 32.2 H ABG O2 Saturation 97.3 ABG Base Excess 7.4 FiO2 55% Sodium 135.5 L Potassium 4.5 Chloride 98 Carbon Dioxide 28 Anion Gap 10 BUN 22 H Creatinine 0.86 Est GFR ( Amer) > 60 Est GFR (Non-Af Amer) > 60 Glucose 117 H Calcium 8.8 04/29/18 04/29/18 04:08 04:08 WBC 17.9 H RBC 3.47 L Hgb 10.7 L Hct 30.9 L MCV 89 MCH 30.9 MCHC 34.7 RDW 15.2 H Plt Count 239 Seg Neutrophils % Lymphocytes % Monocytes % Eosinophils % Basophils % Absolute Neutrophils Absolute Lymphocytes Absolute Monocytes Absolute Eosinophils Absolute Basophils Carbonic Acid HCO3/H2CO3 Ratio ABG pH ABG pCO2 ABG pO2 ABG HCO3 ABG O2 Saturation ABG Base Excess FiO2 Sodium 132.8 L Potassium 4.6 Chloride 95 L Carbon Dioxide 29 Anion Gap 9 BUN 22 H Creatinine 0.78 Est GFR ( Amer) > 60 Est GFR (Non-Af Amer) > 60 Glucose 154 H Calcium 8.8 04/26/18 02:37 Tracheal Aspirate Gram Stain - Final 04/26/18 02:37 Tracheal Aspirate Sputum Culture - Final NO GROWTH 2 DAYS 04/24/18 04/25/18 03:53 04:05 NT-Pro-B Natriuret Pep 128 H 311 H Impressions: Soft Tissue Neck CT 04/23/18 00:00 IMPRESSION: 1. No evidence of retropharyngeal abscess. The retropharyngeal and parapharyngeal spaces are preserved. No CT abnormality of the neck. 2. Partial opacification of the ethmoid air cells and bilateral maxillary sinus mucosal thickening, nonspecific in the setting of endotracheal intubation. KUB X-Ray 04/23/18 14:56 IMPRESSION: SATISFACTORY POSITION OF THE NASOGASTRIC TUBE WITH THE TIP IN THE STOMACH. Chest X-Ray 04/29/18 06:00 IMPRESSION: Endotracheal and enteric tubes in place. Stable cardiomegaly copyright 2010 [employer]- All Rights Reserved Assessment & Plan - Diagnosis (1) Fever Qualifiers: Fever type: unspecified Qualified Code(s): R50.9 - Fever, unspecified Is this a current diagnosis for this admission?: Yes Plan: viral tylenol as needed (2) HIV (human immunodeficiency virus infection) Qualifiers: HIV symptom status: asymptomatic Qualified Code(s): Z21 - Asymptomatic human immunodeficiency virus [HIV] infection status Is this a current diagnosis for this admission?: Yes Plan: will check viral load (3) Hypothyroidism Qualifiers: Hypothyroidism type: unspecified Qualified Code(s): E03.9 - Hypothyroidism, unspecified Is this a current diagnosis for this admission?: Yes Plan: check TSH CORTISOL testosterone (4) Influenza A Is this a current diagnosis for this admission?: Yes Plan: Tamiflu (5) Morbid obesity with BMI of 50.0-59.9, adult Is this a current diagnosis for this admission?: Yes Plan: he had gastric bypass surgery apparently this is breaking down can review this when patient is more stable (6) Obstructive sleep apnea Is this a current diagnosis for this admission?: Yes Plan: CPAP+ 13 cm (7) Acute respiratory failure Is this a current diagnosis for this admission?: Yes Plan: with stridor increase work of breathing - Time Total Critical Time (Minutes): 40
--- NOTE | 2018-05-12 15:44 | PDOC PROGRESS REPORT ---
Subjective Progress Note for:: 04/30/18 Subjective:: Intubated and sedated Reason For Visit: INFLUENZA A, HIV, SIRS Physical Exam Vital Signs: Temp Pulse Resp BP Pulse Ox 99.1 F 118 H 18 128/75 H 95 04/30/18 08:00 04/30/18 08:18 04/30/18 08:18 04/30/18 08:00 04/30/18 08:18 Intake & Output 04/29/18 04/30/18 05/01/18 06:59 06:59 06:59 Intake Total 6060.500 4401.500 Output Total 6410 4330 200 Balance -349.500 71.500 -200 Weight 171.9 kg 169.8 kg General appearance: PRESENT: no acute distress, disheveled, morbidly obese Head exam: PRESENT: atraumatic, normocephalic Eye exam: PRESENT: conjunctiva pale. ABSENT: EOMI, nystagmus, periorbital swelling Mouth exam: PRESENT: dry mucosa, neck supple, tongue midline, other - ET tube Neck exam: ABSENT: carotid bruit, full ROM, JVD, lymphadenopathy, meningismus, tenderness, thyromegaly, tracheal deviation, tracheostomy, other Respiratory exam: PRESENT: decreased breath sounds, prolonged expiratory phas, rhonchi, unlabored, wheezes. ABSENT: retraction, tachypnea Cardiovascular exam: PRESENT: RRR, +S1, +S2 Pulses: PRESENT: normal radial pulses GI/Abdominal exam: PRESENT: soft. ABSENT: tenderness Gentrourinary exam: PRESENT: indwelling catheter Extremities exam: PRESENT: +2 edema. ABSENT: calf tenderness, clubbing, joint swelling Musculoskeletal exam: ABSENT: deformity, dislocation Neurological exam: ABSENT: awake Skin exam: PRESENT: dry, warm Results Laboratory Results: 04/29/18 04:08 04/29/18 04:08 04/24/18 04/25/18 03:53 04:05 NT-Pro-B Natriuret Pep 128 H 311 H Impressions: Soft Tissue Neck CT 04/23/18 00:00 IMPRESSION: 1. No evidence of retropharyngeal abscess. The retropharyngeal and parapharyngeal spaces are preserved. No CT abnormality of the neck. 2. Partial opacification of the ethmoid air cells and bilateral maxillary sinus mucosal thickening, nonspecific in the setting of endotracheal intubation. KUB X-Ray 04/23/18 14:56 IMPRESSION: SATISFACTORY POSITION OF THE NASOGASTRIC TUBE WITH THE TIP IN THE STOMACH. Chest X-Ray 04/29/18 06:00 IMPRESSION: Endotracheal and enteric tubes in place. Stable cardiomegaly copyright 2011 [employer]- All Rights Reserved Assessment & Plan - Diagnosis (1) Fever Qualifiers: Fever type: unspecified Qualified Code(s): R50.9 - Fever, unspecified Is this a current diagnosis for this admission?: Yes Plan: viral tylenol as needed (2) HIV (human immunodeficiency virus infection) Qualifiers: HIV symptom status: asymptomatic Qualified Code(s): Z21 - Asymptomatic human immunodeficiency virus [HIV] infection status Is this a current diagnosis for this admission?: Yes Plan: will check viral load (3) Hypothyroidism Qualifiers: Hypothyroidism type: unspecified Qualified Code(s): E03.9 - Hypothyroidism, unspecified Is this a current diagnosis for this admission?: Yes Plan: check TSH CORTISOL testosterone (4) Influenza A Is this a current diagnosis for this admission?: Yes Plan: Tamiflu (5) Morbid obesity with BMI of 50.0-59.9, adult Is this a current diagnosis for this admission?: Yes Plan: he had gastric bypass surgery apparently this is breaking down can review this when patient is more stable (6) Obstructive sleep apnea Is this a current diagnosis for this admission?: Yes Plan: CPAP+ 13 cm (7) Acute respiratory failure Is this a current diagnosis for this admission?: Yes Plan: with stridor increase work of breathing - Time Total Critical Time (Minutes): 45
--- NOTE | 2018-05-12 15:46 | PDOC PROGRESS REPORT ---
Subjective Progress Note for:: 05/01/18 Subjective:: copious coffee ground material from NGT Reason For Visit: INFLUENZA A, HIV, SIRS Physical Exam Vital Signs: Temp Pulse Resp BP Pulse Ox 98.1 F 112 H 20 100/69 94 05/01/18 06:28 05/01/18 08:06 05/01/18 08:06 05/01/18 06:28 05/01/18 08:06 Intake & Output 04/30/18 05/01/18 05/02/18 06:59 06:59 06:59 Intake Total 4401.500 2913.875 Output Total 4330 6325 Balance 71.500 -3411.125 Weight 169.8 kg 164.5 kg General appearance: PRESENT: no acute distress, disheveled, morbidly obese. ABSENT: cooperative Head exam: PRESENT: atraumatic, normocephalic Eye exam: PRESENT: conjunctiva pale. ABSENT: nystagmus, periorbital swelling Mouth exam: PRESENT: dry mucosa, neck supple, tongue midline, other - ET tube Neck exam: ABSENT: carotid bruit, JVD, lymphadenopathy, thyromegaly, tracheal deviation Respiratory exam: PRESENT: decreased breath sounds, prolonged expiratory phas, rhonchi, unlabored, wheezes Cardiovascular exam: PRESENT: RRR, +S1, +S2 Pulses: PRESENT: normal radial pulses GI/Abdominal exam: PRESENT: soft. ABSENT: tenderness Gentrourinary exam: PRESENT: indwelling catheter Extremities exam: PRESENT: +2 edema. ABSENT: calf tenderness, clubbing, joint swelling Musculoskeletal exam: ABSENT: ambulatory, deformity, dislocation Neurological exam: ABSENT: awake Skin exam: PRESENT: dry, warm Results Laboratory Results: 05/01/18 04:07 05/01/18 04:07 05/01/18 05/01/18 05/01/18 04:07 04:07 04:46 WBC 30.9 H* RBC 4.12 L Hgb 12.6 L Hct 36.3 L MCV 88 MCH 30.6 MCHC 34.8 RDW 15.4 H Plt Count 315 Seg Neutrophils % Not Reportable Lymphocytes % Not Reportable Monocytes % Not Reportable Eosinophils % Not Reportable Basophils % Not Reportable Absolute Neutrophils Not Reportable Absolute Lymphocytes Not Reportable Absolute Monocytes Not Reportable Absolute Eosinophils Not Reportable Absolute Basophils Not Reportable Carbonic Acid 1.26 HCO3/H2CO3 Ratio 21:1 ABG pH 7.43 ABG pCO2 41.7 ABG pO2 74.9 L ABG HCO3 27.2 H ABG O2 Saturation 95.4 ABG Base Excess 2.7 FiO2 45% Sodium 131.9 L Potassium 5.0 Chloride 95 L Carbon Dioxide 23 Anion Gap 14 BUN 26 H Creatinine 0.78 Est GFR ( Amer) > 60 Est GFR (Non-Af Amer) > 60 Glucose 193 H Calcium 9.7 Magnesium 2.1 Total Bilirubin 0.6 AST 27 ALT 46 Alkaline Phosphatase 51 Total Protein 6.0 L Albumin 3.5 04/24/18 04/25/18 03:53 04:05 NT-Pro-B Natriuret Pep 128 H 311 H Impressions: Soft Tissue Neck CT 04/23/18 00:00 IMPRESSION: 1. No evidence of retropharyngeal abscess. The retropharyngeal and parapharyngeal spaces are preserved. No CT abnormality of the neck. 2. Partial opacification of the ethmoid air cells and bilateral maxillary sinus mucosal thickening, nonspecific in the setting of endotracheal intubation. KUB X-Ray 04/23/18 14:56 IMPRESSION: SATISFACTORY POSITION OF THE NASOGASTRIC TUBE WITH THE TIP IN THE STOMACH. Chest X-Ray 05/01/18 06:00 IMPRESSION: Stable bibasilar consolidation with air bronchograms in the retrocardiac regions atelectasis versus pneumonia. Assessment & Plan - Diagnosis (1) Fever Qualifiers: Fever type: unspecified Qualified Code(s): R50.9 - Fever, unspecified Is this a current diagnosis for this admission?: Yes Plan: viral tylenol as needed (2) HIV (human immunodeficiency virus infection) Qualifiers: HIV symptom status: asymptomatic Qualified Code(s): Z21 - Asymptomatic human immunodeficiency virus [HIV] infection status Is this a current diagnosis for this admission?: Yes Plan: will check viral load (3) Hypothyroidism Qualifiers: Hypothyroidism type: unspecified Qualified Code(s): E03.9 - Hypothyroidism, unspecified Is this a current diagnosis for this admission?: Yes Plan: check TSH CORTISOL testosterone (4) Influenza A Is this a current diagnosis for this admission?: Yes Plan: Tamiflu (5) Morbid obesity with BMI of 50.0-59.9, adult Is this a current diagnosis for this admission?: Yes Plan: he had gastric bypass surgery apparently this is breaking down can review this when patient is more stable (6) Obstructive sleep apnea Is this a current diagnosis for this admission?: Yes Plan: CPAP+ 13 cm (7) Acute respiratory failure Is this a current diagnosis for this admission?: Yes Plan: with stridor increase work of breathing - Time Total Critical Time (Minutes): 40
--- NOTE | 2018-05-12 15:49 | PDOC PROGRESS REPORT ---
Subjective Progress Note for:: 05/02/18 Subjective:: intubated and sedated Reason For Visit: INFLUENZA A, HIV, SIRS Physical Exam Vital Signs: Temp Pulse Resp BP Pulse Ox 98.1 F 91 16 109/66 94 05/02/18 08:00 05/02/18 08:00 05/02/18 08:00 05/02/18 08:00 05/02/18 08:00 Intake & Output 05/01/18 05/02/18 05/03/18 06:59 06:59 06:59 Intake Total 2913.875 3865 68 Output Total 6325 99219 175 Balance -3411.125 -9174 -107 Weight 164.5 kg 164.8 kg General appearance: PRESENT: no acute distress, disheveled, morbidly obese. ABSENT: cooperative Head exam: PRESENT: atraumatic, normocephalic Eye exam: PRESENT: conjunctiva pale. ABSENT: nystagmus, periorbital swelling Mouth exam: PRESENT: dry mucosa, neck supple, tongue midline, other - ET tube Neck exam: ABSENT: carotid bruit, full ROM, JVD, lymphadenopathy, meningismus, tenderness, thyromegaly, tracheal deviation, tracheostomy, other Respiratory exam: PRESENT: decreased breath sounds, prolonged expiratory phas, rhonchi, unlabored, wheezes. ABSENT: crackles, rales, retraction, stridor, tachypnea Cardiovascular exam: PRESENT: RRR, +S1, +S2 Pulses: PRESENT: normal radial pulses GI/Abdominal exam: PRESENT: soft. ABSENT: tenderness Gentrourinary exam: PRESENT: indwelling catheter Extremities exam: PRESENT: +2 edema. ABSENT: calf tenderness, clubbing, joint swelling, pedal edema Musculoskeletal exam: ABSENT: deformity, dislocation Neurological exam: PRESENT: awake Psychiatric exam: PRESENT: flat affect Skin exam: PRESENT: dry, warm Results Laboratory Results: 05/02/18 03:50 05/02/18 03:50 05/01/18 05/02/18 05/02/18 14:14 03:50 03:50 WBC 30.9 H* 31.3 H* RBC 4.23 L 4.00 L Hgb 13.2 L 12.4 L Hct 37.8 L 35.4 L MCV 89 89 MCH 31.2 31.0 MCHC 34.9 35.0 RDW 16.0 H 15.8 H Plt Count 315 308 Seg Neutrophils % Not Reportable Not Reportable Lymphocytes % Not Reportable Not Reportable Monocytes % Not Reportable Not Reportable Eosinophils % Not Reportable Not Reportable Basophils % Not Reportable Not Reportable Absolute Neutrophils Not Reportable Not Reportable Absolute Lymphocytes Not Reportable Not Reportable Absolute Monocytes Not Reportable Not Reportable Absolute Eosinophils Not Reportable Not Reportable Absolute Basophils Not Reportable Not Reportable Carbonic Acid HCO3/H2CO3 Ratio ABG pH ABG pCO2 ABG pO2 ABG HCO3 ABG O2 Saturation ABG Base Excess FiO2 Sodium 131.7 L Potassium 4.3 Chloride 97 L Carbon Dioxide 23 Anion Gap 12 BUN 29 H Creatinine 0.59 Est GFR ( Amer) > 60 Est GFR (Non-Af Amer) > 60 Glucose 190 H Calcium 9.2 Magnesium 2.0 Total Bilirubin 0.8 AST 43 ALT 68 Alkaline Phosphatase 47 Total Protein 5.8 L Albumin 3.3 L Prealbumin 61.0 H 05/02/18 03:58 WBC RBC Hgb Hct MCV MCH MCHC RDW Plt Count Seg Neutrophils % Lymphocytes % Monocytes % Eosinophils % Basophils % Absolute Neutrophils Absolute Lymphocytes Absolute Monocytes Absolute Eosinophils Absolute Basophils Carbonic Acid 1.25 HCO3/H2CO3 Ratio 22:1 ABG pH 7.44 ABG pCO2 41.5 ABG pO2 105.6 H ABG HCO3 27.7 H ABG O2 Saturation 98.0 ABG Base Excess 3.3 FiO2 45% Sodium Potassium Chloride Carbon Dioxide Anion Gap BUN Creatinine Est GFR ( Amer) Est GFR (Non-Af Amer) Glucose Calcium Magnesium Total Bilirubin AST ALT Alkaline Phosphatase Total Protein Albumin Prealbumin 04/24/18 04/25/18 05/02/18 03:53 04:05 03:50 NT-Pro-B Natriuret Pep 128 H 311 H 114 Impressions: Soft Tissue Neck CT 04/23/18 00:00 IMPRESSION: 1. No evidence of retropharyngeal abscess. The retropharyngeal and parapharyngeal spaces are preserved. No CT abnormality of the neck. 2. Partial opacification of the ethmoid air cells and bilateral maxillary sinus mucosal thickening, nonspecific in the setting of endotracheal intubation. KUB X-Ray 05/01/18 09:50 IMPRESSION: Limited, partial radiographs of the abdomen are submitted for review. There is diffusely distended colon, transverse colon measuring up to 11.7 cm, with gas present to the rectum. No free air on images submitted for review. Chest X-Ray 05/02/18 06:00 IMPRESSION: STABLE APPEARANCE OF THE CHEST. SUPPORT DEVICES UNCHANGED. Assessment & Plan - Diagnosis (1) Fever Qualifiers: Fever type: unspecified Qualified Code(s): R50.9 - Fever, unspecified Is this a current diagnosis for this admission?: Yes Plan: Stable (2) HIV (human immunodeficiency virus infection) Qualifiers: HIV symptom status: asymptomatic Qualified Code(s): Z21 - Asymptomatic human immunodeficiency virus [HIV] infection status Is this a current diagnosis for this admission?: Yes Plan: will check viral load (3) Hypothyroidism Qualifiers: Hypothyroidism type: unspecified Qualified Code(s): E03.9 - Hypothyroidism, unspecified Is this a current diagnosis for this admission?: Yes Plan: check TSH CORTISOL testosterone (4) Influenza A Is this a current diagnosis for this admission?: Yes Plan: Tamiflu (5) Morbid obesity with BMI of 50.0-59.9, adult Is this a current diagnosis for this admission?: Yes Plan: he had gastric bypass surgery apparently this is breaking down can review this when patient is more stable (6) Obstructive sleep apnea Is this a current diagnosis for this admission?: Yes Plan: CPAP+ 13 cm (7) Acute respiratory failure Is this a current diagnosis for this admission?: Yes Plan: Respiratory rate, minute ventilation, O2, airway pressures all suggest suc cessful extubation will proceed with extubation - Time Total Critical Time (Minutes): 55
--- NOTE | 2018-05-12 15:51 | PDOC PROGRESS REPORT ---
Subjective Progress Note for:: 05/03/18 Subjective:: 24h s/p extubation Reason For Visit: INFLUENZA A, HIV, SIRS Physical Exam Vital Signs: Temp Pulse Resp BP Pulse Ox 98.2 F 95 24 H 137/86 H 97 05/03/18 10:00 05/03/18 10:00 05/03/18 10:00 05/03/18 10:00 05/03/18 10:00 Intake & Output 05/02/18 05/03/18 05/04/18 06:59 06:59 06:59 Intake Total 3865 1950 Output Total 65906 2530 255 Balance -9174 -580 -255 Weight 164.8 kg 164.5 kg General appearance: PRESENT: no acute distress, cooperative, disheveled, morbidly obese Head exam: PRESENT: atraumatic, normocephalic Eye exam: PRESENT: conjunctiva pale, EOMI. ABSENT: nystagmus, periorbital swelling Mouth exam: PRESENT: dry mucosa, neck supple, tongue midline Neck exam: ABSENT: carotid bruit, full ROM, JVD, lymphadenopathy, meningismus, tenderness, thyromegaly, tracheal deviation, tracheostomy, other Respiratory exam: PRESENT: decreased breath sounds, prolonged expiratory phas, rhonchi, unlabored. ABSENT: retraction, tachypnea Cardiovascular exam: PRESENT: RRR, +S1, +S2 Pulses: PRESENT: normal radial pulses GI/Abdominal exam: PRESENT: soft. ABSENT: tenderness Gentrourinary exam: PRESENT: indwelling catheter Extremities exam: PRESENT: +2 edema. ABSENT: calf tenderness, clubbing, joint swelling Musculoskeletal exam: ABSENT: deformity, dislocation Neurological exam: PRESENT: alert, awake Psychiatric exam: PRESENT: flat affect Skin exam: PRESENT: dry, warm Results Laboratory Results: 05/03/18 10:08 05/03/18 10:08 05/03/18 05/03/18 05/03/18 05:15 10:08 10:08 WBC 24.7 H RBC 4.22 L Hgb 12.5 L Hct 37.5 L MCV 89 MCH 29.7 MCHC 33.4 RDW 15.6 H Plt Count 286 Seg Neutrophils % Not Reportable Lymphocytes % Not Reportable Monocytes % Not Reportable Eosinophils % Not Reportable Basophils % Not Reportable Absolute Neutrophils Not Reportable Absolute Lymphocytes Not Reportable Absolute Monocytes Not Reportable Absolute Eosinophils Not Reportable Absolute Basophils Not Reportable Carbonic Acid 1.45 H HCO3/H2CO3 Ratio 19:1 ABG pH 7.38 ABG pCO2 48.2 H ABG pO2 102.4 H ABG HCO3 27.7 H ABG O2 Saturation 97.5 ABG Base Excess 1.8 FiO2 2L Sodium 134.1 L Potassium 3.7 Chloride 99 Carbon Dioxide 28 Anion Gap 7 BUN 28 H Creatinine 0.60 Est GFR ( Amer) > 60 Est GFR (Non-Af Amer) > 60 Glucose 107 Calcium 8.8 Magnesium 2.0 Total Bilirubin 1.0 AST 94 H ALT 151 H Alkaline Phosphatase 48 Total Protein 5.5 L Albumin 3.2 L 04/24/18 04/25/18 05/02/18 03:53 04:05 03:50 NT-Pro-B Natriuret Pep 128 H 311 H 114 Impressions: Soft Tissue Neck CT 04/23/18 00:00 IMPRESSION: 1. No evidence of retropharyngeal abscess. The retropharyngeal and parapharyngeal spaces are preserved. No CT abnormality of the neck. 2. Partial opacification of the ethmoid air cells and bilateral maxillary sinus mucosal thickening, nonspecific in the setting of endotracheal intubation. KUB X-Ray 05/01/18 09:50 IMPRESSION: Limited, partial radiographs of the abdomen are submitted for review. There is diffusely distended colon, transverse colon measuring up to 11.7 cm, with gas present to the rectum. No free air on images submitted for review. Chest X-Ray 05/03/18 06:00 IMPRESSION: Extubation and removal of the enteric tube. Stable cardiomegaly. copyright 2010 [employer]- All Rights Reserved Assessment & Plan - Diagnosis (1) Fever Qualifiers: Fever type: unspecified Qualified Code(s): R50.9 - Fever, unspecified Is this a current diagnosis for this admission?: Yes Plan: Stable (2) HIV (human immunodeficiency virus infection) Qualifiers: HIV symptom status: asymptomatic Qualified Code(s): Z21 - Asymptomatic human immunodeficiency virus [HIV] infection status Is this a current diagnosis for this admission?: Yes Plan: will check viral load (3) Hypothyroidism Qualifiers: Hypothyroidism type: unspecified Qualified Code(s): E03.9 - Hypothyroidism, unspecified Is this a current diagnosis for this admission?: Yes Plan: check TSH CORTISOL testosterone (4) Influenza A Is this a current diagnosis for this admission?: Yes Plan: Tamiflu (5) Morbid obesity with BMI of 50.0-59.9, adult Is this a current diagnosis for this admission?: Yes Plan: he had gastric bypass surgery apparently this is breaking down can review this when patient is more stable (6) Obstructive sleep apnea Is this a current diagnosis for this admission?: Yes Plan: CPAP+ 13 cm (7) Acute respiratory failure Is this a current diagnosis for this admission?: Yes Plan: 24 hours status post extubation - Time Total Critical Time (Minutes): 45
--- NOTE | 2018-05-12 15:54 | PDOC PROGRESS REPORT ---
Subjective Progress Note for:: 05/04/18 Subjective:: s/p extubation Reason For Visit: INFLUENZA A, HIV, SIRS Physical Exam Vital Signs: Temp Pulse Resp BP Pulse Ox 98.1 F 98 19 134/98 H 94 05/04/18 11:07 05/04/18 10:00 05/04/18 11:07 05/04/18 11:07 05/04/18 11:07 Intake & Output 05/03/18 05/04/18 05/05/18 06:59 06:59 06:59 Intake Total 2100 2148 Output Total 2530 1920 290 Balance -430 228 -290 Weight 164.5 kg 163.5 kg General appearance: PRESENT: no acute distress, cooperative, disheveled, morbidly obese Head exam: PRESENT: atraumatic, normocephalic Eye exam: PRESENT: conjunctiva pale, EOMI. ABSENT: periorbital swelling, scleral icterus Mouth exam: PRESENT: dry mucosa, neck supple, tongue midline Neck exam: ABSENT: carotid bruit, full ROM, JVD, lymphadenopathy, meningismus, tenderness, thyromegaly, tracheal deviation, tracheostomy, other Respiratory exam: PRESENT: decreased breath sounds, prolonged expiratory phas, r honchi, unlabored, wheezes Cardiovascular exam: PRESENT: RRR, +S1, +S2 Pulses: PRESENT: normal radial pulses GI/Abdominal exam: PRESENT: soft. ABSENT: tenderness Gentrourinary exam: PRESENT: indwelling catheter Extremities exam: PRESENT: +2 edema. ABSENT: calf tenderness, clubbing, joint swelling, pedal edema Musculoskeletal exam: ABSENT: deformity, dislocation Neurological exam: PRESENT: awake Psychiatric exam: PRESENT: appropriate affect Skin exam: PRESENT: dry, warm Results Laboratory Results: 05/04/18 03:34 05/04/18 03:34 05/04/18 05/04/18 03:34 03:34 WBC 20.9 H RBC 4.08 L Hgb 12.3 L Hct 36.5 L MCV 89 MCH 30.1 MCHC 33.7 RDW 15.7 H Plt Count 255 Seg Neutrophils % Not Reportable Lymphocytes % Not Reportable Monocytes % Not Reportable Eosinophils % Not Reportable Basophils % Not Reportable Absolute Neutrophils Not Reportable Absolute Lymphocytes Not Reportable Absolute Monocytes Not Reportable Absolute Eosinophils Not Reportable Absolute Basophils Not Reportable Sodium 131.8 L Potassium 4.2 Chloride 98 Carbon Dioxide 27 Anion Gap 7 BUN 25 H Creatinine 0.62 Est GFR ( Amer) > 60 Est GFR (Non-Af Amer) > 60 Glucose 192 H Calcium 8.9 Magnesium 2.1 Total Bilirubin 1.0 AST 107 H ALT 231 H Alkaline Phosphatase 49 Total Protein 5.8 L Albumin 3.2 L 04/24/18 04/25/18 05/02/18 03:53 04:05 03:50 NT-Pro-B Natriuret Pep 128 H 311 H 114 Impressions: Soft Tissue Neck CT 04/23/18 00:00 IMPRESSION: 1. No evidence of retropharyngeal abscess. The retropharyngeal and parapharyngeal spaces are preserved. No CT abnormality of the neck. 2. Partial opacification of the ethmoid air cells and bilateral maxillary sinus mucosal thickening, nonspecific in the setting of endotracheal intubation. KUB X-Ray 05/01/18 09:50 IMPRESSION: Limited, partial radiographs of the abdomen are submitted for review. There is diffusely distended colon, transverse colon measuring up to 11.7 cm, with gas present to the rectum. No free air on images submitted for review. Chest X-Ray 05/03/18 06:00 IMPRESSION: Extubation and removal of the enteric tube. Stable cardiomegaly. copyright 2010 [employer]- All Rights Reserved Assessment & Plan - Diagnosis (1) Fever Qualifiers: Fever type: unspecified Qualified Code(s): R50.9 - Fever, unspecified Is this a current diagnosis for this admission?: Yes Plan: Stable (2) HIV (human immunodeficiency virus infection) Qualifiers: HIV symptom status: asymptomatic Qualified Code(s): Z21 - Asymptomatic human immunodeficiency virus [HIV] infection status Is this a current diagnosis for this admission?: Yes Plan: will check viral load (3) Hypothyroidism Qualifiers: Hypothyroidism type: unspecified Qualified Code(s): E03.9 - Hypothyroidism, unspecified Is this a current diagnosis for this admission?: Yes Plan: check TSH CORTISOL testosterone (4) Influenza A Is this a current diagnosis for this admission?: Yes Plan: Tamiflu (5) Morbid obesity with BMI of 50.0-59.9, adult Is this a current diagnosis for this admission?: Yes Plan: he had gastric bypass surgery apparently this is breaking down can review this when patient is more stable (6) Obstructive sleep apnea Is this a current diagnosis for this admission?: Yes Plan: CPAP+ 13 cm (7) Acute respiratory failure Is this a current diagnosis for this admission?: Yes Plan: 24 hours status post extubation - Time Total Critical Time (Minutes): 40
--- NOTE | 2018-05-19 14:04 | Physician Advisory Note ---
Physician Advisor ProgressNote .: Pursuant to the plan for Alexy [facility], I have reviewed the medical record for this patient. Physician Advisor Statement: Pt came in w/fevers, prominent tachycardia & tachypnea, and then hypotension (w/MAP <70, responded to IVF initially, but recurred, & subsequently was tx'd in ICU with Jaxon-Synephrine drip from 3/14 PM until 04/25 mid-day). Initial lactate level 2.4, TBili 2.0 initially (back up to 2.0 by d/c - ?reason), Ac Resp Failure developing in 1st 24 hrs. Plts & Cr remained WNL. No AMS. - Initial H&P states pt had "SIRS due to influenza A". - PN 04/29 states pt had "sepsis, POA, due to influenza A pneumonia with possible bacterial component (staph & strep)", & indicates the hyperbili & AcRespF were due to sepsis. - Consult note 05/08 (& possibly another note/-s) state pt had "acute bronchitis" this adm. - DCS does not mention either SIRS or sepsis, or pneumonia or acute bronchitis. Please clarify in DCS which of the following dx.s were present vs ruled out: 1. A. "severe sepsis with septic shock requiring pressor tx, due to influenza A", or B. "sepsis due to influenza A" [if so, was the hypotension due to sepsis, or not?], or C. "SIRS due to influenza A, but not sepsis", or ... - If sepsis &/or shock (+), please document which acute organ dysfunctions were due to this (hypotension? Ac Resp Failure? hyperbili? ...). - If sepsis was not present, but shock was, please document what type of shock. - AND - 2. A. "acute bronchitis", or B. "influenza pneumonia with possible staph/strep pneumonia superinfection pneumonia" [& clarify evidence for pneumonia dx despite clear CXR], or ... Thanks! CK
== END 2018-05-12 11:35 | DRG 870 ==
LOC: ER 08:00 → EH 12:36 → 4N 16:39 → OBSVTOIN 04-23 10:01 → 3S 04-23 13:37 → ICU 04-23 14:31 → 3S 05-04 14:40
PROVIDERS: ADMIT Internal Medicine; ATTEND Internal Medicine
PROC: 5A1955Z Respiratory Ventilation, Greater than 96 Consecutive Hours (ICD-10-PCS; principal; 2018-04-23)
PROC: 0BH17EZ Insertion of Endotracheal Airway into Trachea, Via Natural or Artificial Opening (ICD-10-PCS; 2018-04-23)
DX: A41.89 Other specified sepsis (principal); J96.01 Acute respiratory failure with hypoxia; J96.02 Acute respiratory failure with hypercapnia; Z68.43 Body mass index [BMI] 50.0-59.9, adult; K56.7 Ileus, unspecified; R65.20 Severe sepsis without septic shock; J10.1 Influenza due to other identified influenza virus with other respiratory manifestations; Z21 Asymptomatic human immunodeficiency virus [HIV] infection status; J20.9 Acute bronchitis, unspecified; E03.9 Hypothyroidism, unspecified; G47.33 Obstructive sleep apnea (adult) (pediatric); T38.0X5A Adverse effect of glucocorticoids and synthetic analogues, initial encounter; E66.01 Morbid (severe) obesity due to excess calories; Z79.899 Other long term (current) drug therapy; I10 Essential (primary) hypertension; K21.9 Gastro-esophageal reflux disease without esophagitis; M19.90 Unspecified osteoarthritis, unspecified site; F43.10 Post-traumatic stress disorder, unspecified; J32.9 Chronic sinusitis, unspecified; E11.65 Type 2 diabetes mellitus with hyperglycemia; K29.70 Gastritis, unspecified, without bleeding; Z79.84 Long term (current) use of oral hypoglycemic drugs; Z98.84 Bariatric surgery status
CPT/HCPCS: 31500; 36415; 36600; 70491; 71045; 71046; 74018; 80048; 80053; 80061; 80202; 81001; 82271; 82533; 82803; 82962; 83036; 83605; 83735; 83880; 84100; 84134; 84443; 84478; 85025; 85027; 85610; 86360; 87040; 87070; 87086; 87205; 87804; 93005; 93010; 93306; 94002; 94003; 94640; 94660; 94799; 96361; 96365; 96367; 96372; 99285; B4155; G0378; J0330; J0456; J0692; J0696; J1650; J1815; J1940; J1956; J2060; J2250; J2270; J2370; J2405; J2704; J2765; J2920; J2930; J3370; J3490; J7030; J7060; J7512; J7620; S0164

== ENCOUNTER → 2018-06-03 | Outpatient (CLI) | payer OTHER | LOC: OD 09:43 | PROVIDERS: ATTEND Otolaryngology | DX: J30.9 Allergic rhinitis, unspecified (principal) | CPT/HCPCS: 36415; 82785; 86003 ==

== ENCOUNTER → 2018-06-07 | Outpatient (CLI) | payer OTHER ==
--- NOTE | 2018-06-08 14:43 | RADIOLOGY REPORT (SQ) ---
EXAM DESCRIPTION: CT FACIAL AREA WITHOUT COMPLETED DATE/TIME: 06/07/2018 11:12 am REASON FOR STUDY: CHRONIC SINUSITIS J32.8 J32.9 CHRONIC SINUSITIS, UNSPECIFIED COMPARISON: 02/20/2018. TECHNIQUE: Noncontrast scanning through the paranasal sinuses using bone algorithm. Reconstructed MPR images reviewed. All images stored on PACS. All CT scanners at this facility use dose modulation, iterative reconstruction, and/or weight based d osing when appropriate to reduce radiation dose to as low as reasonably achievable (ALARA). [facility]: Dose Right [facility]: CareDose [facility]: Dose Right [facility]: Teradose 4D [facility]: [employer] RADIATION DOSE: CT Rad equipment meets quality standard of care and radiation dose reduction techniq ues were employed. CTDIvol: 46.0 mGy. DLP: 1157 mGy-cm.mGy. LIMITATIONS: None. FINDINGS: SINUSES: Improved appearance. Sinuses are now clear. No masses, mucosal thickening or fl uid. No erosions. No mucoceles. No mucoperiosteal thickening. No anatomic variant of agger nasi cell s, John cells, or sphenoethmoidal air cells. NASAL CAVITY: Nasal septum deviated to the right with a small right-sided nasal septal spur. No nasal polyps. BONES: Normal mineralization. No fracture or bone lesion. ORBITS: Intact, symmetric globes. No retroorbital mass. TMJS: Normal. MASTOIDS: Clear. IACs symmetric, grossly normal. INFERIOR BRAIN: Limited view. No acute findings. OTHER: No other significant finding. IMPRESSION: 1. MARKEDLY IMPROVED APPEARANCE. PARANASAL SINUSES ARE NOW CLEAR. 2. MILD DEVIATION OF THE NASAL SEPTUM TO THE RIGHT WITH A SMALL RIGHT-SIDED NASAL SEPTAL SPUR. TECHNICAL DOCUMENTATION: JOB ID: [id number] Quality ID # [id number]: Final reports with documentation of one or more dose reduction techniques (e.g., Au tomated exposure control, adjustment of the mA and/or kV according to patient size, use of iterative reconstruction technique) 2010 [employer]- All Rights Reserved Reading location - IP/workstation name: [email or web address]
== END ==
LOC: RAD 10:32
PROVIDERS: ATTEND Otolaryngology
DX: J32.8 Other chronic sinusitis (principal)
CPT/HCPCS: 70486

== ENCOUNTER 2018-11-07 17:26 | Emergency (ER) | payer OTHER ==
[2018-11-07 17:44] VITALS: BP 137/83
[2018-11-07] MEDS ORDERED: NORMAL SALINE 1000 ML 1,000 ML IV ONE (18:00)
[2018-11-07] MEDS ORDERED: ONDANSETRON HCL INJ/PF 4 MG/2 ML SDV IV ONE (18:00)
--- NOTE | 2018-11-07 18:02 | ER Document Report ---
ED Medical Screen (RME) - General Chief Complaint: Abdominal Pain Stated Complaint: GASTRIC Time Seen by Provider: 11/07/18 17:55 Primary Care Provider: ROSMERY ORO MD [Primary Care Provider] - Follow up as needed Notes: Patient is a 43-year-old male who presents emergency department with a chief complaint of abdominal pain. He has had his abdominal pain the past 2 weeks. States that the pain is everywhere in his abdomen. Also states that he has had some nausea, vomiting, and dry heaving for the past week. Patient also has history of a gastric ulcer. He had a Niesen in 2002. Exam: Soft tender generalized abdomen. Exam limited due to obesity and patient in sitting position. I have greeted and performed a rapid initial assessment of this patient. A comprehensive ED assessment and evaluation of the patient, analysis of test results and completion of medical decision making process will be conducted by an additional ED providers. TRAVEL OUTSIDE OF THE [place] IN LAST 30 DAYS: No - Related Data Allergies/Adverse Reactions: seasonal Allergy (Severe, Uncoded 04/22/18 08:01) Rhinitis Past Medical History - Social History Frequency of alcohol use: None Drug Abuse: None - Past Medical History Cardiac Medical History: Reports: Hx Hypertension Denies: Hx Coronary Artery Disease, Hx Heart Attack Pulmonary Medical History: Reports: Hx Bronchitis, Hx Sleep Apnea Denies: Hx Asthma, Hx COPD, Hx Pneumonia Neurological Medical History: Denies: Hx Cerebrovascular Accident, Hx Seizures Endocrine Medical History: Reports: Hx Hypothyroidism. Denies: Hx Diabetes Mellitus Type 1, Hx Diabetes Mellitus Type 2, Hx Hyperthyroidism Renal/ Medical History: Denies: Hx Peritoneal Dialysis GI Medical History: Reports: Hx Gastroesophageal Reflux Disease, Hx Hiatal Hernia. Denies: Hx Cirrhosis, Hx Crohn's Disease, Hx Hepatitis, Hx Ulcerative Colitis Musculoskeltal Medical History: Reports Hx Arthritis, Denies Hx Gout Skin Medical History: Denies Hx Eczema, Denies Hx Psoriasis Psychiatric Medical History: Reports: Hx Post Traumatic Stress Disorder Infectious Medical History: Reports: Hx HIV. Denies: Hx Hepatitis Past Surgical History: Reports: Hx Abdominal Surgery - Brice, Other - Brice fundoplication - Immunizations Hx Diphtheria, Pertussis, Tetanus Vaccination: Yes Physical Exam - Vital signs Vitals: Temp Pulse Resp BP Pulse Ox 98.4 F 93 32 H 137/83 H 95 11/07/18 17:43 11/07/18 17:43 11/07/18 17:43 11/07/18 17:43 11/07/18 17:43 Course - Vital Signs Vital signs: Temp Pulse Resp BP Pulse Ox 98.4 F 93 32 H 137/83 H 95 11/07/18 17:43 11/07/18 17:43 11/07/18 17:43 11/07/18 17:43 11/07/18 17:43 Doctor's Discharge - Discharge Referrals: ROSMERY ORO MD [Primary Care Provider] - Follow up as needed
[2018-11-07 19:50] LABS: ABSOLUTE BASOPHILS # (AUTO) 0.1 10^3/uL (0.0-0.2); ABSOLUTE EOSINOPHILS # (AUTO) 0.1 10^3/uL (0.0-0.6); ABSOLUTE LYMPHOCYTES (AUTO) 2.6 10^3/uL (0.5-4.7); ABSOLUTE MONOCYTES (AUTO) 0.8 10^3/uL (0.1-1.4); ABSOLUTE NEUT (AUTO) 5.7 10^3/uL (1.7-8.2); BASOPHILS % (AUTO) 0.7 % (0-2); EOSINOPHILS % (AUTO) 0.7 % (0-6); HEMATOCRIT 40.6 % (37.9-51.0); HEMOGLOBIN 13.8 g/dL (13.5-17.0); LYMPHOCYTES % (AUTO) 28.3 % (13-45); MEAN CORPUSCULAR HEMOGLOBIN 30.6 pg (27.0-33.4); MEAN CORPUSCULAR VOLUME 90 fl (80-97); MONOCYTES % (AUTO) 8.3 % (3-13); PLATELET COUNT 258 10^3/uL (150-450); RED BLOOD COUNT 4.52 10^6/uL (4.35-5.55); RED CELL DISTRIBUTION WIDTH 14.5 % (11.5-14.0); TOTAL CELLS COUNTED % (AUTO) 100 %; WHITE BLOOD COUNT 9.3 10^3/uL (4.0-10.5)
[2018-11-07] MEDS ORDERED: PANTOPRAZOLE SODIUM 40 MG VIAL IV ONE (20:11)
[2018-11-07] MEDS ORDERED: MORPHINE SULFATE 10 MG/ML INJ IV ONE (20:11)
[2018-11-07 20:14] LABS: ALKALINE PHOSPHATASE 66 U/L (38-126); ANION GAP 7 (5-19); ASPARTATE AMINO TRANSFERASE 84 U/L (17-59); BILIRUBIN,DIRECT 0.5 mg/dL (0.0-0.4); BILIRUBIN,TOTAL 3.5 mg/dL (0.2-1.3); BLOOD UREA NITROGEN 7 mg/dL (7-20); CALCIUM 9.7 mg/dL (8.4-10.2); CARBON DIOXIDE 31 mmol/L (22-30); CHLORIDE 103 mmol/L (98-107); GLUCOSE 92 mg/dL (75-110); POTASSIUM 3.8 mmol/L (3.6-5.0); TOTAL PROTEIN 6.3 g/dL (6.3-8.2)
--- NOTE | 2018-11-07 20:27 | ER Document Report ---
ED General - General Chief Complaint: Abdominal Pain Stated Complaint: GASTRIC Time Seen by Provider: 11/07/18 17:55 Primary Care Provider: ROSMERY ORO MD [Primary Care Provider] - Follow up as needed TRAVEL OUTSIDE OF THE [place] IN LAST 30 DAYS: No - HPI Notes: This is a 43-year-old gentleman who presents today with a complaint of upper abdominal pain for the past 2 weeks. Patient describes pain mostly in his upper abdomen even though he states sometimes has some left lower quadrant discomfort also. Patient thinks that this is from his gastric ulcer. He has had a history of Keren fundoplication done. Associated symptoms include nausea, vomiting, diarrhea. He denies any fever or chills. He denies any chest pain. He denies any trauma. He describes his symptoms as moderate. Pain is sometimes worse with food. - Related Data Allergies/Adverse Reactions: seasonal Allergy (Severe, Uncoded 04/22/18 08:01) Rhinitis Past Medical History - Social History Smoking Status: Never Smoker Frequency of alcohol use: None Drug Abuse: None Family History: DM. denies: CAD, Hypertension, Malignancy Patient has suicidal ideation: No Patient has homicidal ideation: No - Past Medical History Cardiac Medical History: Reports: Hx Hypertension Denies: Hx Coronary Artery Disease, Hx Heart Attack Pulmonary Medical History: Reports: Hx Bronchitis, Hx Sleep Apnea Denies: Hx Asthma, Hx COPD, Hx Pneumonia Neurological Medical History: Denies: Hx Cerebrovascular Accident, Hx Seizures Endocrine Medical History: Reports: Hx Hypothyroidism. Denies: Hx Diabetes Mellitus Type 1, Hx Diabetes Mellitus Type 2, Hx Hyperthyroidism Renal/ Medical History: Denies: Hx Peritoneal Dialysis GI Medical History: Reports: Hx Gastroesophageal Reflux Disease, Hx Hiatal Hernia. Denies: Hx Cirrhosis, Hx Crohn's Disease, Hx Hepatitis, Hx Ulcerative Colitis Musculoskeletal Medical History: Reports Hx Arthritis, Denies Hx Gout Skin Medical History: Denies Hx Eczema, Denies Hx Psoriasis Psychiatric Medical History: Reports: Hx Post Traumatic Stress Disorder Infectious Medical History: Reports: Hx HIV. Denies: Hx Hepatitis Past Surgical History: Reports: Hx Abdominal Surgery - Brice, Other - Brice fundoplication - Immunizations Hx Diphtheria, Pertussis, Tetanus Vaccination: Yes Review of Systems - Review of Systems Constitutional: denies: Chills, Fever Respiratory: denies: Cough Gastrointestinal: Abdominal pain, Diarrhea, Nausea, Vomiting. denies: Constipation -: Yes All other systems reviewed and negative Physical Exam - Vital signs Vitals: Temp Pulse Resp BP Pulse Ox 98.4 F 93 32 H 137/83 H 95 11/07/18 17:43 11/07/18 17:43 11/07/18 17:43 11/07/18 17:43 11/07/18 17:43 - General General appearance: Appears well, Alert - HEENT Head: Normocephalic, Atraumatic Eyes: Normal Pupils: PERRL - Respiratory Respiratory status: No respiratory distress Chest status: Nontender Breath sounds: Normal Chest palpation: Normal - Cardiovascular Rhythm: Regular Heart sounds: Normal auscultation Murmur: No - Abdominal Inspection: Normal Distension: No distension Bowel sounds: Normal Tenderness: Tender - There is generalized tenderness, mostly in the epigastric, left upper quadrant right upper quadrant. There is slight tenderness in left lower quadrant. No tenderness in the right lower quadrant. No guarding or rebound. No peritoneal signs. Organomegaly: No organomegaly - Back Back: Normal, Nontender - Neurological Neuro grossly intact: Yes Cognition: Normal Orientation: AAOx4 Xin Coma Scale Eye Opening: Spontaneous Xin Coma Scale Verbal: Oriented Dexter Coma Scale Motor: Obeys Commands Xin Coma Scale Total: 15 Speech: Normal Motor strength normal: LUE, RUE, LLE, RLE Sensory: Normal - Psychological Associated symptoms: Normal affect, Normal mood - Skin Skin Temperature: Warm Skin Moisture: Dry Skin Color: Normal Course - Re-evaluation Re-evalutation: 11/07/18 20:26 Differential diagnosis includes gastritis versus pancreatitis versus nonspecific abdominal pain versus less likely diverticulitis versus gallbladder disease versus gastroenteritis. Given diffuse pain, will get a CT scan. Will check basic labs. 11/07/18 22:26 Patient reevaluated. Patient is doing well. Feels much better. Labs and CT reviewed and discussed. Patient is already taking the PPI and antihistamine. He is stable for discharge. Discharge instructions given to patient. - Vital Signs Vital signs: Temp Pulse Resp BP Pulse Ox 98.4 F 93 32 H 137/83 H 95 11/07/18 17:43 11/07/18 17:43 11/07/18 17:43 11/07/18 17:43 11/07/18 17:43 - Laboratory Result Diagrams: 11/07/18 19:35 11/07/18 19:35 Laboratory results interpreted by me: 11/07/18 11/07/18 19:35 19:35 RDW 14.5 H Carbon Dioxide 31 H Total Bilirubin 3.5 H Direct Bilirubin 0.5 H AST 84 H Discharge - Discharge Clinical Impression: Abdominal pain Qualifiers: Abdominal location: unspecified location Qualified Code(s): R10.9 - Unspecified abdominal pain Gastritis Qualifiers: Gastritis type: unspecified gastritis Chronicity: unspecified Gastritis bleeding: without bleeding Qualified Code(s): K29.70 - Gastritis, unspecified, without bleeding Condition: Good Disposition: HOME, SELF-CARE Instructions: Abdominal Pain ([facility]), Gastritis ([facility]) Prescriptions: Ondansetron [Zofran Odt 4 mg Tablet] 1 tab PO Q4H PRN #15 tab.rapdis PRN Reason: For Nausea/Vomiting Referrals: ROSMERY ORO MD [Primary Care Provider] - Follow up as needed
[2018-11-07 21:18] LABS: APPEARANCE,URINE CLEAR; BILIRUBIN,URINE NEGATIVE (NEGATIVE); COLOR,URINE YELLOW; GLUCOSE, URINE NEGATIVE (NEGATIVE); KETONES,URINE NEGATIVE (NEGATIVE); LEUKOCYTE ESTERASE,URINE NEGATIVE (NEGATIVE); NITRITE,URINE NEGATIVE (NEGATIVE); PROTEIN,URINE NEGATIVE (NEGATIVE); UROBILINOGEN,URINE NEGATIVE mg/dL (<2.0)
--- NOTE | 2018-11-07 22:21 | RADIOLOGY REPORT (SQ) ---
EXAM DESCRIPTION: CT ABDOMEN PELVIS WITH IV CONTRAST COMPLETED DATE/TME: 11/07/2018 20:23 CLINICAL HISTORY: 43 years, Male, abdominal pain - diffuse COMPARISON: Abdominal ultrasound performed earlier the same day TECHNIQUE: Contrast enhanced CT of the abdomen/pelvis was performed. Coronal and sagittal reformations were created. Images stored on PACS. All CT scanners at this facility use dose modulation, iterative reconstruction, and/or weight based dosing when appropriate to reduce radiation dose to as low as reasonably achievable (ALARA). [facility]: Dose Right [facility]: CareDose [facility]: Dose Right [facility]: Teradose 4D [facility]: [employer] LIMITATIONS: None. FINDINGS: Limited evaluation of the lower chest reveals bands of opacity about the lingula and left lower lobe, indicating areas of atelectasis and/or scar. The liver is diffusely low in attenuation relative to the spleen. No focal liver lesions are appreciated. The spleen, pancreas, gallbladder, and both adrenal glands appear normal. Both kidneys enhance symmetrically. No hydronephrosis or hydroureter. The urinary bladder is collapsed, thus its evaluation is limited. There is a tiny fat-containing left inguinal hernia. Small and large bowel are normal in caliber. No evidence of bowel obstruction. The appendix is normal. Vascular structures are normal in their noncontrast appearance. No lymphadenopathy or drainable fluid collections are appreciated. Bone windows show no destructive osseous lesions. IMPRESSION: No acute abnormality within the abdomen or pelvis. Suspect hepatic steatosis. TECHNICAL DOCUMENTATION: Quality ID # [id number]: Final reports with documentation of one or more dose reduction techniques (e.g., Automated exposure control, adjustment of the mA and/or kV according to patient size, use of iterative reconstruction technique) copyright 2011 [employer]- All Rights Reserved
== END 2018-11-07 23:00 | disposition home or self-care (01) ==
LOC: ER 17:26
DX: K29.70 Gastritis, unspecified, without bleeding (principal); R10.10 Upper abdominal pain, unspecified; R10.814 Left lower quadrant abdominal tenderness; R11.2 Nausea with vomiting, unspecified; R19.7 Diarrhea, unspecified; I10 Essential (primary) hypertension; E03.9 Hypothyroidism, unspecified; B20 Human immunodeficiency virus [HIV] disease
CPT/HCPCS: 99284; 96361; 96374; 96375; 36415; 83690; 85025; 80053; 81001; 74177; J2270; S0164; J2405; J7030

== ENCOUNTER 2018-11-27 14:05 | Emergency (ER) | payer OTHER ==
--- NOTE | 2018-11-27 15:05 | ER Document Report ---
ED Medical Screen (RME) - General Chief Complaint: Fever Stated Complaint: FEVER Time Seen by Provider: 11/27/18 15:02 Primary Care Provider: ROSMERY ORO MD [Primary Care Provider] - Follow up as needed Mode of Arrival: Ambulatory Information source: Patient Notes: 43-year-old man presented to ED for fever since. He states he is HIV positive for the last time he had a fever like this he ended up intubated. He states [facility] and [facility] told him to come to the emergency room. He states his temperatures been up to 100.6 201 and night takes medicines and it comes down. Patient is alert oriented respirations regular nonlabored speaking in full sentences. His temperature is down at this time. He states he has had nausea vomiting diarrhea all week today he just has nausea but no vomiting has a headache. He states he has been taken [id number] antidiarrheal medicine I have greeted and performed a rapid initial assessment of this patient. A comprehensive ED assessment and evaluation of the patient, analysis of test results and completion of medical decision making process will be conducted by an additional ED providers. TRAVEL OUTSIDE OF THE [place] IN LAST 30 DAYS: No - Related Data Allergies/Adverse Reactions: seasonal Allergy (Severe, Uncoded 04/22/18 08:01) Rhinitis Past Medical History - Past Medical History Cardiac Medical History: Reports: Hx Hypertension Denies: Hx Coronary Artery Disease, Hx Heart Attack Pulmonary Medical History: Reports: Hx Bronchitis, Hx Sleep Apnea Denies: Hx Asthma, Hx COPD, Hx Pneumonia Neurological Medical History: Denies: Hx Cerebrovascular Accident, Hx Seizures Endocrine Medical History: Reports: Hx Hypothyroidism. Denies: Hx Diabetes Mellitus Type 1, Hx Diabetes Mellitus Type 2, Hx Hyperthyroidism Renal/ Medical History: Denies: Hx Peritoneal Dialysis GI Medical History: Reports: Hx Gastroesophageal Reflux Disease, Hx Hiatal Hernia. Denies: Hx Cirrhosis, Hx Crohn's Disease, Hx Hepatitis, Hx Ulcerative Colitis Musculoskeltal Medical History: Reports Hx Arthritis, Denies Hx Gout Skin Medical History: Denies Hx Eczema, Denies Hx Psoriasis Psychiatric Medical History: Reports: Hx Post Traumatic Stress Disorder Infectious Medical History: Reports: Hx HIV. Denies: Hx Hepatitis Past Surgical History: Reports: Hx Abdominal Surgery - Brice, Other - Brice fundoplication - Immunizations Hx Diphtheria, Pertussis, Tetanus Vaccination: Yes Physical Exam - Vital signs Vitals: Temp Pulse Resp BP Pulse Ox 99.3 F 88 18 159/85 H 100 11/27/18 14:56 11/27/18 14:56 11/27/18 14:56 11/27/18 14:56 11/27/18 14:56 Course - Vital Signs Vital signs: Temp Pulse Resp BP Pulse Ox 99.3 F 88 18 159/85 H 100 11/27/18 14:56 11/27/18 14:56 11/27/18 14:56 11/27/18 14:56 11/27/18 14:56 Doctor's Discharge - Discharge Referrals: ROSMERY ORO MD [Primary Care Provider] - Follow up as needed
[2018-11-27] MEDS ORDERED: ONDANSETRON 4 MG TAB.RAPDIS PO ONE (15:06)
[2018-11-27] MEDS ORDERED: ACETAMINOPHEN 325 MG TABLET PO ONE (15:06)
--- NOTE | 2018-11-27 15:29 | RADIOLOGY REPORT (SQ) ---
EXAM DESCRIPTION: CHEST 2 VIEWS COMPLETED DATE/TIME: 11/27/2018 3:20 pm REASON FOR STUDY: fever COMPARISON: 05/05/2018. NUMBER OF VIEWS: Two view. TECHNIQUE: Frontal and lateral radiographic views of the chest acquired. LIMITATIONS: None. FINDINGS: LUNGS AND PLEURA: No opacities, masses or pneumothorax. No pleural effusion. MEDIASTINUM AND HILAR STRUCTURES: No masses. No contour abnormalities. HEART AND VASCULAR STRUCTURES: Heart enlarged without failure. Aorta normal for age. BONES: No acute findings. HARDWARE: None in the chest. OTHER: No other significant finding. IMPRESSION: CARDIAC ENLARGEMENT WITHOUT FAILURE. TECHNICAL DOCUMENTATION: JOB ID: [id number] [email or web address] All Rights Reserved Reading location - IP/workstation name: [email or web address]
[2018-11-27 17:02] LABS: ABSOLUTE EOSINOPHILS # (AUTO) 0.1 10^3/uL (0.0-0.6); ABSOLUTE LYMPHOCYTES (AUTO) 1.9 10^3/uL (0.5-4.7); ABSOLUTE MONOCYTES (AUTO) 0.7 10^3/uL (0.1-1.4); ABSOLUTE NEUT (AUTO) 2.5 10^3/uL (1.7-8.2); BASOPHILS % (AUTO) 0.8 % (0-2); EOSINOPHILS % (AUTO) 1.9 % (0-6); HEMATOCRIT 42.6 % (37.9-51.0); HEMOGLOBIN 14.4 g/dL (13.5-17.0); LYMPHOCYTES % (AUTO) 36.6 % (13-45); MEAN CORPUSCULAR HEMOGLOBIN 29.8 pg (27.0-33.4); MEAN CORPUSCULAR HGB CONC 33.7 g/dL (32.0-36.0); MEAN CORPUSCULAR VOLUME 88 fl (80-97); MONOCYTES % (AUTO) 13.3 % (3-13); PLATELET COUNT 206 10^3/uL (150-450); RED BLOOD COUNT 4.82 10^6/uL (4.35-5.55); RED CELL DISTRIBUTION WIDTH 13.9 % (11.5-14.0); SEGMENTED NEUTROPHILS % (AUTO) 47.4 % (42-78); TOTAL CELLS COUNTED % (AUTO) 100 %; WHITE BLOOD COUNT 5.2 10^3/uL (4.0-10.5)
[2018-11-27 17:17] LABS: APPEARANCE,URINE CLEAR; BILIRUBIN,URINE NEGATIVE (NEGATIVE); COLOR,URINE YELLOW; GLUCOSE, URINE NEGATIVE (NEGATIVE); KETONES,URINE NEGATIVE (NEGATIVE); LEUKOCYTE ESTERASE,URINE NEGATIVE (NEGATIVE); NITRITE,URINE NEGATIVE (NEGATIVE); PROTEIN,URINE NEGATIVE (NEGATIVE); URINE SPECIFIC GRAVITY 1.015; UROBILINOGEN,URINE NEGATIVE mg/dL (<2.0)
[2018-11-27 17:24] LABS: ALKALINE PHOSPHATASE 65 U/L (38-126); ANION GAP 9 (5-19); ASPARTATE AMINO TRANSFERASE 65 U/L (17-59); BILIRUBIN,DIRECT 0.2 mg/dL (0.0-0.4); BILIRUBIN,TOTAL 4.7 mg/dL (0.2-1.3); BLOOD UREA NITROGEN 6 mg/dL (7-20); CALCIUM 9.2 mg/dL (8.4-10.2); CARBON DIOXIDE 26 mmol/L (22-30); CHLORIDE 103 mmol/L (98-107); GLUCOSE 90 mg/dL (75-110); POTASSIUM 3.7 mmol/L (3.6-5.0); TOTAL PROTEIN 6.6 g/dL (6.3-8.2)
[2018-11-27 17:41] LABS: A TYPE INFLUENZA AG NEGATIVE (NEGATIVE); B INFLUENZA AG NEGATIVE (NEGATIVE)
--- NOTE | 2018-11-27 21:43 | ER Document Report ---
ED Fever - General Chief Complaint: Fever Stated Complaint: FEVER Time Seen by Provider: 11/27/18 15:02 Primary Care Provider: ROSMERY ORO MD [ACTIVE STAFF] - Follow up as needed Mode of Arrival: Ambulatory TRAVEL OUTSIDE OF THE [place] IN LAST 30 DAYS: No - HPI Onset: Yesterday Onset/Duration: denies: Sudden, Gradual, Constant, Intermittent, Persistent, Waxing and waning, Better, Worse, Gone Quality of pain: denies: No pain, Achy, Burning, Cramping, Dull, Fullness, Pressure, Sharp, Stabbing, Throbbing, Other Severity: None Context: HIV/AIDS. denies: Cancer, C. diff, Chemotherapy, Congestion, Cough, Decubitus ulcers, Dialysis, Diarrhea, Indwelling bradley, MRSA, Nasal drainage, Nausea/vomiting, Recent pneumonia, Urinary tract infection, Other Associated symptoms: Diarrhea. denies: None, Allergy/hay fever, Body/muscle a ches, Chest pain, Chills, Productive cough, Drooling, Earache, Headache, Hoarseness, Hurts to breath, Leg swelling, Nausea, Rhinnorhea, Sinus pain/drainage, Shortness of breath, Slow to respond, Sore throat, Sweating, Weakness, Other - Related Data Allergies/Adverse Reactions: seasonal Allergy (Severe, Uncoded 04/22/18 08:01) Rhinitis Past Medical History - General Information source: Patient - Social History Smoking Status: Never Smoker Chew tobacco use (# tins/day): No Frequency of alcohol use: None Drug Abuse: None Family History: DM. denies: CAD, Hypertension, Malignancy Patient has suicidal ideation: No Patient has homicidal ideation: No - Medical History Notes: We have HIV with a undetectable viral load and a per patient normal CD4 count - Past Medical History Cardiac Medical History: Reports: Hx Hypertension Denies: Hx Coronary Artery Disease, Hx Heart Attack Pulmonary Medical History: Reports: Hx Bronchitis, Hx Sleep Apnea Denies: Hx Asthma, Hx COPD, Hx Pneumonia Neurological Medical History: Denies: Hx Cerebrovascular Accident, Hx Seizures Endocrine Medical History: Reports: Hx Hypothyroidism. Denies: Hx Diabetes Mellitus Type 1, Hx Diabetes Mellitus Type 2, Hx Hyperthyroidism Renal/ Medical History: Denies: Hx Peritoneal Dialysis GI Medical History: Reports: Hx Gastroesophageal Reflux Disease, Hx Hiatal Hernia. Denies: Hx Cirrhosis, Hx Crohn's Disease, Hx Hepatitis, Hx Ulcerative Colitis Musculoskeletal Medical History: Reports Hx Arthritis, Denies Hx Gout Skin Medical History: Denies Hx Eczema, Denies Hx Psoriasis Psychiatric Medical History: Reports: Hx Post Traumatic Stress Disorder Infectious Medical History: Reports: Hx HIV. Denies: Hx Hepatitis Past Surgical History: Reports: Hx Abdominal Surgery - Brice, Other - Brice fundoplication - Immunizations Hx Diphtheria, Pertussis, Tetanus Vaccination: Yes Review of Systems - Review of Systems Constitutional: Fever. denies: No symptoms reported, See HPI, Chills, Diaphoresis, Malaise, Weakness, Other, Weight gain, Weight loss, Recent illness EENT: denies: No symptoms reported, See HPI, Eye pain, Eye discharge, Blurred vision, Tearing, Double vision, Ear pain, Ear discharge, Nose pain, Nose congestion, Nose discharge, Sinus pressure, Sinus discharge, Throat pain, Difficulty swallowing, Throat swelling, Mouth pain, Mouth swelling, Dental problem, Vertigo, Other Cardiovascular: denies: No symptoms reported, See HPI, Chest pain, Palpitations, Heart racing, Orthopnea, Dyspnea, Syncope, Dizziness, Lightheaded, Edema, Other, Paroxysmal Nocturnal Dysp Respiratory: Cough. denies: No symptoms reported, See HPI, Hurts to breathe, Hemoptysis, Short of breath, Sputum, Stridor, Wheezing, Other Gastrointestinal: Diarrhea, Nausea, Vomiting. denies: No symptoms reported, See HPI, Abdomen distended, Abdominal pain, Constipation, Blood streaked bowels, Poor appetite, Poor fluid intake, Blood in vomit, Black stools, Rectal bleeding, Last bowel movement, Fecal incontinence, Other Genitourinary: denies: No symptoms reported, See HPI, Burning, Dysuria, Discharge, Frequency, Flank pain, Hematuria, Incontinence, Pain, Urgency, Retention, Other Neurological/Psychological: denies: No symptoms reported, See HPI, Confusion, Dementia, Depression, Hallucinations, Anxiety, Homicidal ideation, Sensory change, Weakness, Gait changes, Loss of power, Paralysis, Seizure, Lost consciousness, Headaches, Speech impairment, Numbness, Suicidal ideation, Tingling, Tremor, Other -: Yes All other systems reviewed and negative Physical Exam - Vital signs Vitals: Temp Pulse Resp BP Pulse Ox 99.3 F 88 18 159/85 H 100 11/27/18 14:56 11/27/18 14:56 11/27/18 14:56 11/27/18 14:56 11/27/18 14:56 Notes: PHYSICAL EXAMINATION: GENERAL: Well-appearing, well-nourished and in no acute distress. HEAD: Atraumatic, normocephalic. EYES: Pupils equal round and reactive to light, extraocular movements intact, sclera anicteric, conjunctiva are normal. ENT: nares patent, oropharynx clear without exudates. Moist mucous membranes. NECK: Normal range of motion, supple without lymphadenopathy LUNGS: Breath sounds clear to auscultation bilaterally and equal. No wheezes rales or rhonchi. HEART: Regular rate and rhythm without murmurs ABDOMEN: Soft, nontender, hyperactive bowel sounds. No guarding, no rebound. No masses appreciated. EXTREMITIES: Normal range of motion, no pitting or edema. No cyanosis. NEUROLOGICAL: No focal neurological deficits. Moves all extremities spontaneously and on command. PSYCH: Normal mood, normal affect. SKIN: Warm, Dry, normal turgor, no rashes or lesions noted. Course - Vital Signs Vital signs: Temp Pulse Resp BP Pulse Ox 99.3 F 88 18 159/85 H 100 11/27/18 14:56 11/27/18 14:56 11/27/18 14:56 11/27/18 14:56 11/27/18 14:56 - Laboratory Result Diagrams: 11/27/18 16:43 11/27/18 16:43 Laboratory results interpreted by me: 11/27/18 11/27/18 11/27/18 16:43 16:43 16:43 [place] % (Auto) 13.3 H BUN 6 L Total Bilirubin 4.7 H AST 65 H Urine Ascorbic Acid 40 H - Transfer of Care Notes: 11/27/18 21:40 Patient most likely has an acute viral syndrome this started with a cough and now is had watery loose vomiting and diarrhea without blood he denies any pain he has no fever at the present time I will send him home with some Angélicayl and Angie tell him to drink Gatorade mixed with water and a BRAT diet Discharge - Discharge Clinical Impression: Acute viral syndrome, Cough HIV (human immunodeficiency virus infection) Qualifiers: HIV symptom status: asymptomatic Qualified Code(s): Z21 - Asymptomatic human immunodeficiency virus [HIV] infection status Condition: Stable Disposition: HOME, SELF-CARE Instructions: Acetaminophen, Fever ([facility]), Viral Syndrome ([facility]) Additional Instructions: Drink plenty of Gatorade mixed with water and advance to a diet of the BRAT or bananas rice applesauce toast mashed potatoes return if worse Prescriptions: Dicyclomine HCl [Bentyl 20 mg Tablet] 20 mg PO Q6 PRN #20 tablet PRN Reason: Ondansetron [Zofran Odt 4 mg Tablet] 1 - 2 tab PO Q4H PRN #15 tab.rapdis PRN Reason: For Nausea/Vomiting Referrals: ROSMERY ORO MD [ACTIVE STAFF] - Follow up as needed
[2018-11-27 22:14] VITALS: BP 128/61
== END 2018-11-27 22:18 | disposition home or self-care (01) ==
LOC: ER 14:05
DX: B34.9 Viral infection, unspecified (principal); R50.9 Fever, unspecified; R05 Cough; Z21 Asymptomatic human immunodeficiency virus [HIV] infection status; R19.7 Diarrhea, unspecified; I10 Essential (primary) hypertension
CPT/HCPCS: 99283; 36415; 87086; 83690; 85025; 80053; 81001; 87804; 71046; S0119